=== PATIENT | male | born 1960 | race African-American/Black ===

== ENCOUNTER 2020-09-08 08:24 | Outpatient (CLI) | payer BC, SELFPAY | END 2020-09-08 08:25 | disposition home or self-care (01) | LOC: ANHAUDASC 08:25 | PROVIDERS: PCP Family Medicine; Visit Provider Otolaryngology | DX: H93.13 Tinnitus, bilateral (principal); H90.3 Sensorineural hearing loss, bilateral | CPT/HCPCS: 92557; 92567 ==

== ENCOUNTER 2020-09-21 11:03 | Outpatient (CLI) | payer BC, SELFPAY ==
--- NOTE | ~2020-09-21 | MR_ITS ---
EXAMINATION: MR IAC wo con DATE: 09/21/2020 12:13 INDICATION: Unspecified sensorineural hearing loss. Right-sided tinnitus. TECHNIQUE: Magnetic resonance imaging (MRI) of the brain, brainstem, and internal auditory canals was performed without intravenous contrast. Sequences included sagittal and axial T1-weighted FSE, axial diffusion-weighted FS EPI, axial T2*-weighted GRE, axial T2-weighted FLAIR Propeller, axial T2-weigh ashley Propeller, small [id number] coronal FIESTA, small ohusu-au-nswf coronal T1-weighted FSE, and s mall [id number]-[id number] axial T1-weighted SPGR. Apparent diffusion coefficient (ADC) maps were created. COMPARISON: None. FINDINGS: There are scattered areas of nonspecific increased T2-weighted signal intensity in the cere bral white matter, which is within normal limits for the patient's age. There is no intracranial hemo rrhage, acute infarction, or abnormal intracranial mass lesion. The ventricles are normal in size. Th e internal auditory canals and inner and middle ears are normal. The mastoid air cells are normal. Th ere is mild mucosal thickening in the paranasal sinuses. The orbits are normal. IMPRESSION: 1. Normal aging brain. Reviewed, dictated and finalized at location A. [employer] IMPRESSION: 1. Normal aging brain.
== END 2020-09-21 11:04 | disposition home or self-care (01) ==
PROVIDERS: PCP Family Medicine; Visit Provider Otolaryngology
DX: H90.5 Unspecified sensorineural hearing loss (principal)
CPT/HCPCS: 70551

== ENCOUNTER 2020-10-04 01:33 | Outpatient (CLI) | payer BC, SELFPAY ==
[2020-10-04 18:52] LABS: SARS-CoV-2 RNA PCR Negative
== END 2020-10-04 01:34 | disposition home or self-care (01) ==
LOC: ANHCOVIDDT 01:33
PROVIDERS: PCP Family Medicine; Visit Provider Internal Medicine Gastroenterology
DX: Z01.818 Encounter for other preprocedural examination (principal); Z20.828 Contact with and (suspected) exposure to other viral communicable diseases
CPT/HCPCS: 87635; C9803; U0003

== ENCOUNTER 2020-10-07 00:19 | Day surgery (SDC) | payer BC, SELFPAY ==
[2020-09-29 14:31] VITALS: BMI 48.4
--- NOTE | 2020-10-06 12:55 | WPDANESEPPF ---
Anes - Initial Pre Proc Eval Procedure: Operation Date: 10/07/20 14:00 Proposed Procedures p Screening Colonoscopy - Robi Bernal MD Date/Time: 10/06/20 12:55 Surgeon: Robi Bernal MD Pre Op Diagnosis: Neoplasm Screening Patient Data Age: 59 Gender: M Height: 1.68 m Weight: 136 kg Allergies Allergy/AdvReac Type Severity Reaction Status Date / Time Penicillins Allergy Unknown ITCHING Verified 10/07/20 12:43 RASH HANDS AND FEET Home Medications Medication Instructions Recorded Confirmed Type sildenafil 100 mg tablet 100 mg PO DAILY PRN #10 tablet 11/24/19 09/29/20 Rx albuterol sulfate 90 mcg/actuation 1 inhalation INHALATION Q4-6H PRN 06/10/20 09/29/20 Rx breath activated powder inhaler #1 each labetalol 200 mg tablet 400 mg PO BID tablet 08/18/20 09/29/20 History amlodipine 10 mg tablet 10 mg PO DAILY #90 tablet 09/13/20 09/29/20 Rx fluticasone furoate 200 1 inh INHALATION DAILY #28 ea 09/24/20 09/29/20 Rx mcg-vilanterol 25 mcg/dose inhalation powder ipratropium 0.5 mg-albuterol 3 mg See Rx Instructions .ROUTE 09/24/20 09/29/20 Rx (2.5 mg base)/3 mL nebulization .COMPLEX #180 ml soln hydrocodone 5 mg-acetaminophen 325 1 tablet PO Q12H PRN #60 tablet 09/28/20 09/29/20 Rx mg tablet amlodipine [Norvasc] 10 mg PO DAILY 09/29/20 09/29/20 History atorvastatin [Lipitor] 80 mg PO DAILY 09/29/20 09/29/20 History atorvastatin 80 mg tablet See Rx Instructions .ROUTE 10/04/20 10/07/20 Rx .COMPLEX #90 tablet Patient hx anesthesia problems: none Family hx anesthesia problems: none PMFSH Past Medical History Medical History (Updated 10/06/20 @ 12:57 by Sergio Casper MD) Asthma Chronic low back pain CKD (chronic kidney disease) stage 5, GFR less than 15 ml/min Dyslipidemia Elevated lipids Erectile dysfunction Gout History of colon polyps Hypertension 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: finished Isoniazid 300 mg daily for 9 months Morbid obesity with BMI of 45.0-49.9, adult Osteoarthritis Reactive airway disease Surgical History Surgical History Arteriovenous fistula for hemodialysis in place, primary 07/18 Family History Family History Father Diabetes mellitus Mother Coronary artery disease Mother Family history of coronary artery disease, Onset Age: 60 Father Family history of type 2 diabetes mellitus Social History Social History Smoking status: Former smoker Tobacco type: cigarettes Second hand tobacco smoke exposure: No Smoking end date: 05/02/11 Alcohol intake: former Substance use: never Substance use type: does not use Living arrangements: with family Gender identity (if verbalized by the patient): Male Sexual Orientation (if Verbalized by the Patient): Straight or Heterosexual Spiritual care concerns: No Agree to blood products: Yes Anes - Eval Final PreProcedure Day of Procedure 10/06/20 12:55 Patient weight: morbidly obese Heart: regular rate and rhythm Lungs: clear to auscultation and normal air movement Airway: Mallampati scale class II Neurological: alert and oriented Last oral intake: >/= 8 hours ASA classification: IV Emergent: no Anesthetic plan: proceed Anesthesia type and monitoring: general GIVS Informed Consent: The patient's anesthetic plan and its attendant risks and benefits were discussed with the patient/family/POA. Questions were solicited and answers provided to the satisfaction of the patient/family/POA.
[2020-10-07 12:45] VITALS: BP 170/99; PULSE 68; RESP 18; TEMP 36.4; O2SAT 100
[2020-10-07] MEDS: LACTATED RINGERS 1,000 ML 150 ML IV CONT (12:54)
--- NOTE | 2020-10-07 13:22 | PM.HPGS ---
History of Present Illness History of Present Illness Consent: Risks, benefits, and alternatives have been discussed and questions answered. Patient agrees to proceed with procedure. Chief complaint: Neoplasm Screening Narrative: Moises Red Jr. is a 59 year old male here for screening colonoscopy, last one 10 years ago. Review of Systems Constitutional: Constitutional: Denies headache(s) and Denies weakness Eyes: Eyes: Denies blurry vision ENT: Reports Normal hearing present, Denies headache(s) and Denies neck pain Cardiovascular: Cardiovascular: Denies chest pain and Denies dyspnea Respiratory: Respiratory: Denies dyspnea Gastrointestinal: Gastrointestinal: Reports no additional gastrointestinal complaints Genitourinary: Genitourinary: Denies dysuria Musculoskeletal: Musculoskeletal: Denies neck pain Integumentary/Breasts: Skin/Breast: Denies dry skin Neurologic: Reports Normal hearing present, Denies headache(s) and Denies weakness Psychiatric: Psychiatric: Denies anxiety Endocrine: Endocrine: Denies change in body appearance Hematologic/Lymphatic: Hematologic/Lymphatic: Denies easy bleeding Allergic/Immunologic: Allergic/Immunologic: Denies urticaria PMFSH Past Medical History Medical History (Updated 10/07/20 @ 13:22 by Robi Bernal MD) Asthma Chronic low back pain CKD (chronic kidney disease) stage 5, GFR less than 15 ml/min Colon cancer screening Dyslipidemia Elevated lipids Erectile dysfunction Gout History of colon polyps Hypertension 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: finished Isoniazid 300 mg daily for 9 months Morbid obesity with BMI of 45.0-49.9, adult Osteoarthritis Reactive airway disease Surgical History Surgical History Arteriovenous fistula for hemodialysis in place, primary 07/18 Family History Family History Father Diabetes mellitus Mother Coronary artery disease Mother Family history of coronary artery disease, Onset Age: 60 Father Family history of type 2 diabetes mellitus Social History Social History Smoking status: Former smoker Tobacco type: cigarettes Second hand tobacco smoke exposure: No Smoking end date: 05/02/11 Alcohol intake: former Substance use: never Substance use type: does not use Living arrangements: with family Gender identity (if verbalized by the patient): Male Sexual Orientation (if Verbalized by the Patient): Straight or Heterosexual Spiritual care concerns: No Agree to blood products: Yes Meds Home Medications and Allergies Home Medications Medication Instructions Recorded Confirmed Type sildenafil 100 mg tablet 100 mg PO DAILY PRN #10 tablet 11/24/19 09/29/20 Rx albuterol sulfate 90 mcg/actuation 1 inhalation INHALATION Q4-6H PRN 06/10/20 09/29/20 Rx breath activated powder inhaler #1 each labetalol 200 mg tablet 400 mg PO BID tablet 08/18/20 09/29/20 History amlodipine 10 mg tablet 10 mg PO DAILY #90 tablet 09/13/20 09/29/20 Rx fluticasone furoate 200 1 inh INHALATION DAILY #28 ea 09/24/20 09/29/20 Rx mcg-vilanterol 25 mcg/dose inhalation powder ipratropium 0.5 mg-albuterol 3 mg See Rx Instructions .ROUTE 09/24/20 09/29/20 Rx (2.5 mg base)/3 mL nebulization .COMPLEX #180 ml soln hydrocodone 5 mg-acetaminophen 325 1 tablet PO Q12H PRN #60 tablet 09/28/20 09/29/20 Rx mg tablet amlodipine [Norvasc] 10 mg PO DAILY 09/29/20 09/29/20 History atorvastatin [Lipitor] 80 mg PO DAILY 09/29/20 09/29/20 History atorvastatin 80 mg tablet See Rx Instructions .ROUTE 10/04/20 10/07/20 Rx .COMPLEX #90 tablet Allergies Allergy/AdvReac Type Severity Reaction Status Date / Time Penicillins Allergy Unknown ITCHING Verified 10/07/20 12:43 RASH HANDS AND FEET Vital Signs Vital S
[2020-10-07 13:37] VITALS: BP 121/78; PULSE 71; RESP 22; O2SAT 95
[2020-10-07 13:47] VITALS: BP 136/83; PULSE 65; RESP 20; O2SAT 94
[2020-10-07 13:57] VITALS: BP 145/94; PULSE 62; RESP 18; O2SAT 97
== END 2020-10-07 14:24 | disposition home or self-care (01) ==
PROVIDERS: PCP Family Medicine; Visit Provider Internal Medicine Gastroenterology
PROC: 0DJD8ZZ Inspection of Lower Intestinal Tract, Via Natural or Artificial Opening Endoscopic (ICD-10-PCS; CPT 45378; principal; 2020-10-07 14:00)
DX: Z12.11 Encounter for screening for malignant neoplasm of colon (principal); K57.30 Diverticulosis of large intestine without perforation or abscess without bleeding; I12.0 Hypertensive chronic kidney disease with stage 5 chronic kidney disease or end stage renal disease; N18.5 Chronic kidney disease, stage 5; J45.909 Unspecified asthma, uncomplicated; E78.5 Hyperlipidemia, unspecified; M10.9 Gout, unspecified; N52.9 Male erectile dysfunction, unspecified; Z86.15 Personal history of latent tuberculosis infection; E66.01 Morbid (severe) obesity due to excess calories; Z68.42 Body mass index [BMI] 45.0-49.9, adult; Z87.891 Personal history of nicotine dependence
CPT/HCPCS: 45378; J2704; J7120

== ENCOUNTER 2021-08-01 10:17 | Outpatient (CLI) | payer BC, SELFPAY ==
--- NOTE | ~2021-08-01 | XR_ITS ---
XR chest 2V DATE: 08/01/2021 10:47 INDICATION: PPD positive. No chest complaints. TECHNIQUE: PA and lateral views COMPARISON: 10/17/2019 portable upright AP chest FINDINGS: Normal heart size. No hilar or mediastinal enlargement. No pulmonary infiltrate or consolid ation, pleural effusion or pulmonary vascular congestion or pneumothorax is detected. Mild scoliosis and degenerative spurring of the thoracic spine. IMPRESSION: No active cardiopulmonary disease Reviewed, dictated and finalized at location A.
== END 2021-08-01 10:18 | disposition home or self-care (01) ==
PROVIDERS: PCP Family Medicine; Visit Provider Internal Medicine Nephrology
DX: R76.11 Nonspecific reaction to tuberculin skin test without active tuberculosis (principal)
CPT/HCPCS: 71046

== ENCOUNTER 2021-08-20 14:50 | Emergency (ER) | payer BC, SELFPAY ==
--- NOTE | ~2021-08-20 | XR_ITS ---
XR ankle RT min 3V DATE: 08/20/2021 16:06 INDICATION: Lateral pain and swelling for a day TECHNIQUE: 4 views COMPARISON: None FINDINGS: Mild plantar calcaneal enthesopathy. There is mild lateral soft tissue swelling. No fracture or dislocation of the ankle or disruption of the ankle mortise is detected. IMPRESSION: Mild lateral soft tissue swelling Mild plantar calcaneal enthesopathy Reviewed, dictated and finalized at location A.
[2021-08-20 14:52] VITALS: BP 151/97; PULSE 90; RESP 18; TEMP 36.1; O2SAT 100
--- NOTE | 2021-08-20 15:23 | ED.GENADULT ---
HPI - General Adult General Chief complaint: Unspecified <Yajaira James PA-C - Last Filed: 08/20/21 16:44> Stated complaint: right foot gout <Yajaira James PA-C - Last Filed: 08/20/21 16:44> Time Seen by Provider: 08/20/21 15:22 <Yajaira James PA-C - Last Filed: 08/20/21 16:44> Source: patient <SABRINA Molina Last Filed: 08/20/21 16:44> Mode of arrival: ambulatory <Yajaira James PA-C - Last Filed: 08/20/21 16:44> Limitations: no limitations <Yajaira James PA-C - Last Filed: 08/20/21 16:44> History of Present Illness HPI narrative: 60-year-old male with is here for right ankle pain that he states is a gout flareup. He last had a flareup 10 years ago he has been treated in the past with colchicine. He feels that this flareup was exacerbated by the eating of shellfish. Denies any injury to the ankle remote or recent. No fever <Yajaira James PA-C - Last Filed: 08/20/21 16:44> Onset (ago): hour(s) <Yajaira James PA-C - Last Filed: 08/20/21 16:44> Severity: moderate <Yajaira James PA-C - Last Filed: 08/20/21 16:44> Pain Consistency: constant <Yajaira James PA-C - Last Filed: 08/20/21 16:44> Exacerbating factors: movement <SABRINA Molina Last Filed: 08/20/21 16:44> Associated symptoms: denies other symptoms <SABRINA Molina Last Filed: 08/20/21 16:44> Related Data Home medications: Home Medications Medication Instructions Recorded Confirmed ascorbate calcium-bioflavonoid 1 tablet PO DAILY tablet 02/10/21 08/18/21 1,000 mg-200 mg tablet cholecalciferol (vitamin D3) 25 25 mcg PO DAILY 02/10/21 08/18/21 mcg (1,000 unit) capsule atorvastatin 80 mg tablet 80 mg PO QHS tablet 08/18/21 08/18/21 sodium bicarbonate 650 mg tablet 1,300 mg PO TID tablet 08/18/21 08/18/21 <Yajaira James PA-C - Last Filed: 08/20/21 16:44> Allergies/adverse reactions: Allergies Allergy/AdvReac Type Severity Reaction Status Date / Time Penicillins Allergy Unknown ITCHING Verified 08/18/21 09:06 RASH HANDS AND FEET <Yajaira James PA-C - Last Filed: 08/20/21 16:44> Review of Systems Review of Systems: All systems reviewed & are unremarkable except as noted in HPI and below <Yajaira James PA-C - Last Filed: 08/20/21 16:44> [facility] Past Medical History Medical History: Medical History Asthma Chronic low back pain Dyslipidemia Elevated lipids Erectile dysfunction ESRD on hemodialysis Gout History of colon polyps Hypertension 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: finished Isoniazid 300 mg daily for 9 months Left shoulder pain Morbid obesity with BMI of 45.0-49.9, adult Osteoarthritis Reactive airway disease Vitamin D deficiency <Yajaira James PA-C - Last Filed: 08/20/21 16:44> Surgical History Surgical History: Surgical History Arteriovenous fistula for hemodialysis in place, primary 07/18 <Yajaira James PA-C - Last Filed: 08/20/21 16:44> Family History Family History: Family History Father Diabetes mellitus Mother Coronary artery disease Mother Family history of coronary artery disease, Onset Age: 60 Father Family history of type 2 diabetes mellitus <Yajaira James PA-C - Last Filed: 08/20/21 16:44> Social History Social History: Social History Smoking status: Former smoker Tobacco type: cigarettes Second hand tobacco smoke exposure: No Smoking end date: 05/02/11 Alcohol intake: former Substance use: never Substance use type: does not use Gender identity (if verbalized by the patient): Male Sexual Orientation (if Verbalized by the Patient): Straight or Heterosexual Spiritual c
[2021-08-20 15:37] LABS: Alanine Aminotransferase 19 U/L (4-50); Albumin Level 5.2 g/dL (3.5-5.1); Alkaline Phosphatase 161 U/L (38-126); Anion Gap 16 mmol/L (8-16); Aspartate Amino Transferase 27 U/L (17-59); Bilirubin,Total 1.7 mg/dL (0.2-1.3); Blood Urea Nitrogen 32 mg/dL (9-20); Calcium 10.2 mg/dL (8.4-10.2); Carbon Dioxide 29 mmol/L (22-30); Chloride 95 mmol/L (98-107); Estimated CRCL calculation 15 ml/min; Estimated Glomerular Filt Rate 11; Glucose 99 mg/dL (65-110); Sodium 140 mmol/L (137-145); Uric Acid 3.3 mg/dL (3.5-8.5)
[2021-08-20] MEDS: COLCHICINE 0.6 MG TABLET 1.2 MG PO (15:48)
[2021-08-20] MEDS: methylPREDNISolone SOD SUCC 125 MG VIAL IM (17:00)
== END 2021-08-20 17:02 | disposition home or self-care (01) ==
PROVIDERS: Emergency Medicine; Emergency Provider General Practice; PCP Family Medicine
DX: M1A.0710 Idiopathic chronic gout, right ankle and foot, without tophus (tophi) (principal); M19.071 Primary osteoarthritis, right ankle and foot; J45.909 Unspecified asthma, uncomplicated; E78.5 Hyperlipidemia, unspecified; I12.0 Hypertensive chronic kidney disease with stage 5 chronic kidney disease or end stage renal disease; N18.6 End stage renal disease; Z86.010 Personal history of colon polyps; E66.01 Morbid (severe) obesity due to excess calories; Z68.41 Body mass index [BMI] 40.0-44.9, adult; E55.9 Vitamin D deficiency, unspecified; Z87.891 Personal history of nicotine dependence; Z99.2 Dependence on renal dialysis
CPT/HCPCS: 36415; 73610; 80053; 84550; 96372; 99283; A9270; J2930

== ENCOUNTER 2021-11-02 13:31 | Emergency (ER) | payer BC, MEDICARE, SELFPAY ==
--- NOTE | 2021-11-02 13:38 | ED.URI ---
HPI - URI/Sore Throat General Chief Complaint: Upper Respiratory Infection Stated Complaint: Flu sx Time Seen by Provider: 11/02/21 13:52 Source: patient and RN notes reviewed Mode of arrival: ambulatory Limitations: no limitations History of Present Illness HPI Narrative: 61-year-old male with history of asthma, diabetes, dialysis presents with concern for cough, shortness of breath, runny nose, stuffy nose. Reports his child tested positive for Covid. Reports he had a virtual visit with his doctor yesterday and got a steroid pack which she started taking this morning. Reports has been using nebulizer at home every 4-6 hours. He denies fever, body aches. MD elicited complaint: cough and sore throat Related Data Home Medications Medication Instructions Recorded Confirmed ascorbate calcium-bioflavonoid 1 tablet PO DAILY tablet 02/10/21 09/21/21 1,000 mg-200 mg tablet cholecalciferol (vitamin D3) 25 25 mcg PO DAILY 02/10/21 09/21/21 mcg (1,000 unit) capsule atorvastatin 80 mg tablet 80 mg PO QHS tablet 08/18/21 09/21/21 sodium bicarbonate 650 mg tablet 1,300 mg PO TID tablet 08/18/21 09/21/21 Allergies Allergy/AdvReac Type Severity Reaction Status Date / Time Penicillins Allergy Unknown ITCHING Verified 11/01/21 15:35 RASH HANDS AND FEET Review of Systems Review of Systems: CONSTITUTIONAL: Denies malaise, chills, sweats, or fever. EYES: Denies visual changes, redness, or discharge. ENT: Denies rhinorrhea, congestion, sinus pain, otalgia and sore throat. CARDIOVASCULAR: Denies chest pain, palpitations, or edema. RESPIRATORY: Reports cough, dyspnea. GASTROINTESTINAL: Denies abdominal pain, nausea, vomiting, diarrhea SKIN: Denies rash or itching. MUSCULOSKELETAL: Denies myalgia. NEUROLOGIC: Denies headache. All systems reviewed & are unremarkable except as noted in HPI and below PMFSH Past Medical History Medical History Asthma Chronic low back pain Dyslipidemia Elevated lipids Erectile dysfunction ESRD on hemodialysis Gout History of colon polyps Hypertension 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: finished Isoniazid 300 mg daily for 9 months Left shoulder pain Morbid obesity with BMI of 45.0-49.9, adult Osteoarthritis Reactive airway disease Vitamin D deficiency Surgical History Surgical History Arteriovenous fistula for hemodialysis in place, primary 07/18 Family History Family History Father Diabetes mellitus Mother Coronary artery disease Mother Family history of coronary artery disease, Onset Age: 60 Father Family history of type 2 diabetes mellitus Social History Social History Smoking status: Former smoker Tobacco type: cigarettes Second hand tobacco smoke exposure: No Smoking end date: 05/02/11 Alcohol intake: former Substance use: never Substance use type: does not use Gender identity (if verbalized by the patient): Male Sexual Orientation (if Verbalized by the Patient): Straight or Heterosexual Spiritual care concerns: No Agree to blood products: Yes Comments At time of signature, agree with nursing past medical, surgical, social and family history. There is no relevant family history pertinent to the presenting complaint Exam Narrative: GENERAL: Well-appearing, well-nourished, and in no acute distress. HEAD: Normocephalic EYES: PERRLA, conjunctivae clear ENT: Nares clear. Mucous membranes moist. TM pearly patrick with dull light reflex bilaterally; no tragal tenderness. Oropharynx not erythematous without lesions. Tonsils not enlarged and without exudate, no drooling, no hoarseness, no trismus, uvula midline. NECK: Supple. No lymphadenopathy CHEST: Inspiratory and expiratory wheeze throughout, rhonchi, breath
[2021-11-02 13:40] VITALS: BP 149/90; PULSE 73; RESP 16; TEMP 36.2; O2SAT 100
== END 2021-11-02 14:22 | disposition home or self-care (01) ==
PROVIDERS: Emergency Provider Nurse Practitioner; PCP Family Medicine
DX: J06.9 Acute upper respiratory infection, unspecified (principal); J45.909 Unspecified asthma, uncomplicated; Z20.822 Contact with and (suspected) exposure to COVID-19; Z87.891 Personal history of nicotine dependence; E78.5 Hyperlipidemia, unspecified; M10.9 Gout, unspecified; I12.0 Hypertensive chronic kidney disease with stage 5 chronic kidney disease or end stage renal disease; E11.22 Type 2 diabetes mellitus with diabetic chronic kidney disease; N18.6 End stage renal disease; Z99.2 Dependence on renal dialysis; E55.9 Vitamin D deficiency, unspecified
CPT/HCPCS: 87426; 99213; C9803; G0463

== ENCOUNTER → 2021-11-05 02:10 | Outpatient (CLI) | payer BC, MEDICARE, SELFPAY ==
[2021-11-06 16:23] LABS: SARS-CoV-2 RNA PCR Negative
== END ==
PROVIDERS: PCP Family Medicine; Visit Provider Family Medicine
DX: J06.9 Acute upper respiratory infection, unspecified (principal); Z20.822 Contact with and (suspected) exposure to COVID-19
CPT/HCPCS: C9803; U0003; U0005

== ENCOUNTER 2023-02-28 10:59 | Outpatient (CLI) | payer BC, MEDICARE, SELFPAY ==
[2023-03-04 22:16] LABS: PSA, Free 1.42 ng/mL; PSA, Total 6.4 ng/mL (<=4.0); Percent Free Prostate Spec Ag 22 % (>25)
== END 2023-02-28 11:00 | disposition home or self-care (01) ==
LOC: ANHGOSHLAB 10:59
PROVIDERS: PCP Family Medicine; Visit Provider Family Medicine
DX: R97.20 Elevated prostate specific antigen [PSA] (principal)
CPT/HCPCS: 36415; 84153; 84154

== ENCOUNTER 2023-03-27 14:27 | Outpatient (CLI) | payer BC, MEDICARE, SELFPAY ==
--- NOTE | 2023-03-28 08:38 | WPDPFTINT ---
PFT Procedure Performed PFT Procedure Performed Spirometry with Pre/Post Bronchodilator Plethysmography (Lung Vol) Diffusing Cap (DLCO) Flow Vol Loop PFT Interpretation Lung volumes were measured with the body plethysmography method. The elevated RV and FRC are indicative of air trapping. Spirometry showed diminished expiratory flow rates and a diminished FEV1 to FVC ratio of 56%, consistent with obstructive airway disease. Following administration of a bronchodilator there was significant increase in the expiratory flow rates. Lung diffusion capacity is within the normal range at 82% predicted. The flow volume loop is consistent with obstructive airway disease. Impression: Moderately severe obstructive airway disease with evidence of air trapping and significant response to bronchodilators on this testing. Lung diffusion capacity within the normal range.
== END 2023-03-27 14:28 | disposition home or self-care (01) ==
LOC: ANHLAB 14:28
PROVIDERS: PCP Family Medicine; Visit Provider Family Medicine
DX: J45.909 Unspecified asthma, uncomplicated (principal); R94.2 Abnormal results of pulmonary function studies
CPT/HCPCS: 94060; 94726; 94729

== ENCOUNTER 2023-07-27 12:19 | Outpatient (CLI) | payer MEDICARE, SELFPAY ==
--- NOTE | ~2023-07-27 | XR_ITS ---
EXAMINATION: XR chest 2V 07/27/2023 12:38 INDICATION: Positive PPD test PROCEDURE: 2 view chest COMPARISON: 06/26/2006 FINDINGS: The lungs are clear. The cardiomediastinal silhouette is within normal limits. There are no pleural effusions. There is no pneumothorax suspected. IMPRESSION: 1: NO ACUTE CARDIOPULMONARY DISEASE. Reviewed, dictated and finalized at location B.
== END 2023-07-27 12:20 | disposition home or self-care (01) ==
PROVIDERS: PCP Family Medicine; Visit Provider Internal Medicine Nephrology
DX: R76.11 Nonspecific reaction to tuberculin skin test without active tuberculosis (principal)
CPT/HCPCS: 71046

== ENCOUNTER 2023-08-27 12:27 | Outpatient (CLI) | payer MEDICARE, SELFPAY ==
[2023-08-27 20:51] LABS: Prostate Specific Antigen 6.5 ng/mL (< OR = 4.0)
== END 2023-08-27 12:28 | disposition home or self-care (01) ==
LOC: ANHGOSHLAB 12:29
PROVIDERS: PCP Family Medicine; Visit Provider Radiology Radiation Oncology
DX: C61 Malignant neoplasm of prostate (principal)
CPT/HCPCS: 36415; 84153

== ENCOUNTER 2023-09-12 10:20 | Outpatient (CLI) | payer MEDICARE, SELFPAY ==
[2023-09-12 19:07] LABS: Basophils Percent Auto 0.7 % (0.2-1.2); Eosinophils Absolute Auto 0.1 K/mm3 (0-0.3); Eosinophils Percent Auto 4.1 % (0-4.4); Hematocrit 34.1 % (42.0-52.0); Hemoglobin 10.9 g/dL (14.0-18.0); Lymphocytes Absolute Auto 0.98 K/mm3 (0.9-3.2); Lymphocytes Percent Auto 33.8 % (18.3-44.2); Mean Corpuscular Hemoglobin 31.5 pg (26-34); Mean Corpuscular Volume 98.6 fl (80-100); Mean Platelet Volume 12.3 fl (7.4-10.4); Monocytes Absolute Auto 0.5 K/mm3 (0.1-0.6); Monocytes Percent Auto 15.5 % (2.6-8.5); Neutrophils Absolute Auto 1.3 K/mm3 (1.3-6.7); Neutrophils Percent Auto 45.9 % (45.5-73.1); Platelet Count Result 115 k/mm3 (150-375); Red Blood Count 3.46 M/mm3 (4.6-6.20); Red Cell Distribution Width 14.9 % (11.5-14.5); White Blood Count 2.9 K/mm3 (4.5-10.0)
[2023-09-12 19:56] LABS: Vitamin D 25 Hydroxy 60.4 ng/mL
[2023-09-12 20:20] LABS: Alanine Aminotransferase 88 U/L (6-50); Albumin Level 4.6 g/dL (3.5-5.1); Alkaline Phosphatase 72 U/L (38-126); Anion Gap 10 mmol/L (8-16); Aspartate Amino Transferase 104 U/L (17-59); Bilirubin,Total 1.8 mg/dL (0.2-1.3); Blood Urea Nitrogen 21 mg/dL (9-20); Calcium 10.3 mg/dL (8.4-10.2); Carbon Dioxide 34 mmol/L (22-30); Chloride 93 mmol/L (98-107); Cholesterol 149 mg/dL (0-200); Estimated Glomerular Filt Rate 10; Glucose 102 mg/dL (65-110); HDL Direct 106 mg/dL; Potassium 3.6 mmol/L (3.4-5.0); Sodium 137 mmol/L (137-145); Triglycerides 57 mg/dL (<150); Uric Acid 4.3 mg/dL (3.5-8.5)
[2023-09-12 20:39] LABS: LDL Cholesterol Direct 39 mg/dL
== END 2023-09-12 10:21 | disposition home or self-care (01) ==
LOC: ANHGOSHLAB 10:21
PROVIDERS: PCP Family Medicine; Visit Provider Family Medicine
DX: I10 Essential (primary) hypertension (principal); E53.8 Deficiency of other specified B group vitamins; E78.5 Hyperlipidemia, unspecified; E55.9 Vitamin D deficiency, unspecified; M10.00 Idiopathic gout, unspecified site
CPT/HCPCS: 36415; 80053; 80061; 82306; 82607; 84443; 84550; 85025

== ENCOUNTER 2023-10-25 12:31 | Outpatient (CLI) | payer MEDICARE, SELFPAY ==
--- NOTE | ~2023-10-25 | MR_ITS ---
EXAMINATION: MR pelvis wo/w con INDICATION: Malignant neoplasm of the prostate TECHNIQUE: 3D Axial T2 Cube, Axial 2D FIESTA, Coronal SSFSE ARC, Axial and Coronal 2D FIESTA FatSat, Axial T2 FS, Axial SSFSE BH ARC, Axial 3D DualEcho BH, Axial SSFSE-IR Solitario, Axial DWI b=600, pre and d ynamic postcontrast Axial LAVA ARC, WATER:POST Cor LAVA-FLEX COMPARISON: None available CONTRAST: Multihance, 20 cc FINDINGS: There is heterogeneous T2 signal intensity in the central zone of the prostate. Areas of in creased T1 signal intensity in the peripheral zone of the prostate could reflect biopsy change. There appears to be an intact fat plane between the prostate or rectum. No pathologically enlarged pelvic lymph nodes are identified. There are bilateral inguinal hernias containing fat, right greater than l eft. The visualized osseous structures are unremarkable. IMPRESSION: 1. No evidence of metastatic disease. Reviewed, dictated and finalized at location B. [facility] SORTER
== END 2023-10-25 12:32 | disposition home or self-care (01) ==
PROVIDERS: PCP Family Medicine; Visit Provider Radiology Radiation Oncology
DX: C61 Malignant neoplasm of prostate (principal)
CPT/HCPCS: 72197; A9577

== ENCOUNTER 2024-06-04 16:23 | Emergency (ER) | payer MEDICARE, SELFPAY ==
[2024-06-04 16:52] VITALS: BP 118/95; PULSE 77; RESP 16; TEMP 36.1; O2SAT 100
--- NOTE | 2024-06-04 17:09 | ED.ABDPAIN ---
HPI - Abdominal Pain General Chief Complaint: Abdominal Pain Stated Complaint: Right Side Pain Time Seen by Provider: 06/04/24 17:10 Source: patient, RN notes reviewed and old records reviewed Mode of arrival: ambulatory Limitations: no limitations History of Present Illness HPI narrative: patient presents with complaints of sudden-onset right-sided upper abdominal pain. Pain began suddenly this morning at about 10:00 a.m.. He reports that he is constipated. No bowel movement today. Decreased appetite. He denies any fever, chills, sweats. Denies nausea or vomiting. Sunday, , Sunday dialysis. Last dialyzed yesterday. Denies any shortness of breath. Related Data Home Medications Medication Instructions Recorded Confirmed ascorbate calcium-bioflavonoid 1 tablet PO DAILY 02/10/21 06/04/24 1,000 mg-200 mg tablet (Yadira-C with Bioflavonoids) sodium bicarbonate 650 mg tablet 1,300 mg PO TID 08/18/21 06/04/24 colchicine 0.6 mg tablet 0.6 mg PO DAILY PRN Pain 08/23/22 06/04/24 loratadine 10 mg tablet (Claritin) 10 mg PO DAILY PRN ALLERGIES 08/23/22 06/04/24 multivitamin 1 tablet PO DAILY 08/23/22 06/04/24 Allergies Allergy/AdvReac Type Severity Reaction Status Date / Time Penicillins Allergy Unknown ITCHING Verified 06/04/24 17:13 RASH HANDS AND FEET Review of Systems Review of Systems: All systems reviewed & are unremarkable except as noted in HPI and below Constitutional: Constitutional: Reports no additional constitutional complaints ENT: Reports system reviewed and no additional complaints, except as documented Cardiovascular: Cardiovascular: Reports no additional cardiovascular complaints Respiratory: Respiratory: Reports no additional respiratory complaints Gastrointestinal: Gastrointestinal: Reports as per HPI and Reports no additional gastrointestinal complaints [facility] Past Medical History Medical History Chronic low back pain COPD with asthma Dyslipidemia Elevated lipids Environmental allergies Erectile dysfunction ESRD on hemodialysis Gout History of colon polyps Hypertension 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: finished Isoniazid 300 mg daily for 9 months Left shoulder pain Morbid obesity with BMI of 45.0-49.9, adult Osteoarthritis Prostate cancer (~2022) Vitamin D deficiency Surgical History Surgical History Arteriovenous fistula for hemodialysis in place, primary (~06/2020) 07/18 H/O rotator cuff surgery (~10/2021) left S/P cubital tunnel release (~03/2021) left Family History Family History Father Diabetes mellitus Mother Coronary artery disease Mother Family history of coronary artery disease, Onset Age: 60 Father Family history of type 2 diabetes mellitus Social History Social History Smoking status: Former smoker (< 20 pack years) Tobacco type: cigarettes Second hand tobacco smoke exposure: No Smoking end date: 10/29/99 Alcohol intake: former Substance use: never Substance use type: does not use Living arrangements: with family Occupation/Education: retired Gender identity (if verbalized by the patient): Male Sexual Orientation (if Verbalized by the Patient): Straight or Heterosexual Spiritual care concerns: No Agree to blood products: Yes Exam Const: General: cooperative, no acute distress, alert, awake and uncomfortable Orientation/consciousness: oriented to person, oriented to place and oriented to time HENMT: Head: normal to inspection Resp: Effort & Inspection: normal respiratory effort and able to speak in complete sentences Auscultation: clear to auscultation bilaterally, no crackles, no rales, no rhonchi, no wheezes and diminished lung sounds diffuse Cardio: Pal[place]
== END 2024-06-04 17:21 | disposition short-term general hospital (02) ==
PROVIDERS: Emergency Provider Nurse Practitioner Family; PCP Family Medicine
DX: R10.11 Right upper quadrant pain (principal); Z87.891 Personal history of nicotine dependence; J44.9 Chronic obstructive pulmonary disease, unspecified; E78.5 Hyperlipidemia, unspecified; M10.9 Gout, unspecified; I12.0 Hypertensive chronic kidney disease with stage 5 chronic kidney disease or end stage renal disease; N18.6 End stage renal disease; Z99.2 Dependence on renal dialysis; E66.01 Morbid (severe) obesity due to excess calories; Z68.41 Body mass index [BMI] 40.0-44.9, adult; M19.90 Unspecified osteoarthritis, unspecified site; Z85.46 Personal history of malignant neoplasm of prostate
CPT/HCPCS: 99212; G0463

== ENCOUNTER 2024-06-04 17:38 | Emergency (ER) | payer MEDICARE, SELFPAY ==
[2024-06-04] VITALS (8 sets, daily range): BP systolic 104–142; BP diastolic 72–91; PULSE 73–81; RESP 14–21; TEMP 36.6; O2SAT 98–100
--- NOTE | ~2024-06-04 | CT_ITS ---
CT abdomen pelvis wo con Ordering provider: Yenny Medina PA-C History: 63 years Male with . RLQ and RUQ abd pain . Comparison: None. Technique: CT abdomen and pelvis without IV and without oral contrast. Automated exposure control and iterative reconstruction technique were emp loyed. The dose-length product was 1465.88 mGy-cm. Findings: VISUALIZED LOWER CHEST: Granuloma in the right lower lobe. UPPER ABDOMINAL ORGANS: Liver: Normal. Gallbladder: Normal. Spleen: Normal. Stomach/duodenum: Normal. Pancreas: Normal. Adrenals: Normal. Kidneys: Atrophic both kidneys with the right measuring 6 cm. Left measures 6.3 cm. No hydronephrotic changes. 2 small cysts are seen in the right kidney PELVIC ORGANS: The bladder shows slightly thickened wall with underfilling. Evaluation for cystitis a dvised. Enlarged prostate with brachytherapy changes. BOWEL AND MESENTERY: Colon: Mild thickening of the wall of the cecum and ascending colon is noted with surrounding fat str anding suggestive of colitis. Diverticulitis cannot be excluded.. . Possibility of colo-colic Intuss usception in the area cannot be excluded. Further evaluation advised. Normal appendix. Small Bowel: Normal. No obstruction. Peritoneum/mesentery: No free air or free fluid. No mesenteric lymphadenopathy. RETROPERITONEUM: Mild atheromatous disease of the abdominal aorta. No retroperitoneal lymphadenopat hy. MUSCULOSKELETAL: Superficial soft tissues: Bilateral fat containing inguinal hernias. Otherwise, The superficial soft tissues are normal. Bones: Age appropriate degenerative changes of the spine. IMPRESSION: 1. Bilateral atrophic kidneys. 2. Slight thickening of the wall of the cecum with surrounding fat stranding which may indicate coli tis versus diverticulitis. Possibility of intussusception the area cannot be excluded. Further evalua tion advised. 3. Thickened wall of the urinary bladder with enlarged prostate. Reviewed, dictated and finalized at location A. IMPRESSION: 1. Bilateral atrophic kidneys. 2. Slight thickening of the wall of the cecum with surrounding fat stranding w hich may indicate colitis versus diverticulitis. Possibility of intussusception the area cannot be excluded. Further evaluation advised. 3. Thickened wall of the urinary bladder with enlarged prostate.
--- NOTE | 2024-06-04 18:38 | ED.ABDPAIN ---
HPI - Abdominal Pain General Chief Complaint: Abdominal Pain Stated Complaint: abdominal pain Time Seen by Provider: 06/04/24 18:26 History of Present Illness HPI narrative: 63-year-old male with history of hypertension, COPD, away, ESRD on hemodialysis with a Sunday, Sunday schedule presents to the emergency department for right-sided abdominal pain that started around 10:00 a.m. this morning. Patient states his pain seem to be worse when he ate breakfast and lunch. States he had 2 small snickers and a payday for breakfast with toast, sausage and cheese. States he then had catfish for lunch. Each time he waited eats his pain became worse. He denies prior abdominal surgeries, N/V/ D, chest pain or shortness of breath, fever. Last bowel movement was 2 days ago normal. Denies obstipation. States he does still make urine. Denies dysuria or hematuria. States he has not missed any dialysis appointments. His buffing line set up worker is Dr. Villarreal. Related Data Home Medications Medication Instructions Recorded Confirmed ascorbate calcium-bioflavonoid 1 tablet PO DAILY 02/10/21 06/04/24 1,000 mg-200 mg tablet (Yadira-C with Bioflavonoids) sodium bicarbonate 650 mg tablet 1,300 mg PO TID 08/18/21 06/04/24 colchicine 0.6 mg tablet 0.6 mg PO DAILY PRN Pain 08/23/22 06/04/24 loratadine 10 mg tablet (Claritin) 10 mg PO DAILY PRN ALLERGIES 08/23/22 06/04/24 multivitamin 1 tablet PO DAILY 08/23/22 06/04/24 Allergies Allergy/AdvReac Type Severity Reaction Status Date / Time Penicillins Allergy Unknown ITCHING Verified 06/04/24 17:38 RASH HANDS AND FEET Review of Systems Review of Systems: All systems reviewed & are unremarkable except as noted in HPI and below PMFSH Past Medical History Medical History Chronic low back pain COPD with asthma Dyslipidemia Elevated lipids Environmental allergies Erectile dysfunction ESRD on hemodialysis Gout History of colon polyps Hypertension 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: finished Isoniazid 300 mg daily for 9 months Left shoulder pain Morbid obesity with BMI of 45.0-49.9, adult Osteoarthritis Prostate cancer (~2022) Vitamin D deficiency Surgical History Surgical History Arteriovenous fistula for hemodialysis in place, primary (~06/2020) 07/18 H/O rotator cuff surgery (~10/2021) left S/P cubital tunnel release (~03/2021) left Family History Family History Father Diabetes mellitus Mother Coronary artery disease Mother Family history of coronary artery disease, Onset Age: 60 Father Family history of type 2 diabetes mellitus Social History Social History Smoking status: Former smoker (< 20 pack years) Tobacco type: cigarettes Second hand tobacco smoke exposure: No Smoking end date: 10/29/99 Alcohol intake: former Substance use: never Substance use type: does not use Living arrangements: with family Occupation/Education: retired Gender identity (if verbalized by the patient): Male Sexual Orientation (if Verbalized by the Patient): Straight or Heterosexual Spiritual care concerns: No Agree to blood products: Yes Exam Narrative: GENERAL: Well-appearing, well-nourished, and in no acute distress. HEAD: Normocephalic, atraumatic. EYES: PERRLA and EOMI. ENT: Nares clear, no rhinorrhea or epistaxis. Mucous membranes moist. NECK: Supple. CHEST: Clear to auscultation. No respiratory distress. HEART: Regular rate and rhythm. No murmur heard. Normal peripheral pulses. ABDOMEN: quiet bowel sounds. Tenderness in the right upper quadrant and right lower quadrant with guarding. No rebound or rigidity. No CVA tenderness EXTREMITIES: Normal range of motion. No edema. SKIN: Warm, dry,
[2024-06-04 19:25] LABS: Basophils Percent Auto 0.4 % (0.2-1.2); Eosinophils Absolute Auto 0.1 K/mm3 (0-0.3); Eosinophils Percent Auto 1.3 % (0-4.4); Hematocrit 33.9 % (42.0-52.0); Hemoglobin 10.8 g/dL (14.0-18.0); Immature Granulocyte Absolute 0.02 K/mm3 (0.00-0.031); Immature Granulocyte Percent A 0.4 % (0-0.5); Immature Platelet Fraction Pct 8.6 % (0.9-11.2); Lymphocytes Absolute Auto 0.73 K/mm3 (0.9-3.2); Mean Corpuscular HGB Conc 31.9 g/dl (32-36); Mean Corpuscular Hemoglobin 32.2 pg (26-34); Mean Corpuscular Volume 101.2 fl (80-100); Mean Platelet Volume 11.7 fl (7.4-10.4); Monocytes Absolute Auto 0.7 K/mm3 (0.1-0.6); Monocytes Percent Auto 13.2 % (2.6-8.5); Neutrophils Absolute Auto 3.7 K/mm3 (1.3-6.7); Neutrophils Percent Auto 70.7 % (45.5-73.1); Platelet Count Result 114 k/mm3 (150-375); Red Blood Count 3.35 M/mm3 (4.6-6.20); Red Cell Distribution Width 13.6 % (11.5-14.5); White Blood Count 5.2 K/mm3 (4.5-10.0)
[2024-06-04 19:27] LABS: Phosphorus 3.3 mg/dL (2.5-4.5)
[2024-06-04 19:28] LABS: Alanine Aminotransferase 17 U/L (6-50); Albumin Level 4.4 g/dL (3.5-5.1); Alkaline Phosphatase 126 U/L (38-126); Anion Gap 12 mmol/L (4-12); Aspartate Amino Transferase 25 U/L (17-59); Bilirubin,Total 1.4 mg/dL (0.2-1.3); Blood Urea Nitrogen 40 mg/dL (9-20); Calcium 10.2 mg/dL (8.4-10.2); Carbon Dioxide 30 mmol/L (22-30); Chloride 96 mmol/L (98-107); Estimated CRCL calculation 9 ml/min; Estimated Glomerular Filt Rate 7; Glucose 107 mg/dL (65-110); Lipase 91 U/L (23-300); Potassium 4.1 mmol/L (3.4-5.0); Sodium 138 mmol/L (137-145)
[2024-06-04] MEDS: MORPHINE SULFATE (*CRX) 4 MG/ML INJ IV PUSH (19:38)
[2024-06-04 20:55] LABS: Add Urine Microscopic? YES; Appearance Urine Clear (Clear); Bacteria Urine None Seen /hpf; Bilirubin Urine Negative (Negative); Blood Urine Negative (Negative); Color Urine Yellow (Yellow); Glucose Urine UA Negative (Negative); Ketones Urine Negative (Negative); Leukocyte Esterase Ur Negative LEU/UL (Negative); Nitrate Urine Negative (Negative); Non Pathogenic Casts 0-2; Protein Urine 2+ mg/dL (Negative); RBC Urine 0-2 /hpf (0-2); Specific Grav Ur 1.012 (1.001-1.035); Squamous Epithelial Cell Urine None Seen /hpf (Few); Urobilinogen Urine 0.2 mg/dL (<2.0); WBC Urine 0-5 /hpf (0-3); pH Urine >=9.0 (5.0-9.0)
[2024-06-04] MEDS: metroNIDAZOLE 500 MG TABLET PO (21:44)
[2024-06-04] MEDS: CIPROFLOXACIN 500 MG TAB PO (21:44)
== END 2024-06-04 22:21 | disposition home or self-care (01) ==
PROVIDERS: Emergency Provider Physician Assistant; PCP Family Medicine
DX: K52.9 Noninfective gastroenteritis and colitis, unspecified (principal); I12.0 Hypertensive chronic kidney disease with stage 5 chronic kidney disease or end stage renal disease; N18.6 End stage renal disease; Z99.2 Dependence on renal dialysis; J44.9 Chronic obstructive pulmonary disease, unspecified; E78.5 Hyperlipidemia, unspecified; E55.9 Vitamin D deficiency, unspecified; E66.01 Morbid (severe) obesity due to excess calories; Z68.41 Body mass index [BMI] 40.0-44.9, adult; M10.9 Gout, unspecified; M19.90 Unspecified osteoarthritis, unspecified site; Z85.46 Personal history of malignant neoplasm of prostate; Z86.010 Personal history of colon polyps; Z79.899 Other long term (current) drug therapy; N40.0 Benign prostatic hyperplasia without lower urinary tract symptoms; R93.41 Abnormal radiologic findings on diagnostic imaging of renal pelvis, ureter, or bladder
CPT/HCPCS: 36415; 74176; 80053; 81001; 83690; 83735; 84100; 85025; 85055; 96374; 99284; A9270; J2270

== ENCOUNTER 2024-11-05 08:21 | Outpatient (NON) | payer MEDICARE, SELFPAY ==
[2024-11-05 12:48] LABS: Add Urine Microscopic? YES; Appearance Urine Clear (Clear); Bacteria Urine None Seen /hpf; Bilirubin Urine Negative (Negative); Blood Urine Negative (Negative); Color Urine Yellow (Yellow); Glucose Urine UA Negative (Negative); Ketones Urine Negative (Negative); Leukocyte Esterase Ur Negative LEU/UL (Negative); Nitrate Urine Negative (Negative); Non Pathogenic Casts 0-2; Protein Urine 2+ mg/dL (Negative); RBC Urine 0-2 /hpf (0-2); Squamous Epithelial Cell Urine None Seen /hpf (Few); Urobilinogen Urine 0.2 mg/dL (<2.0); WBC Urine 0-5 /hpf (0-3); pH Urine 8.5 (5.0-9.0)
== END 2024-11-05 08:22 | disposition home or self-care (01) ==
PROVIDERS: PCP Family Medicine; Visit Provider Family Medicine
DX: N39.0 Urinary tract infection, site not specified (principal)
CPT/HCPCS: 81001

== ENCOUNTER 2024-12-24 09:55 | Outpatient (CLI) | payer MEDICARE, SELFPAY ==
--- NOTE | ~2024-12-24 | XR_ITS ---
CHEST RADIOGRAPH, PA AND LATERAL CLINICAL HISTORY: R76.11 - Nonspecific reaction to tuberculin skin test wit... . COMPARISON: 07/27/2023 TECHNIQUE: PA and lateral views of the chest. FINDINGS The cardiomediastinal silhouette is unremarkable. The lungs are clear. Visualized osseous structures and soft tissues are unremarkable. IMPRESSION: No focal infiltrate or effusion. Specifically, no findings to suggest acute or latent tuberculosis, as detailed above. Reviewed, dictated and finalized at location A. DIRECTOR
--- OUTSIDE RECORDS SUMMARY | 2024-12-24 11:09 | XMS_ITS | Referral Summary ---
Author Organization [facility] [employer] Address [address] [place] [address] Care Team Providers Care Motor And Controls Tester Name Role Phone Ren Flower MD Primary Care Provider Source Comments [facility] [employer],non-owned Affiliates and Associated Physician Practices is amultiple site organization consisting of ambulatory clinics and hospital sitesin [place], [place] and [place]. This disclosure is being madepursuant to the Care Everywhere program and may not contain all information available regarding this patient. Last updated 18.[facility] [employer] Allergies Active Allergy Reactions Criticality Noted Date Comments Penicillins Rash Medium 04/01/2020 Medications * Be aware that medications may not be up to date on this document. Alwaysverify current medications with the patient. Medication Sig Dispensed Refills Start Date End Date Status atorvastatin (LIPITOR) 80 MG tablet Take 80 mg by mouth at bedtime Active amLODIPine (NORVASC) 5 MG tablet Take 1 (one) tablet by mouth once daily Active HYDROcodone-Acetami nophen (NORCO PO) Take by mouth as needed Active PROAIR RESPICLICK 108 (90 Base) MCG/ACT INHALE 2 PUFFS BY MOUTH EVERY 4 6 HOURS NEEDED FOR SHORTNESS OF BREATH 06/11/2020 Active labetalol (NORMODYNE; TRANDATE) 200 MG tablet 07/12/2020 Active psyllium (METAMUCIL) 58.6 % powder Take 1 packet by mouth 3 times daily as needed for Constipation Active Bioflavonoid Products (SHELBY-C) 500-550 MG TABS Take 1,000 mg by mouth Active Active Problems Problem Noted Date Diagnosed Date Chronic kidney disease, stage 4 (severe) 017 Essential (primary) hypertension 07/30/2017 Gout 07/30/2017 Hyperlipidemia 07/30/2017 Social History Tobacco Use Types Packs/Day Years Used Date Smoking Tobacco: Former Cigarettes Smokeless Tobacco: Never Alcohol Use Standard Drinks/Week Comments Not Currently 0 (1 standard drink = 0.6 oz pur e alcohol) Sex and Gender Information Value Date Recorded Sex Assigned at Not on file Gender Identity Not on file Sexual Orientation Not on file Last Filed Vital Signs Vital Sign Reading Time Taken Comments Blood Pressure 185/109 04/11/2023 12:29 PM CDT Pulse 68 04/11/2023 12:29 PM CDT Temperature 36.2 C (97.1 F) 08/24/2020 1:18 PM CDT Respiratory Rate 11 04/11/2023 12:29 PM CDT Oxygen Saturation 99% 04/11/2023 12:29 PM CDT Inhaled Oxygen Concentration - - Weight 140.6 kg (310 lb) 08/24/2020 1:18 PM CDT Height 167.6 cm (5' 6 ) 08/24/2020 1:18 PM CDT Body Mass Index 50.04 08/24/2020 1:18 PM CDT Functional Status Functional Status Response Date of Assess ment Is person deaf or have serious hearing difficult y? No 07/16/2020 Is person blind or have serious difficulty seein g? No 07/16/2020 Does person have serious dif ficulty walking/climbing stairs? No 07/16/2020 Does person have difficulty dressing/bathing? No 07/16/2020 Does person have difficulty doing errands alone? No 07/16/2020 Cognitive Status Response Date of Assessm ent Does person have difficulty concentrating/remembering/making decisions? No 07/16/2020 Plan of Treatment Not on file Procedures Procedure Name Priority Date/Time Associated Diagnosis Comments COMPREHENSIVE METABOLIC PANEL Routine 07/13/2020 12:30 PM CDT Chronic kidney disease, stage 4 (severe) (HCC) from Last 3 Months or Most Recently Relevant to Health Maintenance Results * (ABNORMAL) COMPREHENSIVE METABOLIC PANEL (07/13/2020 12:30 PM CDT) BUN 65(H) 7 - 26 mg/dL 07/13/2020 1:29 PM CDT [facility] Creatinine 6.9(H) 0.6 - 1.2 mg/dL 07/13/2020 1:29 PM [facility] Sodium 144 136 - 145 mmol/L 07/13/2020 1:29 PM [facility] Potassium 4.7(H) 3.5 - 4.5 mmol/L 07/13/2020 1:29 PM [facility] Chloride 112(H) 98 - 107 mmol/L 07/13/2020 1:29 PM [facility] CO2 24 22 - 29 mmol/L 07/13/2020 1:29 PM [facility] Glucose 96 70 - 115 mg/dL 07/13/2020 1:29 PM [facility] Calcium 9.3 8.4 - 10.2 mg/dL 07/13/2020 1:29 PM [facility] Protein Total 7.2 6.0 - 8.3 g/dL 07/13/2020 1:29 PM [facility] Albumin 3.8 3.4 - 5.0 g/dL 07/13/2020 1:29 PM [facility] Bilirubin Total 1.1 0.2 - 1.2 mg/dL 07/13/2020 1:29 PM [facility] Alkaline Phosphatase 125 40 - 150 Units/L 07/13/2020 1:29 PM [facility] ALT 9 0 - 55 Units/L 07/13/2020 1:29 PM [facility] AST 12 5 - 34 Units/L 07/13/2020 1:29 PM [facility] Anion Gap 13 8 - 18 07/13/2020 1:29 PM [facility] BUN/Creatinine Ratio 9 7 - 23 07/13/2020 1:29 PM [facility] Osmolality Calculated 317(H) 270 - 300 mOsm/kg 07/13/2020 1:29 PM [facility] Albumin/Globulin Ratio 1.1 1.1 - 2.3 07/13/2020 1:29 PM [facility] eGFR 10(L) >60 mL/min/1.7 3 m2 07/13/2020 1:29 PM [facility] Blood BLOOD SPECIMEN / Unknown Lab Venipuncture / Unknown 07/13/2020 12:30 PM CDT 07/13/2020 1:01 PM CDT Ronnie Noriega MD LAB - CHEMISTRY OR DERABLES [facility] [address] [place] [address], [facility] [phone] from Last 3 Months or Most Recently Relevant to Health Maintenance Care Teams Motor And Controls Tester Relationship Specialty Start Date End Date Ren Flower MD [address] [place] [address] PCP - General 01/30/20
--- OUTSIDE RECORDS SUMMARY | 2024-12-24 11:09 | XMS_ITS | Clinical Summary ---
Author Organization [facility] Address [address] [place] [address] Care Team Providers Care Svp Business Development Name Role Phone Ren Flower MD Primary Care Provider Source Comments [facility],non-owned Affiliates and Associated Physician Practices is amultiple site organization consisting of ambulatory clinics and hospital sitesin [place], [place], [place] and [place]. This disclosure is being madepursuant to the Care Everywhere program and may not contain all information available regarding this patient. Last updated 18.[facility] Allergies Active Allergy Reactions Criticality Noted Date [...] Mass Index 50.04 08/24/2020 1:18 PM CDT Plan of Treatment Health Maintenance Due Date Last Done Comments COLOGUARD (AGES 45-75) - COL ON CA SCREENING 1960 COLON MONITORING 1960 COLONOSCOPY - COLON CA SCREENING 1960 CT COLONOGRAPHY - COLON CA SCREENING 1960 Colorectal Cancer Screening 1960 FIT - COLON CA SCREENING 1960 FLEX SIG - COLON CA SCREENING 1960 HIV SCREENING 1975 HEPATITIS C SCREENING 10/16/1978 DTAP/TDAP/TD VACCINES (1 - Tdap) 1979 PNEUMOCOCCAL VACCINE 50+ (1 of 1 - PCV) 2010 ZOSTER VACCINE (1 of 2) 2010 Respiratory Syncytial Virus (RSV) Vaccine Pt: or over 60 yrs (1 - Risk 60-74 years 1-dose series) 2020 SCREENING FOR DIABETES 07/13/2023 07/13/2020 COVID-19 VACCINE (2 - 2023-2 5 season) 2024 01/14/2021 INFLUENZA VACCINE (#1) 2024 0, 10/07/2019, 09/27/2017 DEPRESSION SCREENING 10/29/2024 HEPATITIS B VACCINE Aged Out No longe r eligible based on patient's age to complete this topic HIB VACCINE Aged Out No longer eligi ble based on patient's age to complete this topic HPV VACCINE Aged Out No longer eligi ble based on patient's age to complete this topic MENINGOCOCCAL (Group B) VACCINE Aged Out No longer eligible b ased on patient's age to complete this topic MENINGOCOCCAL VACCINE Aged Out No belkis isidro eligible based on patient's age to complete this topic PNEUMOCOCCAL VACCINE Aged Out No long er eligible based on patient's age to complete this topic Procedures Procedure Name Priority Date/Time Associated Diagnosis Comments COMPREHENSIVE METABOLIC PANEL Routine 07/13/2020 12:30 PM CDT Chronic kidney disease, stage 4 (severe) (HCC) from Last 3 Months or Most Recently Relevant to Health Maintenance Results * (ABNORMAL) COMPREHENSIVE METABOLIC PANEL (07/13/2020 12:30 PM CDT) BUN 65(H) 7 - 26 mg/dL 07/13/2020 1:29 PM [facility] Creatinine 6.9(H) 0.6 - 1.2 mg/dL 07/13/2020 1:29 PM [facility] Sodium 144 136 - 145 mmol/L 07/13/2020 1:29 PM [facility] Potassium 4.7(H) 3.5 - 4.5 mmol/L 07/13/2020 1:29 PM [facility] Chloride 112(H) 98 - 107 mmol/L 07/13/2020 1:29 PM [facility] CO2 24 22 - 29 mmol/L 07/13/2020 1:29 PM [facility] Glucose 96 70 - 115 mg/dL 07/13/2020 1:29 PM [facility] Calcium 9.3 8.4 - 10.2 mg/dL 07/13/2020 1:29 PM [facility] Protein Total 7.2 6.0 - 8.3 g/dL 07/13/2020 1:29 PM [facility] Albumin 3.8 3.4 - 5.0 g/dL 07/13/2020 1:29 PM [facility] Bilirubin Total 1.1 0.2 - 1.2 mg/dL 07/13/2020 1:29 PM [facility] Alkaline Phosphatase 125 40 - 150 Units/L 07/13/2020 1:29 PM [facility] ALT 9 0 - 55 Units/L 07/13/2020 1:29 PM [facility] AST 12 5 - 34 Units/L 07/13/2020 1:29 PM [facility] Anion Gap 13 8 - 18 07/13/2020 1:29 PM [facility] BUN/Creatinine Ratio 9 7 - 23 07/13/2020 1:29 PM [facility] Osmolality Calculated 317(H) 270 - 300 mOsm/kg 07/13/2020 1:29 PM [facility] Albumin/Globulin Ratio 1.1 1.1 - 2.3 07/13/2020 1:29 PM [facility] eGFR 10(L) >60 mL/min/1.7 3 m2 07/13/2020 1:29 PM [facility] Blood BLOOD SPECIMEN / Unknown Lab Venipuncture / Unknown 07/13/2020 12:30 PM CDT 07/13/2020 1:01 PM T Ronnie Noriega MD LAB - CHEMISTRY OR DERABLES [facility] [address] [place] [address], [facility] [phone] from Last 3 Months or Most Recently Relevant to Health Maintenance Care Teams Svp Business Development Relationship Specialty Start Date End Date Ren Flower MD [address] [place] [address] PCP - General 01/30/20
--- OUTSIDE RECORDS SUMMARY | 2024-12-24 11:10 | XMS_ITS | Clinical Summary ---
Author Organization [facility] Address [address], [address] [address] Phone Care Team Providers Care Python Programmer Name Role Phone Didier Altamirano MD Primary Care Provider [phone] Allergies No known active allergies Medications polyethylene glycol (MIRALAX) Powder Use entire 255g bottle with 64oz of clear liquid as directed for colonoscopy prep. 255 g 0 6 Active Family History Medical History Relation Name Comments Heart Disease Father Heart Disease Mother Relation Name Status Comments Father Mother Social History Tobacco Use Types Packs/Day Years Used Date Smoking Tobacco: Former Alcohol Use Standard Drinks/Week Comments No 0 (1 standard drink = 0.6 oz pur e alcohol) Sex and Gender Information Value Date Recorded Sex Assigned at Not on file Legal Sex Male 10:02 AM METAL SANDER Gender Identity Not on file Sexual Orientation Not on file Last Filed Vital Signs Vital Sign Reading Time Taken Comments Blood Pressure - - Pulse - - Temperature - - Respiratory Rate - - Oxygen Saturation - - Inhaled Oxygen Concentration - - Weight 136.1 kg (300 lb) 12/27/2016 3:00 PM METAL SANDER Height 167.6 cm (5' 6 ) 12/27/2016 3:00 PM MET[employer] S[employer]ER Body Mass Index 48.42 12/27/2016 3:00 PM METAL SANDER Plan of Treatment Health Maintenance Due Date Last Done Comments Hepatitis C Virus (HCV) Screening 1960 TdaP Immunization 1960 Colonoscopy 2005 Colorectal Cancer Screening 2005 Cologuard 2010 Immunochemical Fecal Occult Blood 2010 Pneumococcal Immunization (5 0+ years) (1 of 1 - PCV) 2010 Zoster Immunization (1 of 2) 2010 PSA Discussion 2015 Influenza Immunization (#1) 2024 SARS-COV-2 Immunization (2023-25 season) 2024 Respiratory Syncytial Virus (RSV) Immunization (Adult) (1 - 1-dose 75+ series) 2035 Hepatitis B Immunization Aged Out No longer eligible based on patient's age to complete this topic Meningococcal Immunization (ACWY) Aged Out No longer eligible based on patient's age to complete this topic Pneumococcal Immunization Combined Aged Out No longer eligible based on patient's age to complete this topic Rotavirus Immunization Aged Out No lo nger eligible based on patient's age to complete this topic Insurance [facility] Care Teams Python Programmer Relationship Specialty Start Date End Date Didier Altamirano MD [address] [place] [address] PCP - General Family Medicine 09/06/16
--- OUTSIDE RECORDS SUMMARY | 2024-12-24 11:10 | XMS_ITS | Patient Health Summary ---
Author Organization [facility] Mixpo Address [address] [place] [address] Care Team Providers Care Drapery And Upholstery Estimator Name Role Phone Ren Flower MD Primary Care Provider Note from [facility],non-owned Affiliates and Associated Physician Practices is amultiple site organization consisting of ambulatory clinics and hospital sitesin [place], [place], [place] and [place]. This disclosure is being madepursuant to the Care Everywhere program and may not contain all information available regarding this patient. Last updated 18.[facility] Allergies * Penicillins(Rash) -Medium Criticality Medications * Be aware that medications may not be up to date on this document. Alwaysverify current medications with the patient. * atorvastatin (LIPITOR) 80 MG tablet Take 80 mg by mouth at bedtime * amLODIPine (NORVASC) 5 MG tablet Take 1 (one) tablet by mouth once daily * HYDROcodone-Acetaminophen (NORCO PO) Take by mouth as needed * PROAIR RESPICLICK 108 (90 Base) MCG/ACT(Started 06/11/2020) INHALE 2 PUFFS BY MOUTH EVERY 4 6 HOURS NEEDED FOR SHORTNESS OF BREATH * labetalol (NORMODYNE; TRANDATE) 200 MG tablet(Started 07/12/2020) * psyllium (METAMUCIL) 58.6 % powder Take 1 packet by mouth 3 times daily as needed for Constipation * Bioflavonoid Products (SHELBY-C) 500-550 MG TABS Take 1,000 mg by mouth Active Problems Problem Noted Date Diagnosed Date [...] Mass Index 50.04 08/24/2020 1:18 PM CDT Procedures * IR ANGIO AV SHUNT IMAGING(Performed 04/11/2023) Performed for End stage renal disease (HCC), Encounter for extracorporeal dialysis (HCC) * IR ANGIO AV SHUNT IMAGING(Performed 08/08/2021) Performed for End stage renal disease (HCC) * CARDIAC EKG ORDER(Performed 07/19/2020) * CREATION ARTERIOVENOUS (AV) FISTULA WITH/WITHOUT GRAFT(Performed 07/16/2020) Performed for Chronic kidney disease, stage 4 (severe) (HCC) * LARYNGEAL MASK AIRWAY(Performed 07/16/2020) * POTASSIUM WHOLE BLD(Performed 07/16/2020) Performed for Pre-op evaluation * SARS-COV-2 (COVID-19) IN HOUSE(Performed 07/13/2020) Performed for Chronic kidney disease, stage 4 (severe) (HCC) * PTT [facility](Performed 07/13/2020) Performed for Chronic kidney disease, stage 4 (severe) (HCC) * PT-INR [facility](Performed 07/13/2020) Performed for Chronic kidney disease, stage 4 (severe) (HCC) * CBC W AUTO DIFFERENTIAL(Performed 07/13/2020) Performed for Chronic kidney disease, stage 4 (severe) (HCC) * COMPREHENSIVE METABOLIC PANEL(Performed 07/13/2020) Performed for Chronic kidney disease, stage 4 (severe) ([facility]) * EKG 12-LEAD(Performed 07/13/2020) Performed for Pre-op evaluation * VAS BILAT MAPPING FOR HEMODIALYSIS(Performed 04/20/2020) Performed for Chronic kidney disease, stage 4 (severe) ([facility]) Results * IR ANGIO AV SHUNT IMAGING (04/11/2023 12:37 PM CDT) Only the most recent of2 resultswithin the time period is included. Anatomical Region Laterality Modality Lower Extremity, Upper Extremity, Chest X-Ray Angiography Narrative 04/11/2023 4:31 PM CDT Vito Chopra MD 04/11/2023 4:45 PM Moises Red [id number] Interventional Nephrology Procedure Date: 04/11/2023 Attending Surgeon and performing the procedure: Vito Chopra MD Medical indication for the procedure: 62 year old linda with ESRD dialyzing through a right upper arm AV Fistula. Referred for angiographic evaluation due to high venous pressures and prolonged bleeding. EXAM: There were no vitals taken for this visit. General appearance: alert, cooperative, no distress Heart: Regular rate, normal S1 and S2, without murmurs Lungs: breath sounds normal and symmetric; no wheezes Extremities: no cyanosis or edema. Increased pulsation on exam along the right upper arm AV fistula. Indications for the procedure: 1. Malfunctioning Right upper arm AV Fistula due to high venous pressures. 2. ESRD On Dialysis Procedures Performed: 1. ANGIOGRAPHIC PROCEDURES: ANGIOGRAM OF DIALYSIS CIRCUIT WITH PASTRY WRAPPER OF PERIPHERY; 25010 2. SEDATION CODES: SEDATION - MODERATE INITIAL; 68919 Findings: 1. There is a 75 % stenosis of the right upper arm Cephalic vein at the level of the mid upper arm. The cephalic vein arch is patent and without stenosis. The right Axillary vein, subclavian vein, Right Brachio Cephalic vein and the Superior Vena cava are patent without stenosis. There is Brisk flow through large collateral veins that drain into the axillary vein bypassing the stenosis. 2. There was full elastic recoil of the right upper arm cephalic vein with > 50 % residual stenosis of the right upper arm cephalic vein with persistent brisk flow throug large collateral veins - Indications of medical necessity for the introduction of an intravascular stent first vessel. 3. There was no residual stenosis along the right upper arm cephalic vein following the deployment of a 10 mm by 40 mm straight configuration Covera stent graft. Description of the procedure: After informed consent was obtained Moises Red was taken to the angiography suite and placed on the fluoroscopy table in the supine position. Prior to beginning the procedure, universal protocol was performed to confirm the patient's identity and the planned procedure. Maximum sterile barriers including cap, mask, hand hygiene, sterile gloves, sterile gown, large sterile drape, sterile gel, sterile ultrasound probe cover, and 2% chlorhexidine for cutaneous antisepsis were used. The Right Brachial artery to cephalic vein AV Fistula was accessed with a micropuncture needle (part of the micro puncture set) in the direction of the outflow. A microfilament wire was advanced through the needle and a 5 F dilator was advanced over the wire and placed by modified Seldinger technique. The inner dilator and microfilament wire were removed. The angiogram performed showed: 1. There is a 75 % stenosis of the right upper arm Cephalic vein at the level of the mid upper arm. The cephalic vein arch is patent and without stenosis. The right Axillary vein, subclavian vein, Right Brachio Cephalic vein and the Superior Vena cava are patent without stenosis. There is Brisk flow through large collateral veins that drain into the axillary vein bypassing the stenosis. A 8 F vascular sheath was exchanged over a 0.035 hydrophilic guide wire for The 5 F dilator. A 10 mm x 40 mm Hatfield balloon was advanced over the wire to the right upper arm cephalic vein stenosis and inflated to 14 atms. The balloon was deflated and removed leaving the wire across the lesion. A post procedure angiogram showed: 2. There was full elastic recoil of the right upper arm cephalic vein with > 50 % residual stenosis of the right upper arm cephalic vein with persistent brisk flow throug large collateral veins - Indications of medical necessity for the introduction of an intravascular stent first vessel. A 10 mm X 40 mm straight configuration Covera Stent graft was advanced over the wire to the right mid upper arm cephalic vein and deployed under fluoroscopic guidance. A 10 mm X 40 mm dorado balloon was advanced and inflated to nominal pressure across the stent graft. A [id number] suture was inserted using 2-0 prolene to achieve hemostasis at the access site. Moderate sedation was ordered by wy and administer intravenously and monitored by the procedure nurse as an independent observer who was present throughout the procedure. The following parameters were monitored: Oxygen saturation, heart rate, blood pressure, End Tidal CO2, and response to care. Intra-service sedation start time was 12:18 pm and end time was 12:28 pm. Total physician intra service sedation time was 10 minutes. The patient tolerated the procedure well with Versed and Fentanyl for moderate conscious sedation and 1 % Lidocaine for local anesthesia.. IV Versed: 1 mg Versed wasted: 1 mg IV Fentanyl: 75 mcg Fentanyl wasted: 25 mcg IV Contrast: 25 ml of Isovue 300. Fluoroscopy time: 1.59 min. Absorbed patient dose: 14.027 mGy. COMPLICATIONS: None. IMPRESSION: Successful Angiogram, PASTRY WRAPPER, and stent graft deployment of the right Brachial artery to cephalic vein AV Fistula. No residual stenosis observed. RECOMMENDATIONS: 1. May access fistula for dialysis. 2. Remove suture next dialysis. 3. Follow up as needed. Vito Chopra MD 04/11/2023 4:31 PM [facility] VAC [phone] Agustin Villarreal MD [facility] Agustin Villarreal MD IR ORDERABLES * CARDIAC EKG ORDER (07/19/2020 3:40 PM CDT) Narrative 07/19/2020 3:40 PM CDT Ordered by an unspecified provider. Scanned Document CARDIAC SERVICES ORD ERABLES * LARYNGEAL MASK AIRWAY (07/16/2020 8:17 AM CDT) Narrative Tristan Steiner DO - 07/16/2020 8:17 AM CDT Tristan Steiner DO 07/16/2020 8:18 AM LMA Placement Procedure/LDA Note: Patient Location: OR. LMA Insertion Date/Time: 07/16/2020 8:05 AM Procedure: LMA. Pretreatment: 100% O2 Induction: inhalation Patient position: sniffing and supine. Mask Ventilation: easy Type: LMA Size: 5 Number of Attempts: 1. Placement verified by: CO2 monitor Dentition unchanged? Yes Procedure Start Time: 07/16/2020 8:05 AM. Staff Section Anesthesia Provider: Tristan Steiner DO, Performed the procedure Raf Ruelas MD GENERAL ANESTHESIA O RDERABLES * POTASSIUM WHOLE BLD (07/16/2020 7:11 AM CDT) Pathologist [facility] Potassium Whole Blood 4.7 3.5 - 5.5 mmol/L 07/16/2020 7:20 AM CDT [facility] Blood WHOLE BLOOD SPECIMEN / Unknown Venipuncture / Unknown 07/16/2020 7:11 AM CDT 07/16/2020 7:17 AM CDT Skyler Osman TRACK PATROL-REMELT FURNACE EXPEDITER LAB - WOOD FLOORING SPECIALIST RY ORDERABLES Performing Organization Address [facility] Co de Phone Number [address] [address], [facility] [phone] * SARS-COV-2 (COVID-19) PRE-SURGICAL/PROCEDURE (07/13/2020 1:17 PM CDT) Pathologist [facility] COVID-19 PCR Not detected Not detected, Invalid 07/14/2020 6:24 AM CDT [facility] Microbiology SPECIMEN FROM NASOPHARYNGEAL STRUCTURE / Unknown Collection / Unknown 07/13/2020 1:17 PM CDT 07/13/2020 1:17 PM CDT Narrative [facility] - 07/14/2020 6:24 AM CDT This Real Time RT-PCR assay was developed and its performance characteristics determined by [facility]. This test has been authorized by the Food and Drug administration (FDA)under an Emergency Use Authorization (EUA). This test has been validated in accordance with the FDA's guidance document Policy for Diagnostic Testing in Laboratories Certified to perform High Complexity Testing under CLIA prior to Emergency Use Authorization for Coronavirus Disease-2019 during the Public Health Emergency issued on December 27, 2019. FDA independent review of this validation is pending. This test is only authorized for the duration of time the declaration that circumstances exist justifying the authorization of emergency use of in vitro diagnostic tests for detection of SARS-CoV-2 virus and/or diagnosis of COVID-19 infection under section 564(b)(1) of the Act, 21 U.S.C 360bbb-3 (b)(1), unless the authorization is terminated or revoked sooner. Ronnie Noriega MD LAB - MICROBIOLOGY ORDERABLES Performing Organization Address City/[facility]/ZIP Co de Phone Number [facility] [address] [place] [address], [facility] [phone] * PTT [facility] (07/13/2020 12:30 PM CDT) APTT 32.7 23.0 - 38.4 Seconds 07/13/2020 1:13 PM CDT [facility] Comment:Suggested therapeuti c range for full dose I.V. unfractionated heparin therapy for venous thromboembolism is 71 to 109 seconds. Blood BLOOD SPECIMEN / Unknown Lab Venipuncture / Unknown 07/13/2020 12:30 PM CDT 07/13/2020 1:04 PM CDT Ronnie Noriega MD LAB - COAGULATION ORDERABLES Performing Organization Address [facility] Co de Phone Number [facility] [address] [place] [address], [place] [phone] * PT-INR [facility] (07/13/2020 12:30 PM CDT) PT 14.3 12.1 - 14.8 Seconds 07/13/2020 1:11 PM CDT [facility] INR 1.1 See Comment 07/13/2020 1:11 PM CDT [facility] Comment:The suggested therap eutic range for standard coumadin (warfarin) therapy is an INR of 2.0-3.0. For high-risk patients (Mechanical Mitral Valve Prosthesis, etc.), the suggested prophylactic therapeutic range is an INR of 2.5-3.5. Blood BLOOD SPECIMEN / Unknown Lab Venipuncture / Unknown 07/13/2020 12:30 PM CDT 07/13/2020 1:04 PM CDT Ronnie Noriega MD LAB - COAGULATION ORDERABLES [facility] [address] [place] [address], [facility] [phone] * (ABNORMAL) CBC WITH DIFFERENTIAL (07/13/2020 12:30 PM CDT) WBC 4.0 3.5 - 10.5 10 3/uL 07/13/2020 1:10 PM [facility] RBC 3.34(L) 4.30 - 5.70 10 6/uL 07/13/2020 1:10 PM [facility] Hemoglobin 9.6(L) 13.5 - 17.5 g/dL 07/13/2020 1:10 PM [facility] Hematocrit 31.8(L) 39.0 - 50.0 % 07/13/2020 1:10 PM [facility] MCV 95.2 81.0 - 97.0 fL 07/13/2020 1:10 PM [facility] MCH 28.7 28.0 - 34.0 pg 07/13/2020 1:10 PM [facility] MCHC 30.2(L) 32.0 - 36.0 g/dL 07/13/2020 1:10 PM [facility] Platelet Count 120(L) 150 - 400 10 3/uL 07/13/2020 1:10 PM [facility] RDW-SD 48.1 36.0 - 50.0 fL 07/13/2020 1:10 PM [facility] RDW-CV 13.7 11.2 - 14.8 % 07/13/2020 1:10 PM [facility] MPV 13.4(H) 9.3 - 12.8 fL 07/13/2020 1:10 PM [facility] nRBC Absolute 0.00 0 10 3/uL 07/13/2020 1:10 PM [facility] nRBC Auto 0.0 0 /100 WBC 07/13/2020 1:10 PM [facility] Neutrophils % 59.8 35.0 - 70.0 % 07/13/2020 1:10 PM CDT [facility] Lymphocytes % 24.6 19.7 - 55.1 % 07/13/2020 1:10 PM [facility] Monocytes % 10.9 3.0 - 15.0 % 07/13/2020 1:10 PM [facility] Eosinophils % 3.7 0.0 - 6.0 % 07/13/2020 1:10 PM [facility] Basophil % 0.5 0.0 - 1.5 % 07/13/2020 1:10 PM [facility] Neutrophils Absolute 2.4 1.6 - 7.0 10 3/uL 07/13/2020 1:10 PM [facility] Lymphocyte Absolute 1.0 0.8 - 2.9 10 3/uL 07/13/2020 1:10 PM [facility] Monocytes Absolute 0.44 0.14 - 0.66 10 3/uL 07/13/2020 1:10 PM [facility] Eosinophils Absolute 0.15 0.00 - 0.45 10 3/uL 07/13/2020 1:10 PM [facility] Basophils Absolute 0.02 0.00 - 0.06 10 3/uL 07/13/2020 1:10 PM [facility] Immature Granulocytes % 0.5 0.0 - 1.0 % 07/13/2020 1:10 PM [facility] Blood BLOOD SPECIMEN / Unknown Lab Venipuncture / Unknown 07/13/2020 12:30 PM CDT 07/13/2020 1:08 PM CDT Ronnie Noriega MD LAB - HEMATOLOGY O RDERABLES [facility] [address] [place] [address], [facility] [phone] * (ABNORMAL) COMPREHENSIVE METABOLIC PANEL (07/13/2020 12:30 PM CDT) BUN 65(H) 7 - 26 mg/dL 07/13/2020 1:29 PM T [facility] Creatinine 6.9(H) 0.6 - 1.2 mg/dL 07/13/2020 1:29 PM [facility] Sodium 144 136 - 145 mmol/L 07/13/2020 1:29 PM [facility] Potassium 4.7(H) 3.5 - 4.5 mmol/L 07/13/2020 1:29 PM [facility] Chloride 112(H) 98 - 107 mmol/L 07/13/2020 1:29 PM [facility] CO2 24 22 - 29 mmol/L 07/13/2020 1:29 PM [facility] Glucose 96 70 - 115 mg/dL 07/13/2020 1:29 PM [facility] Calcium 9.3 8.4 - 10.2 mg/dL 07/13/2020 1:29 PM [facility] Protein Total 7.2 6.0 - 8.3 g/dL 07/13/2020 1:29 PM [facility] Albumin 3.8 3.4 - 5.0 g/dL 07/13/2020 1:29 PM [facility] Bilirubin Total 1.1 0.2 - 1.2 mg/dL 07/13/2020 1:29 PM [facility] Alkaline Phosphatase 125 40 - 150 Units/L 07/13/2020 1:29 PM [facility] ALT 9 0 - 55 Units/L 07/13/2020 1:29 PM [facility] AST 12 5 - 34 Units/L 07/13/2020 1:29 PM [facility] Anion Gap 13 8 - 18 07/13/2020 1:29 PM [facility] BUN/Creatinine Ratio 9 7 - 23 07/13/2020 1:29 PM [facility] Osmolality Calculated 317(H) 270 - 300 mOsm/kg 07/13/2020 1:29 PM [facility] Albumin/Globulin Ratio 1.1 1.1 - 2.3 07/13/2020 1:29 PM [facility] eGFR 10(L) >60 mL/min/1.7 3 m2 07/13/2020 1:29 PM [facility] Blood BLOOD SPECIMEN / Unknown Lab Venipuncture / Unknown 07/13/2020 12:30 PM T 07/13/2020 1:01 PM CDT Ronnie Noriega MD LAB - CHEMISTRY OR DERABLES [facility] [address] [id number], [facility] [phone] * EKG 12-LEAD (07/13/2020 11:47 AM CDT) Ventricular Rate 57 BPM [facility] MUSE Atrial Rate 57 BPM [facility] MUSE P-R Interval 136 ms H MUSE QRS Duration ms 84 ms [facility] MUSE Q-T Interval ms 394 ms [facility] MUSE QTC Calculation (Bezet) 383 ms [facility] MUSE Calculated P Kouts 58 degrees [facility] MUSE Calculated R Kouts 23 degrees [facility] M[facility] Calculated T Kouts 81 degrees [facility] MUSE Interpretation EKG SINUS BRADYCARDIA NONSPECIFIC T WAVE ABNORMALITY ABNORMAL ECG NO PREVIOUS ECGS AVAILABLE Confirmed by fellow Marcos Nieves ([id number]) on 07/22/2020 8:42:49 AM Confirmed by Newton Allen ([id number]) on 08/03/2020 7:43:33 PM [facility] MUSE 07/13/2020 11:4 7 AM CDT 08/03/2020 7:43 PM CDT Skyler Jeronimoadolfo RUBYN-REMELT FURNACE EXPEDITER ECG ORDERABLE S Performing Organization Address [facility] Co de Phone Number [facility] * VAS BILAT MAPPING FOR HEMODIALYSIS (04/20/2020 2:32 PM CDT) Anatomical Region Laterality Modality Lower Extremity, Upper Extremity Intravascular Ultrasound 04/20/2020 1:54 PM CDT Narrative Procedure Note Kirit Lamb MD - 04/21/2020 Ronnie Noriega MD VASCULAR LAB ORDER [facility] Care Teams Drapery And Upholstery Estimator Relationship Specialty Start Date End Date Ren Flower MD [address] [place] [address] PCP - General 01/30/20
--- OUTSIDE RECORDS SUMMARY | 2024-12-24 11:11 | XMS_ITS ---
Author Organization [facility] Sol[facility]warz ([facility]) Address [address] [place] [id number] Care Team Providers Care Negative Retoucher Name Role Phone Unavailable Unavailable Unavailable Allergies, Adverse Reactions, Alerts Allergy Name Allergy Type Status Severity Reaction(s) Onset Date Inactive Date Treating Clinician Comments Penicillins Allergy Active Moderate Allergy 2020-10 0 05:00: 00 Medications Ordered Medication Name Filled Medication Name Start Date Stop Date Current Medication? Ordering Clinician Indication Dosage Frequency Signature (SIG) Comments Components calcitriol 12-22 19:36: 48 Yes [id number] Number of Repeats Allowed: Frequency: Three times a week Mircera 11-14 15:44: 09 Yes [id number] Number of Repeats Allowed: Frequency: CADY dosing, every four weeks Mircera 2023-10 06:00: 00 Yes [id number] Number of Repeats Allowed: Frequency: CADY dosing, every four weeks calcitriol 2023-10 06:00: 00 Yes [id number] Number of Repeats Allowed: Frequency: Three times a week Venofer 2023-10 13:50: 50 Yes [id number] Number of Repeats Allowed: Frequency: One time a weekDosesO rdered: Maintenanc e Dose 50 Milligram Route: Intravenou s amLODIPine Besylate 02-14 17:15: 47 Yes Number of Repeats Allowed: Frequency: One time a day Sodium Bicarbonate 02-14 17:15: 18 Yes Number of Repeats Allowed: Frequency: Four times a day Sildenafil Citrate 02-14 17:14: 33 Yes Number of Repeats Allowed: Frequency: As needed Multivitami n 2023-0 4-19 17:13: 33 Yes Number of Repeats Allowed: Frequency: One time a day Labetalol HCl 02-14 17:13: 02 Yes Number of Repeats Allowed: Frequency: Two times a day HYDROcodone -Acetaminop hen 02-14 17:12: 30 Yes Number of Repeats Allowed: Frequency: As needed Atorvastati n Calcium 02-14 17:11: 40 Yes Number of Repeats Allowed: Frequency: One time a day Ascorbic Acid 02-14 17:11: 13 Yes Number of Repeats Allowed: Frequency: One time a day Antacid Extra Strength 01-29 05:00: 00 Yes [id number] Number of Repeats Allowed: Frequency: Every 4 hours as needed acetaminoph en 01-29 05:00: 00 Yes [id number] Number of Repeats Allowed: Frequency: Every 4 hours as needed ondansetron hydrochlori de 01-29 05:00: 00 Yes [id number] Number of Repeats Allowed: Frequency: Every 4 hours as needed Normal Saline Solution 0.9% NaCl 01-29 05:00: 00 Yes [id number] Number of Repeats Allowed: Frequency: As needed clonidine 01-29 05:00: 00 Yes [id number] Number of Repeats Allowed: Frequency: Every 4 hours as needed Oxygen 01-29 05:00: 00 Yes [id number] Number of Repeats Allowed: Frequency: As needed diphenhydra mine hydrochlori de 01-29 05:00: 00 Yes [id number] Number of Repeats Allowed: Frequency: Every 30 minutes as needed heparin sodium, porcine 01-24 17:47: 44 Yes [id number] Number of Repeats Allowed: Frequency: Every Dialysis TreatmentD osesOrdere d: Hourly Dose 500 Units/Hr 1:1000 Units/mLRo [place]: Intravenou s heparin sodium, porcine 01-24 17:47: 44 Yes [id number] Number of Repeats Allowed: Frequency: Every Dialysis TreatmentD osesOrdere d: Loading Dose 1000 Units 1:1000 Units/mLRo [place]: Intravenou s Problems This patient has no known problems. Procedures Procedure Date / Time Performed Performing Clinician Beatriz terrazas Details AV Fistula 2021-08-04 05:00:00 Access Site Upper Arm (Right) Access Use Start Date 2021-08-04 05:00:0 0 DIALYSIS TREATMENT INFORMATION Conventional Hemodialysis Date Type Treatment Start Date Treatment End Date Pre-Treatment Vitals Post-Treatment Vitals Weight Gain BFR DFR Actual UF Dialysis Access Febru jane 2024 In-Ce nter Hemod ialys is Treat ment 2024-12-23 T12:10:18. 000Z 2024-12-23 T15:39:53. 000Z BP Sitting (Pre-Dialysis) 156/91 mmHg BP Sitting (Post-D ialysis ) 129/ 83 mmHg Sitting Heart Rate Pre-Dialysis 84 BPM Sitting H eart Rate Post-Dialysis 74 BPM Temperature Pre-Dialysis 98.2 degF Temperature Post -Dialysis 97.8 degF December 20, 2024 In-Center Hemodialysis Treatment [id number]:08:52.000Z 2027-89-87S82:34:42.000Z BP Sitting (Pre-Dialysis) 162/91 mmHg BP Sitting (Post-Dialysis) 130/74 mmHg Concurrent Access: falseAV Fistula Upper Arm (Right) Arterial Sitting Heart Rate Pre-Dialysis 77 BPM Sitting H eart Rate Post-Dialysis 79 BPM Temperature Pre-Dialysis 98.1 degF Temperature Post -Dialysis 97.4 degF December 18, 2024 In-Center Hemodialysis Treatment 6515-03-32W88:07:50.000Z 0288-41-17Q51:30:45.000Z BP Sitting (Pre-Dialysis) 139/78 mmHg BP Sitting (Post-Dialysis) 125/72 mmHg Concurrent Access: falseAV Fistula Upper Arm (Right) Arterial BP Standing (Pre-Dialysis) 161/86 mmHg Sitti ng Heart Rate Post-Dialysis 70 BPM Sitting Heart Rate Pre-Dialysis 79 BPM Temperatu re Post-Dialysis 97.8 degF Standing Heart Rate Pre-Dialysis 81 BPM Temperature Pre-Dialysis 97.8 degF December 16, 2024 In-Center Hemodialysis Treatment 1341-22-36P28:24:38.000Z 4825-27-79B49:49:13.000Z BP Sitting (Pre-Dialysis) 142/93 mmHg BP Sitting (Post-Dialysis) 133/76 mmHg Concurrent Access: falseAV Fistula Upper Arm (Right) Arterial Sitting Heart Rate Pre-Dialysis 71 BPM BP Standing (Post-Dialysis) 125/68 mmHg Temperature Pre-Dialysis 97.3 degF Sitting Heart Ra te Post-Dialysis 69 BPM Standing Heart Rate Post-Mouna lysis 78 BPM Temperature Post-Dialysis 97 .2 degF December 13, 2024 In-Center Hemodialysis Treatment 6678-82-47N50:24:07.000Z 5071-81-81Z14:49:32.000Z BP Sitting (Pre-Dialysis) 132/75 mmHg BP Sitting (Post-Dialysis) 103/58 mmHg Concurrent Access: falseAV Fistula Upper Arm (Right) Arterial BP Standing (Pre-Dialysis) 131/77 mmHg Sitti ng Heart Rate Post-Dialysis 68 BPM Sitting Heart Rate Pre-Dialysis 69 BPM Temperatu re Post-Dialysis 97.2 degF Standing Heart Rate Pre-Dialysis 70 BPM Temperature Pre-Dialysis 97.2 degF December 11, 2024 In-Center Hemodialysis Treatment 6646-11-95H98:21:00.000Z 6267-76-39D87:52:24.000Z BP Sitting (Pre-Dialysis) 142/86 mmHg BP Sitting (Post-Dialysis) 134/72 mmHg Concurrent Access: falseAV Fistula Upper Arm (Right) Arterial BP Standing (Pre-Dialysis) 142/83 mmHg BP Standing (P ost-Dialysis) 117/67 mmHg Sitting Heart Rate Pre-Dialysis 86 BPM Sitting Heart Rate Post-Dialysis 72 BPM Standing Heart Rate Pre-Dialysis 89 BPM Standing Heart Rate Post-Dialysis 84 BPM Temperature Pre-Dialysis 97.8 degF Temperature Post -Dialysis 98 degF December 09, 2024 In-Center Hemodialysis Treatment 0699-31-19O34:35:07.000Z 5658-18-25Z24:07:12.000Z BP Sitting (Pre-Dialysis) 128/73 mmHg BP Sitting (Post-Dialysis) 115/70 mmHg Concurrent Access: falseAV Fistula Upper Arm (Right) Arterial BP Standing (Pre-Dialysis) 148/85 mmHg Sitti ng Heart Rate Post-Dialysis 64 BPM Sitting Heart Rate Pre-Dialysis 66 BPM Temperatu re Post-Dialysis 97.3 degF Standing Heart Rate Pre-Dialysis 63 BPM Temperature Pre-Dialysis 97.8 degF December 06, 2024 In-Center Hemodialysis Treatment 7337-33-19N45:31:56.000Z 5105-23-35E85:02:21.000Z BP Sitting (Pre-Dialysis) 137/82 mmHg BP Sitting (Post-Dialysis) 121/75 mmHg Concurrent Access: falseAV Fistula Upper Arm (Right) Arterial BP Standing (Pre-Dialysis) 129/78 mmHg Sitti ng Heart Rate Post-Dialysis 79 BPM Sitting Heart Rate Pre-Dialysis 75 BPM Temperatu re Post-Dialysis 97.9 degF Standing Heart Rate Pre-Dialysis 82 BPM Temperature Pre-Dialysis 97.7 degF December 04, 2024 In-Center Hemodialysis Treatment 1582-36-03C95:20:00.000Z 3748-60-51E62:51:24.000Z BP Sitting (Pre-Dialysis) 153/89 mmHg BP Sitting (Post-Dialysis) 117/69 mmHg Concurrent Access: falseAV Fistula Upper Arm (Right) Arterial BP Standing (Pre-Dialysis) 149/86 mmHg Sitti ng Heart Rate Post-Dialysis 68 BPM Sitting Heart Rate Pre-Dialysis 85 BPM Temperatu re Post-Dialysis 97.8 degF Standing Heart Rate Pre-Dialysis 86 BPM Temperature Pre-Dialysis 97.8 degF December 02, 2024 In-Center Hemodialysis Treatment 2687-60-61Z23:17:42.000Z 0221-29-06G80:48:07.000Z BP Sitting (Pre-Dialysis) 151/86 mmHg BP Sitting (Post-Dialysis) 142/81 mmHg Concurrent Access: falseAV Fistula Upper Arm (Right) Arterial BP Standing (Pre-Dialysis) 147/83 mmHg Sitti ng Heart Rate Post-Dialysis 75 BPM Sitting Heart Rate Pre-Dialysis 77 BPM Temperatu re Post-Dialysis 97.4 degF Standing Heart Rate Pre-Dialysis 84 BPM Temperature Pre-Dialysis 97.8 degF November 29, 2024 In-Center Hemodialysis Treatment 6115-20-37J96:25:07.000Z 0862-98-16X54:53:02.000Z BP Sitting (Pre-Dialysis) 123/58 mmHg BP Sitting (Post-Dialysis) 117/75 mmHg Concurrent Access: falseAV Fistula Upper Arm (Right) Arterial Sitting Heart Rate Pre-Dialysis 70 BPM Sitting H eart Rate Post-Dialysis 65 BPM Temperature Pre-Dialysis 98.1 degF Temperature Post -Dialysis 97.8 degF November 27, 2024 In-Center Hemodialysis Treatment 7469-90-60S03:20:00.000Z 7855-34-14S03:49:33.000Z BP Sitting (Pre-Dialysis) 130/89 mmHg BP Sitting (Post-Dialysis) 122/80 mmHg Concurrent Access: falseAV Fistula Upper Arm (Right) Arterial BP Standing (Pre-Dialysis) 153/85 mmHg Sitti ng Heart Rate Post-Dialysis 66 BPM Sitting Heart Rate Pre-Dialysis 68 BPM Temperatu re Post-Dialysis 97.7 degF Standing Heart Rate Pre-Dialysis 68 BPM Temperature Pre-Dialysis 97.8 degF November 25, 2024 In-Center Hemodialysis Treatment 1520-45-72I97:19:00.000Z 3989-31-00S31:43:48.000Z BP Sitting (Pre-Dialysis) 149/85 mmHg BP Sitting (Post-Dialysis) 128/71 mmHg Concurrent Access: falseAV Fistula Upper Arm (Right) Arterial BP Standing (Pre-Dialysis) 138/75 mmHg Sitti ng Heart Rate Post-Dialysis 81 BPM Sitting Heart Rate Pre-Dialysis 84 BPM Temperatu re Post-Dialysis 97.5 degF Standing Heart Rate Pre-Dialysis 92 BPM Temperature Pre-Dialysis 98.1 degF November 22, 2024 In-Center Hemodialysis Treatment 9990-16-07O06:13:03.000Z 5408-23-41U27:43:28.000Z BP Sitting (Pre-Dialysis) 140/83 mmHg BP Sitting (Post-Dialysis) 116/71 mmHg Concurrent Access: falseAV Fistula Upper Arm (Right) Arterial BP Standing (Pre-Dialysis) 137/83 mmHg Sitti ng Heart Rate Post-Dialysis 77 BPM Sitting Heart Rate Pre-Dialysis 70 BPM Temperatu re Post-Dialysis 97.9 degF Standing Heart Rate Pre-Dialysis 75 BPM Temperature Pre-Dialysis 97.3 degF November 20, 2024 In-Center Hemodialysis Treatment 9777-15-44D36:28:21.000Z 1959-84-86C71:03:21.000Z BP Sitting (Pre-Dialysis) 138/62 mmHg BP Sitting (Post-Dialysis) 141/82 mmHg Concurrent Access: falseAV Fistula Upper Arm (Right) Arterial BP Standing (Pre-Dialysis) 116/74 mmHg BP Standing (P ost-Dialysis) 134/70 mmHg Sitting Heart Rate Pre-Dialysis 78 BPM Sitting Heart Rate Post-Dialysis 73 BPM Standing Heart Rate Pre-Dialysis 79 BPM Standing Heart Rate Post-Dialysis 82 BPM Temperature Pre-Dialysis 97.7 degF Temperature Post -Dialysis 97.8 degF November 18, 2024 In-Center Hemodialysis Treatment 7567-95-61Y52:17:00.000Z 8641-95-64Q15:51:58.000Z BP Sitting (Pre-Dialysis) 120/62 mmHg BP Sitting (Post-Dialysis) 107/68 mmHg Concurrent Access: falseAV Fistula Upper Arm (Right) Arterial BP Standing (Pre-Dialysis) 130/72 mmHg BP Standing (P ost-Dialysis) 117/76 mmHg Sitting Heart Rate Pre-Dialysis 78 BPM Sitting Heart Rate Post-Dialysis 67 BPM Standing Heart Rate Pre-Dialysis 79 BPM Standing Heart Rate Post-Dialysis 81 BPM Temperature Pre-Dialysis 97.8 degF Temperature Post -Dialysis 97.6 degF November 15, 2024 In-Center Hemodialysis Treatment 9140-46-75H90:10:09.000Z 5126-88-21N27:44:19.000Z BP Sitting (Pre-Dialysis) 137/77 mmHg BP Sitting (Post-Dialysis) 144/88 mmHg Concurrent Access: falseAV Fistula Upper Arm (Right) Arterial BP Standing (Pre-Dialysis) 150/87 mmHg Sitti ng Heart Rate Post-Dialysis 71 BPM Sitting Heart Rate Pre-Dialysis 78 BPM Temperatu re Post-Dialysis 97.2 degF Standing Heart Rate Pre-Dialysis 79 BPM Temperature Pre-Dialysis 97.2 degF November 13, 2024 In-Center Hemodialysis Treatment 0471-24-53P99:11:37.000Z 5463-85-23O68:41:37.000Z BP Sitting (Pre-Dialysis) 140/88 mmHg BP Sitting (Post-Dialysis) 170/81 mmHg Concurrent Access: falseAV Fistula Upper Arm (Right) Arterial BP Standing (Pre-Dialysis) 149/83 mmHg Sitti ng Heart Rate Post-Dialysis 94 BPM Sitting Heart Rate Pre-Dialysis 77 BPM Temperatu re Post-Dialysis 97.8 degF Standing Heart Rate Pre-Dialysis 78 BPM Temperature Pre-Dialysis 97.5 degF November 11, 2024 In-Center Hemodialysis Treatment 4216-98-57F24:21:59.000Z 5255-71-11O72:53:14.000Z BP Sitting (Pre-Dialysis) 154/97 mmHg BP Sitting (Post-Dialysis) 143/80 mmHg Concurrent Access: falseAV Fistula Upper Arm (Right) Arterial Sitting Heart Rate Pre-Dialysis 79 BPM BP Standing (Post-Dialysis) 136/82 mmHg Temperature Pre-Dialysis 97.2 degF Sitting Heart Ra te Post-Dialysis 90 BPM Standing Heart Rate Post-Mouna lysis 104 BPM Temperature Post-Dialysis 97 .8 degF November 08, 2024 In-Center Hemodialysis Treatment 5724-96-21F25:16:28.000Z 5658-15-89X36:42:43.000Z BP Sitting (Pre-Dialysis) 137/79 mmHg BP Sitting (Post-Dialysis) 133/81 mmHg Concurrent Access: falseAV Fistula Upper Arm (Right) Arterial BP Standing (Pre-Dialysis) 144/96 mmHg Sitti ng Heart Rate Post-Dialysis 76 BPM Sitting Heart Rate Pre-Dialysis 88 BPM Temperatu re Post-Dialysis 97.5 degF Standing Heart Rate Pre-Dialysis 90 BPM Temperature Pre-Dialysis 97.8 degF November 06, 2024 In-Center Hemodialysis Treatment 7958-96-70O11:24:47.000Z 3315-95-25V16:53:32.000Z BP Sitting (Pre-Dialysis) 134/78 mmHg BP Sitting (Post-Dialysis) 133/79 mmHg Concurrent Access: falseAV Fistula Upper Arm (Right) Arterial BP Standing (Pre-Dialysis) 106/64 mmHg Sitti ng Heart Rate Post-Dialysis 79 BPM Sitting Heart Rate Pre-Dialysis 75 BPM Temperatu re Post-Dialysis 98.1 degF Standing Heart Rate Pre-Dialysis 84 BPM Temperature Pre-Dialysis 97 degF November 04, 2024 In-Center Hemodialysis Treatment 6741-23-43O00:15:44.000Z 6901-26-52R11:44:29.000Z BP Sitting (Pre-Dialysis) 158/97 mmHg BP Sitting (Post-Dialysis) 123/86 mmHg Concurrent Access: falseAV Fistula Upper Arm (Right) Arterial Sitting Heart Rate Pre-Dialysis 83 BPM BP Standing (Post-Dialysis) 134/88 mmHg Temperature Pre-Dialysis 98.1 degF Sitting Heart Ra te Post-Dialysis 81 BPM Standing Heart Rate Post-Mouna lysis 101 BPM Temperature Post-Dialysis 97 .9 degF November 01, 2024 In-Center Hemodialysis Treatment 4543-34-14G77:15:03.000Z 6345-54-66W56:22:33.000Z BP Sitting (Pre-Dialysis) 134/72 mmHg BP Sitting (Post-Dialysis) 135/80 mmHg Concurrent Access: falseAV Fistula Upper Arm (Right) Arterial Sitting Heart Rate Pre-Dialysis 72 BPM BP Standing (Post-Dialysis) 121/71 mmHg Temperature Pre-Dialysis 97.6 degF Sitting Heart Ra te Post-Dialysis 69 BPM Standing Heart Rate Post-Mouna lysis 83 BPM Temperature Post-Dialysis 98 .1 degF October 30, 2024 In-Center Hemodialysis Treatment [id number]:15:49.000Z 3511-76-68X23:38:19.000Z BP Sitting (Pre-Dialysis) 150/98 mmHg BP Sitting (Post-Dialysis) 115/76 mmHg Concurrent Access: falseAV Fistula Upper Arm (Right) Arterial Sitting Heart Rate Pre-Dialysis 83 BPM BP Standing (Post-Dialysis) 109/74 mmHg Temperature Pre-Dialysis 97.2 degF Sitting Heart Ra te Post-Dialysis 92 BPM Standing Heart Rate Post-Mouna lysis 100 BPM Temperature Post-Dialysis 97 .8 degF October 28, 2024 In-Center Hemodialysis Treatment 3197-00-02R83:15:36.000Z 6335-44-66K55:44:46.000Z BP Sitting (Pre-Dialysis) 150/92 mmHg BP Sitting (Post-Dialysis) 132/76 mmHg Concurrent Access: falseAV Fistula Upper Arm (Right) Arterial Sitting Heart Rate Pre-Dialysis 73 BPM Sitting H eart Rate Post-Dialysis 78 BPM Temperature Pre-Dialysis 98.1 degF Temperature Post -Dialysis 97.3 degF October 25, 2024 In-Center Hemodialysis Treatment 1666-82-02C33:02:53.000Z 1324-54-10W84:28:43.000Z BP Sitting (Pre-Dialysis) 138/73 mmHg BP Sitting (Post-Dialysis) 124/65 mmHg Concurrent Access: falseAV Fistula Upper Arm (Right) Arterial BP Standing (Pre-Dialysis) 141/70 mmHg Sitti ng Heart Rate Post-Dialysis 77 BPM Sitting Heart Rate Pre-Dialysis 76 BPM Temperatu re Post-Dialysis 98.2 degF Standing Heart Rate Pre-Dialysis 70 BPM Temperature Pre-Dialysis 97.2 degF October 23, 2024 In-Center Hemodialysis Treatment 8273-28-57F23:14:24.000Z 7876-68-59C35:44:24.000Z BP Sitting (Pre-Dialysis) 136/79 mmHg BP Sitting (Post-Dialysis) 112/60 mmHg Concurrent Access: falseAV Fistula Upper Arm (Right) Arterial BP Standing (Pre-Dialysis) 148/85 mmHg Sitti ng Heart Rate Post-Dialysis 82 BPM Sitting Heart Rate Pre-Dialysis 100 BPM Temperatu re Post-Dialysis 97.2 degF Standing Heart Rate Pre-Dialysis 77 BPM Temperature Pre-Dialysis 97.3 degF October 21, 2024 In-Center Hemodialysis Treatment 2001-38-03W42:16:29.000Z 5728-82-19H80:45:14.000Z BP Sitting (Pre-Dialysis) 147/80 mmHg BP Sitting (Post-Dialysis) 121/74 mmHg Concurrent Access: falseAV Fistula Upper Arm (Right) Arterial BP Standing (Pre-Dialysis) 146/87 mmHg Sitti ng Heart Rate Post-Dialysis 88 BPM Sitting Heart Rate Pre-Dialysis 77 BPM Temperatu re Post-Dialysis 97.2 degF Standing Heart Rate Pre-Dialysis 87 BPM Temperature Pre-Dialysis 98.1 degF October 18, 2024 In-Center Hemodialysis Treatment 0385-05-94V12:15:01.000Z 8145-42-76Y93:44:36.000Z BP Sitting (Pre-Dialysis) 139/87 mmHg BP Sitting (Post-Dialysis) 115/74 mmHg Concurrent Access: falseAV Fistula Upper Arm (Right) Arterial BP Standing (Pre-Dialysis) 144/94 mmHg Sitting Heart Rate Post-Dialysis 80 BPM Sitting Heart Rate Pre-Dialysis 73 BPM Temperatu re Post-Dialysis 98 degF Standing Heart Rate Pre-Dialysis 76 BPM Temperature Pre-Dialysis 98.4 degF October 16, 2024 In-Center Hemodialysis Treatment 2391-51-02D21:18:21.000Z 7136-96-43R28:44:11.000Z BP Sitting (Pre-Dialysis) 130/78 mmHg BP Sitting (Post-Dialysis) 114/63 mmHg Concurrent Access: falseAV Fistula Upper Arm (Right) Arterial Sitting Heart Rate Pre-Dialysis 78 BPM Sitting H eart Rate Post-Dialysis 80 BPM Temperature Pre-Dialysis 98.2 degF Temperature Post -Dialysis 98.2 degF October 14, 2024 In-Center Hemodialysis Treatment [id number]:10:36.000Z 6349-80-70E60:37:41.000Z BP Sitting (Pre-Dialysis) 125/65 mmHg BP Sitting (Post-Dialysis) 120/74 mmHg Concurrent Access: falseAV Fistula Upper Arm (Right) Arterial BP Standing (Pre-Dialysis) 127/82 mmHg Sitti ng Heart Rate Post-Dialysis 81 BPM Sitting Heart Rate Pre-Dialysis 75 BPM Temperatu re Post-Dialysis 98.2 degF Standing Heart Rate Pre-Dialysis 78 BPM Temperature Pre-Dialysis 98.2 degF October 11, 2024 In-Center Hemodialysis Treatment 8439-20-31C15:15:23.000Z 8767-89-04E38:42:28.000Z BP Sitting (Pre-Dialysis) 152/87 mmHg BP Sitting (Post-Dialysis) 140/75 mmHg Concurrent Access: falseAV Fistula Upper Arm (Right) Arterial Sitting Heart Rate Pre-Dialysis 78 BPM Sitting H eart Rate Post-Dialysis 67 BPM Temperature Pre-Dialysis 97.7 degF Temperature Post -Dialysis 97.6 degF October 09, 2024 In-Center Hemodialysis Treatment 1077-02-24N44:21:58.000Z 1186-28-82K97:50:43.000Z BP Sitting (Pre-Dialysis) 143/80 mmHg BP Sitting (Post-Dialysis) 116/64 mmHg Concurrent Access: falseAV Fistula Upper Arm (Right) Arterial Sitting Heart Rate Pre-Dialysis 76 BPM BP Standing (Post-Dialysis) 120/73 mmHg Temperature Pre-Dialysis 97.5 degF Sitting Heart Ra te Post-Dialysis 72 BPM Standing Heart Rate Post-Mouna lysis 84 BPM Temperature Post-Dialysis 97 .8 degF October 07, 2024 In-Center Hemodialysis Treatment 4887-72-79T46:12:18.000Z 7611-54-94Z47:39:23.000Z BP Sitting (Pre-Dialysis) 160/91 mmHg BP Sitting (Post-Dialysis) 129/79 mmHg Concurrent Access: falseAV Fistula Upper Arm (Right) Arterial Sitting Heart Rate Pre-Dialysis 71 BPM BP Standing (Post-Dialysis) 108/74 mmHg Temperature Pre-Dialysis 97.2 degF Sitting Heart Ra te Post-Dialysis 72 BPM Standing Heart Rate Post-Mouna lysis 84 BPM Temperature Post-Dialysis 97 .4 degF October 04, 2024 In-Center Hemodialysis Treatment 7712-89-11V97:13:17.000Z 0252-14-67V48:38:42.000Z BP Sitting (Pre-Dialysis) 147/85 mmHg BP Sitting (Post-Dialysis) 144/74 mmHg Concurrent Access: falseAV Fistula Upper Arm (Right) Arterial Sitting Heart Rate Pre-Dialysis 93 BPM Sitting H eart Rate Post-Dialysis 83 BPM Temperature Pre-Dialysis 98.1 degF Temperature Post -Dialysis 98.1 degF October 02, 2024 In-Center Hemodialysis Treatment 2267-39-28D28:18:07.000Z 5602-93-44X90:45:37.000Z BP Sitting (Pre-Dialysis) 146/98 mmHg BP Sitting (Post-Dialysis) 108/64 mmHg Concurrent Access: falseAV Fistula Upper Arm (Right) Arterial Sitting Heart Rate Pre-Dialysis 73 BPM Sitting H eart Rate Post-Dialysis 79 BPM Temperature Pre-Dialysis 97.8 degF Temperature Post -Dialysis 97.9 degF September 30, 2024 In-Center Hemodialysis Treatment 6017-97-33R42:24:09.000Z 4133-38-23A48:54:59.000Z BP Sitting (Pre-Dialysis) 136/69 mmHg BP Sitting (Post-Dialysis) 127/81 mmHg Concurrent Access: falseAV Fistula Upper Arm (Right) Arterial BP Standing (Pre-Dialysis) 141/67 mmHg Sitti ng Heart Rate Post-Dialysis 67 BPM Sitting Heart Rate Pre-Dialysis 90 BPM Temperatu re Post-Dialysis 98.2 degF Standing Heart Rate Pre-Dialysis 92 BPM Temperature Pre-Dialysis 97.2 degF September 27, 2024 In-Center Hemodialysis Treatment 0669-52-11U27:15:40.000Z 1223-54-72D36:45:15.000Z BP Sitting (Pre-Dialysis) 157/99 mmHg BP Sitting (Post-Dialysis) 130/83 mmHg Concurrent Access: falseAV Fistula Upper Arm (Right) Arterial Sitting Heart Rate Pre-Dialysis 92 BPM Sitting H eart Rate Post-Dialysis 87 BPM Temperature Pre-Dialysis 97.9 degF Temperature Post -Dialysis 97.7 degF September 25, 2024 In-Center Hemodialysis Treatment 6484-84-14C83:01:46.000Z 0833-32-21L20:56:21.000Z BP Sitting (Pre-Dialysis) 162/97 mmHg BP Sitting (Post-Dialysis) 126/75 mmHg Concurrent Access: falseAV Fistula Upper Arm (Right) Arterial Sitting Heart Rate Pre-Dialysis 94 BPM Sitting H eart Rate Post-Dialysis 87 BPM Temperature Pre-Dialysis 98.1 degF Temperature Post -Dialysis 97.6 degF September 23, 2024 In-Center Hemodialysis Treatment 5521-42-67R83:40:42.000Z 9838-77-44K73:10:17.000Z BP Sitting (Pre-Dialysis) 120/78 mmHg BP Sitting (Post-Dialysis) 104/66 mmHg Concurrent Access: falseAV Fistula Upper Arm (Right) Arterial BP Standing (Pre-Dialysis) 131/67 mmHg BP Standing (P ost-Dialysis) 132/65 mmHg Sitting Heart Rate Pre-Dialysis 73 BPM Sitting Heart Rate Post-Dialysis 78 BPM Standing Heart Rate Pre-Dialysis 75 BPM Standing Heart Rate Post-Dialysis 88 BPM Temperature Pre-Dialysis 97.8 degF Temperature Post -Dialysis 97.6 degF September 20, 2024 In-Center Hemodialysis Treatment 6232-78-30C49:18:33.000Z 6308-87-10O89:49:23.000Z BP Sitting (Pre-Dialysis) 140/83 mmHg BP Sitting (Post-Dialysis) 133/70 mmHg Concurrent Access: falseAV Fistula Upper Arm (Right) Arterial Sitting Heart Rate Pre-Dialysis 75 BPM Sitting H eart Rate Post-Dialysis 69 BPM Temperature Pre-Dialysis 97.7 degF Temperature Post -Dialysis 98.1 degF September 18, 2024 In-Center Hemodialysis Treatment 0935-03-92D62:13:58.000Z 8642-66-67J57:44:48.000Z BP Sitting (Pre-Dialysis) 139/86 mmHg BP Sitting (Post-Dialysis) 117/78 mmHg Concurrent Access: falseAV Fistula Upper Arm (Right) Arterial Sitting Heart Rate Pre-Dialysis 79 BPM BP Standing (Post-Dialysis) 126/73 mmHg Temperature Pre-Dialysis 97.6 degF Sitting Heart Ra te Post-Dialysis 70 BPM Standing Heart Rate Post-Mouna lysis 86 BPM Temperature Post-Dialysis 97 .6 degF September 16, 2024 In-Center Hemodialysis Treatment 4669-41-93P99:23:55.000Z 8704-74-70H07:50:10.000Z BP Sitting (Pre-Dialysis) 142/90 mmHg BP Sitting (Post-Dialysis) 120/80 mmHg Concurrent Access: falseAV Fistula Upper Arm (Right) Arterial BP Standing (Pre-Dialysis) 148/97 mmHg Sitti ng Heart Rate Post-Dialysis 71 BPM Sitting Heart Rate Pre-Dialysis 72 BPM Temperatu re Post-Dialysis 98.2 degF Standing Heart Rate Pre-Dialysis 76 BPM Temperature Pre-Dialysis 97.2 degF September 13, 2024 In-Center Hemodialysis Treatment 7956-25-69Y56:09:56.000Z 4341-63-54L65:39:31.000Z BP Sitting (Pre-Dialysis) 134/85 mmHg BP Sitting (Post-Dialysis) 129/75 mmHg Concurrent Access: falseAV Fistula Upper Arm (Right) Arterial BP Standing (Pre-Dialysis) 131/81 mmHg Sitti ng Heart Rate Post-Dialysis 69 BPM Sitting Heart Rate Pre-Dialysis 70 BPM Temperatu re Post-Dialysis 98.2 degF Standing Heart Rate Pre-Dialysis 78 BPM Temperature Pre-Dialysis 98.2 degF September 11, 2024 In-Center Hemodialysis Treatment 3279-74-59B33:19:03.000Z 9282-02-79W98:47:23.000Z BP Sitting (Pre-Dialysis) 145/87 mmHg BP Sitting (Post-Dialysis) 123/63 mmHg Concurrent Access: falseAV Fistula Upper Arm (Right) Arterial BP Standing (Pre-Dialysis) 141/81 mmHg Sitti ng Heart Rate Post-Dialysis 70 BPM Sitting Heart Rate Pre-Dialysis 89 BPM Temperatu re Post-Dialysis 98.2 degF Standing Heart Rate Pre-Dialysis 86 BPM Temperature Pre-Dialysis 98.2 degF September 09, 2024 In-Center Hemodialysis Treatment [id number]:18:50.000Z [id number]:48:50.000Z BP Sitting (Pre-Dialysis) 123/83 mmHg BP Sitting (Post-Dialysis) 121/69 mmHg Concurrent Access: falseAV Fistula Upper Arm (Right) Arterial Sitting Heart Rate Pre-Dialysis 78 BPM Sitting H eart Rate Post-Dialysis 72 BPM Temperature Pre-Dialysis 97.6 degF Temperature Post -Dialysis 97.6 degF September 06, 2024 In-Center Hemodialysis Treatment 2036-19-21W57:16:52.000Z [id number]:43:57.000Z BP Sitting (Pre-Dialysis) 148/80 mmHg BP Sitting (Post-Dialysis) 112/76 mmHg Concurrent Access: falseAV Fistula Upper Arm (Right) Arterial Sitting Heart Rate Pre-Dialysis 71 BPM Sitting H eart Rate Post-Dialysis 77 BPM Temperature Pre-Dialysis 97.5 degF Temperature Post -Dialysis 97 degF September 04, 2024 In-Center Hemodialysis Treatment [id number]:13:16.000Z 9626-65-04Q34:42:26.000Z BP Sitting (Pre-Dialysis) 154/89 mmHg BP Sitting (Post-Dialysis) 149/80 mmHg Concurrent Access: falseAV Fistula Upper Arm (Right) Arterial BP Standing (Pre-Dialysis) 147/88 mmHg Sitti ng Heart Rate Post-Dialysis 80 BPM Sitting Heart Rate Pre-Dialysis 84 BPM Temperatu re Post-Dialysis 97.2 degF Standing Heart Rate Pre-Dialysis 87 BPM Temperature Pre-Dialysis 97.9 degF September 02, 2024 In-Center Hemodialysis Treatment [id number]:56:37.000Z 2631-15-73Y49:19:32.000Z BP Sitting (Pre-Dialysis) 130/85 mmHg BP Sitting (Post-Dialysis) 147/89 mmHg Concurrent Access: falseAV Fistula Upper Arm (Right) Arterial Sitting Heart Rate Pre-Dialysis 72 BPM Sitting H eart Rate Post-Dialysis 75 BPM Temperature Pre-Dialysis 97.2 degF Temperature Post -Dialysis 98.2 degF August 30, 2024 In-Center Hemodialysis Treatment 6589-83-52T10:15:48.000Z 8775-88-71V43:46:13.000Z BP Sitting (Pre-Dialysis) 146/90 mmHg BP Sitting (Post-Dialysis) 142/81 mmHg Concurrent Access: falseAV Fistula Upper Arm (Right) Arterial Sitting Heart Rate Pre-Dialysis 90 BPM BP Standing (Post-Dialysis) 154/90 mmHg Temperature Pre-Dialysis 98.2 degF Sitting Heart Ra te Post-Dialysis 74 BPM Standing Heart Rate Post-Mouna lysis 85 BPM Temperature Post-Dialysis 98 degF August 28, 2024 In-Center Hemodialysis Treatment [id number]:04:00.000Z 5727-02-61E72:38:10.000Z BP Sitting (Pre-Dialysis) 135/82 mmHg BP Sitting (Post-Dialysis) 126/80 mmHg Concurrent Access: falseAV Fistula Upper Arm (Right) Arterial BP Standing (Pre-Dialysis) 134/90 mmHg BP Standing (P ost-Dialysis) 132/84 mmHg Sitting Heart Rate Pre-Dialysis 79 BPM Sitting Heart Rate Post-Dialysis 78 BPM Standing Heart Rate Pre-Dialysis 85 BPM Standing Heart Rate Post-Dialysis 85 BPM Temperature Pre-Dialysis 97.8 degF Temperature Post -Dialysis 98.1 degF August 26, 2024 In-Center Hemodialysis Treatment [id number]:34:55.000Z 5440-51-37J51:03:15.000Z BP Sitting (Pre-Dialysis) 153/96 mmHg BP Sitting (Post-Dialysis) 135/81 mmHg Concurrent Access: falseAV Fistula Upper Arm (Right) Arterial BP Standing (Pre-Dialysis) 174/101 mmHg BP Standing (P ost-Dialysis) 168/86 mmHg Sitting Heart Rate Pre-Dialysis 67 BPM Sitting Heart Rate Post-Dialysis 77 BPM Standing Heart Rate Pre-Dialysis 69 BPM Standing Heart Rate Post-Dialysis 80 BPM Temperature Pre-Dialysis 97.9 degF Temperature Post -Dialysis 97.9 degF August 23, 2024 In-Center Hemodialysis Treatment 3599-12-31A52:14:21.000Z 0669-45-99X36:40:36.000Z BP Sitting (Pre-Dialysis) 145/93 mmHg BP Sitting (Post-Dialysis) 120/65 mmHg Concurrent Access: falseAV Fistula Upper Arm (Right) Arterial Sitting Heart Rate Pre-Dialysis 76 BPM BP Standing (Post-Dialysis) 124/76 mmHg Temperature Pre-Dialysis 98.1 degF Sitting Heart Ra te Post-Dialysis 73 BPM Standing Heart Rate Post-Mouna lysis 89 BPM Temperature Post-Dialysis 97 .8 degF August 21, 2024 In-Center Hemodialysis Treatment 5030-45-95C98:42:00.000Z 9575-22-06M49:19:07.000Z BP Sitting (Pre-Dialysis) 139/78 mmHg BP Sitting (Post-Dialysis) 134/83 mmHg Concurrent Access: falseAV Fistula Upper Arm (Right) Arterial BP Standing (Pre-Dialysis) 129/79 mmHg Sitting Heart Rate Post-Dialysis 81 BPM Sitting Heart Rate Pre-Dialysis 74 BPM Standing Heart Rate Pre-Dialysis 73 BPM Temperature Pre-Dialysis 98.1 degF August 19, 2024 In-Center Hemodialysis Treatment 5245-20-17A82:20:28.000Z 1459-44-30U47:02:58.000Z BP Sitting (Pre-Dialysis) 146/82 mmHg BP Sitting (Post-Dialysis) 144/86 mmHg Concurrent Access: falseAV Fistula Upper Arm (Right) Arterial BP Standing (Pre-Dialysis) 154/80 mmHg Sitti ng Heart Rate Post-Dialysis 74 BPM Sitting Heart Rate Pre-Dialysis 80 BPM Temperatu re Post-Dialysis 97.8 degF Standing Heart Rate Pre-Dialysis 86 BPM Temperature Pre-Dialysis 98.2 degF August 16, 2024 In-Center Hemodialysis Treatment [id number]:12:51.000Z 7407-22-49J30:03:41.000Z BP Sitting (Pre-Dialysis) 160/93 mmHg BP Sitting (Post-Dialysis) 125/74 mmHg Concurrent Access: falseAV Fistula Upper Arm (Right) Arterial Sitting Heart Rate Pre-Dialysis 82 BPM BP Standing (Post-Dialysis) 128/73 mmHg Temperature Pre-Dialysis 97.9 degF Sitting Heart Ra te Post-Dialysis 84 BPM Standing Heart Rate Post-Mouna lysis 92 BPM Temperature Post-Dialysis 97 .8 degF August 14, 2024 In-Center Hemodialysis Treatment 3701-49-33M50:39:41.000Z 2947-57-80Q71:22:11.000Z BP Sitting (Pre-Dialysis) 147/88 mmHg BP Sitting (Post-Dialysis) 130/75 mmHg Concurrent Access: falseAV Fistula Upper Arm (Right) Arterial Sitting Heart Rate Pre-Dialysis 75 BPM BP Standing (Post-Dialysis) 119/70 mmHg Temperature Pre-Dialysis 98.1 degF Sitting Heart Ra te Post-Dialysis 78 BPM Standing Heart Rate Post-Mouna lysis 97 BPM Temperature Post-Dialysis 97 .5 degF August 12, 2024 In-Center Hemodialysis Treatment [id number]:04:04.000Z 8923-37-03J73:33:14.000Z BP Sitting (Pre-Dialysis) 176/85 mmHg BP Sitting (Post-Dialysis) 151/78 mmHg Concurrent Access: falseAV Fistula Upper Arm (Right) Arterial BP Standing (Pre-Dialysis) 171/97 mmHg Sitti ng Heart Rate Post-Dialysis 75 BPM Sitting Heart Rate Pre-Dialysis 97 BPM Temperatu re Post-Dialysis 97.8 degF Standing Heart Rate Pre-Dialysis 93 BPM Temperature Pre-Dialysis 98.2 degF August 09, 2024 In-Center Hemodialysis Treatment 0418-71-57J14:19:00.000Z 6241-27-75Z45:09:05.000Z BP Sitting (Pre-Dialysis) 134/74 mmHg BP Sitting (Post-Dialysis) 109/66 mmHg Concurrent Access: falseAV Fistula Upper Arm (Right) Arterial BP Standing (Pre-Dialysis) 136/76 mmHg BP Standing (P ost-Dialysis) 122/69 mmHg Sitting Heart Rate Pre-Dialysis 77 BPM Sitting Heart Rate Post-Dialysis 81 BPM Standing Heart Rate Pre-Dialysis 82 BPM Standing Heart Rate Post-Dialysis 89 BPM Temperature Pre-Dialysis 97.8 degF Temperature Post -Dialysis 97.8 degF August 07, 2024 In-Center Hemodialysis Treatment [id number]:18:07.000Z 3794-91-00Z72:05:12.000Z BP Sitting (Pre-Dialysis) 141/74 mmHg BP Sitting (Post-Dialysis) 120/71 mmHg Concurrent Access: falseAV Fistula Upper Arm (Right) Arterial BP Standing (Pre-Dialysis) 140/80 mmHg Sitti ng Heart Rate Post-Dialysis 73 BPM Sitting Heart Rate Pre-Dialysis 76 BPM Temperatu re Post-Dialysis 97.2 degF Standing Heart Rate Pre-Dialysis 77 BPM Temperature Pre-Dialysis 97.2 degF August 05, 2024 In-Center Hemodialysis Treatment 0432-28-19X41:07:33.000Z 7279-37-74L49:50:53.000Z BP Sitting (Pre-Dialysis) 144/94 mmHg BP Sitting (Post-Dialysis) 145/81 mmHg Concurrent Access: falseAV Fistula Upper Arm (Right) Arterial BP Standing (Pre-Dialysis) 163/96 mmHg Sitti ng Heart Rate Post-Dialysis 76 BPM Sitting Heart Rate Pre-Dialysis 74 BPM Temperatu re Post-Dialysis 98.2 degF Standing Heart Rate Pre-Dialysis 75 BPM Temperature Pre-Dialysis 97.7 degF August 02, 2024 In-Center Hemodialysis Treatment [id number]:29:20.000Z 8721-96-37N62:12:15.000Z BP Sitting (Pre-Dialysis) 127/75 mmHg BP Sitting (Post-Dialysis) 123/98 mmHg Concurrent Access: falseAV Fistula Upper Arm (Right) Arterial BP Standing (Pre-Dialysis) 131/77 mmHg BP Standing (P ost-Dialysis) 126/95 mmHg Sitting Heart Rate Pre-Dialysis 69 BPM Sitting Heart Rate Post-Dialysis 70 BPM Standing Heart Rate Pre-Dialysis 70 BPM Standing Heart Rate Post-Dialysis 70 BPM Temperature Pre-Dialysis 97.2 degF Temperature Post -Dialysis 97.2 degF July 31, 2024 In-Center Hemodialysis Treatment [id number]:25:02.000Z 8797-08-05F31:06:42.000Z BP Sitting (Pre-Dialysis) 148/93 mmHg BP Sitting (Post-Dialysis) 122/69 mmHg Concurrent Access: falseAV Fistula Upper Arm (Right) Arterial BP Standing (Pre-Dialysis) 152/90 mmHg Sitti ng Heart Rate Post-Dialysis 74 BPM Sitting Heart Rate Pre-Dialysis 68 BPM Temperatu re Post-Dialysis 98.2 degF Standing Heart Rate Pre-Dialysis 66 BPM Temperature Pre-Dialysis 97.2 degF July 29, 2024 In-Center Hemodialysis Treatment 3475-64-15W09:37:53.000Z 6100-83-77M51:29:08.000Z BP Sitting (Pre-Dialysis) 158/90 mmHg BP Sitting (Post-Dialysis) 148/90 mmHg Concurrent Access: falseAV Fistula Upper Arm (Right) Arterial BP Standing (Pre-Dialysis) 152/92 mmHg BP Standing (P ost-Dialysis) 148/83 mmHg Sitting Heart Rate Pre-Dialysis 77 BPM Sitting Heart Rate Post-Dialysis 75 BPM Standing Heart Rate Pre-Dialysis 77 BPM Standing Heart Rate Post-Dialysis 96 BPM Temperature Pre-Dialysis 97.7 degF Temperature Post -Dialysis 97.4 degF July 26, 2024 In-Center Hemodialysis Treatment [id number]:15:54.000Z 7994-88-36Y97:01:44.000Z BP Sitting (Pre-Dialysis) 133/82 mmHg BP Sitting (Post-Dialysis) 117/66 mmHg Concurrent Access: falseAV Fistula Upper Arm (Right) Arterial BP Standing (Pre-Dialysis) 124/92 mmHg Sitti ng Heart Rate Post-Dialysis 65 BPM Sitting Heart Rate Pre-Dialysis 80 BPM Temperatu re Post-Dialysis 97.4 degF Standing Heart Rate Pre-Dialysis 85 BPM Temperature Pre-Dialysis 97.2 degF July 24, 2024 In-Center Hemodialysis Treatment [id number]:43:25.000Z [id number]:34:15.000Z BP Sitting (Pre-Dialysis) 125/60 mmHg BP Sitting (Post-Dialysis) 116/66 mmHg Concurrent Access: falseAV Fistula Upper Arm (Right) Arterial Sitting Heart Rate Pre-Dialysis 80 BPM Sitting H eart Rate Post-Dialysis 63 BPM Temperature Pre-Dialysis 97.9 degF Temperature Post -Dialysis 97.6 degF July 22, 2024 In-Center Hemodialysis Treatment 2271-47-92C18:26:10.000Z 0819-26-72U08:12:00.000Z BP Sitting (Pre-Dialysis) 123/69 mmHg BP Sitting (Post-Dialysis) 119/67 mmHg Concurrent Access: falseAV Fistula Upper Arm (Right) Arterial BP Standing (Pre-Dialysis) 122/64 mmHg BP Standing (P ost-Dialysis) 116/76 mmHg Sitting Heart Rate Pre-Dialysis 69 BPM Sitting Heart Rate Post-Dialysis 66 BPM Standing Heart Rate Pre-Dialysis 68 BPM Standing Heart Rate Post-Dialysis 10 BPM Temperature Pre-Dialysis 98.2 degF Temperature Post -Dialysis 98.3 degF July 19, 2024 In-Center Hemodialysis Treatment 7634-03-93Y09:16:07.000Z 8321-05-99C83:59:27.000Z BP Sitting (Pre-Dialysis) 120/72 mmHg BP Sitting (Post-Dialysis) 140/69 mmHg Concurrent Access: falseAV Fistula Upper Arm (Right) Arterial Sitting Heart Rate Pre-Dialysis 75 BPM Sitting H eart Rate Post-Dialysis 69 BPM Temperature Pre-Dialysis 98.2 degF Temperature Post -Dialysis 98.2 degF July 15, 2024 In-Center Hemodialysis Treatment 9788-95-95W98:24:06.000Z 1136-50-11C10:06:11.000Z BP Sitting (Pre-Dialysis) 155/79 mmHg BP Sitting (Post-Dialysis) 131/66 mmHg Concurrent Access: falseAV Fistula Upper Arm (Right) Arterial BP Standing (Pre-Dialysis) 145/80 mmHg Sitti ng Heart Rate Post-Dialysis 68 BPM Sitting Heart Rate Pre-Dialysis 72 BPM Temperatu re Post-Dialysis 97.6 degF Standing Heart Rate Pre-Dialysis 73 BPM Temperature Pre-Dialysis 97.2 degF July 12, 2024 In-Center Hemodialysis Treatment 6214-64-90Y74:15:00.000Z 3525-95-47N23:59:51.000Z BP Sitting (Pre-Dialysis) 123/65 mmHg BP Sitting (Post-Dialysis) 142/85 mmHg Concurrent Access: falseAV Fistula Upper Arm (Right) Arterial Sitting Heart Rate Pre-Dialysis 71 BPM Sitting H eart Rate Post-Dialysis 82 BPM Temperature Pre-Dialysis 97.7 degF Temperature Post -Dialysis 97.6 degF July 10, 2024 In-Center Hemodialysis Treatment 1947-08-46H36:30:19.000Z 4495-50-52E99:17:24.000Z BP Sitting (Pre-Dialysis) 125/69 mmHg BP Sitting (Post-Dialysis) 132/82 mmHg Concurrent Access: falseAV Fistula Upper Arm (Right) Arterial Sitting Heart Rate Pre-Dialysis 64 BPM BP Standing (Post-Dialysis) 111/82 mmHg Temperature Pre-Dialysis 97.5 degF Sitting Heart Ra te Post-Dialysis 66 BPM Standing Heart Rate Post-Mouna lysis 82 BPM Temperature Post-Dialysis 98 .6 degF July 08, 2024 In-Center Hemodialysis Treatment 4033-54-24Q90:31:13.000Z 9981-65-55A54:12:03.000Z BP Sitting (Pre-Dialysis) 131/65 mmHg BP Sitting (Post-Dialysis) 116/71 mmHg Concurrent Access: falseAV Fistula Upper Arm (Right) Arterial BP Standing (Pre-Dialysis) 139/89 mmHg BP Standing (P ost-Dialysis) 103/63 mmHg Sitting Heart Rate Pre-Dialysis 59 BPM Sitting Heart Rate Post-Dialysis 79 BPM Standing Heart Rate Pre-Dialysis 60 BPM Standing Heart Rate Post-Dialysis 87 BPM Temperature Pre-Dialysis 97.2 degF Temperature Post -Dialysis 98.2 degF July 05, 2024 In-Center Hemodialysis Treatment 9520-99-04V98:27:20.000Z 3862-88-76R22:50:40.000Z BP Sitting (Pre-Dialysis) 127/56 mmHg BP Sitting (Post-Dialysis) 122/75 mmHg Concurrent Access: falseAV Fistula Upper Arm (Right) Arterial BP Standing (Pre-Dialysis) 125/55 mmHg BP Standing (P ost-Dialysis) 126/70 mmHg Sitting Heart Rate Pre-Dialysis 70 BPM Sitting Heart Rate Post-Dialysis 70 BPM Standing Heart Rate Pre-Dialysis 72 BPM Standing Heart Rate Post-Dialysis 79 BPM Temperature Pre-Dialysis 97.2 degF Temperature Post -Dialysis 98.2 degF July 03, 2024 In-Center Hemodialysis Treatment 6562-28-20G65:18:43.000Z 7930-39-78Q70:48:18.000Z BP Sitting (Pre-Dialysis) 142/79 mmHg BP Sitting (Post-Dialysis) 135/82 mmHg Concurrent Access: falseAV Fistula Upper Arm (Right) Arterial BP Standing (Pre-Dialysis) 136/77 mmHg Sitti ng Heart Rate Post-Dialysis 67 BPM Sitting Heart Rate Pre-Dialysis 78 BPM Temperatu re Post-Dialysis 98.2 degF Standing Heart Rate Pre-Dialysis 78 BPM Temperature Pre-Dialysis 98.2 degF July 01, 2024 In-Center Hemodialysis Treatment 4206-45-42T31:16:49.000Z 1687-17-44A32:57:14.000Z BP Sitting (Pre-Dialysis) 139/77 mmHg BP Sitting (Post-Dialysis) 140/71 mmHg Concurrent Access: falseAV Fistula Upper Arm (Right) Arterial BP Standing (Pre-Dialysis) 137/85 mmHg Sitti ng Heart Rate Post-Dialysis 72 BPM Sitting Heart Rate Pre-Dialysis 69 BPM Temperatu re Post-Dialysis 97.8 degF Standing Heart Rate Pre-Dialysis 74 BPM Temperature Pre-Dialysis 97.9 degF June 28, 2024 In-Center Hemodialysis Treatment 4874-88-44S47:28:00.000Z 8912-79-66J76:57:30.000Z BP Sitting (Pre-Dialysis) 131/83 mmHg BP Sitting (Post-Dialysis) 111/71 mmHg Concurrent Access: falseAV Fistula Upper Arm (Right) Arterial Sitting Heart Rate Pre-Dialysis 79 BPM BP Standing (Post-Dialysis) 111/63 mmHg Temperature Pre-Dialysis 98.1 degF Sitting Heart Ra te Post-Dialysis 78 BPM Standing Heart Rate Post-Mouna lysis 92 BPM Temperature Post-Dialysis 97 .6 degF June 26, 2024 In-Center Hemodialysis Treatment 6412-47-53K57:14:00.000Z 6591-46-93S72:00:01.000Z BP Sitting (Pre-Dialysis) 134/80 mmHg BP Sitting (Post-Dialysis) 118/72 mmHg Concurrent Access: falseAV Fistula Upper Arm (Right) Arterial BP Standing (Pre-Dialysis) 135/80 mmHg BP Standing (P ost-Dialysis) 126/74 mmHg Sitting Heart Rate Pre-Dialysis 72 BPM Sitting Heart Rate Post-Dialysis 73 BPM Standing Heart Rate Pre-Dialysis 75 BPM Standing Heart Rate Post-Dialysis 83 BPM Temperature Pre-Dialysis 97.7 degF Temperature Post -Dialysis 97.4 degF June 24, 2024 In-Center Hemodialysis Treatment [id number]:14:08.000Z 4036-68-72O54:54:01.000Z BP Sitting (Pre-Dialysis) 137/75 mmHg BP Sitting (Post-Dialysis) 148/78 mmHg Concurrent Access: falseAV Fistula Upper Arm (Right) Arterial BP Standing (Pre-Dialysis) 140/76 mmHg Sitti ng Heart Rate Post-Dialysis 78 BPM Sitting Heart Rate Pre-Dialysis 80 BPM Temperatu re Post-Dialysis 98.2 degF Standing Heart Rate Pre-Dialysis 79 BPM Temperature Pre-Dialysis 97.2 degF June 21, 2024 In-Center Hemodialysis Treatment 4081-07-41H68:20:29.000Z 5676-29-82T94:04:39.000Z BP Sitting (Pre-Dialysis) 138/80 mmHg BP Sitting (Post-Dialysis) 152/89 mmHg Concurrent Access: falseAV Fistula Upper Arm (Right) Arterial BP Standing (Pre-Dialysis) 142/82 mmHg BP Standing (P ost-Dialysis) 146/83 mmHg Sitting Heart Rate Pre-Dialysis 80 BPM Sitting Heart Rate Post-Dialysis 76 BPM Standing Heart Rate Pre-Dialysis 80 BPM Standing Heart Rate Post-Dialysis 81 BPM Temperature Pre-Dialysis 97.2 degF Temperature Post -Dialysis 98.2 degF June 19, 2024 In-Center Hemodialysis Treatment 6627-36-81B66:28:45.000Z 8485-30-60D19:10:50.000Z BP Sitting (Pre-Dialysis) 142/78 mmHg BP Sitting (Post-Dialysis) 102/65 mmHg Concurrent Access: falseAV Fistula Upper Arm (Right) Arterial BP Standing (Pre-Dialysis) 134/86 mmHg BP Standing (P ost-Dialysis) 114/71 mmHg Sitting Heart Rate Pre-Dialysis 74 BPM Sitting Heart Rate Post-Dialysis 77 BPM Standing Heart Rate Pre-Dialysis 75 BPM Standing Heart Rate Post-Dialysis 88 BPM Temperature Pre-Dialysis 98.1 degF Temperature Post -Dialysis 98.1 degF June 17, 2024 In-Center Hemodialysis Treatment 0112-04-53P03:42:11.000Z 6313-49-39Z60:24:41.000Z BP Sitting (Pre-Dialysis) 121/81 mmHg BP Sitting (Post-Dialysis) 146/82 mmHg Concurrent Access: falseAV Fistula Upper Arm (Right) Arterial BP Standing (Pre-Dialysis) 137/78 mmHg BP Standing (P ost-Dialysis) 120/64 mmHg Sitting Heart Rate Pre-Dialysis 66 BPM Sitting Heart Rate Post-Dialysis 69 BPM Standing Heart Rate Pre-Dialysis 86 BPM Standing Heart Rate Post-Dialysis 83 BPM Temperature Pre-Dialysis 97.9 degF Temperature Post -Dialysis 97.4 degF June 14, 2024 In-Center Hemodialysis Treatment [id number]:19:20.000Z 0943-16-84R15:59:20.000Z BP Sitting (Pre-Dialysis) 121/69 mmHg BP Sitting (Post-Dialysis) 115/69 mmHg Concurrent Access: falseAV Fistula Upper Arm (Right) Arterial BP Standing (Pre-Dialysis) 117/64 mmHg Sitti ng Heart Rate Post-Dialysis 71 BPM Sitting Heart Rate Pre-Dialysis 70 BPM Temperatu re Post-Dialysis 97.2 degF Standing Heart Rate Pre-Dialysis 70 BPM Temperature Pre-Dialysis 98.2 degF June 12, 2024 In-Center Hemodialysis Treatment 8245-84-70J49:43:00.000Z 5432-45-62P40:31:52.000Z BP Sitting (Pre-Dialysis) 136/84 mmHg BP Sitting (Post-Dialysis) 145/92 mmHg Concurrent Access: falseAV Fistula Upper Arm (Right) Arterial Sitting Heart Rate Pre-Dialysis 68 BPM BP Standing (Post-Dialysis) 143/80 mmHg Temperature Pre-Dialysis 97.6 degF Sitting Heart Ra te Post-Dialysis 71 BPM Standing Heart Rate Post-Mouna lysis 88 BPM Temperature Post-Dialysis 98 .4 degF June 10, 2024 In-Center Hemodialysis Treatment 0298-48-67W56:28:31.000Z 5041-33-01P68:09:46.000Z BP Sitting (Pre-Dialysis) 132/75 mmHg BP Sitting (Post-Dialysis) 125/74 mmHg Concurrent Access: falseAV Fistula Upper Arm (Right) Arterial BP Standing (Pre-Dialysis) 132/62 mmHg Sitti ng Heart Rate Post-Dialysis 76 BPM Sitting Heart Rate Pre-Dialysis 66 BPM Temperatu re Post-Dialysis 98.2 degF Standing Heart Rate Pre-Dialysis 67 BPM Temperature Pre-Dialysis 97.2 degF June 07, 2024 In-Center Hemodialysis Treatment [id number]:17:00.000Z 1272-57-58L07:05:36.000Z BP Sitting (Pre-Dialysis) 150/89 mmHg BP Sitting (Post-Dialysis) 127/83 mmHg Concurrent Access: falseAV Fistula Upper Arm (Right) Arterial BP Standing (Pre-Dialysis) 146/94 mmHg Sitti ng Heart Rate Post-Dialysis 82 BPM Sitting Heart Rate Pre-Dialysis 74 BPM Temperatu re Post-Dialysis 97.5 degF Standing Heart Rate Pre-Dialysis 79 BPM Temperature Pre-Dialysis 97.8 degF June 05, 2024 In-Center Hemodialysis Treatment 7566-04-37F52:23:12.000Z 0315-36-03N67:53:12.000Z BP Sitting (Pre-Dialysis) 122/61 mmHg BP Sitting (Post-Dialysis) 113/70 mmHg Concurrent Access: falseAV Fistula Upper Arm (Right) Arterial BP Standing (Pre-Dialysis) 121/63 mmHg Sitti ng Heart Rate Post-Dialysis 80 BPM Sitting Heart Rate Pre-Dialysis 80 BPM Temperatu re Post-Dialysis 98.2 degF Standing Heart Rate Pre-Dialysis 75 BPM Temperature Pre-Dialysis 98.2 degF June 03, 2024 In-Center Hemodialysis Treatment 7599-76-06E60:21:49.000Z 2281-30-18D69:08:04.000Z BP Sitting (Pre-Dialysis) 117/60 mmHg BP Sitting (Post-Dialysis) 115/75 mmHg Concurrent Access: falseAV Fistula Upper Arm (Right) Arterial BP Standing (Pre-Dialysis) 108/65 mmHg Sitti ng Heart Rate Post-Dialysis 72 BPM Sitting Heart Rate Pre-Dialysis 65 BPM Temperatu re Post-Dialysis 97.2 degF Standing Heart Rate Pre-Dialysis 68 BPM Temperature Pre-Dialysis 97.2 degF May 31, 2024 In-Center Hemodialysis Treatment 7533-88-40N66:12:00.000Z 2823-64-62D41:00:30.000Z BP Sitting (Pre-Dialysis) 148/81 mmHg BP Sitting (Post-Dialysis) 144/91 mmHg Concurrent Access: falseAV Fistula Upper Arm (Right) Arterial BP Standing (Pre-Dialysis) 152/80 mmHg Sitti ng Heart Rate Post-Dialysis 77 BPM Sitting Heart Rate Pre-Dialysis 78 BPM Temperatu re Post-Dialysis 97.7 degF Standing Heart Rate Pre-Dialysis 81 BPM Temperature Pre-Dialysis 98.5 degF May 29, 2024 In-Center Hemodialysis Treatment 6934-61-16E22:15:00.000Z 8792-48-30O40:03:49.000Z BP Sitting (Pre-Dialysis) 149/83 mmHg BP Sitting (Post-Dialysis) 143/87 mmHg Concurrent Access: falseAV Fistula Upper Arm (Right) Arterial BP Standing (Pre-Dialysis) 143/80 mmHg Sitti ng Heart Rate Post-Dialysis 75 BPM Sitting Heart Rate Pre-Dialysis 73 BPM Temperatu re Post-Dialysis 97.8 degF Standing Heart Rate Pre-Dialysis 74 BPM Temperature Pre-Dialysis 97.8 degF May 27, 2024 In-Center Hemodialysis Treatment 4880-98-80Y24:32:00.000Z 5714-36-18J95:19:12.000Z BP Sitting (Pre-Dialysis) 138/73 mmHg BP Sitting (Post-Dialysis) 135/83 mmHg Concurrent Access: falseAV Fistula Upper Arm (Right) Arterial Sitting Heart Rate Pre-Dialysis 86 BPM Sitting H eart Rate Post-Dialysis 80 BPM Temperature Pre-Dialysis 97.5 degF Temperature Post -Dialysis 97.2 degF May 24, 2024 In-Center Hemodialysis Treatment 4799-99-26Q44:23:44.000Z 1845-79-47G00:03:44.000Z BP Sitting (Pre-Dialysis) 140/80 mmHg BP Sitting (Post-Dialysis) 137/78 mmHg Concurrent Access: falseAV Fistula Upper Arm (Right) Arterial BP Standing (Pre-Dialysis) 147/85 mmHg Sitti ng Heart Rate Post-Dialysis 70 BPM Sitting Heart Rate Pre-Dialysis 71 BPM Temperatu re Post-Dialysis 97.2 degF Standing Heart Rate Pre-Dialysis 70 BPM Temperature Pre-Dialysis 97.2 degF May 22, 2024 In-Center Hemodialysis Treatment [id number]:17:21.000Z 7840-76-31Z85:01:31.000Z BP Sitting (Pre-Dialysis) 143/81 mmHg BP Sitting (Post-Dialysis) 150/87 mmHg Concurrent Access: falseAV Fistula Upper Arm (Right) Arterial BP Standing (Pre-Dialysis) 132/88 mmHg Sitti ng Heart Rate Post-Dialysis 73 BPM Sitting Heart Rate Pre-Dialysis 76 BPM Temperatu re Post-Dialysis 97.8 degF Standing Heart Rate Pre-Dialysis 79 BPM Temperature Pre-Dialysis 97.8 degF May 20, 2024 In-Center Hemodialysis Treatment 4795-72-72W36:46:00.000Z 1894-04-74A96:31:00.000Z BP Sitting (Pre-Dialysis) 125/73 mmHg BP Sitting (Post-Dialysis) 130/84 mmHg Concurrent Access: falseAV Fistula Upper Arm (Right) Arterial BP Standing (Pre-Dialysis) 126/73 mmHg Sitti ng Heart Rate Post-Dialysis 76 BPM Sitting Heart Rate Pre-Dialysis 71 BPM Temperatu re Post-Dialysis 97.2 degF Standing Heart Rate Pre-Dialysis 73 BPM Temperature Pre-Dialysis 97.6 degF May 17, 2024 In-Center Hemodialysis Treatment 7236-87-89S79:16:18.000Z 9176-60-96B47:02:08.000Z BP Sitting (Pre-Dialysis) 137/78 mmHg BP Sitting (Post-Dialysis) 119/75 mmHg Concurrent Access: falseAV Fistula Upper Arm (Right) Arterial BP Standing (Pre-Dialysis) 123/70 mmHg Sitti ng Heart Rate Post-Dialysis 75 BPM Sitting Heart Rate Pre-Dialysis 90 BPM Temperatu re Post-Dialysis 98.2 degF Standing Heart Rate Pre-Dialysis 92 BPM Temperature Pre-Dialysis 98.2 degF May 15, 2024 In-Center Hemodialysis Treatment [id number]:35:50.000Z 0822-20-16G82:05:50.000Z BP Sitting (Pre-Dialysis) 135/76 mmHg BP Sitting (Post-Dialysis) 121/88 mmHg Concurrent Access: falseAV Fistula Upper Arm (Right) Arterial BP Standing (Pre-Dialysis) 126/70 mmHg BP Standing (P ost[facility]Dialysis) 125/80 mmHg Sitting Heart Rate Pre-Dialysis 77 BPM Sitting Heart Rate Post-Dialysis 76 BPM Standing Heart Rate Pre-Dialysis 70 BPM Standing Heart Rate Post-Dialysis 86 BPM Temperature Pre-Dialysis 98.5 degF Temperature Post -Dialysis 98.2 degF May 13, 2024 In-Center Hemodialysis Treatment [id number]:33:48.000Z 6990-09-15H44:16:33.000Z BP Sitting (Pre-Dialysis) 139/83 mmHg BP Sitting (Post-Dialysis) 133/78 mmHg Concurrent Access: falseAV Fistula Upper Arm (Right) Arterial BP Standing (Pre-Dialysis) 150/85 mmHg Sitti ng Heart Rate Post-Dialysis 77 BPM Sitting Heart Rate Pre-Dialysis 90 BPM Temperatu re Post-Dialysis 97.5 degF Standing Heart Rate Pre-Dialysis 94 BPM Temperature Pre-Dialysis 98 degF May 10, 2024 In-Center Hemodialysis Treatment 1946-02-57R11:34:00.000Z [id number]:19:31.000Z BP Sitting (Pre-Dialysis) 146/84 mmHg BP Sitting (Post-Dialysis) 127/73 mmHg Concurrent Access: falseAV Fistula Upper Arm (Right) Arterial BP Standing (Pre-Dialysis) 142/86 mmHg Sitti ng Heart Rate Post-Dialysis 74 BPM Sitting Heart Rate Pre-Dialysis 86 BPM Temperatu re Post-Dialysis 98.6 degF Standing Heart Rate Pre-Dialysis 88 BPM Temperature Pre-Dialysis 97.9 degF May 08, 2024 In-Center Hemodialysis Treatment [id number]:16:05.000Z 5873-06-54A80:57:20.000Z BP Sitting (Pre-Dialysis) 169/70 mmHg BP Sitting (Post-Dialysis) 119/65 mmHg Concurrent Access: falseAV Fistula Upper Arm (Right) Arterial BP Standing (Pre-Dialysis) 151/79 mmHg Sitti ng Heart Rate Post-Dialysis 78 BPM Sitting Heart Rate Pre-Dialysis 79 BPM Temperatu re Post-Dialysis 98.2 degF Standing Heart Rate Pre-Dialysis 82 BPM Temperature Pre-Dialysis 98.2 degF May 06, 2024 In-Center Hemodialysis Treatment [id number]:30:12.000Z 1085-14-43D73:12:17.000Z BP Sitting (Pre-Dialysis) 126/76 mmHg BP Sitting (Post-Dialysis) 112/72 mmHg Concurrent Access: falseAV Fistula Upper Arm (Right) Arterial BP Standing (Pre-Dialysis) 133/80 mmHg BP Standing (P ost-Dialysis) 123/70 mmHg Sitting Heart Rate Pre-Dialysis 79 BPM Sitting Heart Rate Post-Dialysis 70 BPM Standing Heart Rate Pre-Dialysis 80 BPM Standing Heart Rate Post-Dialysis 69 BPM Temperature Pre-Dialysis 98.2 degF Temperature Post -Dialysis 97.2 degF May 03, 2024 In-Center Hemodialysis Treatment [id number]:34:47.000Z 1736-23-98A71:00:12.000Z BP Sitting (Pre-Dialysis) 131/85 mmHg BP Sitting (Post-Dialysis) 116/52 mmHg Concurrent Access: falseAV Fistula Upper Arm (Right) Arterial BP Standing (Pre-Dialysis) 129/86 mmHg Sitti ng Heart Rate Post-Dialysis 73 BPM Sitting Heart Rate Pre-Dialysis 77 BPM Temperatu re Post-Dialysis 98.2 degF Standing Heart Rate Pre-Dialysis 77 BPM Temperature Pre-Dialysis 97 degF May 01, 2024 In-Center Hemodialysis Treatment [id number]:27:00.000Z [id number]:16:46.000Z BP Sitting (Pre-Dialysis) 161/91 mmHg BP Sitting (Post-Dialysis) 149/81 mmHg Concurrent Access: falseAV Fistula Upper Arm (Right) Arterial BP Standing (Pre-Dialysis) 164/94 mmHg Sitti ng Heart Rate Post-Dialysis 84 BPM Sitting Heart Rate Pre-Dialysis 83 BPM Temperatu re Post-Dialysis 97.4 degF Standing Heart Rate Pre-Dialysis 84 BPM Temperature Pre-Dialysis 97.6 degF April 29, 2024 In-Center Hemodialysis Treatment [id number]:31:50.000Z 8796-54-55P93:18:05.000Z BP Sitting (Pre-Dialysis) 155/89 mmHg BP Sitting (Post-Dialysis) 109/61 mmHg Concurrent Access: falseAV Fistula Upper Arm (Right) Arterial Sitting Heart Rate Pre-Dialysis 83 BPM BP Standing (Post-Dialysis) 108/55 mmHg Temperature Pre-Dialysis 98.2 degF Sitting Heart Ra te Post-Dialysis 83 BPM Standing Heart Rate Post-Mouna lysis 93 BPM Temperature Post-Dialysis 97 .8 degF April 26, 2024 In-Center Hemodialysis Treatment [id number]:18:31.000Z 0924-03-57Y59:59:46.000Z BP Sitting (Pre-Dialysis) 132/70 mmHg BP Sitting (Post-Dialysis) 122/72 mmHg Concurrent Access: falseAV Fistula Upper Arm (Right) Arterial BP Standing (Pre-Dialysis) 124/76 mmHg BP Standing (P ost-Dialysis) 123/70 mmHg Sitting Heart Rate Pre-Dialysis 98 BPM Sitting Heart Rate Post-Dialysis 83 BPM Standing Heart Rate Pre-Dialysis 90 BPM Standing Heart Rate Post-Dialysis 82 BPM Temperature Pre-Dialysis 98.2 degF Temperature Post -Dialysis 97.6 degF April 24, 2024 In-Center Hemodialysis Treatment 3417-85-09I36:29:04.000Z 1790-82-70E40:10:49.000Z BP Sitting (Pre-Dialysis) 148/96 mmHg BP Sitting (Post-Dialysis) 142/89 mmHg Concurrent Access: falseAV Fistula Upper Arm (Right) Arterial BP Standing (Pre-Dialysis) 145/85 mmHg Sitti ng Heart Rate Post-Dialysis 83 BPM Sitting Heart Rate Pre-Dialysis 91 BPM Temperatu re Post-Dialysis 98.2 degF Standing Heart Rate Pre-Dialysis 91 BPM Temperature Pre-Dialysis 98.1 degF April 22, 2024 In-Center Hemodialysis Treatment [id number]:20:57.000Z 4883-83-01C14:01:22.000Z BP Sitting (Pre-Dialysis) 160/85 mmHg BP Sitting (Post-Dialysis) 150/82 mmHg Concurrent Access: falseAV Fistula Upper Arm (Right) Arterial BP Standing (Pre-Dialysis) 151/89 mmHg Sitti ng Heart Rate Post-Dialysis 75 BPM Sitting Heart Rate Pre-Dialysis 82 BPM Temperatu re Post-Dialysis 97.2 degF Standing Heart Rate Pre-Dialysis 84 BPM Temperature Pre-Dialysis 97.2 degF April 19, 2024 In-Center Hemodialysis Treatment [id number]:40:56.000Z 5737-33-95E30:10:56.000Z BP Sitting (Pre-Dialysis) 131/71 mmHg BP Sitting (Post-Dialysis) 111/69 mmHg Concurrent Access: falseAV Fistula Upper Arm (Right) Arterial BP Standing (Pre-Dialysis) 126/73 mmHg Sitti ng Heart Rate Post-Dialysis 58 BPM Sitting Heart Rate Pre-Dialysis 76 BPM Temperatu re Post-Dialysis 98.6 degF Standing Heart Rate Pre-Dialysis 76 BPM Temperature Pre-Dialysis 97.9 degF April 17, 2024 In-Center Hemodialysis Treatment 5310-11-80W97:41:00.000Z 6607-73-84O54:28:50.000Z BP Sitting (Pre-Dialysis) 136/77 mmHg BP Sitting (Post-Dialysis) 141/82 mmHg Concurrent Access: falseAV Fistula Upper Arm (Right) Arterial BP Standing (Pre-Dialysis) 138/82 mmHg Sitti ng Heart Rate Post-Dialysis 68 BPM Sitting Heart Rate Pre-Dialysis 73 BPM Temperatu re Post-Dialysis 97.5 degF Standing Heart Rate Pre-Dialysis 75 BPM Temperature Pre-Dialysis 97.6 degF April 15, 2024 In-Center Hemodialysis Treatment [id number]:20:00.000Z 6083-82-41T63:11:45.000Z BP Sitting (Pre-Dialysis) 134/80 mmHg BP Sitting (Post-Dialysis) 126/79 mmHg Concurrent Access: falseAV Fistula Upper Arm (Right) Arterial BP Standing (Pre-Dialysis) 144/82 mmHg BP Standing (P ost-Dialysis) 131/75 mmHg Sitting Heart Rate Pre-Dialysis 79 BPM Sitting Heart Rate Post-Dialysis 87 BPM Standing Heart Rate Pre-Dialysis 70 BPM Standing Heart Rate Post-Dialysis 80 BPM Temperature Pre-Dialysis 97.2 degF Temperature Post -Dialysis 98.2 degF April 11, 2024 In-Center Hemodialysis Treatment [id number]:15:03.000Z 7318-13-41Q89:00:28.000Z BP Sitting (Pre-Dialysis) 190/94 mmHg BP Sitting (Post-Dialysis) 110/69 mmHg Concurrent Access: falseAV Fistula Upper Arm (Right) Arterial BP Standing (Pre-Dialysis) 155/95 mmHg Sitti ng Heart Rate Post-Dialysis 78 BPM Sitting Heart Rate Pre-Dialysis 84 BPM Temperatu re Post-Dialysis 98.2 degF Standing Heart Rate Pre-Dialysis 84 BPM Temperature Pre-Dialysis 97.2 degF April 10, 2024 In-Center Hemodialysis Treatment [id number]:35:33.000Z 9946-83-99C64:16:23.000Z BP Sitting (Pre-Dialysis) 131/70 mmHg BP Sitting (Post-Dialysis) 111/70 mmHg Concurrent Access: falseAV Fistula Upper Arm (Right) Arterial BP Standing (Pre-Dialysis) 124/78 mmHg Sitti ng Heart Rate Post-Dialysis 78 BPM Sitting Heart Rate Pre-Dialysis 80 BPM Temperatu re Post-Dialysis 98.2 degF Standing Heart Rate Pre-Dialysis 87 BPM Temperature Pre-Dialysis 98.2 degF April 08, 2024 In-Center Hemodialysis Treatment [id number]:07:00.000Z 1430-45-09M82:56:00.000Z BP Sitting (Pre-Dialysis) 130/82 mmHg BP Sitting (Post-Dialysis) 127/82 mmHg Concurrent Access: falseAV Fistula Upper Arm (Right) Arterial BP Standing (Pre-Dialysis) 150/77 mmHg BP Standing (P ost-Dialysis) 128/86 mmHg Sitting Heart Rate Pre-Dialysis 74 BPM Sitting Heart Rate Post-Dialysis 72 BPM Standing Heart Rate Pre-Dialysis 69 BPM Standing Heart Rate Post-Dialysis 83 BPM Temperature Pre-Dialysis 97.8 degF Temperature Post -Dialysis 97.4 degF April 05, 2024 In-Center Hemodialysis Treatment [id number]:28:58.000Z 8229-31-96K04:11:03.000Z BP Sitting (Pre-Dialysis) 144/81 mmHg BP Sitting (Post-Dialysis) 147/86 mmHg Concurrent Access: falseAV Fistula Upper Arm (Right) Arterial Sitting Heart Rate Pre-Dialysis 76 BPM Sitting H eart Rate Post-Dialysis 76 BPM Temperature Pre-Dialysis 98.7 degF Temperature Post -Dialysis 98.3 degF April 03, 2024 In-Center Hemodialysis Treatment 7565-26-09Z00:38:00.000Z 9236-48-42Q01:22:05.000Z BP Sitting (Pre-Dialysis) 134/75 mmHg BP Sitting (Post-Dialysis) 126/71 mmHg Concurrent Access: falseAV Fistula Upper Arm (Right) Arterial BP Standing (Pre-Dialysis) 133/79 mmHg Sitti ng Heart Rate Post-Dialysis 77 BPM Sitting Heart Rate Pre-Dialysis 78 BPM Temperatu re Post-Dialysis 98.1 degF Standing Heart Rate Pre-Dialysis 77 BPM Temperature Pre-Dialysis 97.7 degF April 01, 2024 In-Center Hemodialysis Treatment [id number]:18:02.000Z 4982-60-13Q94:04:31.000Z BP Sitting (Pre-Dialysis) 148/82 mmHg BP Sitting (Post-Dialysis) 115/77 mmHg Concurrent Access: falseAV Fistula Upper Arm (Right) Arterial Sitting Heart Rate Pre-Dialysis 75 BPM Sitting H eart Rate Post-Dialysis 76 BPM Temperature Pre-Dialysis 97.5 degF Temperature Post -Dialysis 97.2 degF March 29, 2024 In-Center Hemodialysis Treatment 2121-01-43N49:29:29.000Z 4035-30-44U69:09:04.000Z BP Sitting (Pre-Dialysis) 132/70 mmHg BP Sitting (Post-Dialysis) 132/78 mmHg Concurrent Access: falseAV Fistula Upper Arm (Right) Arterial BP Standing (Pre-Dialysis) 129/74 mmHg Sitti ng Heart Rate Post-Dialysis 79 BPM Sitting Heart Rate Pre-Dialysis 78 BPM Temperatu re Post-Dialysis 98.2 degF Standing Heart Rate Pre-Dialysis 71 BPM Temperature Pre-Dialysis 98.2 degF March 27, 2024 In-Center Hemodialysis Treatment 9975-16-03A73:22:00.000Z 9630-19-62W76:10:32.000Z BP Sitting (Pre-Dialysis) 135/79 mmHg BP Sitting (Post-Dialysis) 142/87 mmHg Concurrent Access: falseAV Fistula Upper Arm (Right) Arterial BP Standing (Pre-Dialysis) 127/89 mmHg Sitti ng Heart Rate Post-Dialysis 83 BPM Sitting Heart Rate Pre-Dialysis 83 BPM Temperatu re Post-Dialysis 98.2 degF Standing Heart Rate Pre-Dialysis 73 BPM Temperature Pre-Dialysis 97.8 degF March 25, 2024 In-Center Hemodialysis Treatment [id number]:22:50.000Z 9257-21-09C22:09:30.000Z BP Sitting (Pre-Dialysis) 141/96 mmHg BP Sitting (Post-Dialysis) 127/75 mmHg Concurrent Access: falseAV Fistula Upper Arm (Right) Arterial BP Standing (Pre-Dialysis) 146/96 mmHg Sitti ng Heart Rate Post-Dialysis 73 BPM Sitting Heart Rate Pre-Dialysis 74 BPM Temperatu re Post-Dialysis 97.6 degF Standing Heart Rate Pre-Dialysis 76 BPM Temperature Pre-Dialysis 97.2 degF March 22, 2024 In-Center Hemodialysis Treatment [id number]:07:41.000Z 0748-44-61R85:16:26.000Z BP Sitting (Pre-Dialysis) 145/85 mmHg BP Sitting (Post-Dialysis) 147/84 mmHg Concurrent Access: falseAV Fistula Upper Arm (Right) Arterial BP Standing (Pre-Dialysis) 140/80 mmHg BP Standing (P ost-Dialysis) 134/81 mmHg Sitting Heart Rate Pre-Dialysis 86 BPM Sitting Heart Rate Post-Dialysis 79 BPM Standing Heart Rate Pre-Dialysis 80 BPM Standing Heart Rate Post-Dialysis 90 BPM Temperature Pre-Dialysis 97.2 degF Temperature Post -Dialysis 97.2 degF March 20, 2024 In-Center Hemodialysis Treatment [id number]:46:00.000Z 4668-35-58Z82:33:55.000Z BP Sitting (Pre-Dialysis) 136/73 mmHg BP Sitting (Post-Dialysis) 135/74 mmHg Concurrent Access: falseAV Fistula Upper Arm (Right) Arterial BP Standing (Pre-Dialysis) 138/76 mmHg BP Standing (P ost-Dialysis) 140/62 mmHg Sitting Heart Rate Pre-Dialysis 77 BPM Sitting Heart Rate Post-Dialysis 82 BPM Standing Heart Rate Pre-Dialysis 81 BPM Standing Heart Rate Post-Dialysis 86 BPM Temperature Pre-Dialysis 97.2 degF Temperature Post -Dialysis 97.7 degF March 18, 2024 In-Center Hemodialysis Treatment [id number]:14:04.000Z 9803-88-01I93:58:14.000Z BP Sitting (Pre-Dialysis) 143/81 mmHg BP Sitting (Post-Dialysis) 147/87 mmHg Concurrent Access: falseAV Fistula Upper Arm (Right) Arterial BP Standing (Pre-Dialysis) 152/70 mmHg Sitti ng Heart Rate Post-Dialysis 87 BPM Sitting Heart Rate Pre-Dialysis 82 BPM Temperatu re Post-Dialysis 98.2 degF Standing Heart Rate Pre-Dialysis 80 BPM Temperature Pre-Dialysis 98.2 degF March 15, 2024 In-Center Hemodialysis Treatment [id number]:53:00.000Z 0140-08-89H72:26:09.000Z BP Sitting (Pre-Dialysis) 146/94 mmHg BP Sitting (Post-Dialysis) 167/99 mmHg Concurrent Access: falseAV Fistula Upper Arm (Right) Arterial BP Standing (Pre-Dialysis) 149/95 mmHg BP Standing (P ost-Dialysis) 127/98 mmHg Sitting Heart Rate Pre-Dialysis 80 BPM Sitting Heart Rate Post-Dialysis 84 BPM Standing Heart Rate Pre-Dialysis 84 BPM Standing Heart Rate Post-Dialysis 106 BPM Temperature Pre-Dialysis 97.8 degF Temperature Post -Dialysis 97.8 degF March 13, 2024 In-Center Hemodialysis Treatment [id number]:29:32.000Z 4480-29-57O18:12:52.000Z BP Sitting (Pre-Dialysis) 130/69 mmHg BP Sitting (Post-Dialysis) 129/73 mmHg Concurrent Access: falseAV Fistula Upper Arm (Right) Arterial BP Standing (Pre-Dialysis) 129/68 mmHg BP Standing (P ost-Dialysis) 131/70 mmHg Sitting Heart Rate Pre-Dialysis 70 BPM Sitting Heart Rate Post-Dialysis 82 BPM Standing Heart Rate Pre-Dialysis 79 BPM Standing Heart Rate Post-Dialysis 82 BPM Temperature Pre-Dialysis 98.5 degF Temperature Post -Dialysis 98.2 degF March 11, 2024 In-Center Hemodialysis Treatment 4899-79-51K01:23:00.000Z 5269-33-43S35:09:35.000Z BP Sitting (Pre-Dialysis) 137/78 mmHg BP Sitting (Post-Dialysis) 134/80 mmHg Concurrent Access: falseAV Fistula Upper Arm (Right) Arterial BP Standing (Pre-Dialysis) 159/70 mmHg Sitti ng Heart Rate Post-Dialysis 73 BPM Sitting Heart Rate Pre-Dialysis 85 BPM Temperatu re Post-Dialysis 97.2 degF Standing Heart Rate Pre-Dialysis 80 BPM Temperature Pre-Dialysis 98.2 degF March 08, 2024 In-Center Hemodialysis Treatment 4949-26-20J70:22:00.000Z 7337-13-35N15:05:24.000Z BP Sitting (Pre-Dialysis) 118/54 mmHg BP Sitting (Post-Dialysis) 158/85 mmHg Concurrent Access: falseAV Fistula Upper Arm (Right) Arterial BP Standing (Pre-Dialysis) 125/69 mmHg BP Standing (P ost-Dialysis) 141/69 mmHg Sitting Heart Rate Pre-Dialysis 79 BPM Sitting Heart Rate Post-Dialysis 83 BPM Standing Heart Rate Pre-Dialysis 70 BPM Standing Heart Rate Post-Dialysis 87 BPM Temperature Pre-Dialysis 98.2 degF Temperature Post -Dialysis 98.2 degF March 06, 2024 In-Center Hemodialysis Treatment [id number]:27:30.000Z 5651-22-98W63:57:55.000Z BP Sitting (Pre-Dialysis) 104/74 mmHg BP Sitting (Post-Dialysis) 142/86 mmHg Concurrent Access: falseAV Fistula Upper Arm (Right) Arterial BP Standing (Pre-Dialysis) 110/72 mmHg BP Standing (P ost-Dialysis) 114/67 mmHg Sitting Heart Rate Pre-Dialysis 79 BPM Sitting Heart Rate Post-Dialysis 72 BPM Standing Heart Rate Pre-Dialysis 80 BPM Standing Heart Rate Post-Dialysis 85 BPM Temperature Pre-Dialysis 97.2 degF Temperature Post -Dialysis 98.2 degF March 04, 2024 In-Center Hemodialysis Treatment [id number]:02:00.000Z 2119-71-87N01:52:02.000Z BP Sitting (Pre-Dialysis) 152/82 mmHg BP Sitting (Post-Dialysis) 142/86 mmHg Concurrent Access: falseAV Fistula Upper Arm (Right) Arterial BP Standing (Pre-Dialysis) 144/84 mmHg BP Standing (P ost-Dialysis) 139/70 mmHg Sitting Heart Rate Pre-Dialysis 82 BPM Sitting Heart Rate Post-Dialysis 75 BPM Standing Heart Rate Pre-Dialysis 84 BPM Standing Heart Rate Post-Dialysis 88 BPM Temperature Pre-Dialysis 97.8 degF Temperature Post -Dialysis 97.4 degF March 01, 2024 In-Center Hemodialysis Treatment [id number]:23:59.000Z 6269-81-15D65:11:54.000Z BP Sitting (Pre-Dialysis) 135/90 mmHg BP Sitting (Post-Dialysis) 119/75 mmHg Concurrent Access: falseAV Fistula Upper Arm (Right) Arterial BP Standing (Pre-Dialysis) 146/89 mmHg BP Standing (P ost-Dialysis) 121/74 mmHg Sitting Heart Rate Pre-Dialysis 68 BPM Sitting Heart Rate Post-Dialysis 87 BPM Standing Heart Rate Pre-Dialysis 69 BPM Standing Heart Rate Post-Dialysis 93 BPM Temperature Pre-Dialysis 97.2 degF Temperature Post -Dialysis 97.2 degF February 28, 2024 In-Center Hemodialysis Treatment [id number]:43:42.000Z 3591-55-66K02:29:32.000Z BP Sitting (Pre-Dialysis) 155/94 mmHg BP Sitting (Post-Dialysis) 154/88 mmHg Concurrent Access: falseAV Fistula Upper Arm (Right) Arterial BP Standing (Pre-Dialysis) 155/92 mmHg Sitti ng Heart Rate Post-Dialysis 72 BPM Sitting Heart Rate Pre-Dialysis 68 BPM Temperatu re Post-Dialysis 97.6 degF Standing Heart Rate Pre-Dialysis 68 BPM Temperature Pre-Dialysis 97.9 degF February 26, 2024 In-Center Hemodialysis Treatment [id number]:51:00.000Z 6367-95-69Q05:37:07.000Z BP Sitting (Pre-Dialysis) 134/80 mmHg BP Sitting (Post-Dialysis) 145/78 mmHg Concurrent Access: falseAV Fistula Upper Arm (Right) Arterial BP Standing (Pre-Dialysis) 144/86 mmHg BP Standing (P ost-Dialysis) 144/78 mmHg Sitting Heart Rate Pre-Dialysis 80 BPM Sitting Heart Rate Post-Dialysis 82 BPM Standing Heart Rate Pre-Dialysis 80 BPM Standing Heart Rate Post-Dialysis 78 BPM Temperature Pre-Dialysis 97.4 degF Temperature Post -Dialysis 97.8 degF February 23, 2024 In-Center Hemodialysis Treatment [id number]:21:42.000Z [id number]:58:47.000Z BP Sitting (Pre-Dialysis) 127/77 mmHg BP Sitting (Post-Dialysis) 148/87 mmHg Concurrent Access: falseAV Fistula Upper Arm (Right) Arterial BP Standing (Pre-Dialysis) 131/70 mmHg Sitti ng Heart Rate Post-Dialysis 67 BPM Sitting Heart Rate Pre-Dialysis 74 BPM Temperatu re Post-Dialysis 98.2 degF Standing Heart Rate Pre-Dialysis 74 BPM Temperature Pre-Dialysis 98.2 degF February 21, 2024 In-Center Hemodialysis Treatment 7067-78-40C91:28:47.000Z 3485-30-22Z90:58:47.000Z BP Sitting (Pre-Dialysis) 127/94 mmHg BP Sitting (Post-Dialysis) 111/66 mmHg Concurrent Access: falseAV Fistula Upper Arm (Right) Arterial BP Standing (Pre-Dialysis) 141/83 mmHg BP Standing (P ost-Dialysis) 104/65 mmHg Sitting Heart Rate Pre-Dialysis 82 BPM Sitting Heart Rate Post-Dialysis 73 BPM Standing Heart Rate Pre-Dialysis 83 BPM Standing Heart Rate Post-Dialysis 72 BPM Temperature Pre-Dialysis 97.7 degF Temperature Post -Dialysis 97.2 degF February 19, 2024 In-Center Hemodialysis Treatment [id number]:52:02.000Z [id number]:36:37.000Z BP Sitting (Pre-Dialysis) 145/77 mmHg BP Sitting (Post-Dialysis) 129/84 mmHg Concurrent Access: falseAV Fistula Upper Arm (Right) Arterial Sitting Heart Rate Pre-Dialysis 67 BPM BP Standing (Post-Dialysis) 127/79 mmHg Temperature Pre-Dialysis 97.4 degF Sitting Heart Ra te Post-Dialysis 73 BPM Standing Heart Rate Post-Mouna lysis 83 BPM Temperature Post-Dialysis 97 .2 degF February 16, 2024 In-Center Hemodialysis Treatment 9232-00-90H72:36:00.000Z 3540-99-11T16:27:25.000Z BP Sitting (Pre-Dialysis) 131/81 mmHg BP Sitting (Post-Dialysis) 140/81 mmHg Concurrent Access: falseAV Fistula Upper Arm (Right) Arterial BP Standing (Pre-Dialysis) 138/80 mmHg BP Standing (P ost-Dialysis) 127/81 mmHg Sitting Heart Rate Pre-Dialysis 75 BPM Sitting Heart Rate Post-Dialysis 74 BPM Standing Heart Rate Pre-Dialysis 77 BPM Standing Heart Rate Post-Dialysis 86 BPM Temperature Pre-Dialysis 97.9 degF Temperature Post -Dialysis 97.9 degF February 14, 2024 In-Center Hemodialysis Treatment [id number]:15:07.000Z 8360-67-58H01:55:32.000Z BP Sitting (Pre-Dialysis) 156/87 mmHg BP Sitting (Post-Dialysis) 136/70 mmHg Concurrent Access: falseAV Fistula Upper Arm (Right) Arterial BP Standing (Pre-Dialysis) 144/83 mmHg Sitti ng Heart Rate Post-Dialysis 70 BPM Sitting Heart Rate Pre-Dialysis 84 BPM Temperatu re Post-Dialysis 98.2 degF Standing Heart Rate Pre-Dialysis 94 BPM Temperature Pre-Dialysis 97.2 degF February 12, 2024 In-Center Hemodialysis Treatment 2821-64-25T74:42:00.000Z 9807-53-96U39:29:09.000Z BP Sitting (Pre-Dialysis) 134/79 mmHg BP Sitting (Post-Dialysis) 126/76 mmHg Concurrent Access: falseAV Fistula Upper Arm (Right) Arterial BP Standing (Pre-Dialysis) 139/78 mmHg Sitti ng Heart Rate Post-Dialysis 77 BPM Sitting Heart Rate Pre-Dialysis 73 BPM Temperatu re Post-Dialysis 97.5 degF Standing Heart Rate Pre-Dialysis 72 BPM Temperature Pre-Dialysis 97.8 degF February 09, 2024 In-Center Hemodialysis Treatment 8582-55-15F24:27:00.000Z 7551-44-74S07:16:32.000Z BP Sitting (Pre-Dialysis) 135/83 mmHg BP Sitting (Post-Dialysis) 134/73 mmHg Concurrent Access: falseAV Fistula Upper Arm (Right) Arterial BP Standing (Pre-Dialysis) 133/90 mmHg BP Standing (P ost-Dialysis) 111/84 mmHg Sitting Heart Rate Pre-Dialysis 78 BPM Sitting Heart Rate Post-Dialysis 73 BPM Standing Heart Rate Pre-Dialysis 80 BPM Standing Heart Rate Post-Dialysis 87 BPM Temperature Pre-Dialysis 97.7 degF Temperature Post -Dialysis 97.6 degF February 07, 2024 In-Center Hemodialysis Treatment 6978-43-72R70:28:00.000Z 2761-67-57K56:17:56.000Z BP Sitting (Pre-Dialysis) 160/94 mmHg BP Sitting (Post-Dialysis) 139/86 mmHg Concurrent Access: falseAV Fistula Upper Arm (Right) Arterial BP Standing (Pre-Dialysis) 154/101 mmHg Sitti ng Heart Rate Post-Dialysis 76 BPM Sitting Heart Rate Pre-Dialysis 73 BPM Temperatu re Post-Dialysis 97.4 degF Standing Heart Rate Pre-Dialysis 75 BPM Temperature Pre-Dialysis 97.9 degF February 05, 2024 In-Center Hemodialysis Treatment [id number]:38:48.000Z 4346-19-47X48:22:33.000Z BP Sitting (Pre-Dialysis) 120/80 mmHg BP Sitting (Post-Dialysis) 123/87 mmHg Concurrent Access: falseAV Fistula Upper Arm (Right) Arterial BP Standing (Pre-Dialysis) 131/80 mmHg Sitti ng Heart Rate Post-Dialysis 87 BPM Sitting Heart Rate Pre-Dialysis 69 BPM Temperatu re Post-Dialysis 97.4 degF Standing Heart Rate Pre-Dialysis 69 BPM Temperature Pre-Dialysis 98.2 degF February 02, 2024 In-Center Hemodialysis Treatment 2676-12-83V06:20:47.000Z 1643-10-65W61:49:32.000Z BP Sitting (Pre-Dialysis) 140/96 mmHg BP Sitting (Post-Dialysis) 129/83 mmHg Concurrent Access: falseAV Fistula Upper Arm (Right) Arterial BP Standing (Pre-Dialysis) 129/70 mmHg Sitti ng Heart Rate Post-Dialysis 87 BPM Sitting Heart Rate Pre-Dialysis 97 BPM Temperatu re Post-Dialysis 98.2 degF Standing Heart Rate Pre-Dialysis 112 BPM Temperature Pre-Dialysis 98.2 degF January 31, 2024 In-Center Hemodialysis Treatment [id number]:34:29.000Z 0503-48-64P91:19:54.000Z BP Sitting (Pre-Dialysis) 156/103 mmHg BP Sitting (Post-Dialysis) 143/86 mmHg Concurrent Access: falseAV Fistula Upper Arm (Right) Arterial BP Standing (Pre-Dialysis) 163/102 mmHg BP Standing (P ost-Dialysis) 162/79 mmHg Sitting Heart Rate Pre-Dialysis 75 BPM Sitting Heart Rate Post-Dialysis 87 BPM Standing Heart Rate Pre-Dialysis 77 BPM Standing Heart Rate Post-Dialysis 94 BPM Temperature Pre-Dialysis 97 degF Temperature Post -Dialysis 97.2 degF January 29, 2024 In-Center Hemodialysis Treatment [id number]:31:45.000Z [id number]:13:50.000Z BP Sitting (Pre-Dialysis) 147/82 mmHg BP Sitting (Post-Dialysis) 135/82 mmHg Concurrent Access: falseAV Fistula Upper Arm (Right) Arterial BP Standing (Pre-Dialysis) 142/81 mmHg BP Standing (P ost-Dialysis) 132/82 mmHg Sitting Heart Rate Pre-Dialysis 73 BPM Sitting Heart Rate Post-Dialysis 74 BPM Standing Heart Rate Pre-Dialysis 76 BPM Standing Heart Rate Post-Dialysis 89 BPM Temperature Pre-Dialysis 97.2 degF Temperature Post -Dialysis 97.2 degF January 26, 2024 In-Center Hemodialysis Treatment [id number]:10:44.000Z 6666-04-19N31:55:44.000Z BP Sitting (Pre-Dialysis) 115/76 mmHg BP Sitting (Post-Dialysis) 126/69 mmHg Concurrent Access: falseAV Fistula Upper Arm (Right) Arterial BP Standing (Pre-Dialysis) 116/74 mmHg Sitti ng Heart Rate Post-Dialysis 76 BPM Sitting Heart Rate Pre-Dialysis 78 BPM Temperatu re Post-Dialysis 97.6 degF Standing Heart Rate Pre-Dialysis 90 BPM Temperature Pre-Dialysis 97.9 degF January 24, 2024 In-Center Hemodialysis Treatment [id number]:45:00.000Z [id number]:30:53.000Z BP Sitting (Pre-Dialysis) 144/96 mmHg BP Sitting (Post-Dialysis) 136/69 mmHg Concurrent Access: falseAV Fistula Upper Arm (Right) Arterial BP Standing (Pre-Dialysis) 109/92 mmHg BP Standing (P ost-Dialysis) 121/77 mmHg Sitting Heart Rate Pre-Dialysis 80 BPM Sitting Heart Rate Post-Dialysis 83 BPM Standing Heart Rate Pre-Dialysis 87 BPM Standing Heart Rate Post-Dialysis 83 BPM Temperature Pre-Dialysis 98.4 degF Temperature Post -Dialysis 97.8 degF January 22, 2024 In-Center Hemodialysis Treatment [id number]:38:09.000Z [id number]:18:34.000Z BP Sitting (Pre-Dialysis) 154/89 mmHg BP Sitting (Post-Dialysis) 138/83 mmHg Concurrent Access: falseAV Fistula Upper Arm (Right) Arterial Sitting Heart Rate Pre-Dialysis 81 BPM Sitting H eart Rate Post-Dialysis 74 BPM Temperature Pre-Dialysis 98.2 degF Temperature Post -Dialysis 97.2 degF January 19, 2024 In-Center Hemodialysis Treatment [id number]:55:21.000Z [id number]:34:56.000Z BP Sitting (Pre-Dialysis) 151/86 mmHg BP Sitting (Post-Dialysis) 158/75 mmHg Concurrent Access: falseAV Fistula Upper Arm (Right) Arterial BP Standing (Pre-Dialysis) 149/85 mmHg Sitti ng Heart Rate Post-Dialysis 78 BPM Sitting Heart Rate Pre-Dialysis 82 BPM Temperatu re Post-Dialysis 97.7 degF Standing Heart Rate Pre-Dialysis 85 BPM Temperature Pre-Dialysis 97.2 degF January 17, 2024 In-Center Hemodialysis Treatment [id number]:40:39.000Z [id number]:27:19.000Z BP Sitting (Pre-Dialysis) 135/79 mmHg BP Sitting (Post-Dialysis) 125/76 mmHg Concurrent Access: falseAV Fistula Upper Arm (Right) Arterial BP Standing (Pre-Dialysis) 119/74 mmHg BP Standing (P ost-Dialysis) 128/69 mmHg Sitting Heart Rate Pre-Dialysis 78 BPM Sitting Heart Rate Post-Dialysis 73 BPM Standing Heart Rate Pre-Dialysis 87 BPM Standing Heart Rate Post-Dialysis 85 BPM Temperature Pre-Dialysis 97.6 degF Temperature Post -Dialysis 97.2 degF January 15, 2024 In-Center Hemodialysis Treatment [id number]:48:00.000Z 9107-94-92W62:28:34.000Z BP Sitting (Pre-Dialysis) 135/89 mmHg BP Sitting (Post-Dialysis) 134/82 mmHg Concurrent Access: falseAV Fistula Upper Arm (Right) Arterial BP Standing (Pre-Dialysis) 152/94 mmHg Sitti ng Heart Rate Post-Dialysis 71 BPM Sitting Heart Rate Pre-Dialysis 69 BPM Temperatu re Post-Dialysis 98.2 degF Standing Heart Rate Pre-Dialysis 69 BPM Temperature Pre-Dialysis 98.2 degF January 12, 2024 In-Center Hemodialysis Treatment 7835-12-00V60:07:00.000Z 2406-66-22U96:03:19.000Z BP Sitting (Pre-Dialysis) 149/88 mmHg BP Sitting (Post-Dialysis) 146/86 mmHg Concurrent Access: falseAV Fistula Upper Arm (Right) Arterial BP Standing (Pre-Dialysis) 162/85 mmHg Sitti ng Heart Rate Post-Dialysis 77 BPM Sitting Heart Rate Pre-Dialysis 78 BPM Temperatu re Post-Dialysis 97.5 degF Standing Heart Rate Pre-Dialysis 79 BPM Temperature Pre-Dialysis 98.1 degF January 10, 2024 In-Center Hemodialysis Treatment [id number]:48:03.000Z 9889-45-00B40:30:00.000Z BP Sitting (Pre-Dialysis) 135/85 mmHg BP Sitting (Post-Dialysis) 137/81 mmHg Concurrent Access: falseAV Fistula Upper Arm (Right) Arterial BP Standing (Pre-Dialysis) 127/84 mmHg BP Standing (P ost-Dialysis) 123/80 mmHg Sitting Heart Rate Pre-Dialysis 85 BPM Sitting Heart Rate Post-Dialysis 78 BPM Standing Heart Rate Pre-Dialysis 85 BPM Standing Heart Rate Post-Dialysis 75 BPM Temperature Pre-Dialysis 97.2 degF Temperature Post -Dialysis 97.2 degF January 08, 2024 In-Center Hemodialysis Treatment [id number]:36:29.000Z [id number]:25:14.000Z BP Sitting (Pre-Dialysis) 135/70 mmHg BP Sitting (Post-Dialysis) 118/71 mmHg Concurrent Access: falseAV Fistula Upper Arm (Right) Arterial BP Standing (Pre-Dialysis) 137/79 mmHg Sitti ng Heart Rate Post-Dialysis 71 BPM Sitting Heart Rate Pre-Dialysis 70 BPM Temperatu re Post-Dialysis 97.7 degF Standing Heart Rate Pre-Dialysis 74 BPM Temperature Pre-Dialysis 98.2 degF January 05, 2024 In-Center Hemodialysis Treatment [id number]:32:35.000Z 5616-65-38U69:17:10.000Z BP Sitting (Pre-Dialysis) 125/89 mmHg BP Sitting (Post-Dialysis) 122/78 mmHg Concurrent Access: falseAV Fistula Upper Arm (Right) Arterial BP Standing (Pre-Dialysis) 130/86 mmHg BP Standing (P ost-Dialysis) 115/73 mmHg Sitting Heart Rate Pre-Dialysis 70 BPM Sitting Heart Rate Post-Dialysis 97 BPM Standing Heart Rate Pre-Dialysis 76 BPM Standing Heart Rate Post-Dialysis 90 BPM Temperature Pre-Dialysis 98.2 degF Temperature Post -Dialysis 98.2 degF January 03, 2024 In-Center Hemodialysis Treatment [id number]:33:04.000Z [id number]:20:01.000Z BP Sitting (Pre-Dialysis) 127/82 mmHg BP Sitting (Post-Dialysis) 128/81 mmHg Concurrent Access: falseAV Fistula Upper Arm (Right) Arterial BP Standing (Pre-Dialysis) 122/72 mmHg BP Standing (P ost-Dialysis) 112/68 mmHg Sitting Heart Rate Pre-Dialysis 80 BPM Sitting Heart Rate Post-Dialysis 73 BPM Standing Heart Rate Pre-Dialysis 81 BPM Standing Heart Rate Post-Dialysis 85 BPM Temperature Pre-Dialysis 97.7 degF Temperature Post -Dialysis 97.2 degF January 01, 2024 In-Center Hemodialysis Treatment [id number]:47:00.000Z 9600-40-27Z58:38:57.000Z BP Sitting (Pre-Dialysis) 144/84 mmHg BP Sitting (Post-Dialysis) 149/82 mmHg Concurrent Access: falseAV Fistula Upper Arm (Right) Arterial BP Standing (Pre-Dialysis) 142/89 mmHg BP Standing (P ost-Dialysis) 124/83 mmHg Sitting Heart Rate Pre-Dialysis 75 BPM Sitting Heart Rate Post-Dialysis 69 BPM Standing Heart Rate Pre-Dialysis 77 BPM Standing Heart Rate Post-Dialysis 91 BPM Temperature Pre-Dialysis 97.8 degF Temperature Post -Dialysis 97.8 degF December 29, 2023 In-Center Hemodialysis Treatment [id number]:18:06.000Z [id number]:03:31.000Z BP Sitting (Pre-Dialysis) 140/81 mmHg BP Sitting (Post-Dialysis) 151/89 mmHg Concurrent Access: falseAV Fistula Upper Arm (Right) Arterial BP Standing (Pre-Dialysis) 120/73 mmHg Sitti ng Heart Rate Post-Dialysis 76 BPM Sitting Heart Rate Pre-Dialysis 78 BPM Temperatu re Post-Dialysis 98.2 degF Standing Heart Rate Pre-Dialysis 89 BPM Temperature Pre-Dialysis 98.2 degF December 27, 2023 In-Center Hemodialysis Treatment 5640-33-36V01:30:23.000Z [id number]:17:03.000Z BP Sitting (Pre-Dialysis) 141/85 mmHg BP Sitting (Post-Dialysis) 141/70 mmHg Concurrent Access: falseAV Fistula Upper Arm (Right) Arterial BP Standing (Pre-Dialysis) 127/82 mmHg Sitti ng Heart Rate Post-Dialysis 78 BPM Sitting Heart Rate Pre-Dialysis 68 BPM Temperatu re Post-Dialysis 98.2 degF Standing Heart Rate Pre-Dialysis 68 BPM Temperature Pre-Dialysis 97.5 degF December 25, 2023 In-Center Hemodialysis Treatment 5102-70-99W61:35:00.000Z 3046-14-93M08:24:32.000Z BP Sitting (Pre-Dialysis) 148/88 mmHg BP Sitting (Post-Dialysis) 136/72 mmHg Concurrent Access: falseAV Fistula Upper Arm (Right) Arterial BP Standing (Pre-Dialysis) 122/75 mmHg Sitting Heart Rate Post-Dialysis 77 BPM Sitting Heart Rate Pre-Dialysis 75 BPM Standing Heart Rate Pre-Dialysis 82 BPM Temperature Pre-Dialysis 97.7 degF December 22, 2023 In-Center Hemodialysis Treatment 1288-54-64Z26:02:00.000Z 1545-28-74I76:51:46.000Z BP Sitting (Pre-Dialysis) 153/81 mmHg BP Sitting (Post-Dialysis) 149/78 mmHg Concurrent Access: falseAV Fistula Upper Arm (Right) Arterial BP Standing (Pre-Dialysis) 108/58 mmHg Sitti ng Heart Rate Post-Dialysis 76 BPM Sitting Heart Rate Pre-Dialysis 76 BPM Temperatu re Post-Dialysis 98.2 degF Standing Heart Rate Pre-Dialysis 84 BPM Temperature Pre-Dialysis 97.5 degF December 20, 2023 In-Center Hemodialysis Treatment 1717-58-14L42:34:07.000Z 1239-00-30J87:19:32.000Z BP Sitting (Pre-Dialysis) 143/80 mmHg BP Sitting (Post-Dialysis) 136/71 mmHg Concurrent Access: falseAV Fistula Upper Arm (Right) Arterial BP Standing (Pre-Dialysis) 159/87 mmHg BP Standing (P ost-Dialysis) 150/86 mmHg Sitting Heart Rate Pre-Dialysis 74 BPM Sitting Heart Rate Post-Dialysis 78 BPM Standing Heart Rate Pre-Dialysis 74 BPM Standing Heart Rate Post-Dialysis 90 BPM Temperature Pre-Dialysis 98.2 degF Temperature Post -Dialysis 97.4 degF December 18, 2023 In-Center Hemodialysis Treatment 8650-66-70H26:15:01.000Z 4843-08-07S85:01:16.000Z BP Sitting (Pre-Dialysis) 129/72 mmHg BP Sitting (Post-Dialysis) 130/73 mmHg Concurrent Access: falseAV Fistula Upper Arm (Right) Arterial Sitting Heart Rate Pre-Dialysis 81 BPM Sitting H eart Rate Post-Dialysis 78 BPM Temperature Pre-Dialysis 97.2 degF Temperature Post -Dialysis 97.2 degF December 15, 2023 In-Center Hemodialysis Treatment 1361-63-03K72:48:49.000Z 3583-20-02I68:30:54.000Z BP Sitting (Pre-Dialysis) 142/85 mmHg BP Sitting (Post-Dialysis) 147/90 mmHg Concurrent Access: falseAV Fistula Upper Arm (Right) Arterial BP Standing (Pre-Dialysis) 133/84 mmHg BP Standing (P ost-Dialysis) 135/89 mmHg Sitting Heart Rate Pre-Dialysis 72 BPM Sitting Heart Rate Post-Dialysis 100 BPM Standing Heart Rate Pre-Dialysis 74 BPM Standing Heart Rate Post-Dialysis 99 BPM Temperature Pre-Dialysis 97.2 degF Temperature Post -Dialysis 97.2 degF December 13, 2023 In-Center Hemodialysis Treatment 0810-19-47Y92:36:00.000Z 1127-75-26L54:37:29.000Z BP Sitting (Pre-Dialysis) 146/82 mmHg BP Sitting (Post-Dialysis) 109/61 mmHg Concurrent Access: falseAV Fistula Upper Arm (Right) Arterial BP Standing (Pre-Dialysis) 122/76 mmHg BP Standing (P ost-Dialysis) 118/83 mmHg Sitting Heart Rate Pre-Dialysis 71 BPM Sitting Heart Rate Post-Dialysis 73 BPM Standing Heart Rate Pre-Dialysis 81 BPM Standing Heart Rate Post-Dialysis 89 BPM Temperature Pre-Dialysis 97.3 degF Temperature Post -Dialysis 98.6 degF December 11, 2023 In-Center Hemodialysis Treatment 7267-30-18T72:34:00.000Z 3084-13-40M83:23:30.000Z BP Sitting (Pre-Dialysis) 144/87 mmHg BP Sitting (Post-Dialysis) 147/92 mmHg Concurrent Access: falseAV Fistula Upper Arm (Right) Arterial BP Standing (Pre-Dialysis) 146/83 mmHg Sitti ng Heart Rate Post-Dialysis 68 BPM Sitting Heart Rate Pre-Dialysis 73 BPM Temperatu re Post-Dialysis 97.6 degF Standing Heart Rate Pre-Dialysis 79 BPM Temperature Pre-Dialysis 97.5 degF December 08, 2023 In-Center Hemodialysis Treatment 3051-04-01J07:24:41.000Z [id number]:11:21.000Z BP Sitting (Pre-Dialysis) 150/82 mmHg BP Sitting (Post-Dialysis) 145/83 mmHg Concurrent Access: falseAV Fistula Upper Arm (Right) Arterial BP Standing (Pre-Dialysis) 133/73 mmHg BP Standing (P ost-Dialysis) 126/75 mmHg Sitting Heart Rate Pre-Dialysis 74 BPM Sitting Heart Rate Post-Dialysis 75 BPM Standing Heart Rate Pre-Dialysis 85 BPM Standing Heart Rate Post-Dialysis 86 BPM Temperature Pre-Dialysis 98.1 degF Temperature Post -Dialysis 98.1 degF December 06, 2023 In-Center Hemodialysis Treatment [id number]:37:00.000Z 5317-69-53K41:24:03.000Z BP Sitting (Pre-Dialysis) 144/93 mmHg BP Sitting (Post-Dialysis) 168/85 mmHg Concurrent Access: falseAV Fistula Upper Arm (Right) Arterial BP Standing (Pre-Dialysis) 115/87 mmHg BP Standing (P ost-Dialysis) 148/89 mmHg Sitting Heart Rate Pre-Dialysis 78 BPM Sitting Heart Rate Post-Dialysis 79 BPM Standing Heart Rate Pre-Dialysis 87 BPM Standing Heart Rate Post-Dialysis 93 BPM Temperature Pre-Dialysis 97.8 degF Temperature Post -Dialysis 97.5 degF December 04, 2023 In-Center Hemodialysis Treatment 3112-06-49K86:37:26.000Z 6858-18-22G71:23:41.000Z BP Sitting (Pre-Dialysis) 137/81 mmHg BP Sitting (Post-Dialysis) 126/80 mmHg Concurrent Access: falseAV Fistula Upper Arm (Right) Arterial BP Standing (Pre-Dialysis) 128/83 mmHg BP Standing (P ost-Dialysis) 118/80 mmHg Sitting Heart Rate Pre-Dialysis 93 BPM Sitting Heart Rate Post-Dialysis 92 BPM Standing Heart Rate Pre-Dialysis 95 BPM Standing Heart Rate Post-Dialysis 90 BPM Temperature Pre-Dialysis 97.2 degF Temperature Post -Dialysis 97.2 degF December 01, 2023 In-Center Hemodialysis Treatment 4795E61:39:00.000Z 9908-37-66X96:28:38.000Z BP Sitting (Pre-Dialysis) 142/89 mmHg BP Sitting (Post-Dialysis) 165/101 mmHg Concurrent Access: falseAV Fistula Upper Arm (Right) Arterial BP Standing (Pre-Dialysis) 153/91 mmHg BP Standing (P ost-Dialysis) 138/63 mmHg Sitting Heart Rate Pre-Dialysis 76 BPM Sitting Heart Rate Post-Dialysis 81 BPM Standing Heart Rate Pre-Dialysis 73 BPM Standing Heart Rate Post-Dialysis 62 BPM Temperature Pre-Dialysis 97.7 degF Temperature Post -Dialysis 97.7 degF November 29, 2023 In-Center Hemodialysis Treatment 9554-06-22F83:37:08.000Z 0950-54-88A65:22:33.000Z BP Sitting (Pre-Dialysis) 140/77 mmHg BP Sitting (Post-Dialysis) 161/93 mmHg Concurrent Access: falseAV Fistula Upper Arm (Right) Arterial BP Standing (Pre-Dialysis) 145/95 mmHg Sitti ng Heart Rate Post-Dialysis 73 BPM Sitting Heart Rate Pre-Dialysis 65 BPM Temperatu re Post-Dialysis 97.2 degF Standing Heart Rate Pre-Dialysis 67 BPM Temperature Pre-Dialysis 97.7 degF November 27, 2023 In-Center Hemodialysis Treatment 9728-90-03H93:32:48.000Z 6450-54-60M60:16:33.000Z BP Sitting (Pre-Dialysis) 141/95 mmHg BP Sitting (Post-Dialysis) 136/90 mmHg Concurrent Access: falseAV Fistula Upper Arm (Right) Arterial Sitting Heart Rate Pre-Dialysis 74 BPM Sitting H eart Rate Post-Dialysis 77 BPM Temperature Pre-Dialysis 98.2 degF Temperature Post -Dialysis 97.7 degF November 24, 2023 In-Center Hemodialysis Treatment 4774-88-61T07:17:00.000Z 0600-72-14N53:37:04.000Z BP Sitting (Pre-Dialysis) 131/67 mmHg BP Sitting (Post-Dialysis) 152/86 mmHg Concurrent Access: falseAV Fistula Upper Arm (Right) Arterial BP Standing (Pre-Dialysis) 146/90 mmHg Sitti ng Heart Rate Post-Dialysis 79 BPM Sitting Heart Rate Pre-Dialysis 73 BPM Temperatu re Post-Dialysis 97.5 degF Standing Heart Rate Pre-Dialysis 73 BPM Temperature Pre-Dialysis 97.9 degF November 22, 2023 In-Center Hemodialysis Treatment 2116-77-30R08:32:00.000Z 7314-73-73H90:16:09.000Z BP Sitting (Pre-Dialysis) 133/80 mmHg BP Sitting (Post-Dialysis) 142/89 mmHg Concurrent Access: falseAV Fistula Upper Arm (Right) Arterial BP Standing (Pre-Dialysis) 121/75 mmHg BP Standing (P ost-Dialysis) 137/83 mmHg Sitting Heart Rate Pre-Dialysis 69 BPM Sitting Heart Rate Post-Dialysis 77 BPM Standing Heart Rate Pre-Dialysis 79 BPM Standing Heart Rate Post-Dialysis 87 BPM Temperature Pre-Dialysis 97.6 degF Temperature Post -Dialysis 97.7 degF November 20, 2023 In-Center Hemodialysis Treatment 1599-89-14C37:30:47.000Z 2158-60-08E51:13:42.000Z BP Sitting (Pre-Dialysis) 145/85 mmHg BP Sitting (Post-Dialysis) 146/72 mmHg Concurrent Access: falseAV Fistula Upper Arm (Right) Arterial BP Standing (Pre-Dialysis) 148/87 mmHg Sitti ng Heart Rate Post-Dialysis 77 BPM Sitting Heart Rate Pre-Dialysis 75 BPM Temperatu re Post-Dialysis 98.2 degF Standing Heart Rate Pre-Dialysis 76 BPM Temperature Pre-Dialysis 97.2 degF November 17, 2023 In-Center Hemodialysis Treatment 9722-76-95T52:11:29.000Z 4708-29-80E12:47:44.000Z BP Sitting (Pre-Dialysis) 138/95 mmHg BP Sitting (Post-Dialysis) 142/82 mmHg Concurrent Access: falseAV Fistula Upper Arm (Right) Arterial BP Standing (Pre-Dialysis) 147/92 mmHg Sitti ng Heart Rate Post-Dialysis 80 BPM Sitting Heart Rate Pre-Dialysis 80 BPM Temperatu re Post-Dialysis 97.2 degF Standing Heart Rate Pre-Dialysis 79 BPM Temperature Pre-Dialysis 97.4 degF November 15, 2023 In-Center Hemodialysis Treatment 7635-24-86I98:17:00.000Z 6333-43-86O70:04:00.000Z BP Sitting (Pre-Dialysis) 144/100 mmHg BP Sitting (Post-Dialysis) 146/83 mmHg Concurrent Access: falseAV Fistula Upper Arm (Right) Arterial BP Standing (Pre-Dialysis) 130/90 mmHg BP Standing (P ost-Dialysis) 156/62 mmHg Sitting Heart Rate Pre-Dialysis 83 BPM Sitting Heart Rate Post-Dialysis 80 BPM Standing Heart Rate Pre-Dialysis 95 BPM Standing Heart Rate Post-Dialysis 94 BPM Temperature Pre-Dialysis 97.7 degF Temperature Post -Dialysis 97.7 degF November 13, 2023 In-Center Hemodialysis Treatment 2301-91-54I06:29:22.000Z 8982-36-37X44:13:32.000Z BP Sitting (Pre-Dialysis) 158/89 mmHg BP Sitting (Post-Dialysis) 148/83 mmHg Concurrent Access: falseAV Fistula Upper Arm (Right) Arterial BP Standing (Pre-Dialysis) 140/88 mmHg Sitti ng Heart Rate Post-Dialysis 77 BPM Sitting Heart Rate Pre-Dialysis 70 BPM Temperatu re Post-Dialysis 98.7 degF Standing Heart Rate Pre-Dialysis 73 BPM Temperature Pre-Dialysis 98.2 degF November 10, 2023 In-Center Hemodialysis Treatment 8063-83-26Y05:31:00.000Z 6236-48-00A42:37:11.000Z BP Sitting (Pre-Dialysis) 145/91 mmHg BP Sitting (Post-Dialysis) 141/76 mmHg Concurrent Access: falseAV Fistula Upper Arm (Right) Arterial BP Standing (Pre-Dialysis) 136/91 mmHg BP Standing (P ost-Dialysis) 136/61 mmHg Sitting Heart Rate Pre-Dialysis 75 BPM Sitting Heart Rate Post-Dialysis 75 BPM Standing Heart Rate Pre-Dialysis 75 BPM Standing Heart Rate Post-Dialysis 81 BPM Temperature Pre-Dialysis 97.6 degF Temperature Post -Dialysis 98.3 degF November 08, 2023 In-Center Hemodialysis Treatment 5545-71-65B30:39:48.000Z 8369-18-77H43:09:23.000Z BP Sitting (Pre-Dialysis) 152/89 mmHg BP Sitting (Post-Dialysis) 142/90 mmHg Concurrent Access: falseAV Fistula Upper Arm (Right) Arterial BP Standing (Pre-Dialysis) 151/84 mmHg BP Standing (P ost-Dialysis) 147/84 mmHg Sitting Heart Rate Pre-Dialysis 72 BPM Sitting Heart Rate Post-Dialysis 71 BPM Standing Heart Rate Pre-Dialysis 51 BPM Standing Heart Rate Post-Dialysis 77 BPM Temperature Pre-Dialysis 97.7 degF Temperature Post -Dialysis 97.5 degF November 06, 2023 In-Center Hemodialysis Treatment 7321-95-77H73:36:57.000Z 3437-20-65I33:38:58.000Z BP Sitting (Pre-Dialysis) 138/88 mmHg BP Sitting (Post-Dialysis) 155/97 mmHg Concurrent Access: falseAV Fistula Upper Arm (Right) Arterial BP Standing (Pre-Dialysis) 155/93 mmHg Sitti ng Heart Rate Post-Dialysis 66 BPM Sitting Heart Rate Pre-Dialysis 70 BPM Temperatu re Post-Dialysis 97.7 degF Standing Heart Rate Pre-Dialysis 66 BPM Temperature Pre-Dialysis 97.2 degF November 03, 2023 In-Center Hemodialysis Treatment 2016-36-06C30:18:35.000Z 6652-53-41D67:18:35.000Z BP Sitting (Pre-Dialysis) 145/76 mmHg BP Sitting (Post-Dialysis) 131/68 mmHg Concurrent Access: falseAV Fistula Upper Arm (Right) Arterial BP Standing (Pre-Dialysis) 128/69 mmHg Sitti ng Heart Rate Post-Dialysis 69 BPM Sitting Heart Rate Pre-Dialysis 69 BPM Temperatu re Post-Dialysis 97.6 degF Standing Heart Rate Pre-Dialysis 77 BPM Temperature Pre-Dialysis 98.1 degF November 01, 2023 In-Center Hemodialysis Treatment 6284-45-53H54:26:10.000Z 8430-75-68K82:22:25.000Z BP Sitting (Pre-Dialysis) 145/90 mmHg BP Sitting (Post-Dialysis) 163/83 mmHg Concurrent Access: falseAV Fistula Upper Arm (Right) Arterial BP Standing (Pre-Dialysis) 155/79 mmHg Sitti ng Heart Rate Post-Dialysis 87 BPM Sitting Heart Rate Pre-Dialysis 65 BPM Temperatu re Post-Dialysis 98.2 degF Standing Heart Rate Pre-Dialysis 66 BPM Temperature Pre-Dialysis 97.2 degF October 30, 2023 In-Center Hemodialysis Treatment 7698-12-23E19:23:00.000Z 3049-14-68I91:26:14.000Z BP Sitting (Pre-Dialysis) 164/95 mmHg BP Sitting (Post-Dialysis) 188/104 mmHg Concurrent Access: falseAV Fistula Upper Arm (Right) Arterial BP Standing (Pre-Dialysis) 171/94 mmHg Sitti ng Heart Rate Post-Dialysis 73 BPM Sitting Heart Rate Pre-Dialysis 75 BPM Temperatu re Post-Dialysis 97.3 degF Standing Heart Rate Pre-Dialysis 89 BPM Temperature Pre-Dialysis 97.3 degF October 26, 2023 In-Center Hemodialysis Treatment [id number]:55:45.000Z 5067-83-69F27:43:40.000Z BP Sitting (Pre-Dialysis) 129/80 mmHg BP Sitting (Post-Dialysis) 153/63 mmHg Concurrent Access: falseAV Fistula Upper Arm (Right) Arterial BP Standing (Pre-Dialysis) 153/84 mmHg BP Standing (P ost-Dialysis) 149/84 mmHg Sitting Heart Rate Pre-Dialysis 82 BPM Sitting Heart Rate Post-Dialysis 79 BPM Standing Heart Rate Pre-Dialysis 90 BPM Standing Heart Rate Post-Dialysis 93 BPM Temperature Pre-Dialysis 97.2 degF Temperature Post -Dialysis 97.6 degF October 25, 2023 In-Center Hemodialysis Treatment 7115-45-78Y79:40:00.000Z 5660-17-17J17:43:13.000Z BP Sitting (Pre-Dialysis) 144/78 mmHg BP Sitting (Post-Dialysis) 155/87 mmHg Concurrent Access: falseAV Fistula Upper Arm (Right) Arterial BP Standing (Pre-Dialysis) 140/77 mmHg BP Standing (P ost-Dialysis) 141/84 mmHg Sitting Heart Rate Pre-Dialysis 87 BPM Sitting Heart Rate Post-Dialysis 77 BPM Standing Heart Rate Pre-Dialysis 87 BPM Standing Heart Rate Post-Dialysis 83 BPM Temperature Pre-Dialysis 97.3 degF Temperature Post -Dialysis 97.7 degF October 23, 2023 In-Center Hemodialysis Treatment [id number]:33:06.000Z 0670-04-21S30:33:56.000Z BP Sitting (Pre-Dialysis) 118/70 mmHg BP Sitting (Post-Dialysis) 149/89 mmHg Concurrent Access: falseAV Fistula Upper Arm (Right) Arterial BP Standing (Pre-Dialysis) 120/72 mmHg BP Standing (P ost-Dialysis) 156/86 mmHg Sitting Heart Rate Pre-Dialysis 59 BPM Sitting Heart Rate Post-Dialysis 70 BPM Standing Heart Rate Pre-Dialysis 60 BPM Standing Heart Rate Post-Dialysis 69 BPM Temperature Pre-Dialysis 97.2 degF Temperature Post -Dialysis 97.7 degF 2023 In-Center Hemodialysis Treatment 0719-74-09T54:30:45.000Z 8030-14-71H52:34:55.000Z BP Sitting (Pre-Dialysis) 147/70 mmHg BP Sitting (Post-Dialysis) 140/82 mmHg Concurrent Access: falseAV Fistula Upper Arm (Right) Arterial BP Standing (Pre-Dialysis) 150/72 mmHg BP Standing (P ost-Dialysis) 134/77 mmHg Sitting Heart Rate Pre-Dialysis 82 BPM Sitting Heart Rate Post-Dialysis 70 BPM Standing Heart Rate Pre-Dialysis 83 BPM Standing Heart Rate Post-Dialysis 82 BPM Temperature Pre-Dialysis 97.2 degF Temperature Post -Dialysis 97.7 degF October 18, 2023 In-Center Hemodialysis Treatment 1601-41-44D23:24:00.000Z 1630-17-74F94:29:51.000Z BP Sitting (Pre-Dialysis) 148/89 mmHg BP Sitting (Post-Dialysis) 157/79 mmHg Concurrent Access: falseAV Fistula Upper Arm (Right) Arterial BP Standing (Pre-Dialysis) 138/91 mmHg Sitti ng Heart Rate Post-Dialysis 78 BPM Sitting Heart Rate Pre-Dialysis 77 BPM Temperatu re Post-Dialysis 98.2 degF Standing Heart Rate Pre-Dialysis 83 BPM Temperature Pre-Dialysis 97.7 degF October 16, 2023 In-Center Hemodialysis Treatment [id number]:41:59.000Z 5801-98-18W15:34:04.000Z BP Sitting (Pre-Dialysis) 187/98 mmHg BP Sitting (Post-Dialysis) 178/97 mmHg Concurrent Access: falseAV Fistula Upper Arm (Right) Arterial BP Standing (Pre-Dialysis) 191/97 mmHg BP Standing (P ost-Dialysis) 198/104 mmHg Sitting Heart Rate Pre-Dialysis 60 BPM Sitting Heart Rate Post-Dialysis 66 BPM Standing Heart Rate Pre-Dialysis 63 BPM Standing Heart Rate Post-Dialysis 73 BPM Temperature Pre-Dialysis 98.2 degF Temperature Post -Dialysis 97.6 degF October 13, 2023 In-Center Hemodialysis Treatment 7033-37-30T96:12:00.000Z 6772-74-03S15:09:25.000Z BP Sitting (Pre-Dialysis) 130/82 mmHg BP Sitting (Post-Dialysis) 162/86 mmHg Concurrent Access: falseAV Fistula Upper Arm (Right) Arterial BP Standing (Pre-Dialysis) 134/82 mmHg BP Standing (P ost-Dialysis) 134/79 mmHg Sitting Heart Rate Pre-Dialysis 78 BPM Sitting Heart Rate Post-Dialysis 72 BPM Standing Heart Rate Pre-Dialysis 81 BPM Standing Heart Rate Post-Dialysis 81 BPM Temperature Pre-Dialysis 97.9 degF Temperature Post -Dialysis 97.9 degF October 11, 2023 In-Center Hemodialysis Treatment [id number]:44:23.000Z 7517-35-92V17:43:08.000Z BP Sitting (Pre-Dialysis) 132/81 mmHg BP Sitting (Post-Dialysis) 151/82 mmHg Concurrent Access: falseAV Fistula Upper Arm (Right) Arterial BP Standing (Pre-Dialysis) 131/74 mmHg BP Standing (P ost-Dialysis) 139/75 mmHg Sitting Heart Rate Pre-Dialysis 73 BPM Sitting Heart Rate Post-Dialysis 70 BPM Standing Heart Rate Pre-Dialysis 78 BPM Standing Heart Rate Post-Dialysis 81 BPM Temperature Pre-Dialysis 97.7 degF Temperature Post -Dialysis 99.1 degF October 09, 2023 In-Center Hemodialysis Treatment [id number]:35:51.000Z 4922-40-71B79:36:16.000Z BP Sitting (Pre-Dialysis) 135/81 mmHg BP Sitting (Post-Dialysis) 124/70 mmHg Concurrent Access: falseAV Fistula Upper Arm (Right) Arterial BP Standing (Pre-Dialysis) 142/79 mmHg Sitting Heart Rate Post-Dialysis 78 BPM Sitting Heart Rate Pre-Dialysis 76 BPM Standing Heart Rate Pre-Dialysis 77 BPM Temperature Pre-Dialysis 98 degF October 06, 2023 In-Center Hemodialysis Treatment 8562-71-02O35:00:00.000Z 1370-66-70M44:34:32.000Z BP Sitting (Pre-Dialysis) 154/87 mmHg BP Sitting (Post-Dialysis) 144/82 mmHg Concurrent Access: falseAV Fistula Upper Arm (Right) Arterial BP Standing (Pre-Dialysis) 134/88 mmHg BP Standing (P ost-Dialysis) 153/73 mmHg Sitting Heart Rate Pre-Dialysis 79 BPM Sitting Heart Rate Post-Dialysis 73 BPM Standing Heart Rate Pre-Dialysis 89 BPM Standing Heart Rate Post-Dialysis 84 BPM Temperature Pre-Dialysis 97.5 degF Temperature Post -Dialysis 97.2 degF October 04, 2023 In-Center Hemodialysis Treatment 2887-40-84U06:44:50.000Z 0293-70-50J70:41:55.000Z BP Sitting (Pre-Dialysis) 115/60 mmHg BP Sitting (Post-Dialysis) 127/75 mmHg Concurrent Access: falseAV Fistula Upper Arm (Right) Arterial BP Standing (Pre-Dialysis) 116/61 mmHg BP Standing (P ost-Dialysis) 124/77 mmHg Sitting Heart Rate Pre-Dialysis 82 BPM Sitting Heart Rate Post-Dialysis 72 BPM Standing Heart Rate Pre-Dialysis 85 BPM Standing Heart Rate Post-Dialysis 81 BPM Temperature Pre-Dialysis 97.2 degF Temperature Post -Dialysis 97.3 degF October 02, 2023 In-Center Hemodialysis Treatment [id number]:25:10.000Z 8194-15-03S41:26:00.000Z BP Sitting (Pre-Dialysis) 131/71 mmHg BP Sitting (Post-Dialysis) 148/82 mmHg Concurrent Access: falseAV Fistula Upper Arm (Right) Arterial BP Standing (Pre-Dialysis) 124/103 mmHg BP Standing (P ost-Dialysis) 153/80 mmHg Sitting Heart Rate Pre-Dialysis 63 BPM Sitting Heart Rate Post-Dialysis 69 BPM Standing Heart Rate Pre-Dialysis 76 BPM Standing Heart Rate Post-Dialysis 79 BPM Temperature Pre-Dialysis 97.5 degF Temperature Post -Dialysis 97.8 degF September 29, 2023 In-Center Hemodialysis Treatment [id number]:16:25.000Z 8938-13-34Q71:19:45.000Z BP Sitting (Pre-Dialysis) 129/78 mmHg BP Sitting (Post-Dialysis) 131/69 mmHg Concurrent Access: falseAV Fistula Upper Arm (Right) Arterial BP Standing (Pre-Dialysis) 150/75 mmHg Sitti ng Heart Rate Post-Dialysis 71 BPM Sitting Heart Rate Pre-Dialysis 75 BPM Temperatu re Post-Dialysis 98.2 degF Standing Heart Rate Pre-Dialysis 69 BPM Temperature Pre-Dialysis 97.3 degF September 27, 2023 In-Center Hemodialysis Treatment [id number]:28:19.000Z 0917-63-31J41:29:09.000Z BP Sitting (Pre-Dialysis) 143/82 mmHg BP Sitting (Post-Dialysis) 165/91 mmHg Concurrent Access: falseAV Fistula Upper Arm (Right) Arterial BP Standing (Pre-Dialysis) 137/80 mmHg BP Standing (P ost-Dialysis) 128/70 mmHg Sitting Heart Rate Pre-Dialysis 75 BPM Sitting Heart Rate Post-Dialysis 69 BPM Standing Heart Rate Pre-Dialysis 72 BPM Standing Heart Rate Post-Dialysis 77 BPM Temperature Pre-Dialysis 97.2 degF Temperature Post -Dialysis 97.2 degF September 25, 2023 In-Center Hemodialysis Treatment [id number]:37:00.000Z 6919-22-90U70:43:40.000Z BP Sitting (Pre-Dialysis) 126/69 mmHg BP Sitting (Post-Dialysis) 134/78 mmHg Concurrent Access: falseAV Fistula Upper Arm (Right) Arterial BP Standing (Pre-Dialysis) 130/60 mmHg Sitti ng Heart Rate Post-Dialysis 66 BPM Sitting Heart Rate Pre-Dialysis 60 BPM Temperatu re Post-Dialysis 97.6 degF Standing Heart Rate Pre-Dialysis 62 BPM Temperature Pre-Dialysis 98.2 degF September 22, 2023 In-Center Hemodialysis Treatment 4562-04-61V50:26:12.000Z 2776-06-57A68:26:12.000Z BP Sitting (Pre-Dialysis) 114/65 mmHg BP Sitting (Post-Dialysis) 123/76 mmHg Concurrent Access: falseAV Fistula Upper Arm (Right) Arterial BP Standing (Pre-Dialysis) 109/51 mmHg BP Standing (P ost-Dialysis) 122/74 mmHg Sitting Heart Rate Pre-Dialysis 66 BPM Sitting Heart Rate Post-Dialysis 71 BPM Standing Heart Rate Pre-Dialysis 69 BPM Standing Heart Rate Post-Dialysis 81 BPM Temperature Pre-Dialysis 97.2 degF Temperature Post -Dialysis 97.6 degF September 19, 2023 In-Center Hemodialysis Treatment 1337-20-48A58:46:09.000Z 8999-10-89J62:15:19.000Z BP Sitting (Pre-Dialysis) 153/84 mmHg BP Sitting (Post-Dialysis) 154/83 mmHg Concurrent Access: falseAV Fistula Upper Arm (Right) Arterial BP Standing (Pre-Dialysis) 154/83 mmHg Sitti ng Heart Rate Post-Dialysis 76 BPM Sitting Heart Rate Pre-Dialysis 73 BPM Temperatu re Post-Dialysis 97.4 degF Standing Heart Rate Pre-Dialysis 71 BPM Temperature Pre-Dialysis 97.7 degF September 17, 2023 In-Center Hemodialysis Treatment 0129-06-07A13:58:00.000Z 9904-38-82Z45:58:31.000Z BP Sitting (Pre-Dialysis) 150/89 mmHg BP Sitting (Post-Dialysis) 144/82 mmHg Concurrent Access: falseAV Fistula Upper Arm (Right) Arterial BP Standing (Pre-Dialysis) 156/86 mmHg BP Standing (P ost-Dialysis) 137/84 mmHg Sitting Heart Rate Pre-Dialysis 77 BPM Sitting Heart Rate Post-Dialysis 70 BPM Standing Heart Rate Pre-Dialysis 78 BPM Standing Heart Rate Post-Dialysis 69 BPM Temperature Pre-Dialysis 97.7 degF Temperature Post -Dialysis 97.2 degF September 15, 2023 In-Center Hemodialysis Treatment [id number]:28:13.000Z 3332-58-11Z89:25:43.000Z BP Sitting (Pre-Dialysis) 156/95 mmHg BP Sitting (Post-Dialysis) 147/94 mmHg Concurrent Access: falseAV Fistula Upper Arm (Right) Arterial BP Standing (Pre-Dialysis) 153/89 mmHg BP Standing (P ost-Dialysis) 134/59 mmHg Sitting Heart Rate Pre-Dialysis 87 BPM Sitting Heart Rate Post-Dialysis 83 BPM Standing Heart Rate Pre-Dialysis 77 BPM Standing Heart Rate Post-Dialysis 92 BPM Temperature Pre-Dialysis 98.2 degF Temperature Post -Dialysis 97.2 degF September 13, 2023 In-Center Hemodialysis Treatment 7670-76-90C05:42:06.000Z [id number]:35:01.000Z BP Sitting (Pre-Dialysis) 135/81 mmHg BP Sitting (Post-Dialysis) 145/82 mmHg Concurrent Access: falseAV Fistula Upper Arm (Right) Arterial BP Standing (Pre-Dialysis) 120/73 mmHg BP Standing (P ost-Dialysis) 140/84 mmHg Sitting Heart Rate Pre-Dialysis 69 BPM Sitting Heart Rate Post-Dialysis 71 BPM Standing Heart Rate Pre-Dialysis 80 BPM Standing Heart Rate Post-Dialysis 78 BPM Temperature Pre-Dialysis 97.2 degF Temperature Post -Dialysis 97.2 degF September 11, 2023 In-Center Hemodialysis Treatment [id number]:45:27.000Z 8966-17-09B55:50:52.000Z BP Sitting (Pre-Dialysis) 144/91 mmHg BP Sitting (Post-Dialysis) 149/82 mmHg Concurrent Access: falseAV Fistula Upper Arm (Right) Arterial BP Standing (Pre-Dialysis) 142/82 mmHg Sitti ng Heart Rate Post-Dialysis 69 BPM Sitting Heart Rate Pre-Dialysis 66 BPM Temperatu re Post-Dialysis 97.6 degF Standing Heart Rate Pre-Dialysis 73 BPM Temperature Pre-Dialysis 97.3 degF September 08, 2023 In-Center Hemodialysis Treatment 3346-39-13T40:53:00.000Z 7015-17-18W16:46:24.000Z BP Sitting (Pre-Dialysis) 127/77 mmHg BP Sitting (Post-Dialysis) 130/72 mmHg Concurrent Access: falseAV Fistula Upper Arm (Right) Arterial BP Standing (Pre-Dialysis) 133/78 mmHg BP Standing (P ost-Dialysis) 136/81 mmHg Sitting Heart Rate Pre-Dialysis 68 BPM Sitting Heart Rate Post-Dialysis 71 BPM Standing Heart Rate Pre-Dialysis 72 BPM Standing Heart Rate Post-Dialysis 84 BPM Temperature Pre-Dialysis 97.7 degF Temperature Post -Dialysis 97.9 degF September 06, 2023 In-Center Hemodialysis Treatment 0498-01-88D60:35:39.000Z 3420-80-76V10:35:39.000Z BP Sitting (Pre-Dialysis) 134/73 mmHg BP Sitting (Post-Dialysis) 146/84 mmHg Concurrent Access: falseAV Fistula Upper Arm (Right) Arterial BP Standing (Pre-Dialysis) 135/69 mmHg Sitti ng Heart Rate Post-Dialysis 75 BPM Sitting Heart Rate Pre-Dialysis 61 BPM Temperatu re Post-Dialysis 98.1 degF Standing Heart Rate Pre-Dialysis 68 BPM Temperature Pre-Dialysis 97.2 degF September 04, 2023 In-Center Hemodialysis Treatment 0016-67-36C80:38:00.000Z 0532-98-41X05:40:16.000Z BP Sitting (Pre-Dialysis) 132/78 mmHg BP Sitting (Post-Dialysis) 142/70 mmHg Concurrent Access: falseAV Fistula Upper Arm (Right) Arterial BP Standing (Pre-Dialysis) 124/56 mmHg Sitti ng Heart Rate Post-Dialysis 75 BPM Sitting Heart Rate Pre-Dialysis 74 BPM Temperatu re Post-Dialysis 97.6 degF Standing Heart Rate Pre-Dialysis 70 BPM Temperature Pre-Dialysis 97.6 degF September 01, 2023 In-Center Hemodialysis Treatment 6293-07-40I70:25:00.000Z 4371-66-28F23:32:08.000Z BP Sitting (Pre-Dialysis) 116/60 mmHg BP Sitting (Post-Dialysis) 126/75 mmHg Concurrent Access: falseAV Fistula Upper Arm (Right) Arterial BP Standing (Pre-Dialysis) 97/60 mmHg BP Standing (P ost-Dialysis) 125/68 mmHg Sitting Heart Rate Pre-Dialysis 73 BPM Sitting Heart Rate Post-Dialysis 72 BPM Standing Heart Rate Pre-Dialysis 78 BPM Standing Heart Rate Post-Dialysis 81 BPM Temperature Pre-Dialysis 98.1 degF Temperature Post -Dialysis 97.6 degF August 30, 2023 In-Center Hemodialysis Treatment 8589-91-27X44:10:00.000Z 1378-58-13H34:10:24.000Z BP Sitting (Pre-Dialysis) 110/67 mmHg BP Sitting (Post-Dialysis) 126/54 mmHg Concurrent Access: falseAV Fistula Upper Arm (Right) Arterial BP Standing (Pre-Dialysis) 122/65 mmHg Sitti ng Heart Rate Post-Dialysis 65 BPM Sitting Heart Rate Pre-Dialysis 65 BPM Temperatu re Post-Dialysis 97.7 degF Standing Heart Rate Pre-Dialysis 62 BPM Temperature Pre-Dialysis 97.2 degF August 28, 2023 In-Center Hemodialysis Treatment 0820-17-15Y79:38:14.000Z 6517-11-00V23:42:24.000Z BP Sitting (Pre-Dialysis) 129/70 mmHg BP Sitting (Post-Dialysis) 143/79 mmHg Concurrent Access: falseAV Fistula Upper Arm (Right) Arterial BP Standing (Pre-Dialysis) 131/74 mmHg BP Standing (P ost-Dialysis) 144/84 mmHg Sitting Heart Rate Pre-Dialysis 69 BPM Sitting Heart Rate Post-Dialysis 69 BPM Standing Heart Rate Pre-Dialysis 68 BPM Standing Heart Rate Post-Dialysis 77 BPM Temperature Pre-Dialysis 97.4 degF August 25, 2023 In-Center Hemodialysis Treatment 2949-84-83C99:33:00.000Z 6761-02-59B77:39:36.000Z BP Sitting (Pre-Dialysis) 138/75 mmHg BP Sitting (Post-Dialysis) 144/95 mmHg Concurrent Access: falseAV Fistula Upper Arm (Right) Arterial BP Standing (Pre-Dialysis) 114/75 mmHg BP Standing (P ost-Dialysis) 156/102 mmHg Sitting Heart Rate Pre-Dialysis 77 BPM Sitting Heart Rate Post-Dialysis 71 BPM Standing Heart Rate Pre-Dialysis 77 BPM Standing Heart Rate Post-Dialysis 72 BPM Temperature Pre-Dialysis 97.6 degF August 23, 2023 In-Center Hemodialysis Treatment [id number]:38:33.000Z 8020-61-33I18:45:13.000Z BP Sitting (Pre-Dialysis) 104/67 mmHg BP Sitting (Post-Dialysis) 115/63 mmHg Concurrent Access: falseAV Fistula Upper Arm (Right) Arterial BP Standing (Pre-Dialysis) 109/54 mmHg Sitti ng Heart Rate Post-Dialysis 70 BPM Sitting Heart Rate Pre-Dialysis 79 BPM Temperatu re Post-Dialysis 97.2 degF Standing Heart Rate Pre-Dialysis 75 BPM Temperature Pre-Dialysis 97.6 degF August 21, 2023 In-Center Hemodialysis Treatment 9350-39-68G36:31:16.000Z 3697-51-69N08:48:46.000Z BP Sitting (Pre-Dialysis) 131/68 mmHg BP Sitting (Post-Dialysis) 154/89 mmHg Concurrent Access: falseAV Fistula Upper Arm (Right) Arterial BP Standing (Pre-Dialysis) 128/69 mmHg BP Standing (P ost-Dialysis) 139/79 mmHg Sitting Heart Rate Pre-Dialysis 70 BPM Sitting Heart Rate Post-Dialysis 75 BPM Standing Heart Rate Pre-Dialysis 70 BPM Standing Heart Rate Post-Dialysis 70 BPM Temperature Pre-Dialysis 97.2 degF Temperature Post -Dialysis 97.2 degF August 18, 2023 In-Center Hemodialysis Treatment 1995-06-14H88:35:48.000Z 0345-63-02C25:35:48.000Z BP Sitting (Pre-Dialysis) 173/99 mmHg BP Sitting (Post-Dialysis) 162/78 mmHg Concurrent Access: falseAV Fistula Upper Arm (Right) Arterial BP Standing (Pre-Dialysis) 159/83 mmHg Sitti ng Heart Rate Post-Dialysis 85 BPM Sitting Heart Rate Pre-Dialysis 82 BPM Temperatu re Post-Dialysis 97.2 degF Standing Heart Rate Pre-Dialysis 80 BPM Temperature Pre-Dialysis 97.2 degF August 16, 2023 In-Center Hemodialysis Treatment 6521-92-23F54:33:00.000Z 7818-26-29R69:35:06.000Z BP Sitting (Pre-Dialysis) 145/82 mmHg BP Sitting (Post-Dialysis) 138/85 mmHg Concurrent Access: falseAV Fistula Upper Arm (Right) Arterial BP Standing (Pre-Dialysis) 146/82 mmHg BP Standing (P ost-Dialysis) 159/86 mmHg Sitting Heart Rate Pre-Dialysis 70 BPM Sitting Heart Rate Post-Dialysis 90 BPM Standing Heart Rate Pre-Dialysis 70 BPM Standing Heart Rate Post-Dialysis 94 BPM Temperature Pre-Dialysis 97.6 degF Temperature Post -Dialysis 97.2 degF August 14, 2023 In-Center Hemodialysis Treatment 4721-54-25O75:32:00.000Z 3139-74-99X78:38:34.000Z BP Sitting (Pre-Dialysis) 134/81 mmHg BP Sitting (Post-Dialysis) 145/80 mmHg Concurrent Access: falseAV Fistula Upper Arm (Right) Arterial BP Standing (Pre-Dialysis) 139/78 mmHg Sitti ng Heart Rate Post-Dialysis 69 BPM Sitting Heart Rate Pre-Dialysis 63 BPM Temperatu re Post-Dialysis 98.2 degF Standing Heart Rate Pre-Dialysis 64 BPM Temperature Pre-Dialysis 97.5 degF August 11, 2023 In-Center Hemodialysis Treatment 1576-71-74R17:44:00.000Z 5153-01-52W78:52:27.000Z BP Sitting (Pre-Dialysis) 124/73 mmHg BP Sitting (Post-Dialysis) 116/77 mmHg Concurrent Access: falseAV Fistula Upper Arm (Right) Arterial BP Standing (Pre-Dialysis) 112/69 mmHg BP Standing (P ost-Dialysis) 129/85 mmHg Sitting Heart Rate Pre-Dialysis 66 BPM Sitting Heart Rate Post-Dialysis 84 BPM Standing Heart Rate Pre-Dialysis 62 BPM Standing Heart Rate Post-Dialysis 85 BPM Temperature Pre-Dialysis 97.1 degF Temperature Post -Dialysis 97.6 degF August 09, 2023 In-Center Hemodialysis Treatment 0534-11-58O61:26:06.000Z 2669-02-99X00:22:21.000Z BP Sitting (Pre-Dialysis) 137/75 mmHg BP Sitting (Post-Dialysis) 147/80 mmHg Concurrent Access: falseAV Fistula Upper Arm (Right) Arterial BP Standing (Pre-Dialysis) 134/71 mmHg Sitti ng Heart Rate Post-Dialysis 69 BPM Sitting Heart Rate Pre-Dialysis 70 BPM Temperatu re Post-Dialysis 98.2 degF Standing Heart Rate Pre-Dialysis 76 BPM Temperature Pre-Dialysis 97.2 degF August 07, 2023 In-Center Hemodialysis Treatment 2762-04-35Z98:16:00.000Z 1274-14-62E24:47:36.000Z BP Sitting (Pre-Dialysis) 135/85 mmHg BP Sitting (Post-Dialysis) 150/87 mmHg Concurrent Access: falseAV Fistula Upper Arm (Right) Arterial BP Standing (Pre-Dialysis) 137/83 mmHg Sitti ng Heart Rate Post-Dialysis 69 BPM Sitting Heart Rate Pre-Dialysis 68 BPM Temperatu re Post-Dialysis 97.4 degF Standing Heart Rate Pre-Dialysis 69 BPM Temperature Pre-Dialysis 97.9 degF August 04, 2023 In-Center Hemodialysis Treatment 9307-46-52U36:31:22.000Z 6199-42-66S55:31:47.000Z BP Sitting (Pre-Dialysis) 126/70 mmHg BP Sitting (Post-Dialysis) 135/70 mmHg Concurrent Access: falseAV Fistula Upper Arm (Right) Arterial BP Standing (Pre-Dialysis) 144/76 mmHg BP Standing (P ost-Dialysis) 128/70 mmHg Sitting Heart Rate Pre-Dialysis 70 BPM Sitting Heart Rate Post-Dialysis 69 BPM Standing Heart Rate Pre-Dialysis 71 BPM Standing Heart Rate Post-Dialysis 69 BPM Temperature Pre-Dialysis 97.2 degF Temperature Post -Dialysis 97.2 degF August 02, 2023 In-Center Hemodialysis Treatment 4933-11-85B87:46:47.000Z 1166-92-68Z95:50:07.000Z BP Sitting (Pre-Dialysis) 152/89 mmHg BP Sitting (Post-Dialysis) 134/71 mmHg Concurrent Access: falseAV Fistula Upper Arm (Right) Arterial BP Standing (Pre-Dialysis) 138/86 mmHg BP Standing (P ost-Dialysis) 158/84 mmHg Sitting Heart Rate Pre-Dialysis 62 BPM Sitting Heart Rate Post-Dialysis 67 BPM Standing Heart Rate Pre-Dialysis 66 BPM Standing Heart Rate Post-Dialysis 50 BPM Temperature Pre-Dialysis 97.5 degF Temperature Post -Dialysis 97.6 degF July 31, 2023 In-Center Hemodialysis Treatment 1438-15-28G89:32:09.000Z 5084-70-65V12:33:24.000Z BP Sitting (Pre-Dialysis) 178/108 mmHg BP Sitting (Post-Dialysis) 180/82 mmHg Concurrent Access: falseAV Fistula Upper Arm (Right) Arterial BP Standing (Pre-Dialysis) 185/99 mmHg Sitti ng Heart Rate Post-Dialysis 81 BPM Sitting Heart Rate Pre-Dialysis 72 BPM Temperatu re Post-Dialysis 97.2 degF Standing Heart Rate Pre-Dialysis 80 BPM Temperature Pre-Dialysis 97.7 degF July 28, 2023 In-Center Hemodialysis Treatment 8330-01-60M68:39:00.000Z 9245-37-33H26:42:00.000Z BP Sitting (Pre-Dialysis) 168/90 mmHg BP Sitting (Post-Dialysis) 183/99 mmHg Concurrent Access: falseAV Fistula Upper Arm (Right) Arterial BP Standing (Pre-Dialysis) 169/89 mmHg BP Standing (P ost-Dialysis) 199/103 mmHg Sitting Heart Rate Pre-Dialysis 65 BPM Sitting Heart Rate Post-Dialysis 76 BPM Standing Heart Rate Pre-Dialysis 78 BPM Standing Heart Rate Post-Dialysis 89 BPM Temperature Pre-Dialysis 97.9 degF Temperature Post -Dialysis 98 degF July 26, 2023 In-Center Hemodialysis Treatment 3040-26-50X48:19:27.000Z 1644-77-59D73:51:07.000Z BP Sitting (Pre-Dialysis) 121/75 mmHg BP Sitting (Post-Dialysis) 138/84 mmHg Concurrent Access: falseAV Fistula Upper Arm (Right) Arterial BP Standing (Pre-Dialysis) 125/65 mmHg BP Standing (P ost-Dialysis) 129/80 mmHg Sitting Heart Rate Pre-Dialysis 70 BPM Sitting Heart Rate Post-Dialysis 76 BPM Standing Heart Rate Pre-Dialysis 71 BPM Standing Heart Rate Post-Dialysis 70 BPM Temperature Pre-Dialysis 98.2 degF Temperature Post -Dialysis 98.2 degF July 24, 2023 In-Center Hemodialysis Treatment 3013-16-35M30:26:53.000Z 1773-73-94M37:28:08.000Z BP Sitting (Pre-Dialysis) 130/78 mmHg BP Sitting (Post-Dialysis) 177/99 mmHg Concurrent Access: falseAV Fistula Upper Arm (Right) Arterial BP Standing (Pre-Dialysis) 143/79 mmHg BP Standing (P ost-Dialysis) 160/104 mmHg Sitting Heart Rate Pre-Dialysis 69 BPM Sitting Heart Rate Post-Dialysis 70 BPM Standing Heart Rate Pre-Dialysis 69 BPM Standing Heart Rate Post-Dialysis 80 BPM Temperature Pre-Dialysis 98.2 degF Temperature Post -Dialysis 98 degF July 21, 2023 In-Center Hemodialysis Treatment 4138-13-97K78:26:05.000Z 7432-16-85F78:26:05.000Z BP Sitting (Pre-Dialysis) 141/80 mmHg BP Sitting (Post-Dialysis) 147/80 mmHg Concurrent Access: falseAV Fistula Upper Arm (Right) Arterial BP Standing (Pre-Dialysis) 126/81 mmHg Sitti ng Heart Rate Post-Dialysis 70 BPM Sitting Heart Rate Pre-Dialysis 69 BPM Temperatu re Post-Dialysis 98.2 degF Standing Heart Rate Pre-Dialysis 71 BPM Temperature Pre-Dialysis 97.5 degF July 19, 2023 In-Center Hemodialysis Treatment 6848-80-63U27:33:00.000Z 4226-56-26K97:40:57.000Z BP Sitting (Pre-Dialysis) 165/89 mmHg BP Sitting (Post-Dialysis) 176/100 mmHg Concurrent Access: falseAV Fistula Upper Arm (Right) Arterial BP Standing (Pre-Dialysis) 156/88 mmHg BP Standing (P ost-Dialysis) 149/90 mmHg Sitting Heart Rate Pre-Dialysis 76 BPM Sitting Heart Rate Post-Dialysis 76 BPM Standing Heart Rate Pre-Dialysis 82 BPM Standing Heart Rate Post-Dialysis 87 BPM Temperature Pre-Dialysis 97.6 degF Temperature Post -Dialysis 97.6 degF July 17, 2023 In-Center Hemodialysis Treatment 8776-00-17M44:26:44.000Z 1492-84-91N84:31:44.000Z BP Sitting (Pre-Dialysis) 139/90 mmHg BP Sitting (Post-Dialysis) 159/83 mmHg Concurrent Access: falseAV Fistula Upper Arm (Right) Arterial BP Standing (Pre-Dialysis) 142/89 mmHg Sitti ng Heart Rate Post-Dialysis 79 BPM Sitting Heart Rate Pre-Dialysis 80 BPM Temperatu re Post-Dialysis 97.7 degF Standing Heart Rate Pre-Dialysis 79 BPM Temperature Pre-Dialysis 97.2 degF July 14, 2023 In-Center Hemodialysis Treatment 9960-59-85Q27:25:00.000Z 9974-72-12A30:29:17.000Z BP Sitting (Pre-Dialysis) 149/81 mmHg BP Sitting (Post-Dialysis) 148/83 mmHg Concurrent Access: falseAV Fistula Upper Arm (Right) Arterial BP Standing (Pre-Dialysis) 132/80 mmHg BP Standing (P ost-Dialysis) 144/79 mmHg Sitting Heart Rate Pre-Dialysis 68 BPM Sitting Heart Rate Post-Dialysis 73 BPM Standing Heart Rate Pre-Dialysis 69 BPM Standing Heart Rate Post-Dialysis 81 BPM Temperature Pre-Dialysis 97.6 degF Temperature Post -Dialysis 97.7 degF July 12, 2023 In-Center Hemodialysis Treatment 7374-14-83Y90:32:00.000Z 2087-34-19C47:32:33.000Z BP Sitting (Pre-Dialysis) 136/80 mmHg BP Sitting (Post-Dialysis) 175/88 mmHg Concurrent Access: falseAV Fistula Upper Arm (Right) Arterial BP Standing (Pre-Dialysis) 138/82 mmHg BP Standing (P ost-Dialysis) 142/84 mmHg Sitting Heart Rate Pre-Dialysis 67 BPM Sitting Heart Rate Post-Dialysis 66 BPM Standing Heart Rate Pre-Dialysis 71 BPM Standing Heart Rate Post-Dialysis 75 BPM Temperature Pre-Dialysis 97.9 degF Temperature Post -Dialysis 98.1 degF July 10, 2023 In-Center Hemodialysis Treatment 5383-12-18G85:34:15.000Z 0508-89-15L66:31:45.000Z BP Sitting (Pre-Dialysis) 136/74 mmHg BP Sitting (Post-Dialysis) 126/77 mmHg Concurrent Access: falseAV Fistula Upper Arm (Right) Arterial BP Standing (Pre-Dialysis) 130/70 mmHg Sitti ng Heart Rate Post-Dialysis 69 BPM Sitting Heart Rate Pre-Dialysis 66 BPM Temperatu re Post-Dialysis 97.4 degF Standing Heart Rate Pre-Dialysis 66 BPM Temperature Pre-Dialysis 98.2 degF July 07, 2023 In-Center Hemodialysis Treatment 1607-54-94D57:36:28.000Z 6062-28-41R13:37:43.000Z BP Sitting (Pre-Dialysis) 108/74 mmHg BP Sitting (Post-Dialysis) 136/81 mmHg Concurrent Access: falseAV Fistula Upper Arm (Right) Arterial BP Standing (Pre-Dialysis) 118/67 mmHg Sitti ng Heart Rate Post-Dialysis 68 BPM Sitting Heart Rate Pre-Dialysis 67 BPM Temperatu re Post-Dialysis 97.2 degF Standing Heart Rate Pre-Dialysis 67 BPM Temperature Pre-Dialysis 97.2 degF July 05, 2023 In-Center Hemodialysis Treatment 0482-30-97V02:32:53.000Z 9498-06-85E51:30:23.000Z BP Sitting (Pre-Dialysis) 170/87 mmHg BP Sitting (Post-Dialysis) 159/87 mmHg Concurrent Access: falseAV Fistula Upper Arm (Right) Arterial BP Standing (Pre-Dialysis) 177/95 mmHg BP Standing (P ost-Dialysis) 140/83 mmHg Sitting Heart Rate Pre-Dialysis 86 BPM Sitting Heart Rate Post-Dialysis 85 BPM Standing Heart Rate Pre-Dialysis 84 BPM Standing Heart Rate Post-Dialysis 87 BPM Temperature Pre-Dialysis 97.2 degF Temperature Post -Dialysis 97.2 degF July 03, 2023 In-Center Hemodialysis Treatment 1720-13-41C52:38:50.000Z 5816-63-91R29:39:31.000Z BP Sitting (Pre-Dialysis) 144/83 mmHg BP Sitting (Post-Dialysis) 141/80 mmHg Concurrent Access: falseAV Fistula Upper Arm (Right) Arterial BP Standing (Pre-Dialysis) 150/60 mmHg BP Standing (P ost-Dialysis) 143/83 mmHg Sitting Heart Rate Pre-Dialysis 77 BPM Sitting Heart Rate Post-Dialysis 85 BPM Standing Heart Rate Pre-Dialysis 89 BPM Standing Heart Rate Post-Dialysis 88 BPM Temperature Pre-Dialysis 97.2 degF Temperature Post -Dialysis 97.6 degF June 30, 2023 In-Center Hemodialysis Treatment 5295-52-29Y62:34:00.000Z 3877-60-86I77:37:27.000Z BP Sitting (Pre-Dialysis) 156/86 mmHg BP Sitting (Post-Dialysis) 182/89 mmHg Concurrent Access: falseAV Fistula Upper Arm (Right) Arterial BP Standing (Pre-Dialysis) 164/85 mmHg BP Standing (P ost-Dialysis) 164/89 mmHg Sitting Heart Rate Pre-Dialysis 68 BPM Sitting Heart Rate Post-Dialysis 73 BPM Standing Heart Rate Pre-Dialysis 74 BPM Standing Heart Rate Post-Dialysis 89 BPM Temperature Pre-Dialysis 97.7 degF Temperature Post -Dialysis 97.6 degF June 28, 2023 In-Center Hemodialysis Treatment 9349-56-86T87:23:51.000Z 6695-71-37S84:23:51.000Z BP Sitting (Pre-Dialysis) 150/90 mmHg BP Sitting (Post-Dialysis) 173/89 mmHg Concurrent Access: falseAV Fistula Upper Arm (Right) Arterial BP Standing (Pre-Dialysis) 159/89 mmHg Sitti ng Heart Rate Post-Dialysis 74 BPM Sitting Heart Rate Pre-Dialysis 69 BPM Temperatu re Post-Dialysis 97.6 degF Standing Heart Rate Pre-Dialysis 68 BPM Temperature Pre-Dialysis 97.2 degF June 26, 2023 In-Center Hemodialysis Treatment 6441-50-92O97:39:00.000Z 0193-74-49L87:40:05.000Z BP Sitting (Pre-Dialysis) 128/80 mmHg BP Sitting (Post-Dialysis) 148/88 mmHg Concurrent Access: falseAV Fistula Upper Arm (Right) Arterial BP Standing (Pre-Dialysis) 134/87 mmHg Sitti ng Heart Rate Post-Dialysis 69 BPM Sitting Heart Rate Pre-Dialysis 70 BPM Temperatu re Post-Dialysis 98.2 degF Standing Heart Rate Pre-Dialysis 72 BPM Temperature Pre-Dialysis 97.2 degF June 23, 2023 In-Center Hemodialysis Treatment 2128-86-76B61:20:38.000Z 3303-05-79Y33:20:38.000Z BP Sitting (Pre-Dialysis) 149/80 mmHg BP Sitting (Post-Dialysis) 174/85 mmHg Concurrent Access: falseAV Fistula Upper Arm (Right) Arterial BP Standing (Pre-Dialysis) 140/79 mmHg BP Standing (P ost-Dialysis) 174/87 mmHg Sitting Heart Rate Pre-Dialysis 71 BPM Sitting Heart Rate Post-Dialysis 80 BPM Standing Heart Rate Pre-Dialysis 78 BPM Standing Heart Rate Post-Dialysis 83 BPM Temperature Pre-Dialysis 97.2 degF Temperature Post -Dialysis 97.2 degF June 21, 2023 In-Center Hemodialysis Treatment 5060-43-39W08:38:00.000Z 3435-05-02H75:37:52.000Z BP Sitting (Pre-Dialysis) 175/90 mmHg BP Sitting (Post-Dialysis) 173/106 mmHg Concurrent Access: falseAV Fistula Upper Arm (Right) Arterial BP Standing (Pre-Dialysis) 170/93 mmHg BP Standing (P ost-Dialysis) 171/66 mmHg Sitting Heart Rate Pre-Dialysis 67 BPM Sitting Heart Rate Post-Dialysis 76 BPM Standing Heart Rate Pre-Dialysis 69 BPM Standing Heart Rate Post-Dialysis 87 BPM Temperature Pre-Dialysis 97.6 degF Temperature Post -Dialysis 97.6 degF June 19, 2023 In-Center Hemodialysis Treatment 3230-58-09U31:36:00.000Z 3562-15-54X57:36:18.000Z BP Sitting (Pre-Dialysis) 173/99 mmHg BP Sitting (Post-Dialysis) 178/100 mmHg Concurrent Access: falseAV Fistula Upper Arm (Right) Arterial BP Standing (Pre-Dialysis) 166/84 mmHg BP Standing (P ost-Dialysis) 189/126 mmHg Sitting Heart Rate Pre-Dialysis 65 BPM Sitting Heart Rate Post-Dialysis 72 BPM Standing Heart Rate Pre-Dialysis 70 BPM Standing Heart Rate Post-Dialysis 98 BPM Temperature Pre-Dialysis 97.8 degF Temperature Post -Dialysis 97.6 degF June 16, 2023 In-Center Hemodialysis Treatment [id number]:30:00.000Z [id number]:35:04.000Z BP Sitting (Pre-Dialysis) 127/74 mmHg BP Sitting (Post-Dialysis) 139/86 mmHg Concurrent Access: falseAV Fistula Upper Arm (Right) Arterial BP Standing (Pre-Dialysis) 134/78 mmHg Sitti ng Heart Rate Post-Dialysis 72 BPM Sitting Heart Rate Pre-Dialysis 67 BPM Temperatu re Post-Dialysis 97.6 degF Standing Heart Rate Pre-Dialysis 69 BPM Temperature Pre-Dialysis 97.7 degF June 14, 2023 In-Center Hemodialysis Treatment [id number]:21:15.000Z [id number]:23:45.000Z BP Sitting (Pre-Dialysis) 143/79 mmHg BP Sitting (Post-Dialysis) 163/93 mmHg Concurrent Access: falseAV Fistula Upper Arm (Right) Arterial BP Standing (Pre-Dialysis) 146/81 mmHg BP Standing (P ost-Dialysis) 157/80 mmHg Sitting Heart Rate Pre-Dialysis 72 BPM Sitting Heart Rate Post-Dialysis 85 BPM Standing Heart Rate Pre-Dialysis 70 BPM Standing Heart Rate Post-Dialysis 86 BPM Temperature Pre-Dialysis 97.2 degF Temperature Post -Dialysis 97.2 degF June 12, 2023 In-Center Hemodialysis Treatment [id number]:27:02.000Z [id number]:28:00.000Z BP Sitting (Pre-Dialysis) 139/80 mmHg BP Sitting (Post-Dialysis) 168/93 mmHg Concurrent Access: falseAV Fistula Upper Arm (Right) Arterial BP Standing (Pre-Dialysis) 146/82 mmHg BP Standing (P ost-Dialysis) 157/81 mmHg Sitting Heart Rate Pre-Dialysis 69 BPM Sitting Heart Rate Post-Dialysis 75 BPM Standing Heart Rate Pre-Dialysis 70 BPM Standing Heart Rate Post-Dialysis 82 BPM Temperature Pre-Dialysis 97.2 degF Temperature Post -Dialysis 97.6 degF June 09, 2023 In-Center Hemodialysis Treatment [id number]:11:00.000Z [id number]:09:29.000Z BP Sitting (Pre-Dialysis) 163/92 mmHg BP Sitting (Post-Dialysis) 165/98 mmHg Concurrent Access: falseAV Fistula Upper Arm (Right) Arterial BP Standing (Pre-Dialysis) 159/84 mmHg BP Standing (P ost-Dialysis) 161/90 mmHg Sitting Heart Rate Pre-Dialysis 73 BPM Sitting Heart Rate Post-Dialysis 77 BPM Standing Heart Rate Pre-Dialysis 77 BPM Standing Heart Rate Post-Dialysis 86 BPM Temperature Pre-Dialysis 97.6 degF Temperature Post -Dialysis 97.6 degF June 07, 2023 In-Center Hemodialysis Treatment 2500-56-00Z21:21:00.000Z 2068-21-90P79:19:45.000Z BP Sitting (Pre-Dialysis) 144/86 mmHg BP Sitting (Post-Dialysis) 168/102 mmHg Concurrent Access: falseAV Fistula Upper Arm (Right) Arterial BP Standing (Pre-Dialysis) 140/72 mmHg BP Standing (P ost-Dialysis) 146/94 mmHg Sitting Heart Rate Pre-Dialysis 67 BPM Sitting Heart Rate Post-Dialysis 71 BPM Standing Heart Rate Pre-Dialysis 75 BPM Standing Heart Rate Post-Dialysis 79 BPM Temperature Pre-Dialysis 97.6 degF Temperature Post -Dialysis 97.6 degF June 05, 2023 In-Center Hemodialysis Treatment [id number]:20:19.000Z 1167-52-09T49:20:44.000Z BP Sitting (Pre-Dialysis) 139/70 mmHg BP Sitting (Post-Dialysis) 155/80 mmHg Concurrent Access: falseAV Fistula Upper Arm (Right) Arterial BP Standing (Pre-Dialysis) 140/78 mmHg BP Standing (P ost-Dialysis) 139/94 mmHg Sitting Heart Rate Pre-Dialysis 69 BPM Sitting Heart Rate Post-Dialysis 72 BPM Standing Heart Rate Pre-Dialysis 66 BPM Standing Heart Rate Post-Dialysis 81 BPM Temperature Pre-Dialysis 97.2 degF Temperature Post -Dialysis 97.6 degF June 02, 2023 In-Center Hemodialysis Treatment [id number]:41:00.000Z [id number]:46:09.000Z BP Sitting (Pre-Dialysis) 141/70 mmHg BP Sitting (Post-Dialysis) 133/71 mmHg Concurrent Access: falseAV Fistula Upper Arm (Right) Arterial BP Standing (Pre-Dialysis) 102/50 mmHg BP Standing (P ost-Dialysis) 130/66 mmHg Sitting Heart Rate Pre-Dialysis 67 BPM Sitting Heart Rate Post-Dialysis 67 BPM Standing Heart Rate Pre-Dialysis 64 BPM Standing Heart Rate Post-Dialysis 73 BPM Temperature Pre-Dialysis 97.5 degF Temperature Post -Dialysis 97.9 degF May 31, 2023 In-Center Hemodialysis Treatment [id number]:40:00.000Z [id number]:41:19.000Z BP Sitting (Pre-Dialysis) 153/85 mmHg BP Sitting (Post-Dialysis) 161/91 mmHg Concurrent Access: falseAV Fistula Upper Arm (Right) Arterial Sitting Heart Rate Pre-Dialysis 78 BPM Sitting H eart Rate Post-Dialysis 75 BPM Temperature Pre-Dialysis 97.7 degF Temperature Post -Dialysis 97.4 degF May 29, 2023 In-Center Hemodialysis Treatment [id number]:02:00.000Z 2772-31-98E49:48:00.000Z BP Sitting (Pre-Dialysis) 158/89 mmHg BP Sitting (Post-Dialysis) 156/90 mmHg Concurrent Access: falseAV Fistula Upper Arm (Right) Arterial BP Standing (Pre-Dialysis) 144/94 mmHg BP Standing (P ost-Dialysis) 134/67 mmHg Sitting Heart Rate Pre-Dialysis 78 BPM Sitting Heart Rate Post-Dialysis 72 BPM Standing Heart Rate Pre-Dialysis 82 BPM Standing Heart Rate Post-Dialysis 83 BPM Temperature Pre-Dialysis 97.6 degF Temperature Post -Dialysis 97.6 degF May 26, 2023 In-Center Hemodialysis Treatment [id number]:26:00.000Z 2615-46-44A98:22:18.000Z BP Sitting (Pre-Dialysis) 148/93 mmHg BP Sitting (Post-Dialysis) 93/69 mmHg Concurrent Access: falseAV Fistula Upper Arm (Right) Arterial BP Standing (Pre-Dialysis) 158/106 mmHg BP Standing (P ost-Dialysis) 155/107 mmHg Sitting Heart Rate Pre-Dialysis 72 BPM Sitting Heart Rate Post-Dialysis 81 BPM Standing Heart Rate Pre-Dialysis 71 BPM Standing Heart Rate Post-Dialysis 83 BPM Temperature Pre-Dialysis 97.6 degF Temperature Post -Dialysis 97.6 degF May 24, 2023 In-Center Hemodialysis Treatment [id number]:39:18.000Z 7465-16-92K55:38:18.000Z BP Sitting (Pre-Dialysis) 150/83 mmHg BP Sitting (Post-Dialysis) 130/80 mmHg Concurrent Access: falseAV Fistula Upper Arm (Right) Arterial BP Standing (Pre-Dialysis) 140/92 mmHg BP Standing (P ost-Dialysis) 124/79 mmHg Sitting Heart Rate Pre-Dialysis 66 BPM Sitting Heart Rate Post-Dialysis 71 BPM Standing Heart Rate Pre-Dialysis 67 BPM Standing Heart Rate Post-Dialysis 80 BPM Temperature Pre-Dialysis 97.2 degF Temperature Post -Dialysis 97.3 degF May 22, 2023 In-Center Hemodialysis Treatment [id number]:40:12.000Z 9964-54-32U00:41:13.000Z BP Sitting (Pre-Dialysis) 138/85 mmHg BP Sitting (Post-Dialysis) 143/88 mmHg Concurrent Access: falseAV Fistula Upper Arm (Right) Arterial BP Standing (Pre-Dialysis) 134/88 mmHg BP Standing (P ost-Dialysis) 123/98 mmHg Sitting Heart Rate Pre-Dialysis 72 BPM Sitting Heart Rate Post-Dialysis 73 BPM Standing Heart Rate Pre-Dialysis 74 BPM Standing Heart Rate Post-Dialysis 85 BPM Temperature Pre-Dialysis 97.2 degF Temperature Post -Dialysis 97.7 degF May 19, 2023 In-Center Hemodialysis Treatment [id number]:03:00.000Z 1407-77-70B32:45:07.000Z BP Sitting (Pre-Dialysis) 152/85 mmHg BP Sitting (Post-Dialysis) 158/80 mmHg Concurrent Access: falseAV Fistula Upper Arm (Right) Arterial BP Standing (Pre-Dialysis) 142/88 mmHg BP Standing (P ost-Dialysis) 120/95 mmHg Sitting Heart Rate Pre-Dialysis 62 BPM Sitting Heart Rate Post-Dialysis 81 BPM Standing Heart Rate Pre-Dialysis 69 BPM Standing Heart Rate Post-Dialysis 88 BPM Temperature Pre-Dialysis 97.6 degF Temperature Post -Dialysis 97.6 degF May 17, 2023 In-Center Hemodialysis Treatment [id number]:36:07.000Z [id number]:40:07.000Z BP Sitting (Pre-Dialysis) 142/73 mmHg BP Sitting (Post-Dialysis) 140/80 mmHg Concurrent Access: falseAV Fistula Upper Arm (Right) Arterial BP Standing (Pre-Dialysis) 135/90 mmHg BP Standing (P ost-Dialysis) 129/72 mmHg Sitting Heart Rate Pre-Dialysis 69 BPM Sitting Heart Rate Post-Dialysis 69 BPM Standing Heart Rate Pre-Dialysis 71 BPM Standing Heart Rate Post-Dialysis 78 BPM Temperature Pre-Dialysis 97.9 degF Temperature Post -Dialysis 97.2 degF May 15, 2023 In-Center Hemodialysis Treatment [id number]:21:07.000Z 3909-78-28L53:18:07.000Z BP Sitting (Pre-Dialysis) 119/65 mmHg BP Sitting (Post-Dialysis) 133/80 mmHg Concurrent Access: falseAV Fistula Upper Arm (Right) Arterial BP Standing (Pre-Dialysis) 120/69 mmHg BP Standing (P ost-Dialysis) 125/87 mmHg Sitting Heart Rate Pre-Dialysis 61 BPM Sitting Heart Rate Post-Dialysis 66 BPM Standing Heart Rate Pre-Dialysis 60 BPM Standing Heart Rate Post-Dialysis 78 BPM Temperature Pre-Dialysis 97.2 degF Temperature Post -Dialysis 97.4 degF May 12, 2023 In-Center Hemodialysis Treatment [id number]:39:06.000Z 9757-96-57I80:40:06.000Z BP Sitting (Pre-Dialysis) 145/95 mmHg BP Sitting (Post-Dialysis) 125/80 mmHg Concurrent Access: falseAV Fistula Upper Arm (Right) Arterial BP Standing (Pre-Dialysis) 149/96 mmHg Sitti ng Heart Rate Post-Dialysis 71 BPM Sitting Heart Rate Pre-Dialysis 80 BPM Temperatu re Post-Dialysis 97.5 degF Standing Heart Rate Pre-Dialysis 74 BPM Temperature Pre-Dialysis 97 degF May 09, 2023 In-Center Hemodialysis Treatment 6447-05-11N64:34:00.000Z 2219-52-23J74:45:06.000Z BP Sitting (Pre-Dialysis) 144/96 mmHg BP Sitting (Post-Dialysis) 156/82 mmHg Concurrent Access: falseAV Fistula Upper Arm (Right) Arterial BP Standing (Pre-Dialysis) 144/95 mmHg BP Standing (P ost-Dialysis) 145/92 mmHg Sitting Heart Rate Pre-Dialysis 75 BPM Sitting Heart Rate Post-Dialysis 70 BPM Standing Heart Rate Pre-Dialysis 75 BPM Standing Heart Rate Post-Dialysis 81 BPM Temperature Pre-Dialysis 97.4 degF Temperature Post -Dialysis 97.2 degF May 08, 2023 In-Center Hemodialysis Treatment [id number]:54:00.000Z 4264-08-40E66:45:06.000Z BP Sitting (Pre-Dialysis) 163/92 mmHg BP Sitting (Post-Dialysis) 156/80 mmHg Concurrent Access: falseAV Fistula Upper Arm (Right) Arterial BP Standing (Pre-Dialysis) 159/92 mmHg BP Standing (P ost-Dialysis) 156/93 mmHg Sitting Heart Rate Pre-Dialysis 68 BPM Sitting Heart Rate Post-Dialysis 70 BPM Standing Heart Rate Pre-Dialysis 71 BPM Standing Heart Rate Post-Dialysis 81 BPM Temperature Pre-Dialysis 97.9 degF Temperature Post -Dialysis 97.9 degF May 05, 2023 In-Center Hemodialysis Treatment [id number]:25:00.000Z 4052-81-41W60:33:35.000Z BP Sitting (Pre-Dialysis) 149/87 mmHg BP Sitting (Post-Dialysis) 155/87 mmHg Concurrent Access: falseAV Fistula Upper Arm (Right) Arterial BP Standing (Pre-Dialysis) 148/86 mmHg BP Standing (P ost-Dialysis) 157/93 mmHg Sitting Heart Rate Pre-Dialysis 73 BPM Sitting Heart Rate Post-Dialysis 74 BPM Standing Heart Rate Pre-Dialysis 70 BPM Standing Heart Rate Post-Dialysis 81 BPM Temperature Pre-Dialysis 97.6 degF Temperature Post -Dialysis 97.4 degF May 03, 2023 In-Center Hemodialysis Treatment [id number]:52:00.000Z 4691-72-13V02:57:34.000Z BP Sitting (Pre-Dialysis) 186/102 mmHg BP Sitting (Post-Dialysis) 190/98 mmHg Concurrent Access: falseAV Fistula Upper Arm (Right) Arterial BP Standing (Pre-Dialysis) 172/92 mmHg BP Standing (P ost-Dialysis) 174/102 mmHg Sitting Heart Rate Pre-Dialysis 70 BPM Sitting Heart Rate Post-Dialysis 75 BPM Standing Heart Rate Pre-Dialysis 68 BPM Standing Heart Rate Post-Dialysis 79 BPM Temperature Pre-Dialysis 97.4 degF Temperature Post -Dialysis 97.4 degF May 01, 2023 In-Center Hemodialysis Treatment [id number]:32:00.000Z 4413-72-71B86:15:35.000Z BP Sitting (Pre-Dialysis) 170/69 mmHg BP Sitting (Post-Dialysis) 168/97 mmHg Concurrent Access: falseAV Fistula Upper Arm (Right) Arterial BP Standing (Pre-Dialysis) 161/87 mmHg Sitti ng Heart Rate Post-Dialysis 70 BPM Sitting Heart Rate Pre-Dialysis 98 BPM Temperatu re Post-Dialysis 97.2 degF Standing Heart Rate Pre-Dialysis 75 BPM Temperature Pre-Dialysis 97.2 degF April 28, 2023 In-Center Hemodialysis Treatment [id number]:12:00.000Z 2406-63-50C46:12:11.000Z BP Sitting (Pre-Dialysis) 153/11 mmHg BP Sitting (Post-Dialysis) 167/98 mmHg Concurrent Access: falseAV Fistula Upper Arm (Right) Arterial BP Standing (Pre-Dialysis) 146/133 mmHg Sitti ng Heart Rate Post-Dialysis 72 BPM Sitting Heart Rate Pre-Dialysis 70 BPM Temperatu re Post-Dialysis 98 degF Standing Heart Rate Pre-Dialysis 61 BPM Temperature Pre-Dialysis 97.2 degF April 26, 2023 In-Center Hemodialysis Treatment [id number]:33:11.000Z 5607-82-25Z16:30:11.000Z BP Sitting (Pre-Dialysis) 151/81 mmHg BP Sitting (Post-Dialysis) 130/73 mmHg Concurrent Access: falseAV Fistula Upper Arm (Right) Arterial BP Standing (Pre-Dialysis) 147/87 mmHg BP Standing (P ost-Dialysis) 100/63 mmHg Sitting Heart Rate Pre-Dialysis 79 BPM Sitting Heart Rate Post-Dialysis 84 BPM Standing Heart Rate Pre-Dialysis 87 BPM Standing Heart Rate Post-Dialysis 80 BPM Temperature Pre-Dialysis 97.2 degF Temperature Post -Dialysis 98.2 degF April 24, 2023 In-Center Hemodialysis Treatment [id number]:50:00.000Z [id number]:51:58.000Z BP Sitting (Pre-Dialysis) 125/81 mmHg BP Sitting (Post-Dialysis) 136/91 mmHg Concurrent Access: falseAV Fistula Upper Arm (Right) Arterial BP Standing (Pre-Dialysis) 124/96 mmHg BP Standing (P ost-Dialysis) 163/87 mmHg Sitting Heart Rate Pre-Dialysis 74 BPM Sitting Heart Rate Post-Dialysis 73 BPM Standing Heart Rate Pre-Dialysis 79 BPM Standing Heart Rate Post-Dialysis 80 BPM Temperature Pre-Dialysis 97.9 degF Temperature Post -Dialysis 98 degF April 21, 2023 In-Center Hemodialysis Treatment [id number]:40:00.000Z 4924-70-76E62:44:22.000Z BP Sitting (Pre-Dialysis) 125/73 mmHg BP Sitting (Post-Dialysis) 116/74 mmHg Concurrent Access: falseAV Fistula Upper Arm (Right) Arterial BP Standing (Pre-Dialysis) 132/82 mmHg BP Standing (P ost-Dialysis) 116/77 mmHg Sitting Heart Rate Pre-Dialysis 72 BPM Sitting Heart Rate Post-Dialysis 72 BPM Standing Heart Rate Pre-Dialysis 74 BPM Standing Heart Rate Post-Dialysis 81 BPM Temperature Pre-Dialysis 97.7 degF Temperature Post -Dialysis 97.8 degF April 19, 2023 In-Center Hemodialysis Treatment 7915-01-08B77:47:22.000Z [id number]:49:22.000Z BP Sitting (Pre-Dialysis) 144/67 mmHg BP Sitting (Post-Dialysis) 161/98 mmHg Concurrent Access: falseAV Fistula Upper Arm (Right) Arterial BP Standing (Pre-Dialysis) 152/103 mmHg Sitti ng Heart Rate Post-Dialysis 67 BPM Sitting Heart Rate Pre-Dialysis 89 BPM Temperatu re Post-Dialysis 97.2 degF Standing Heart Rate Pre-Dialysis 74 BPM Temperature Pre-Dialysis 97.9 degF April 17, 2023 In-Center Hemodialysis Treatment 0572-08-14L03:42:00.000Z 3196-42-90I22:40:22.000Z BP Sitting (Pre-Dialysis) 165/100 mmHg BP Sitting (Post-Dialysis) 131/107 mmHg Concurrent Access: falseAV Fistula Upper Arm (Right) Arterial BP Standing (Pre-Dialysis) 160/101 mmHg BP Standing (P ost-Dialysis) 162/108 mmHg Sitting Heart Rate Pre-Dialysis 75 BPM Sitting Heart Rate Post-Dialysis 84 BPM Standing Heart Rate Pre-Dialysis 79 BPM Standing Heart Rate Post-Dialysis 84 BPM Temperature Pre-Dialysis 97.9 degF Temperature Post -Dialysis 98.2 degF April 14, 2023 In-Center Hemodialysis Treatment [id number]:49:00.000Z 1650-70-39T94:49:20.000Z BP Sitting (Pre-Dialysis) 156/99 mmHg BP Sitting (Post-Dialysis) 157/101 mmHg Concurrent Access: falseAV Fistula Upper Arm (Right) Arterial BP Standing (Pre-Dialysis) 157/101 mmHg BP Standing (P ost-Dialysis) 140/94 mmHg Sitting Heart Rate Pre-Dialysis 78 BPM Sitting Heart Rate Post-Dialysis 85 BPM Standing Heart Rate Pre-Dialysis 85 BPM Standing Heart Rate Post-Dialysis 92 BPM Temperature Pre-Dialysis 97.9 degF Temperature Post -Dialysis 98.2 degF April 12, 2023 In-Center Hemodialysis Treatment [id number]:37:00.000Z 6362-09-67C70:34:20.000Z BP Sitting (Pre-Dialysis) 121/84 mmHg BP Sitting (Post-Dialysis) 133/85 mmHg Concurrent Access: falseAV Fistula Upper Arm (Right) Arterial BP Standing (Pre-Dialysis) 149/87 mmHg BP Standing (P ost-Dialysis) 149/87 mmHg Sitting Heart Rate Pre-Dialysis 79 BPM Sitting Heart Rate Post-Dialysis 71 BPM Standing Heart Rate Pre-Dialysis 76 BPM Standing Heart Rate Post-Dialysis 85 BPM Temperature Pre-Dialysis 97.9 degF Temperature Post -Dialysis 97.9 degF April 10, 2023 In-Center Hemodialysis Treatment 0518-58-22I44:27:00.000Z 5172-57-59L17:33:20.000Z BP Sitting (Pre-Dialysis) 133/86 mmHg BP Sitting (Post-Dialysis) 135/85 mmHg Concurrent Access: falseAV Fistula Upper Arm (Right) Arterial BP Standing (Pre-Dialysis) 143/93 mmHg BP Standing (P ost-Dialysis) 125/89 mmHg Sitting Heart Rate Pre-Dialysis 75 BPM Sitting Heart Rate Post-Dialysis 64 BPM Standing Heart Rate Pre-Dialysis 81 BPM Standing Heart Rate Post-Dialysis 69 BPM Temperature Pre-Dialysis 97.7 degF Temperature Post -Dialysis 97.7 degF April 07, 2023 In-Center Hemodialysis Treatment [id number]:35:22.000Z [id number]:33:22.000Z BP Sitting (Pre-Dialysis) 131/89 mmHg BP Sitting (Post-Dialysis) 142/91 mmHg Concurrent Access: falseAV Fistula Upper Arm (Right) Arterial BP Standing (Pre-Dialysis) 152/103 mmHg BP Standing (P ost-Dialysis) 170/98 mmHg Sitting Heart Rate Pre-Dialysis 83 BPM Sitting Heart Rate Post-Dialysis 87 BPM Standing Heart Rate Pre-Dialysis 86 BPM Standing Heart Rate Post-Dialysis 87 BPM Temperature Pre-Dialysis 97.7 degF Temperature Post -Dialysis 97.2 degF April 05, 2023 In-Center Hemodialysis Treatment [id number]:49:22.000Z 7793-28-21I74:50:22.000Z BP Sitting (Pre-Dialysis) 174/120 mmHg BP Sitting (Post-Dialysis) 150/101 mmHg Concurrent Access: falseAV Fistula Upper Arm (Right) Arterial BP Standing (Pre-Dialysis) 193/121 mmHg BP Standing (P ost-Dialysis) 159/103 mmHg Sitting Heart Rate Pre-Dialysis 72 BPM Sitting Heart Rate Post-Dialysis 72 BPM Standing Heart Rate Pre-Dialysis 72 BPM Standing Heart Rate Post-Dialysis 76 BPM Temperature Pre-Dialysis 97.7 degF Temperature Post -Dialysis 97.5 degF April 03, 2023 In-Center Hemodialysis Treatment [id number]:38:22.000Z 9950-74-30Z65:44:22.000Z BP Sitting (Pre-Dialysis) 158/90 mmHg BP Sitting (Post-Dialysis) 142/93 mmHg Concurrent Access: falseAV Fistula Upper Arm (Right) Arterial BP Standing (Pre-Dialysis) 148/97 mmHg BP Standing (P ost-Dialysis) 161/105 mmHg Sitting Heart Rate Pre-Dialysis 68 BPM Sitting Heart Rate Post-Dialysis 76 BPM Standing Heart Rate Pre-Dialysis 77 BPM Standing Heart Rate Post-Dialysis 92 BPM Temperature Pre-Dialysis 97.2 degF Temperature Post -Dialysis 98 degF March 31, 2023 In-Center Hemodialysis Treatment [id number]:40:00.000Z 5382-01-85J08:43:43.000Z BP Sitting (Pre-Dialysis) 142/97 mmHg BP Sitting (Post-Dialysis) 145/85 mmHg Concurrent Access: falseAV Fistula Upper Arm (Right) Arterial BP Standing (Pre-Dialysis) 127/88 mmHg BP Standing (P ost-Dialysis) 147/82 mmHg Sitting Heart Rate Pre-Dialysis 77 BPM Sitting Heart Rate Post-Dialysis 86 BPM Standing Heart Rate Pre-Dialysis 74 BPM Standing Heart Rate Post-Dialysis 82 BPM Temperature Pre-Dialysis 97.9 degF Temperature Post -Dialysis 97.2 degF March 29, 2023 In-Center Hemodialysis Treatment [id number]:23:00.000Z [id number]:31:43.000Z BP Sitting (Pre-Dialysis) 114/78 mmHg BP Sitting (Post-Dialysis) 121/70 mmHg Concurrent Access: falseAV Fistula Upper Arm (Right) Arterial BP Standing (Pre-Dialysis) 109/69 mmHg BP Standing (P ost-Dialysis) 109/64 mmHg Sitting Heart Rate Pre-Dialysis 70 BPM Sitting Heart Rate Post-Dialysis 68 BPM Standing Heart Rate Pre-Dialysis 77 BPM Standing Heart Rate Post-Dialysis 78 BPM Temperature Pre-Dialysis 98 degF Temperature Post -Dialysis 98.1 degF March 27, 2023 In-Center Hemodialysis Treatment 6024-25-06L78:42:00.000Z 0583-28-86Q06:43:43.000Z BP Sitting (Pre-Dialysis) 155/96 mmHg BP Sitting (Post-Dialysis) 150/87 mmHg Concurrent Access: falseAV Fistula Upper Arm (Right) Arterial BP Standing (Pre-Dialysis) 135/80 mmHg BP Standing (P ost-Dialysis) 131/80 mmHg Sitting Heart Rate Pre-Dialysis 72 BPM Sitting Heart Rate Post-Dialysis 76 BPM Standing Heart Rate Pre-Dialysis 74 BPM Standing Heart Rate Post-Dialysis 87 BPM Temperature Pre-Dialysis 97.3 degF Temperature Post -Dialysis 97.9 degF March 24, 2023 In-Center Hemodialysis Treatment 8439-67-40S61:01:24.000Z 1934-46-51P22:02:24.000Z BP Sitting (Pre-Dialysis) 163/107 mmHg BP Sitting (Post-Dialysis) 138/93 mmHg Concurrent Access: falseAV Fistula Upper Arm (Right) Arterial Sitting Heart Rate Pre-Dialysis 73 BPM BP Standing (Post-Dialysis) 152/85 mmHg Temperature Pre-Dialysis 97.7 degF Sitting Heart Ra te Post-Dialysis 83 BPM Standing Heart Rate Post-Mouna lysis 79 BPM Temperature Post-Dialysis 97 .7 degF March 22, 2023 In-Center Hemodialysis Treatment [id number]:50:00.000Z 0158-31-53U40:59:20.000Z BP Sitting (Pre-Dialysis) 150/78 mmHg BP Sitting (Post-Dialysis) 143/89 mmHg Concurrent Access: falseAV Fistula Upper Arm (Right) Arterial BP Standing (Pre-Dialysis) 144/80 mmHg BP Standing (P ost-Dialysis) 150/93 mmHg Sitting Heart Rate Pre-Dialysis 75 BPM Sitting Heart Rate Post-Dialysis 78 BPM Standing Heart Rate Pre-Dialysis 78 BPM Standing Heart Rate Post-Dialysis 86 BPM Temperature Pre-Dialysis 98.1 degF Temperature Post -Dialysis 97.5 degF March 20, 2023 In-Center Hemodialysis Treatment 0339-73-12F58:48:00.000Z 5410-39-05V97:50:16.000Z BP Sitting (Pre-Dialysis) 167/96 mmHg BP Sitting (Post-Dialysis) 178/99 mmHg Concurrent Access: falseAV Fistula Upper Arm (Right) Arterial BP Standing (Pre-Dialysis) 154/92 mmHg BP Standing (P ost-Dialysis) 152/95 mmHg Sitting Heart Rate Pre-Dialysis 67 BPM Sitting Heart Rate Post-Dialysis 70 BPM Standing Heart Rate Pre-Dialysis 73 BPM Standing Heart Rate Post-Dialysis 81 BPM Temperature Pre-Dialysis 97.6 degF Temperature Post -Dialysis 97.6 degF March 16, 2023 In-Center Hemodialysis Treatment [id number]:52:00.000Z [id number]:32:02.000Z BP Sitting (Pre-Dialysis) 131/80 mmHg BP Sitting (Post-Dialysis) 143/102 mmHg Concurrent Access: falseAV Fistula Upper Arm (Right) Arterial BP Standing (Pre-Dialysis) 139/97 mmHg BP Standing (P ost-Dialysis) 150/100 mmHg Sitting Heart Rate Pre-Dialysis 78 BPM Sitting Heart Rate Post-Dialysis 73 BPM Standing Heart Rate Pre-Dialysis 86 BPM Standing Heart Rate Post-Dialysis 84 BPM Temperature Pre-Dialysis 97.9 degF Temperature Post -Dialysis 97.5 degF March 15, 2023 In-Center Hemodialysis Treatment 9831-00-44P50:35:00.000Z 1987-00-97Y60:40:16.000Z BP Sitting (Pre-Dialysis) 134/66 mmHg BP Sitting (Post-Dialysis) 148/88 mmHg Concurrent Access: falseAV Fistula Upper Arm (Right) Arterial BP Standing (Pre-Dialysis) 138/82 mmHg Sitti ng Heart Rate Post-Dialysis 77 BPM Sitting Heart Rate Pre-Dialysis 75 BPM Temperatu re Post-Dialysis 98.2 degF Standing Heart Rate Pre-Dialysis 79 BPM Temperature Pre-Dialysis 97.5 degF March 13, 2023 In-Center Hemodialysis Treatment 7030-07-42Q79:39:00.000Z 0579-94-97C91:48:16.000Z BP Sitting (Pre-Dialysis) 143/89 mmHg BP Sitting (Post-Dialysis) 165/73 mmHg Concurrent Access: falseAV Fistula Upper Arm (Right) Arterial BP Standing (Pre-Dialysis) 154/91 mmHg BP Standing (P ost-Dialysis) 163/87 mmHg Sitting Heart Rate Pre-Dialysis 70 BPM Sitting Heart Rate Post-Dialysis 80 BPM Standing Heart Rate Pre-Dialysis 74 BPM Standing Heart Rate Post-Dialysis 85 BPM Temperature Pre-Dialysis 97.7 degF Temperature Post -Dialysis 97.7 degF March 10, 2023 In-Center Hemodialysis Treatment 2046-68-35G29:18:00.000Z 2615-39-13U02:10:25.000Z BP Sitting (Pre-Dialysis) 163/111 mmHg BP Sitting (Post-Dialysis) 141/90 mmHg Concurrent Access: falseAV Fistula Upper Arm (Right) Arterial BP Standing (Pre-Dialysis) 170/104 mmHg BP Standing (P ost-Dialysis) 122/76 mmHg Sitting Heart Rate Pre-Dialysis 69 BPM Sitting Heart Rate Post-Dialysis 74 BPM Standing Heart Rate Pre-Dialysis 66 BPM Standing Heart Rate Post-Dialysis 85 BPM Temperature Pre-Dialysis 97.6 degF Temperature Post -Dialysis 97.6 degF March 08, 2023 In-Center Hemodialysis Treatment [id number]:41:00.000Z 0898-94-24Z81:35:00.000Z BP Sitting (Pre-Dialysis) 155/98 mmHg BP Sitting (Post-Dialysis) 145/69 mmHg Concurrent Access: falseAV Fistula Upper Arm (Right) Arterial BP Standing (Pre-Dialysis) 155/98 mmHg Sitti ng Heart Rate Post-Dialysis 87 BPM Sitting Heart Rate Pre-Dialysis 67 BPM Temperatu re Post-Dialysis 97.2 degF Standing Heart Rate Pre-Dialysis 67 BPM Temperature Pre-Dialysis 98 degF March 06, 2023 In-Center Hemodialysis Treatment 9026-27-05V28:09:16.000Z 0842-12-23S21:01:16.000Z BP Sitting (Pre-Dialysis) 149/80 mmHg BP Sitting (Post-Dialysis) 149/99 mmHg Concurrent Access: falseAV Fistula Upper Arm (Right) Arterial BP Standing (Pre-Dialysis) 163/94 mmHg BP Standing (P ost-Dialysis) 155/95 mmHg Sitting Heart Rate Pre-Dialysis 69 BPM Sitting Heart Rate Post-Dialysis 71 BPM Standing Heart Rate Pre-Dialysis 70 BPM Standing Heart Rate Post-Dialysis 86 BPM Temperature Pre-Dialysis 97.5 degF Temperature Post -Dialysis 97.5 degF March 03, 2023 In-Center Hemodialysis Treatment [id number]:46:06.000Z 9264-70-07H73:47:06.000Z BP Sitting (Pre-Dialysis) 159/104 mmHg BP Sitting (Post-Dialysis) 163/102 mmHg Concurrent Access: falseAV Fistula Upper Arm (Right) Arterial BP Standing (Pre-Dialysis) 168/104 mmHg BP Standing (P ost-Dialysis) 149/101 mmHg Sitting Heart Rate Pre-Dialysis 67 BPM Sitting Heart Rate Post-Dialysis 67 BPM Standing Heart Rate Pre-Dialysis 69 BPM Standing Heart Rate Post-Dialysis 84 BPM Temperature Pre-Dialysis 97.7 degF Temperature Post -Dialysis 97.8 degF March 01, 2023 In-Center Hemodialysis Treatment 1701-26-52J80:45:00.000Z [id number]:45:06.000Z BP Sitting (Pre-Dialysis) 158/92 mmHg BP Sitting (Post-Dialysis) 161/70 mmHg Concurrent Access: falseAV Fistula Upper Arm (Right) Arterial BP Standing (Pre-Dialysis) 157/89 mmHg BP Standing (P ost-Dialysis) 147/87 mmHg Sitting Heart Rate Pre-Dialysis 74 BPM Sitting Heart Rate Post-Dialysis 74 BPM Standing Heart Rate Pre-Dialysis 73 BPM Standing Heart Rate Post-Dialysis 83 BPM Temperature Pre-Dialysis 97.6 degF Temperature Post -Dialysis 97.6 degF February 27, 2023 In-Center Hemodialysis Treatment [id number]:27:00.000Z 2741-37-02S50:01:06.000Z BP Sitting (Pre-Dialysis) 140/82 mmHg BP Sitting (Post-Dialysis) 189/88 mmHg Concurrent Access: falseAV Fistula Upper Arm (Right) Arterial BP Standing (Pre-Dialysis) 128/80 mmHg BP Standing (P ost-Dialysis) 158/88 mmHg Sitting Heart Rate Pre-Dialysis 82 BPM Sitting Heart Rate Post-Dialysis 82 BPM Standing Heart Rate Pre-Dialysis 79 BPM Standing Heart Rate Post-Dialysis 82 BPM Temperature Pre-Dialysis 97.6 degF Temperature Post -Dialysis 97.8 degF February 24, 2023 In-Center Hemodialysis Treatment [id number]:57:26.000Z [id number]:59:26.000Z BP Sitting (Pre-Dialysis) 159/83 mmHg BP Sitting (Post-Dialysis) 147/95 mmHg Concurrent Access: falseAV Fistula Upper Arm (Right) Arterial Sitting Heart Rate Pre-Dialysis 69 BPM BP Standing (Post-Dialysis) 148/93 mmHg Temperature Pre-Dialysis 97.7 degF Sitting Heart Ra te Post-Dialysis 75 BPM Standing Heart Rate Post-Mouna lysis 88 BPM February 22, 2023 In-Center Hemodialysis Treatment [id number]:40:26.000Z 6840-91-64H30:40:26.000Z BP Sitting (Pre-Dialysis) 169/69 mmHg BP Sitting (Post-Dialysis) 147/93 mmHg Concurrent Access: falseAV Fistula Upper Arm (Right) Arterial Sitting Heart Rate Pre-Dialysis 69 BPM BP Standing (Post-Dialysis) 158/100 mmHg Standing Heart Rate Pre-Dialysis 70 BPM Sitting Heart Rate Post-Dialysis 70 BPM Temperature Pre-Dialysis 97.2 degF Standin g Heart Rate Post-Dialysis 78 BPM Temperature Post-Dialysis 97 .2 degF February 20, 2023 In-Center Hemodialysis Treatment [id number]:05:00.000Z 5948-69-81B75:52:27.000Z BP Sitting (Pre-Dialysis) 143/92 mmHg BP Sitting (Post-Dialysis) 141/89 mmHg Concurrent Access: falseAV Fistula Upper Arm (Right) Arterial BP Standing (Pre-Dialysis) 150/93 mmHg BP Standing (P ost-Dialysis) 156/85 mmHg Sitting Heart Rate Pre-Dialysis 70 BPM Sitting Heart Rate Post-Dialysis 77 BPM Standing Heart Rate Pre-Dialysis 68 BPM Standing Heart Rate Post-Dialysis 92 BPM Temperature Pre-Dialysis 97.7 degF Temperature Post -Dialysis 97.3 degF February 17, 2023 In-Center Hemodialysis Treatment [id number]:57:00.000Z 3721-29-51G40:04:20.000Z BP Sitting (Pre-Dialysis) 140/94 mmHg BP Sitting (Post-Dialysis) 167/103 mmHg Concurrent Access: falseAV Fistula Upper Arm (Right) Arterial BP Standing (Pre-Dialysis) 148/92 mmHg BP Standing (P ost-Dialysis) 150/98 mmHg Sitting Heart Rate Pre-Dialysis 64 BPM Sitting Heart Rate Post-Dialysis 70 BPM Standing Heart Rate Pre-Dialysis 66 BPM Standing Heart Rate Post-Dialysis 80 BPM Temperature Pre-Dialysis 97.7 degF Temperature Post -Dialysis 97.5 degF February 15, 2023 In-Center Hemodialysis Treatment 1978-19-49V10:44:41.000Z [id number]:44:42.000Z BP Sitting (Pre-Dialysis) 155/96 mmHg BP Sitting (Post-Dialysis) 136/78 mmHg Concurrent Access: falseAV Fistula Upper Arm (Right) Arterial BP Standing (Pre-Dialysis) 187/96 mmHg BP Standing (P ost-Dialysis) 136/75 mmHg Sitting Heart Rate Pre-Dialysis 79 BPM Sitting Heart Rate Post-Dialysis 97 BPM Standing Heart Rate Pre-Dialysis 75 BPM Standing Heart Rate Post-Dialysis 82 BPM Temperature Pre-Dialysis 98 degF Temperature Post -Dialysis 97.2 degF February 13, 2023 In-Center Hemodialysis Treatment 3564-07-32Q65:43:00.000Z 7703-29-05Q33:44:20.000Z BP Sitting (Pre-Dialysis) 157/94 mmHg BP Sitting (Post-Dialysis) 151/82 mmHg Concurrent Access: falseAV Fistula Upper Arm (Right) Arterial BP Standing (Pre-Dialysis) 159/94 mmHg BP Standing (P ost-Dialysis) 148/94 mmHg Sitting Heart Rate Pre-Dialysis 85 BPM Sitting Heart Rate Post-Dialysis 80 BPM Standing Heart Rate Pre-Dialysis 85 BPM Standing Heart Rate Post-Dialysis 90 BPM Temperature Pre-Dialysis 97.7 degF Temperature Post -Dialysis 97.7 degF February 10, 2023 In-Center Hemodialysis Treatment [id number]:47:00.000Z [id number]:43:26.000Z BP Sitting (Pre-Dialysis) 160/88 mmHg BP Sitting (Post-Dialysis) 152/75 mmHg Concurrent Access: falseAV Fistula Upper Arm (Right) Arterial BP Standing (Pre-Dialysis) 165/92 mmHg BP Standing (P ost-Dialysis) 143/86 mmHg Sitting Heart Rate Pre-Dialysis 80 BPM Sitting Heart Rate Post-Dialysis 90 BPM Standing Heart Rate Pre-Dialysis 82 BPM Standing Heart Rate Post-Dialysis 86 BPM Temperature Pre-Dialysis 97.2 degF Temperature Post -Dialysis 98.6 degF February 08, 2023 In-Center Hemodialysis Treatment [id number]:38:26.000Z 8560-32-30F52:40:26.000Z BP Sitting (Pre-Dialysis) 161/98 mmHg BP Sitting (Post-Dialysis) 159/73 mmHg Concurrent Access: falseAV Fistula Upper Arm (Right) Arterial BP Standing (Pre-Dialysis) 165/95 mmHg BP Standing (P ost-Dialysis) 144/84 mmHg Sitting Heart Rate Pre-Dialysis 82 BPM Sitting Heart Rate Post-Dialysis 89 BPM Standing Heart Rate Pre-Dialysis 80 BPM Standing Heart Rate Post-Dialysis 94 BPM Temperature Pre-Dialysis 97.2 degF Temperature Post -Dialysis 97.2 degF February 06, 2023 In-Center Hemodialysis Treatment [id number]:49:00.000Z 3837-07-65Q47:54:26.000Z BP Sitting (Pre-Dialysis) 151/96 mmHg BP Sitting (Post-Dialysis) 161/95 mmHg Concurrent Access: falseAV Fistula Upper Arm (Right) Arterial BP Standing (Pre-Dialysis) 159/97 mmHg Sitti ng Heart Rate Post-Dialysis 75 BPM Sitting Heart Rate Pre-Dialysis 70 BPM Temperatu re Post-Dialysis 97.5 degF Standing Heart Rate Pre-Dialysis 74 BPM Temperature Pre-Dialysis 97.7 degF February 03, 2023 In-Center Hemodialysis Treatment [id number]:41:00.000Z 5405-24-28H87:46:20.000Z BP Sitting (Pre-Dialysis) 149/79 mmHg BP Sitting (Post-Dialysis) 145/85 mmHg Concurrent Access: falseAV Fistula Upper Arm (Right) Arterial BP Standing (Pre-Dialysis) 143/86 mmHg BP Standing (P ost-Dialysis) 137/89 mmHg Sitting Heart Rate Pre-Dialysis 68 BPM Sitting Heart Rate Post-Dialysis 74 BPM Standing Heart Rate Pre-Dialysis 73 BPM Standing Heart Rate Post-Dialysis 88 BPM Temperature Pre-Dialysis 97.2 degF Temperature Post -Dialysis 97.2 degF February 01, 2023 In-Center Hemodialysis Treatment [id number]:45:00.000Z 3431-01-39H74:43:21.000Z BP Sitting (Pre-Dialysis) 137/82 mmHg BP Sitting (Post-Dialysis) 153/92 mmHg Concurrent Access: falseAV Fistula Upper Arm (Right) Arterial BP Standing (Pre-Dialysis) 133/81 mmHg BP Standing (P ost-Dialysis) 142/83 mmHg Sitting Heart Rate Pre-Dialysis 75 BPM Sitting Heart Rate Post-Dialysis 73 BPM Standing Heart Rate Pre-Dialysis 77 BPM Standing Heart Rate Post-Dialysis 83 BPM Temperature Pre-Dialysis 97.9 degF Temperature Post -Dialysis 98.2 degF January 30, 2023 In-Center Hemodialysis Treatment 2411-07-64J02:53:37.000Z 2467-26-87I77:56:37.000Z BP Sitting (Pre-Dialysis) 143/78 mmHg BP Sitting (Post-Dialysis) 150/78 mmHg Concurrent Access: falseAV Fistula Upper Arm (Right) Arterial BP Standing (Pre-Dialysis) 127/80 mmHg BP Standing (P ost-Dialysis) 132/73 mmHg Sitting Heart Rate Pre-Dialysis 72 BPM Sitting Heart Rate Post-Dialysis 75 BPM Standing Heart Rate Pre-Dialysis 76 BPM Standing Heart Rate Post-Dialysis 86 BPM Temperature Pre-Dialysis 97.8 degF Temperature Post -Dialysis 98 degF January 27, 2023 In-Center Hemodialysis Treatment [id number]:16:00.000Z 4369-83-70K55:21:43.000Z BP Sitting (Pre-Dialysis) 163/99 mmHg BP Sitting (Post-Dialysis) 156/101 mmHg Concurrent Access: falseAV Fistula Upper Arm (Right) Arterial BP Standing (Pre-Dialysis) 146/104 mmHg BP Standing (P ost-Dialysis) 157/99 mmHg Sitting Heart Rate Pre-Dialysis 77 BPM Sitting Heart Rate Post-Dialysis 75 BPM Standing Heart Rate Pre-Dialysis 85 BPM Standing Heart Rate Post-Dialysis 84 BPM Temperature Pre-Dialysis 97.5 degF Temperature Post -Dialysis 98.1 degF January 25, 2023 In-Center Hemodialysis Treatment [id number]:15:00.000Z 6746-68-70R08:19:59.000Z BP Sitting (Pre-Dialysis) 164/97 mmHg BP Sitting (Post-Dialysis) 178/93 mmHg Concurrent Access: falseAV Fistula Upper Arm (Right) Arterial BP Standing (Pre-Dialysis) 153/128 mmHg BP Standing (P ost-Dialysis) 150/95 mmHg Sitting Heart Rate Pre-Dialysis 76 BPM Sitting Heart Rate Post-Dialysis 78 BPM Standing Heart Rate Pre-Dialysis 80 BPM Standing Heart Rate Post-Dialysis 98 BPM Temperature Pre-Dialysis 97.6 degF Temperature Post -Dialysis 97.4 degF January 23, 2023 In-Center Hemodialysis Treatment 0780-63-25B66:19:00.000Z 2014-70-44F10:26:12.000Z BP Sitting (Pre-Dialysis) 172/97 mmHg BP Sitting (Post-Dialysis) 180/94 mmHg Concurrent Access: falseAV Fistula Upper Arm (Right) Arterial BP Standing (Pre-Dialysis) 149/89 mmHg BP Standing (P ost-Dialysis) 146/89 mmHg Sitting Heart Rate Pre-Dialysis 79 BPM Sitting Heart Rate Post-Dialysis 65 BPM Standing Heart Rate Pre-Dialysis 85 BPM Standing Heart Rate Post-Dialysis 86 BPM Temperature Pre-Dialysis 97.3 degF Temperature Post -Dialysis 97.7 degF January 20, 2023 In-Center Hemodialysis Treatment [id number]:25:00.000Z 8305-82-36B76:23:03.000Z BP Sitting (Pre-Dialysis) 176/99 mmHg BP Sitting (Post-Dialysis) 179/93 mmHg Concurrent Access: falseAV Fistula Upper Arm (Right) Arterial BP Standing (Pre-Dialysis) 166/104 mmHg BP Standing (P ost-Dialysis) 178/88 mmHg Sitting Heart Rate Pre-Dialysis 87 BPM Sitting Heart Rate Post-Dialysis 68 BPM Standing Heart Rate Pre-Dialysis 87 BPM Standing Heart Rate Post-Dialysis 69 BPM Temperature Pre-Dialysis 97.2 degF January 18, 2023 In-Center Hemodialysis Treatment [id number]:21:00.000Z 6487-52-48L46:27:32.000Z BP Sitting (Pre-Dialysis) 160/94 mmHg BP Sitting (Post-Dialysis) 159/98 mmHg Concurrent Access: falseAV Fistula Upper Arm (Right) Arterial BP Standing (Pre-Dialysis) 163/89 mmHg BP Standing (P ost-Dialysis) 159/98 mmHg Sitting Heart Rate Pre-Dialysis 73 BPM Sitting Heart Rate Post-Dialysis 87 BPM Standing Heart Rate Pre-Dialysis 71 BPM Standing Heart Rate Post-Dialysis 87 BPM Temperature Pre-Dialysis 97.2 degF Temperature Post -Dialysis 98.2 degF January 16, 2023 In-Center Hemodialysis Treatment 9723-12-76G95:20:00.000Z 1052-02-95X43:24:48.000Z BP Sitting (Pre-Dialysis) 148/88 mmHg BP Sitting (Post-Dialysis) 174/94 mmHg Concurrent Access: falseAV Fistula Upper Arm (Right) Arterial BP Standing (Pre-Dialysis) 143/85 mmHg BP Standing (P ost-Dialysis) 155/87 mmHg Sitting Heart Rate Pre-Dialysis 71 BPM Sitting Heart Rate Post-Dialysis 71 BPM Standing Heart Rate Pre-Dialysis 72 BPM Standing Heart Rate Post-Dialysis 77 BPM Temperature Pre-Dialysis 97.2 degF Temperature Post -Dialysis 97.9 degF January 13, 2023 In-Center Hemodialysis Treatment [id number]:18:00.000Z 4759-73-43N22:22:00.000Z BP Sitting (Pre-Dialysis) 150/86 mmHg BP Sitting (Post-Dialysis) 150/90 mmHg Concurrent Access: falseAV Fistula Upper Arm (Right) Arterial BP Standing (Pre-Dialysis) 149/82 mmHg BP Standing (P ost-Dialysis) 164/100 mmHg Sitting Heart Rate Pre-Dialysis 72 BPM Sitting Heart Rate Post-Dialysis 72 BPM Standing Heart Rate Pre-Dialysis 72 BPM Standing Heart Rate Post-Dialysis 78 BPM Temperature Pre-Dialysis 97.5 degF Temperature Post -Dialysis 97.3 degF January 11, 2023 In-Center Hemodialysis Treatment 3730-35-34B11:15:00.000Z 3445-18-21Q06:17:00.000Z BP Sitting (Pre-Dialysis) 195/116 mmHg BP Sitting (Post-Dialysis) 141/91 mmHg Concurrent Access: falseAV Fistula Upper Arm (Right) Arterial BP Standing (Pre-Dialysis) 163/111 mmHg BP Standing (P ost-Dialysis) 147/76 mmHg Sitting Heart Rate Pre-Dialysis 75 BPM Sitting Heart Rate Post-Dialysis 71 BPM Standing Heart Rate Pre-Dialysis 82 BPM Standing Heart Rate Post-Dialysis 87 BPM Temperature Pre-Dialysis 97.2 degF Temperature Post -Dialysis 98 degF January 09, 2023 In-Center Hemodialysis Treatment [id number]:30:00.000Z 7542-92-49W22:27:16.000Z BP Sitting (Pre-Dialysis) 153/89 mmHg BP Sitting (Post-Dialysis) 148/89 mmHg Concurrent Access: falseAV Fistula Upper Arm (Right) Arterial BP Standing (Pre-Dialysis) 163/100 mmHg Sitti ng Heart Rate Post-Dialysis 66 BPM Sitting Heart Rate Pre-Dialysis 89 BPM Temperatu re Post-Dialysis 97.2 degF Standing Heart Rate Pre-Dialysis 75 BPM Temperature Pre-Dialysis 97.2 degF January 06, 2023 In-Center Hemodialysis Treatment [id number]:07:00.000Z 6139-70-15T54:31:01.000Z BP Sitting (Pre-Dialysis) 151/92 mmHg BP Sitting (Post-Dialysis) 145/79 mmHg Concurrent Access: falseAV Fistula Upper Arm (Right) Arterial BP Standing (Pre-Dialysis) 150/88 mmHg BP Standing (P ost-Dialysis) 129/87 mmHg Sitting Heart Rate Pre-Dialysis 74 BPM Sitting Heart Rate Post-Dialysis 70 BPM Standing Heart Rate Pre-Dialysis 77 BPM Standing Heart Rate Post-Dialysis 81 BPM Temperature Pre-Dialysis 97.5 degF Temperature Post -Dialysis 97.4 degF January 04, 2023 In-Center Hemodialysis Treatment [id number]:27:00.000Z 9217-79-55I74:34:11.000Z BP Sitting (Pre-Dialysis) 153/83 mmHg BP Sitting (Post-Dialysis) 171/101 mmHg Concurrent Access: falseAV Fistula Upper Arm (Right) Arterial BP Standing (Pre-Dialysis) 164/89 mmHg BP Standing (P ost-Dialysis) 186/109 mmHg Sitting Heart Rate Pre-Dialysis 80 BPM Sitting Heart Rate Post-Dialysis 76 BPM Standing Heart Rate Pre-Dialysis 81 BPM Standing Heart Rate Post-Dialysis 85 BPM Temperature Pre-Dialysis 97.2 degF Temperature Post -Dialysis 97.2 degF January 02, 2023 In-Center Hemodialysis Treatment 4820-91-30F31:32:22.000Z 3817-36-67K23:30:17.000Z BP Sitting (Pre-Dialysis) 155/91 mmHg BP Sitting (Post-Dialysis) 130/82 mmHg Concurrent Access: falseAV Fistula Upper Arm (Right) Arterial BP Standing (Pre-Dialysis) 158/91 mmHg BP Standing (P ost-Dialysis) 150/100 mmHg Sitting Heart Rate Pre-Dialysis 82 BPM Sitting Heart Rate Post-Dialysis 82 BPM Standing Heart Rate Pre-Dialysis 84 BPM Standing Heart Rate Post-Dialysis 83 BPM Temperature Pre-Dialysis 97.2 degF Temperature Post -Dialysis 97.3 degF December 30, 2022 In-Center Hemodialysis Treatment [id number]:28:00.000Z 1815-37-78C74:34:12.000Z BP Sitting (Pre-Dialysis) 160/99 mmHg BP Sitting (Post-Dialysis) 149/96 mmHg Concurrent Access: falseAV Fistula Upper Arm (Right) Arterial BP Standing (Pre-Dialysis) 151/88 mmHg BP Standing (P ost-Dialysis) 140/89 mmHg Sitting Heart Rate Pre-Dialysis 65 BPM Sitting Heart Rate Post-Dialysis 70 BPM Standing Heart Rate Pre-Dialysis 82 BPM Standing Heart Rate Post-Dialysis 83 BPM Temperature Pre-Dialysis 97 degF Temperature Post -Dialysis 97.2 degF December 28, 2022 In-Center Hemodialysis Treatment 7584-14-49F63:29:00.000Z 4586-48-00P68:33:02.000Z BP Sitting (Pre-Dialysis) 147/88 mmHg BP Sitting (Post-Dialysis) 136/80 mmHg Concurrent Access: falseAV Fistula Upper Arm (Right) Arterial BP Standing (Pre-Dialysis) 153/90 mmHg BP Standing (P ost-Dialysis) 156/78 mmHg Sitting Heart Rate Pre-Dialysis 70 BPM Sitting Heart Rate Post-Dialysis 66 BPM Standing Heart Rate Pre-Dialysis 72 BPM Standing Heart Rate Post-Dialysis 74 BPM Temperature Pre-Dialysis 97.7 degF Temperature Post -Dialysis 98 degF December 26, 2022 In-Center Hemodialysis Treatment [id number]:27:00.000Z 8076-86-02C75:30:11.000Z BP Sitting (Pre-Dialysis) 171/94 mmHg BP Sitting (Post-Dialysis) 164/59 mmHg Concurrent Access: falseAV Fistula Upper Arm (Right) Arterial BP Standing (Pre-Dialysis) 170/101 mmHg BP Standing (P ost-Dialysis) 184/80 mmHg Sitting Heart Rate Pre-Dialysis 72 BPM Sitting Heart Rate Post-Dialysis 65 BPM Standing Heart Rate Pre-Dialysis 77 BPM Standing Heart Rate Post-Dialysis 63 BPM Temperature Pre-Dialysis 97.4 degF Temperature Post -Dialysis 97.4 degF December 23, 2022 In-Center Hemodialysis Treatment 6640-91-65W16:24:00.000Z 9074-64-79L36:23:43.000Z BP Sitting (Pre-Dialysis) 167/93 mmHg BP Sitting (Post-Dialysis) 169/69 mmHg Concurrent Access: falseAV Fistula Upper Arm (Right) Arterial BP Standing (Pre-Dialysis) 158/92 mmHg BP Standing (P ost-Dialysis) 143/91 mmHg Sitting Heart Rate Pre-Dialysis 78 BPM Sitting Heart Rate Post-Dialysis 87 BPM Standing Heart Rate Pre-Dialysis 87 BPM Standing Heart Rate Post-Dialysis 85 BPM Temperature Pre-Dialysis 98 degF Temperature Post -Dialysis 98 degF December 21, 2022 In-Center Hemodialysis Treatment [id number]:24:19.000Z 0111-00-44S32:30:00.000Z BP Sitting (Pre-Dialysis) 155/95 mmHg BP Sitting (Post-Dialysis) 170/98 mmHg Concurrent Access: falseAV Fistula Upper Arm (Right) Arterial BP Standing (Pre-Dialysis) 154/97 mmHg BP Standing (P ost-Dialysis) 160/77 mmHg Sitting Heart Rate Pre-Dialysis 82 BPM Sitting Heart Rate Post-Dialysis 75 BPM Standing Heart Rate Pre-Dialysis 80 BPM Standing Heart Rate Post-Dialysis 82 BPM Temperature Pre-Dialysis 97.2 degF Temperature Post -Dialysis 97.2 degF December 19, 2022 In-Center Hemodialysis Treatment [id number]:31:00.000Z 9943-91-11C29:36:01.000Z BP Sitting (Pre-Dialysis) 177/100 mmHg BP Sitting (Post-Dialysis) 153/83 mmHg Concurrent Access: falseAV Fistula Upper Arm (Right) Arterial BP Standing (Pre-Dialysis) 165/113 mmHg Sitti ng Heart Rate Post-Dialysis 76 BPM Sitting Heart Rate Pre-Dialysis 71 BPM Temperatu re Post-Dialysis 97.6 degF Standing Heart Rate Pre-Dialysis 82 BPM Temperature Pre-Dialysis 97.6 degF December 16, 2022 In-Center Hemodialysis Treatment 3029-12-01W37:16:00.000Z 7230-37-20P56:22:01.000Z BP Sitting (Pre-Dialysis) 157/68 mmHg BP Sitting (Post-Dialysis) 148/90 mmHg Concurrent Access: falseAV Fistula Upper Arm (Right) Arterial BP Standing (Pre-Dialysis) 154/90 mmHg BP Standing (P ost-Dialysis) 147/82 mmHg Sitting Heart Rate Pre-Dialysis 79 BPM Sitting Heart Rate Post-Dialysis 87 BPM Standing Heart Rate Pre-Dialysis 81 BPM Standing Heart Rate Post-Dialysis 82 BPM Temperature Pre-Dialysis 97.7 degF Temperature Post -Dialysis 97.2 degF December 14, 2022 In-Center Hemodialysis Treatment [id number]:25:00.000Z 9157-14-91V78:33:14.000Z BP Sitting (Pre-Dialysis) 167/89 mmHg BP Sitting (Post-Dialysis) 167/97 mmHg Concurrent Access: falseAV Fistula Upper Arm (Right) Arterial BP Standing (Pre-Dialysis) 158/92 mmHg Sitti ng Heart Rate Post-Dialysis 70 BPM Sitting Heart Rate Pre-Dialysis 77 BPM Temperatu re Post-Dialysis 97.2 degF Standing Heart Rate Pre-Dialysis 81 BPM Temperature Pre-Dialysis 97.5 degF December 12, 2022 In-Center Hemodialysis Treatment [id number]:37:00.000Z 9641-85-35H36:43:38.000Z BP Sitting (Pre-Dialysis) 151/94 mmHg BP Sitting (Post-Dialysis) 159/80 mmHg Concurrent Access: falseAV Fistula Upper Arm (Right) Arterial BP Standing (Pre-Dialysis) 158/105 mmHg BP Standing (P ost-Dialysis) 161/97 mmHg Sitting Heart Rate Pre-Dialysis 65 BPM Sitting Heart Rate Post-Dialysis 80 BPM Standing Heart Rate Pre-Dialysis 69 BPM Standing Heart Rate Post-Dialysis 83 BPM Temperature Pre-Dialysis 97.2 degF December 09, 2022 In-Center Hemodialysis Treatment 0744-22-08L56:27:18.000Z [id number]:31:28.000Z BP Sitting (Pre-Dialysis) 164/87 mmHg BP Sitting (Post-Dialysis) 153/93 mmHg Concurrent Access: falseAV Fistula Upper Arm (Right) Arterial BP Standing (Pre-Dialysis) 152/94 mmHg Sitti ng Heart Rate Post-Dialysis 80 BPM Sitting Heart Rate Pre-Dialysis 87 BPM Temperatu re Post-Dialysis 97.2 degF Standing Heart Rate Pre-Dialysis 87 BPM Temperature Pre-Dialysis 97.2 degF December 07, 2022 In-Center Hemodialysis Treatment [id number]:27:00.000Z 2552-09-16H04:30:24.000Z BP Sitting (Pre-Dialysis) 150/76 mmHg BP Sitting (Post-Dialysis) 138/94 mmHg Concurrent Access: falseAV Fistula Upper Arm (Right) Arterial BP Standing (Pre-Dialysis) 149/88 mmHg BP Standing (P ost-Dialysis) 149/82 mmHg Sitting Heart Rate Pre-Dialysis 80 BPM Sitting Heart Rate Post-Dialysis 80 BPM Standing Heart Rate Pre-Dialysis 86 BPM Standing Heart Rate Post-Dialysis 86 BPM Temperature Pre-Dialysis 97 degF Temperature Post -Dialysis 97.5 degF December 05, 2022 In-Center Hemodialysis Treatment [id number]:30:00.000Z 9443-28-02F10:39:10.000Z BP Sitting (Pre-Dialysis) 173/102 mmHg BP Sitting (Post-Dialysis) 154/97 mmHg Concurrent Access: falseAV Fistula Upper Arm (Right) Arterial BP Standing (Pre-Dialysis) 174/90 mmHg BP Standing (P ost-Dialysis) 159/78 mmHg Sitting Heart Rate Pre-Dialysis 77 BPM Sitting Heart Rate Post-Dialysis 87 BPM Standing Heart Rate Pre-Dialysis 83 BPM Standing Heart Rate Post-Dialysis 87 BPM Temperature Pre-Dialysis 97.5 degF Temperature Post -Dialysis 98 degF December 02, 2022 In-Center Hemodialysis Treatment 4822-58-28U27:30:00.000Z 2862-70-96Q02:46:19.000Z BP Sitting (Pre-Dialysis) 153/95 mmHg BP Sitting (Post-Dialysis) 130/76 mmHg Concurrent Access: falseAV Fistula Upper Arm (Right) Arterial BP Standing (Pre-Dialysis) 142/75 mmHg Sitti ng Heart Rate Post-Dialysis 72 BPM Sitting Heart Rate Pre-Dialysis 85 BPM Temperatu re Post-Dialysis 97.2 degF Standing Heart Rate Pre-Dialysis 83 BPM Temperature Pre-Dialysis 97.7 degF November 30, 2022 In-Center Hemodialysis Treatment 8676-54-63O48:19:01.000Z 6578-54-20R36:18:36.000Z BP Sitting (Pre-Dialysis) 160/102 mmHg BP Sitting (Post-Dialysis) 168/97 mmHg Concurrent Access: falseAV Fistula Upper Arm (Right) Arterial BP Standing (Pre-Dialysis) 178/110 mmHg BP Standing (P ost-Dialysis) 170/88 mmHg Sitting Heart Rate Pre-Dialysis 82 BPM Sitting Heart Rate Post-Dialysis 72 BPM Standing Heart Rate Pre-Dialysis 84 BPM Standing Heart Rate Post-Dialysis 86 BPM Temperature Pre-Dialysis 97.3 degF Temperature Post -Dialysis 97.2 degF November 28, 2022 In-Center Hemodialysis Treatment 0438-38-47M72:02:00.000Z 9149-28-02K80:07:07.000Z BP Sitting (Pre-Dialysis) 156/90 mmHg BP Sitting (Post-Dialysis) 158/97 mmHg Concurrent Access: falseAV Fistula Upper Arm (Right) Arterial BP Standing (Pre-Dialysis) 162/91 mmHg BP Standing (P ost-Dialysis) 167/94 mmHg Sitting Heart Rate Pre-Dialysis 78 BPM Sitting Heart Rate Post-Dialysis 68 BPM Standing Heart Rate Pre-Dialysis 83 BPM Standing Heart Rate Post-Dialysis 83 BPM Temperature Pre-Dialysis 96.8 degF Temperature Post -Dialysis 97.8 degF November 25, 2022 In-Center Hemodialysis Treatment 9667-75-05P39:25:00.000Z 3868-38-13S82:25:01.000Z BP Sitting (Pre-Dialysis) 172/85 mmHg BP Sitting (Post-Dialysis) 165/83 mmHg Concurrent Access: falseAV Fistula Upper Arm (Right) Arterial BP Standing (Pre-Dialysis) 170/107 mmHg BP Standing (P ost-Dialysis) 158/79 mmHg Sitting Heart Rate Pre-Dialysis 90 BPM Sitting Heart Rate Post-Dialysis 82 BPM Standing Heart Rate Pre-Dialysis 89 BPM Standing Heart Rate Post-Dialysis 102 BPM Temperature Pre-Dialysis 97.2 degF Temperature Post -Dialysis 98.6 degF November 23, 2022 In-Center Hemodialysis Treatment 1173-89-66R52:32:00.000Z 5767-57-56F93:47:51.000Z BP Sitting (Pre-Dialysis) 161/100 mmHg BP Sitting (Post-Dialysis) 155/100 mmHg Concurrent Access: falseAV Fistula Upper Arm (Right) Arterial BP Standing (Pre-Dialysis) 159/95 mmHg BP Standing (P ost-Dialysis) 125/80 mmHg Sitting Heart Rate Pre-Dialysis 72 BPM Sitting Heart Rate Post-Dialysis 76 BPM Standing Heart Rate Pre-Dialysis 81 BPM Standing Heart Rate Post-Dialysis 99 BPM Temperature Pre-Dialysis 97.6 degF Temperature Post -Dialysis 98.6 degF November 21, 2022 In-Center Hemodialysis Treatment 4551-90-08W98:18:00.000Z [id number]:25:46.000Z BP Sitting (Pre-Dialysis) 160/68 mmHg BP Sitting (Post-Dialysis) 174/76 mmHg Concurrent Access: falseAV Fistula Upper Arm (Right) Arterial BP Standing (Pre-Dialysis) 197/96 mmHg BP Standing (P ost-Dialysis) 162/89 mmHg Sitting Heart Rate Pre-Dialysis 98 BPM Sitting Heart Rate Post-Dialysis 69 BPM Standing Heart Rate Pre-Dialysis 71 BPM Standing Heart Rate Post-Dialysis 86 BPM Temperature Pre-Dialysis 97.5 degF Temperature Post -Dialysis 97.9 degF November 18, 2022 In-Center Hemodialysis Treatment [id number]:29:00.000Z [id number]:36:07.000Z BP Sitting (Pre-Dialysis) 168/105 mmHg BP Sitting (Post-Dialysis) 165/103 mmHg Concurrent Access: falseAV Fistula Upper Arm (Right) Arterial BP Standing (Pre-Dialysis) 178/101 mmHg BP Standing (P ost-Dialysis) 180/100 mmHg Sitting Heart Rate Pre-Dialysis 70 BPM Sitting Heart Rate Post-Dialysis 74 BPM Standing Heart Rate Pre-Dialysis 71 BPM Standing Heart Rate Post-Dialysis 81 BPM Temperature Pre-Dialysis 98.9 degF Temperature Post -Dialysis 97.2 degF November 16, 2022 In-Center Hemodialysis Treatment [id number]:31:30.000Z [id number]:26:30.000Z BP Sitting (Pre-Dialysis) 150/86 mmHg BP Sitting (Post-Dialysis) 147/69 mmHg Concurrent Access: falseAV Fistula Upper Arm (Right) Arterial Sitting Heart Rate Pre-Dialysis 65 BPM BP Standing (Post-Dialysis) 141/69 mmHg Temperature Pre-Dialysis 97.2 degF Sitting Heart Ra te Post-Dialysis 89 BPM Standing Heart Rate Post-Mouna lysis 88 BPM Temperature Post-Dialysis 97 degF November 14, 2022 In-Center Hemodialysis Treatment [id number]:30:00.000Z [id number]:41:02.000Z BP Sitting (Pre-Dialysis) 161/86 mmHg BP Sitting (Post-Dialysis) 141/82 mmHg Concurrent Access: falseAV Fistula Upper Arm (Right) Arterial BP Standing (Pre-Dialysis) 150/99 mmHg BP Standing (P ost-Dialysis) 139/80 mmHg Sitting Heart Rate Pre-Dialysis 67 BPM Sitting Heart Rate Post-Dialysis 87 BPM Standing Heart Rate Pre-Dialysis 74 BPM Standing Heart Rate Post-Dialysis 80 BPM Temperature Pre-Dialysis 97.5 degF Temperature Post -Dialysis 97.2 degF November 11, 2022 In-Center Hemodialysis Treatment [id number]:23:00.000Z [id number]:26:57.000Z BP Sitting (Pre-Dialysis) 148/82 mmHg BP Sitting (Post-Dialysis) 144/84 mmHg Concurrent Access: falseAV Fistula Upper Arm (Right) Arterial BP Standing (Pre-Dialysis) 154/85 mmHg BP Standing (P ost-Dialysis) 144/66 mmHg Sitting Heart Rate Pre-Dialysis 73 BPM Sitting Heart Rate Post-Dialysis 88 BPM Standing Heart Rate Pre-Dialysis 81 BPM Standing Heart Rate Post-Dialysis 84 BPM Temperature Pre-Dialysis 96.8 degF Temperature Post -Dialysis 97.2 degF November 09, 2022 In-Center Hemodialysis Treatment [id number]:14:00.000Z [id number]:21:11.000Z BP Sitting (Pre-Dialysis) 159/94 mmHg BP Sitting (Post-Dialysis) 165/92 mmHg Concurrent Access: falseAV Fistula Upper Arm (Right) Arterial BP Standing (Pre-Dialysis) 172/96 mmHg BP Standing (P ost-Dialysis) 143/95 mmHg Sitting Heart Rate Pre-Dialysis 75 BPM Sitting Heart Rate Post-Dialysis 69 BPM Standing Heart Rate Pre-Dialysis 81 BPM Standing Heart Rate Post-Dialysis 79 BPM Temperature Pre-Dialysis 97.7 degF Temperature Post -Dialysis 97.2 degF November 07, 2022 In-Center Hemodialysis Treatment [id number]:32:00.000Z [id number]:37:47.000Z BP Sitting (Pre-Dialysis) 145/74 mmHg BP Sitting (Post-Dialysis) 171/87 mmHg Concurrent Access: falseAV Fistula Upper Arm (Right) Arterial BP Standing (Pre-Dialysis) 144/71 mmHg BP Standing (P ost-Dialysis) 138/76 mmHg Sitting Heart Rate Pre-Dialysis 70 BPM Sitting Heart Rate Post-Dialysis 66 BPM Standing Heart Rate Pre-Dialysis 74 BPM Standing Heart Rate Post-Dialysis 74 BPM Temperature Pre-Dialysis 97.3 degF Temperature Post -Dialysis 97.6 degF November 04, 2022 In-Center Hemodialysis Treatment [id number]:17:00.000Z [id number]:24:12.000Z BP Sitting (Pre-Dialysis) 158/86 mmHg BP Sitting (Post-Dialysis) 138/87 mmHg Concurrent Access: falseAV Fistula Upper Arm (Right) Arterial BP Standing (Pre-Dialysis) 152/92 mmHg BP Standing (P ost-Dialysis) 154/94 mmHg Sitting Heart Rate Pre-Dialysis 82 BPM Sitting Heart Rate Post-Dialysis 68 BPM Standing Heart Rate Pre-Dialysis 84 BPM Standing Heart Rate Post-Dialysis 80 BPM Temperature Pre-Dialysis 97.7 degF Temperature Post -Dialysis 97.7 degF November 02, 2022 In-Center Hemodialysis Treatment [id number]:20:00.000Z [id number]:32:44.000Z BP Sitting (Pre-Dialysis) 151/90 mmHg BP Sitting (Post-Dialysis) 128/72 mmHg Concurrent Access: falseAV Fistula Upper Arm (Right) Arterial BP Standing (Pre-Dialysis) 148/91 mmHg BP Standing (P ost-Dialysis) 126/91 mmHg Sitting Heart Rate Pre-Dialysis 73 BPM Sitting Heart Rate Post-Dialysis 67 BPM Standing Heart Rate Pre-Dialysis 86 BPM Standing Heart Rate Post-Dialysis 83 BPM Temperature Pre-Dialysis 98.1 degF Temperature Post -Dialysis 97.9 degF October 31, 2022 In-Center Hemodialysis Treatment [id number]:24:00.000Z [id number]:33:13.000Z BP Sitting (Pre-Dialysis) 140/86 mmHg BP Sitting (Post-Dialysis) 135/84 mmHg Concurrent Access: falseAV Fistula Upper Arm (Right) Arterial BP Standing (Pre-Dialysis) 165/87 mmHg BP Standing (P ost-Dialysis) 130/79 mmHg Sitting Heart Rate Pre-Dialysis 65 BPM Sitting Heart Rate Post-Dialysis 72 BPM Standing Heart Rate Pre-Dialysis 75 BPM Standing Heart Rate Post-Dialysis 70 BPM Temperature Pre-Dialysis 97.7 degF Temperature Post -Dialysis 97.2 degF October 28, 2022 In-Center Hemodialysis Treatment [id number]:16:00.000Z [id number]:23:21.000Z BP Sitting (Pre-Dialysis) 139/85 mmHg BP Sitting (Post-Dialysis) 138/88 mmHg Concurrent Access: falseAV Fistula Upper Arm (Right) Arterial BP Standing (Pre-Dialysis) 161/81 mmHg Sitti ng Heart Rate Post-Dialysis 74 BPM Sitting Heart Rate Pre-Dialysis 74 BPM Temperatu re Post-Dialysis 97.5 degF Standing Heart Rate Pre-Dialysis 88 BPM Temperature Pre-Dialysis 97.8 degF October 26, 2022 In-Center Hemodialysis Treatment [id number]:26:00.000Z [id number]:29:49.000Z BP Sitting (Pre-Dialysis) 157/95 mmHg BP Sitting (Post-Dialysis) 142/84 mmHg Concurrent Access: falseAV Fistula Upper Arm (Right) Arterial BP Standing (Pre-Dialysis) 166/99 mmHg BP Standing (P ost-Dialysis) 139/80 mmHg Sitting Heart Rate Pre-Dialysis 74 BPM Sitting Heart Rate Post-Dialysis 68 BPM Standing Heart Rate Pre-Dialysis 80 BPM Standing Heart Rate Post-Dialysis 62 BPM Temperature Pre-Dialysis 97.4 degF Temperature Post -Dialysis 97.2 degF October 24, 2022 In-Center Hemodialysis Treatment [id number]:22:00.000Z [id number]:29:21.000Z BP Sitting (Pre-Dialysis) 155/95 mmHg BP Sitting (Post-Dialysis) 136/86 mmHg Concurrent Access: falseAV Fistula Upper Arm (Right) Arterial BP Standing (Pre-Dialysis) 159/89 mmHg BP Standing (P ost-Dialysis) 142/74 mmHg Sitting Heart Rate Pre-Dialysis 70 BPM Sitting Heart Rate Post-Dialysis 71 BPM Standing Heart Rate Pre-Dialysis 74 BPM Standing Heart Rate Post-Dialysis 81 BPM Temperature Pre-Dialysis 97.2 degF Temperature Post -Dialysis 98.1 degF October 21, 2022 In-Center Hemodialysis Treatment [id number]:20:00.000Z [id number]:28:02.000Z BP Sitting (Pre-Dialysis) 153/84 mmHg BP Sitting (Post-Dialysis) 123/75 mmHg Concurrent Access: falseAV Fistula Upper Arm (Right) Arterial BP Standing (Pre-Dialysis) 165/85 mmHg Sitti ng Heart Rate Post-Dialysis 75 BPM Sitting Heart Rate Pre-Dialysis 68 BPM Temperatu re Post-Dialysis 97.2 degF Standing Heart Rate Pre-Dialysis 75 BPM Temperature Pre-Dialysis 96.8 degF October 19, 2022 In-Center Hemodialysis Treatment [id number]:25:00.000Z [id number]:22:47.000Z BP Sitting (Pre-Dialysis) 159/87 mmHg BP Sitting (Post-Dialysis) 147/88 mmHg Concurrent Access: falseAV Fistula Upper Arm (Right) Arterial BP Standing (Pre-Dialysis) 145/92 mmHg BP Standing (P ost-Dialysis) 143/86 mmHg Sitting Heart Rate Pre-Dialysis 72 BPM Sitting Heart Rate Post-Dialysis 84 BPM Standing Heart Rate Pre-Dialysis 76 BPM Standing Heart Rate Post-Dialysis 84 BPM Temperature Pre-Dialysis 97.2 degF Temperature Post -Dialysis 97.2 degF October 17, 2022 In-Center Hemodialysis Treatment [id number]:20:00.000Z [id number]:22:15.000Z BP Sitting (Pre-Dialysis) 150/103 mmHg BP Sitting (Post-Dialysis) 155/93 mmHg Concurrent Access: falseAV Fistula Upper Arm (Right) Arterial BP Standing (Pre-Dialysis) 144/101 mmHg BP Standing (P ost-Dialysis) 132/83 mmHg Sitting Heart Rate Pre-Dialysis 81 BPM Sitting Heart Rate Post-Dialysis 70 BPM Standing Heart Rate Pre-Dialysis 77 BPM Standing Heart Rate Post-Dialysis 87 BPM Temperature Pre-Dialysis 97.7 degF Temperature Post -Dialysis 97.2 degF October 14, 2022 In-Center Hemodialysis Treatment [id number]:31:00.000Z [id number]:36:10.000Z BP Sitting (Pre-Dialysis) 152/89 mmHg BP Sitting (Post-Dialysis) 198/99 mmHg Concurrent Access: falseAV Fistula Upper Arm (Right) Arterial BP Standing (Pre-Dialysis) 162/102 mmHg BP Standing (P ost-Dialysis) 193/119 mmHg Sitting Heart Rate Pre-Dialysis 69 BPM Sitting Heart Rate Post-Dialysis 87 BPM Standing Heart Rate Pre-Dialysis 76 BPM Standing Heart Rate Post-Dialysis 84 BPM Temperature Pre-Dialysis 97.2 degF Temperature Post -Dialysis 98 degF October 12, 2022 In-Center Hemodialysis Treatment [id number]:13:00.000Z [id number]:19:49.000Z BP Sitting (Pre-Dialysis) 158/89 mmHg BP Sitting (Post-Dialysis) 154/85 mmHg Concurrent Access: falseAV Fistula Upper Arm (Right) Arterial BP Standing (Pre-Dialysis) 163/90 mmHg BP Standing (P ost-Dialysis) 153/87 mmHg Sitting Heart Rate Pre-Dialysis 60 BPM Sitting Heart Rate Post-Dialysis 71 BPM Standing Heart Rate Pre-Dialysis 65 BPM Standing Heart Rate Post-Dialysis 69 BPM Temperature Pre-Dialysis 97.5 degF Temperature Post -Dialysis 97.6 degF October 10, 2022 In-Center Hemodialysis Treatment [id number]:20:21.000Z [id number]:34:31.000Z BP Sitting (Pre-Dialysis) 158/93 mmHg BP Sitting (Post-Dialysis) 160/90 mmHg Concurrent Access: falseAV Fistula Upper Arm (Right) Arterial BP Standing (Pre-Dialysis) 166/98 mmHg BP Standing (P ost-Dialysis) 131/90 mmHg Sitting Heart Rate Pre-Dialysis 75 BPM Sitting Heart Rate Post-Dialysis 69 BPM Standing Heart Rate Pre-Dialysis 72 BPM Standing Heart Rate Post-Dialysis 64 BPM Temperature Pre-Dialysis 96.8 degF Temperature Post -Dialysis 97.2 degF DIALYSIS ORDER Dialysis Procedure Orders Type of Dialysis Procedure Order Order Date/Time Observations In-Center Hemodialysis Treatment Februar 2024 Target Weight 118.5 kg Dialysate Flow Rate 800 mL/min Blood Flow Rate 500 mL/min Treatment Time 210 min(total) Max UF Rate 13 mL/kg/hr Base Sodium Dialysate Base Sodium 138 mE q/L dialysate_temp 37 C BiCarb Dialysate BiCarbonate 37 mEq/L Access Concurrent No Arterial Access AV Fistula (Upper Ar m (Right)) Venous Access AV Fistula (Upper Ar m (Right)) Arterial Needle Display MEDISYSTEMS, MAS TERGUARD, 14G x 1 , SHARP , TWIN Venous Needle NIPRO, TULIP, 14G x 1 , SHARP , SINGLE Dialyzer Nipro Elisio 15H 126 4 [email or web address] Dialysate Bath Potassium Potassium 3 mEq /L Dialysate Bath Calcium Calcium 2.5 mEq/L In-Center Hemodialysis TreatmentOct2023 Observation Value Target Weight 118 kg Dialysate Flow Rate 800 mL/min Blood Flow Rate 500 mL/min Treatment Time 210 min(total) Max UF Rate 13 mL/kg/hr Base Sodium Dialysate Base Sodium 138 mE q/L dialysate_temp 37 C BiCarb Dialysate BiCarbonate 37 mEq/L Access Concurrent No Arterial Access AV Fistula (Upper Ar m (Right)) Venous Access AV Fistula (Upper Ar m (Right)) Arterial Needle Display MEDISYSTEMS, MAS TERGUARD, 14G x 1 , SHARP , TWIN Venous Needle NIPRO, TULIP, 14G x 1 , SHARP , SINGLE Dialyzer Nipro Elisio 15H 126 4 [email or web address] Dialysate Bath Potassium Potassium 3 mEq /L Dialysate Bath Calcium Calcium 2.5 mEq/L Results Adequacy Description Draw Date Result/Unit Status Ref Range Result Comments Creatinine [Mass/volume] in Serum or Plasma 2024-12-24 15:12:25 10.39 mg/dL F 0.7-1.3 URR% 2024-12-10 15:35:58 66 % F DIALYZER FLOW-QD 2024-12-10 15:35:58 800 mL/min F Dialyzer CRISTEL 2024-12-10 15:35:58 1264 Calc F LENGTH OF DIALYSIS 2024-12-10 15:35:58 209 min F PATIENT AGE 2024-12-10 15:35:58 64 Years F WEIGHT - POST DAY 1 2024-12-10 15:35:58 119.1 kg F BSA KALE 2024-12-10 15:35:58 2.29 sq m F WEIGHT - PRE DAY 1 2024-12-10 15:35:58 121.7 kg F HEIGHT IN INCHES 2024-12-10 15:35:58 68 Inches F WEIGHT (KG) 2024-12-10 15:35:58 118 kg F PRESCRIBED DAYS/WEEK 2024-12-10 15:35:58 3 Day/Wk F VT (KT/V TX VOL) 2024-12-10 15:35:58 53.6 L F VM (KT/V MEAN VOL) 2024-12-10 15:35:58 50.7 F Residual kt/v 2024-12-10 15:35:58 F KT/V PRESCRIBED 2024-12-10 15:35:58 1.54 F Total Kt/V 2024-12-10 15:35:58 1.21 F AMPUTATE FACTOR 2024-12-10 15:35:58 0 F TBW (Rosenbaum) 2024-12-10 15:35:58 54.95 Liters F nPCR 2024-12-10 15:35:58 0.85 G/KG/D F eKt/V 2024-12-10 15:35:58 1.04 F spKt/V 2024-12-10 15:35:58 1.21 F Std Renal KT/V 2024-12-10 15:35:58 N/A F stdKt/V (DIAL) 2024-12-10 15:35:58 N/A F stdKT/V Total 2024-12-10 15:35:58 N/A F BLOOD FLOW-QWB 2024-12-10 15:35:58 441 F TOTAL HOURS/WEEK DIALYSIS 2024-12-10 15:35:58 10 hrs F CURRENT KRU 2024-12-10 15:35:58 F Urea nitrogen [Mass/volume] in Serum or Plasma 2024-12-10 15:34:15 58 mg/dL F 9.0-23.0 Urea nitrogen [Mass/volume] in Serum or Plasma --post dialysis 2024-12-10 14:39:25 20 mg/dL F 9.0-23.0 Creatinine [Mass/volume] in Serum or Plasma 2024-11-26 16:20:30 10.63 mg/dL F 0.7-1.3 Std Renal KT/V 2024-11-13 14:34:30 N/A K Unable to calculate: Post BUN lab result is unknown Residual kt/v 2024-11-13 14:34:30 F Unable to calculate: Post BUN lab result is unknown TOTAL HOURS/WEEK DIALYSIS 2024-11-13 14:34:30 10 hrs F stdKt/V (DIAL) 2024-11-13 14:34:30 N/A K Unable to calculate: Post BUN lab result is unknown PRESCRIBED DAYS/WEEK 2024-11-13 14:34:30 3 Day/Wk F KT/V PRESCRIBED 2024-11-13 14:34:30 1.56 K Unable to calculate: Post BUN lab result is unknown VM (KT/V MEAN VOL) 2024-11-13 14:34:30 49.8 K Unable to calculate: Post BUN lab result is unknown BLOOD FLOW-QWB 2024-11-13 14:34:30 499 F VT (KT/V TX VOL) 2024-11-13 14:34:30 52.1 L K Unable to calculate: Post BUN lab result is unknown DIALYZER FLOW-QD 2024-11-13 14:34:30 800 mL/min F nPCR 2024-11-13 14:34:30 0.76 G/KG/D K Unable to calculate: Post BUN lab result is unknown eKt/V 2024-11-13 14:34:30 1.14 K Unable to calculate: Post BUN lab result is unknown WEIGHT - PRE DAY 1 2024-11-13 14:34:30 121.6 kg F TBW (Rosenbaum) 2024-11-13 14:34:30 54.78 Liters K Unable to calculate: Post BUN lab result is unknown PATIENT AGE 2024-11-13 14:34:30 64 Years F spKt/V 2024-11-13 14:34:30 1.34 K Unable to calculate: Post BUN lab result is unknown CURRENT KRU 2024-11-13 14:34:30 F Unable to calculate: Post BUN lab result is unknown stdKT/V Total 2024-11-13 14:34:30 N/A K Unable to calculate: Post BUN lab result is unknown AMPUTATE FACTOR 2024-11-13 14:34:30 0 F WEIGHT (KG) 2024-11-13 14:34:30 118 kg F WEIGHT - POST DAY 1 2024-11-13 14:34:30 118.6 kg F HEIGHT IN INCHES 2024-11-13 14:34:30 68 Inches F Total Kt/V 2024-11-13 14:34:30 1.34 K Unable to calculate: Post BUN lab result is unknown URR% 2024-11-13 14:34:30 69 % K Unable to calculate: Post BUN lab result is unknown LENGTH OF DIALYSIS 2024-11-13 14:34:30 211 min F STEVE HENLEY 2024-11-13 14:34:30 2.29 sq m K Unable to calculate: Post BUN lab result is unknown Dialyzer CRISTEL 2024-11-13 14:34:30 1264 Calc F Urea nitrogen [Mass/volume] in Serum or Plasma --post dialysis 2024-11-13 14:29:18 15 mg/dL F 9.0-23.0 Urea nitrogen [Mass/volume] in Serum or Plasma 2024-11-12 19:30:16 48 mg/dL F 9.0-23.0 URR% 2024-10-09 18:16:57 68 % F DIALYZER FLOW-QD 2024-10-09 18:16:57 500 mL/min F Dialyzer CRISTEL 2024-10-09 18:16:57 1264 Calc F LENGTH OF DIALYSIS 2024-10-09 18:16:57 206 min F PATIENT AGE 2024-10-09 18:16:57 63 Years F STEVE HENLEY 2024-10-09 18:16:57 2.29 sq m F WEIGHT - POST DAY 1 2024-10-09 18:16:57 119.6 kg F WEIGHT - PRE DAY 1 2024-10-09 18:16:57 121.7 kg F HEIGHT IN INCHES 2024-10-09 18:16:57 68 Inches F WEIGHT (KG) 2024-10-09 18:16:57 118 kg F VT (KT/V TX VOL) 2024-10-09 18:16:57 47 L F VM (KT/V MEAN VOL) 2024-10-09 18:16:57 49 F PRESCRIBED DAYS/WEEK 2024-10-09 18:16:57 3 Day/Wk F Residual kt/v 2024-10-09 18:16:57 F KT/V PRESCRIBED 2024-10-09 18:16:57 1.52 F Total Kt/V 2024-10-09 18:16:57 1.29 F nPCR 2024-10-09 18:16:57 0.8 G/KG/D F AMPUTATE FACTOR 2024-10-09 18:16:57 0 F TBW (Rosenbaum) 2024-10-09 18:16:57 55.21 Liters F spKt/V 2024-10-09 18:16:57 1.29 F stdKt/V (DIAL) 2024-10-09 18:16:57 N/A F eKt/V 2024-10-09 18:16:57 1.1 F Std Renal KT/V 2024-10-09 18:16:57 N/A F TOTAL HOURS/WEEK DIALYSIS 2024-10-09 18:16:57 10 hrs F stdKT/V Total 2024-10-09 18:16:57 N/A F BLOOD FLOW-QWB 2024-10-09 18:16:57 499 F CURRENT KRU 2024-10-09 18:16:57 F URR% 2024-10-09 18:16:57 68 % F DIALYZER FLOW-QD 2024-10-09 18:16:57 500 mL/min F Dialyzer CRISTEL 2024-10-09 18:16:57 1264 Calc F LENGTH OF DIALYSIS 2024-10-09 18:16:57 206 min F BSA KALE 2024-10-09 18:16:57 2.29 sq m F PATIENT AGE 2024-10-09 18:16:57 63 Years F WEIGHT - POST DAY 1 2024-10-09 18:16:57 119.6 kg F WEIGHT - PRE DAY 1 2024-10-09 18:16:57 121.7 kg F HEIGHT IN INCHES 2024-10-09 18:16:57 68 Inches F WEIGHT (KG) 2024-10-09 18:16:57 118 kg F PRESCRIBED DAYS/WEEK 2024-10-09 18:16:57 3 Day/Wk F VM (KT/V MEAN VOL) 2024-10-09 18:16:57 49 F Residual kt/v 2024-10-09 18:16:57 F VT (KT/V TX VOL) 2024-10-09 18:16:57 47 L F Total Kt/V 2024-10-09 18:16:57 1.29 F KT/V PRESCRIBED 2024-10-09 18:16:57 1.52 F nPCR 2024-10-09 18:16:57 0.8 G/KG/D F AMPUTATE FACTOR 2024-10-09 18:16:57 0 F TBW (Rosenbaum) 2024-10-09 18:16:57 55.21 Liters F spKt/V 2024-10-09 18:16:57 1.29 F eKt/V 2024-10-09 18:16:57 1.1 F stdKt/V (DIAL) 2024-10-09 18:16:57 N/A F Std Renal KT/V 2024-10-09 18:16:57 N/A F TOTAL HOURS/WEEK DIALYSIS 2024-10-09 18:16:57 10 hrs F BLOOD FLOW-QWB 2024-10-09 18:16:57 499 F stdKT/V Total 2024-10-09 18:16:57 N/A F CURRENT KRU 2024-10-09 18:16:57 F Urea nitrogen [Mass/volume] in Serum or Plasma 2024-10-09 18:02:22 53 mg/dL F 9.0-23.0 Urea nitrogen [Mass/volume] in Serum or Plasma 2024-10-09 18:02:22 53 mg/dL F 9.0-23.0 Urea nitrogen [Mass/volume] in Serum or Plasma --post dialysis 2024-10-09 01:28:15 17 mg/dL F 9.0-23.0 Urea nitrogen [Mass/volume] in Serum or Plasma --post dialysis 2024-10-09 01:28:15 17 mg/dL F 9.0-23.0 Creatinine [Mass/volume] in Serum or Plasma 2024-09-24 16:32:23 10.34 mg/dL F 0.7-1.3 URR% 2024-09-11 01:10:54 67 % F DIALYZER FLOW-QD 2024-09-11 01:10:54 500 mL/min F Dialyzer CRISTEL 2024-09-11 01:10:54 1264 Calc F LENGTH OF DIALYSIS 2024-09-11 01:10:54 209 min F PATIENT AGE 2024-09-11 01:10:54 63 Years F BSA KALE 2024-09-11 01:10:54 2.29 sq m F WEIGHT - PRE DAY 1 2024-09-11 01:10:54 119.7 kg F HEIGHT IN INCHES 2024-09-11 01:10:54 68 Inches F WEIGHT - POST DAY 1 2024-09-11 01:10:54 117.6 kg F WEIGHT (KG) 2024-09-11 01:10:54 118 kg F PRESCRIBED DAYS/WEEK 2024-09-11 01:10:54 3 Day/Wk F VT (KT/V TX VOL) 2024-09-11 01:10:54 48.4 L F VM (KT/V MEAN VOL) 2024-09-11 01:10:54 49.6 F Residual kt/v 2024-09-11 01:10:54 F Total Kt/V 2024-09-11 01:10:54 1.27 F KT/V PRESCRIBED 2024-09-11 01:10:54 1.54 F nPCR 2024-09-11 01:10:54 0.72 G/KG/D F AMPUTATE FACTOR 2024-09-11 01:10:54 0 F TBW (Rosenbaum) 2024-09-11 01:10:54 54.54 Liters F spKt/V 2024-09-11 01:10:54 1.27 F eKt/V 2024-09-11 01:10:54 1.08 F stdKt/V (DIAL) 2024-09-11 01:10:54 N/A F stdKT/V Total 2024-09-11 01:10:54 N/A F Std Renal KT/V 2024-09-11 01:10:54 N/A F TOTAL HOURS/WEEK DIALYSIS 2024-09-11 01:10:54 10 hrs F BLOOD FLOW-QWB 2024-09-11 01:10:54 499 F CURRENT KRU 2024-09-11 01:10:54 F Urea nitrogen [Mass/volume] in Serum or Plasma --post dialysis 2024-09-11 01:09:20 15 mg/dL F 9.0-23.0 Urea nitrogen [Mass/volume] in Serum or Plasma 2024-09-10 22:51:23 46 mg/dL F 9.0-23.0 Creatinine [Mass/volume] in Serum or Plasma 2024-08-27 15:02:17 9.93 mg/dL F 0.7-1.3 Creatinine [Mass/volume] in Serum or Plasma 2024-03-27 18:42:34 9.68 mg/dL F 0.7-1.3 Creatinine [Mass/volume] in Serum or Plasma 2024-03-27 18:42:34 9.68 mg/dL F 0.7-1.3 URR% 2023-05-29 08:00:44 76 % F DIALYZER FLOW-QD 2023-05-29 08:00:44 800 mL/min F Dialyzer CRISTEL 2023-05-29 08:00:44 1218 Calc F LENGTH OF DIALYSIS 2023-05-29 08:00:44 241 min F PATIENT AGE 2023-05-29 08:00:44 62 Years F WEIGHT - POST DAY 1 2023-05-29 08:00:44 133.7 kg F BSA KALE 2023-05-29 08:00:44 2.41 sq m F WEIGHT - PRE DAY 1 2023-05-29 08:00:44 135 kg F HEIGHT IN INCHES 2023-05-29 08:00:44 68 Inches F WEIGHT (KG) 2023-05-29 08:00:44 134 kg F PRESCRIBED DAYS/WEEK 2023-05-29 08:00:44 3 Day/Wk F VM (KT/V MEAN VOL) 2023-05-29 08:00:44 49 F VT (KT/V TX VOL) 2023-05-29 08:00:44 52.4 L F Residual kt/v 2023-05-29 08:00:44 F KT/V PRESCRIBED 2023-05-29 08:00:44 1.37 F Total Kt/V 2023-05-29 08:00:44 1.61 F nPCR 2023-05-29 08:00:44 0.83 G/KG/D F AMPUTATE FACTOR 2023-05-29 08:00:44 0 F TBW (Rosenbaum) 2023-05-29 08:00:44 62.05 Liters F spKt/V 2023-05-29 08:00:44 1.61 F eKt/V 2023-05-29 08:00:44 1.39 F Std Renal KT/V 2023-05-29 08:00:44 N/A F stdKt/V (DIAL) 2023-05-29 08:00:44 N/A F stdKT/V Total 2023-05-29 08:00:44 N/A F TOTAL HOURS/WEEK DIALYSIS 2023-05-29 08:00:44 10 F BLOOD FLOW-QWB 2023-05-29 08:00:44 600 F CURRENT KRU 2023-05-29 08:00:44 F Urea nitrogen [Mass/volume] in Serum or Plasma --post dialysis 2023-05-23 23:55:28 12 mg/dL F 9.0-23.0 Creatinine [Mass/volume] in Serum or Plasma 2023-05-23 19:19:30 9.64 mg/dL F 0.7-1.3 Urea nitrogen [Mass/volume] in Serum or Plasma 2023-05-23 19:19:29 51 mg/dL F 9.0-23.0 Creatinine [Mass/volume] in Serum or Plasma 2023-04-25 18:42:13 10.2 mg/dL F 0.7-1.3 Creatinine [Mass/volume] in Serum or Plasma 2023-03-21 17:29:17 10.98 mg/dL F 0.7-1.3 URR% 2023-01-31 19:49:48 72 % F DIALYZER FLOW-QD 2023-01-31 19:49:48 482 mL/min F LENGTH OF DIALYSIS 2023-01-31 19:49:48 240 min F Dialyzer CRISTEL 2023-01-31 19:49:48 1218 Calc F PATIENT AGE 2023-01-31 19:49:48 62 Years F WEIGHT - PRE DAY 1 2023-01-31 19:49:48 137.2 kg F HEIGHT IN INCHES 2023-01-31 19:49:48 68 Inches F WEIGHT - POST DAY 1 2023-01-31 19:49:48 135.3 kg F WEIGHT (KG) 2023-01-31 19:49:48 135.5 kg F PRESCRIBED DAYS/WEEK 2023-01-31 19:49:48 3 Day/Wk F VT (KT/V TX VOL) 2023-01-31 19:49:48 48.4 L F Residual kt/v 2023-01-31 19:49:48 F KT/V PRESCRIBED 2023-01-31 19:49:48 1.35 F VM (KT/V MEAN VOL) 2023-01-31 19:49:48 48.4 F Total Kt/V 2023-01-31 19:49:48 1.36 F nPCR 2023-01-31 19:49:48 0.41 G/KG/D F TBW (Rosenbaum) 2023-01-31 19:49:48 62.59 Liters F AMPUTATE FACTOR 2023-01-31 19:49:48 0 F spKt/V 2023-01-31 19:49:48 1.36 F eKt/V 2023-01-31 19:49:48 1.18 F stdKt/V (DIAL) 2023-01-31 19:49:48 N/A F stdKT/V Total 2023-01-31 19:49:48 N/A F Std Renal KT/V 2023-01-31 19:49:48 N/A F TOTAL HOURS/WEEK DIALYSIS 2023-01-31 19:49:48 4 F BLOOD FLOW-QWB 2023-01-31 19:49:48 440 F DIALYZER FLOW-QD 2023-01-31 19:49:48 482 mL/min F URR% 2023-01-31 19:49:48 72 % F Dialyzer CRISTEL 2023-01-31 19:49:48 1218 Calc F LENGTH OF DIALYSIS 2023-01-31 19:49:48 240 min F PATIENT AGE 2023-01-31 19:49:48 62 Years F WEIGHT - PRE DAY 1 2023-01-31 19:49:48 137.2 kg F HEIGHT IN INCHES 2023-01-31 19:49:48 68 Inches F WEIGHT (KG) 2023-01-31 19:49:48 135.5 kg F WEIGHT - POST DAY 1 2023-01-31 19:49:48 135.3 kg F PRESCRIBED DAYS/WEEK 2023-01-31 19:49:48 3 Day/Wk F VT (KT/V TX VOL) 2023-01-31 19:49:48 48.4 L F VM (KT/V MEAN VOL) 2023-01-31 19:49:48 48.4 F Residual kt/v 2023-01-31 19:49:48 F KT/V PRESCRIBED 2023-01-31 19:49:48 1.35 F Total Kt/V 2023-01-31 19:49:48 1.36 F nPCR 2023-01-31 19:49:48 0.41 G/KG/D F TBW (Rosenbaum) 2023-01-31 19:49:48 62.59 Liters F AMPUTATE FACTOR 2023-01-31 19:49:48 0 F spKt/V 2023-01-31 19:49:48 1.36 F stdKt/V (DIAL) 2023-01-31 19:49:48 N/A F eKt/V 2023-01-31 19:49:48 1.18 F Std Renal KT/V 2023-01-31 19:49:48 N/A F stdKT/V Total 2023-01-31 19:49:48 N/A F TOTAL HOURS/WEEK DIALYSIS 2023-01-31 19:49:48 4 F BLOOD FLOW-QWB 2023-01-31 19:49:48 440 F BSA KALE 2023-01-31 19:49:48 2.42 sq m F CURRENT KRU 2023-01-31 19:49:48 F BSA KALE 2023-01-31 19:49:48 2.42 sq m F CURRENT KRU 2023-01-31 19:49:48 F Urea nitrogen [Mass/volume] in Serum or Plasma 2023-01-31 17:51:17 53 mg/dL F 9.0-23.0 Creatinine [Mass/volume] in Serum or Plasma 2023-01-31 17:51:17 10.6 mg/dL F 0.7-1.3 Urea nitrogen [Mass/volume] in Serum or Plasma 2023-01-31 17:51:17 53 mg/dL F 9.0-23.0 Creatinine [Mass/volume] in Serum or Plasma 2023-01-31 17:51:17 10.6 mg/dL F 0.7-1.3 Urea nitrogen [Mass/volume] in Serum or Plasma --post dialysis 2023-01-31 17:30:22 15 mg/dL F 9.0-23.0 Urea nitrogen [Mass/volume] in Serum or Plasma --post dialysis 2023-01-31 17:30:22 15 mg/dL F 9.0-23.0 Creatinine [Mass/volume] in Serum or Plasma 2023-01-19 15:09:12 8.98 mg/dL F 0.7-1.3 Creatinine [Mass/volume] in Serum or Plasma 2023-01-19 15:09:12 8.98 mg/dL F 0.7-1.3 Creatinine [Mass/volume] in Serum or Plasma 2022-12-22 20:57:58 9.63 mg/dL F 0.7-1.3 Creatinine [Mass/volume] in Serum or Plasma 2022-12-22 20:57:58 9.63 mg/dL F 0.7-1.3 Creatinine [Mass/volume] in Serum or Plasma 2022-11-17 18:14:06 9.26 mg/dL F 0.7-1.3 Creatinine [Mass/volume] in Serum or Plasma 2022-10-28 15:58:42 9.35 mg/dL F 0.7-1.3 Creatinine [Mass/volume] in Serum or Plasma 2022-10-28 15:58:42 9.35 mg/dL F 0.7-1.3 Creatinine [Mass/volume] in Serum or Plasma 2022-10-24 08:05:48 F Canceled - Specimen not received 5 days past draw date Anemia Description Draw Date Result/Unit Status Ref Range Result Comments HCT CALC HGBX3 2024-12-24 15:28:03 33.9 % F 42.0-52.0 Hemoglobin [Mass/volume] in Blood 2024-12-24 15:27:14 11.3 g/dL F 14.0-18.0 MCHC [Mass/volume] by Automated count 2024-12-24 15:27:14 31.2 g/dL F 29.6-35.3 Hematocrit [Volume Fraction] of Blood by Automated count 2024-12-24 15:27:14 36.2 % F 41.0-53.0 Erythrocytes [#/volume] in Blood by Automated count 2024-12-24 15:27:14 3.64 x 10^6 cells/uL F 4.6-6.2 MCV [Entitic volume] by Automated count 2024-12-24 15:27:14 99.5 fL F 80.0-100.0 MCH [Entitic mass] by Automated count 2024-12-24 15:27:14 31.1 pg F 25.9-34.2 Platelets [#/volume] in Blood by Automated count 2024-12-24 15:27:14 146 x 10^3 cells/uL F 140.0-450.0 Erythrocyte distribution width [Ratio] by Automated count 2024-12-24 15:27:14 14.7 % F 11.0-15.0 HCT CALC HGBX3 2024-12-10 15:39:15 31.5 % F 42.0-52.0 Hemoglobin [Mass/volume] in Blood 2024-12-10 15:38:12 10.5 g/dL F 14.0-18.0 HCT CALC HGBX3 2024-11-27 01:00:13 32.7 % F 42.0-52.0 Erythrocyte distribution width [Ratio] by Automated count 2024-11-27 00:59:20 15.5 % F 11.0-15.0 Hematocrit [Volume Fraction] of Blood by Automated count 2024-11-27 00:59:20 35.7 % F 41.0-53.0 Hemoglobin [Mass/volume] in Blood 2024-11-27 00:59:20 10.9 g/dL F 14.0-18.0 Erythrocytes [#/volume] in Blood by Automated count 2024-11-27 00:59:20 3.41 x 10^6 cells/uL F 4.6-6.2 MCV [Entitic volume] by Automated count 2024-11-27 00:59:20 104.5 fL F 80.0-100.0 Platelets [#/volume] in Blood by Automated count 2024-11-27 00:59:20 166 x 10^3 cells/uL F 140.0-450.0 MCHC [Mass/volume] by Automated count 2024-11-27 00:59:20 30.6 g/dL F 29.6-35.3 MCH [Entitic mass] by Automated count 2024-11-27 00:59:20 31.9 pg F 25.9-34.2 HCT CALC HGBX3 2024-11-13 13:32:35 33.3 % F 42.0-52.0 Hemoglobin [Mass/volume] in Blood 2024-11-13 13:18:19 11.1 g/dL F 14.0-18.0 HCT CALC HGBX3 2024-10-09 01:03:37 31.5 % F 42.0-52.0 HCT CALC HGBX3 2024-10-09 01:03:37 31.5 % F 42.0-52.0 Hemoglobin [Mass/volume] in Blood 2024-10-09 01:02:19 10.5 g/dL F 14.0-18.0 Hemoglobin [Mass/volume] in Blood 2024-10-09 01:02:19 10.5 g/dL F 14.0-18.0 Ferritin [Mass/volume] in Serum or Plasma 2024-09-25 08:28:19 742 ng/mL F 22.0-322.0 HCT CALC HGBX3 2024-09-24 18:48:50 29.4 % F 42.0-52.0 Erythrocytes [#/volume] in Blood by Automated count 2024-09-24 18:48:14 3.05 x 10'6 cells/uL F 4.6-6.2 Erythrocyte distribution width [Ratio] by Automated count 2024-09-24 18:48:12 15 % F 11.0-15.0 Hematocrit [Volume Fraction] of Blood by Automated count 2024-09-24 18:48:12 30.5 % F 41.0-53.0 MCV [Entitic volume] by Automated count 2024-09-24 18:48:12 100.1 fL F 80.0-100.0 Hemoglobin [Mass/volume] in Blood 2024-09-24 18:48:12 9.8 g/dL F 14.0-18.0 MCH [Entitic mass] by Automated count 2024-09-24 18:48:12 32 pg F 25.9-34.2 MCHC [Mass/volume] by Automated count 2024-09-24 18:48:12 32 g/dL F 29.6-35.3 Platelets [#/volume] in Blood by Automated count 2024-09-24 18:48:12 142 x 10^3 cells/uL F 140.0-450.0 IRON SATURATION 2024-09-24 17:10:05 40 % F 21.0-49.0 TIBC 2024-09-24 17:10:05 218 ug/dL F 250.0-425.0 Iron [Mass/volume] in Serum or Plasma 2024-09-24 17:08:44 88 ug/dL F 65.0-175.0 Iron binding capacity.unsaturated [Mass/volume] in Serum or Plasma 2024-09-24 17:08:44 130 ug/dL F 75.0-360.0 HCT CALC HGBX3 2024-09-10 23:55:52 30 % F 42.0-52.0 Hemoglobin [Mass/volume] in Blood 2024-09-10 23:53:17 10 g/dL F 14.0-18.0 IRON SATURATION 2024-09-06 08:39:30 11 % F 21.0-49.0 TIBC 2024-09-06 08:39:30 212 ug/dL F 250.0-425.0 Iron [Mass/volume] in Serum or Plasma 2024-09-06 08:14:06 23 ug/dL F 65.0-175.0 Iron binding capacity.unsaturated [Mass/volume] in Serum or Plasma 2024-09-06 08:14:06 189 ug/dL F 75.0-360.0 Ferritin [Mass/volume] in Serum or Plasma 2024-08-28 03:52:56 799 ng/mL F 22.0-322.0 IRON SATURATION 2024-08-27 15:02:21 F Recollect - Hemolyzed specimen TIBC 2024-08-27 15:02:21 F Recollect - Hemolyzed specimen Iron [Mass/volume] in Serum or Plasma 2024-08-27 15:01:19 F Recollect - Hemolyzed specimen Iron binding capacity.unsaturated [Mass/volume] in Serum or Plasma 2024-08-27 15:01:19 F Recollect - Hemolyzed specimen HCT CALC HGBX3 2024-08-27 14:07:01 31.2 % F 42.0-52.0 Erythrocyte distribution width [Ratio] by Automated count 2024-08-27 14:06:26 14.2 % F 11.0-15.0 Erythrocytes [#/volume] in Blood by Automated count 2024-08-27 14:06:26 3.25 x 10'6 cells/uL F 4.6-6.2 Hematocrit [Volume Fraction] of Blood by Automated count 2024-08-27 14:06:26 33 % F 41.0-53.0 MCV [Entitic volume] by Automated count 2024-08-27 14:06:26 101.7 fL F 80.0-100.0 Hemoglobin [Mass/volume] in Blood 2024-08-27 14:06:26 10.4 g/dL F 14.0-18.0 MCH [Entitic mass] by Automated count 2024-08-27 14:06:26 32 pg F 25.9-34.2 MCHC [Mass/volume] by Automated count 2024-08-27 14:06:26 31.5 g/dL F 29.6-35.3 Platelets [#/volume] in Blood by Automated count 2024-08-27 14:06:26 131 x 10^3 cells/uL F 140.0-450.0 HCT CALC HGBX3 2024-03-28 20:21:51 F RECOLLECT - OUTDATED SPECIMEN HCT CALC HGBX3 2024-03-28 20:21:51 F RECOLLECT - OUTDATED SPECIMEN Erythrocyte distribution width [Ratio] by Automated count 2024-03-28 20:21:21 F RECOLLECT - OUTDATED SPECIMEN Erythrocytes [#/volume] in Blood by Automated count 2024-03-28 20:21:21 F RECOLLECT - OUTDATED SPECIMEN Hematocrit [Volume Fraction] of Blood by Automated count 2024-03-28 20:21:21 F RECOLLECT - OUTDATED SPECIMEN Hemoglobin [Mass/volume] in Blood 2024-03-28 20:21:21 F RECOLLECT - OUTDATED SPECIMEN MCH [Entitic mass] by Automated count 2024-03-28 20:21:21 F RECOLLECT - OUTDATED SPECIMEN MCHC [Mass/volume] by Automated count 2024-03-28 20:21:21 F RECOLLECT - OUTDATED SPECIMEN MCV [Entitic volume] by Automated count 2024-03-28 20:21:21 F RECOLLECT - OUTDATED SPECIMEN Platelets [#/volume] in Blood by Automated count 2024-03-28 20:21:21 F RECOLLECT - OUTDATED SPECIMEN Erythrocyte distribution width [Ratio] by Automated count 2024-03-28 20:21:21 F RECOLLECT - OUTDATED SPECIMEN Hematocrit [Volume Fraction] of Blood by Automated count 2024-03-28 20:21:21 F RECOLLECT - OUTDATED SPECIMEN Hemoglobin [Mass/volume] in Blood 2024-03-28 20:21:21 F RECOLLECT - OUTDATED SPECIMEN Erythrocytes [#/volume] in Blood by Automated count 2024-03-28 20:21:21 F RECOLLECT - OUTDATED SPECIMEN MCV [Entitic volume] by Automated count 2024-03-28 20:21:21 F RECOLLECT - OUTDATED SPECIMEN MCH [Entitic mass] by Automated count 2024-03-28 20:21:21 F RECOLLECT - OUTDATED SPECIMEN MCHC [Mass/volume] by Automated count 2024-03-28 20:21:21 F RECOLLECT - OUTDATED SPECIMEN Platelets [#/volume] in Blood by Automated count 2024-03-28 20:21:21 F RECOLLECT - OUTDATED SPECIMEN Ferritin [Mass/volume] in Serum or Plasma 2024-03-28 07:08:47 763 ng/mL F 22.0-322.0 Ferritin [Mass/volume] in Serum or Plasma 2024-03-28 07:08:47 763 ng/mL F 22.0-322.0 IRON SATURATION 2024-03-27 23:51:52 63 % F 21.0-49.0 TIBC 2024-03-27 23:51:52 189 ug/dL F 250.0-425.0 IRON SATURATION 2024-03-27 23:51:52 63 % F 21.0-49.0 TIBC 2024-03-27 23:51:52 189 ug/dL F 250.0-425.0 Iron [Mass/volume] in Serum or Plasma 2024-03-27 23:49:54 119 ug/dL F 65.0-175.0 Iron binding capacity.unsaturated [Mass/volume] in Serum or Plasma 2024-03-27 23:49:54 70 ug/dL F 75.0-360.0 Iron [Mass/volume] in Serum or Plasma 2024-03-27 23:49:54 119 ug/dL F 65.0-175.0 Iron binding capacity.unsaturated [Mass/volume] in Serum or Plasma 2024-03-27 23:49:54 70 ug/dL F 75.0-360.0 HCT CALC HGBX3 2023-05-24 04:33:15 33 % F 42.0-52.0 Erythrocyte distribution width [Ratio] by Automated count 2023-05-23 22:49:22 15.7 % F 11.0-15.0 Erythrocytes [#/volume] in Blood by Automated count 2023-05-23 22:49:22 3.42 x 10'6 cells/uL F 4.6-6.2 Hemoglobin [Mass/volume] in Blood 2023-05-23 22:49:22 11 g/dL F 14.0-18.0 Hematocrit [Volume Fraction] of Blood by Automated count 2023-05-23 22:49:22 35 % F 41.0-53.0 MCHC [Mass/volume] by Automated count 2023-05-23 22:49:22 31.5 g/dL F 29.6-35.3 MCV [Entitic volume] by Automated count 2023-05-23 22:49:22 102.3 fL F 80.0-100.0 MCH [Entitic mass] by Automated count 2023-05-23 22:49:22 32.2 pg F 25.9-34.2 Platelets [#/volume] in Blood by Automated count 2023-05-23 22:49:22 150 x 10^3 cells/uL F 140.0-450.0 HCT CALC HGBX3 2023-04-25 16:33:05 33.6 % F 42.0-52.0 Erythrocyte distribution width [Ratio] by Automated count 2023-04-25 16:32:12 16.4 % F 11.0-15.0 Erythrocytes [#/volume] in Blood by Automated count 2023-04-25 16:32:12 3.62 x 10'6 cells/uL F 4.6-6.2 Hematocrit [Volume Fraction] of Blood by Automated count 2023-04-25 16:32:12 35.2 % F 41.0-53.0 Hemoglobin [Mass/volume] in Blood 2023-04-25 16:32:12 11.2 g/dL F 14.0-18.0 MCV [Entitic volume] by Automated count 2023-04-25 16:32:12 97.3 fL F 80.0-100.0 MCH [Entitic mass] by Automated count 2023-04-25 16:32:12 30.9 pg F 25.9-34.2 Platelets [#/volume] in Blood by Automated count 2023-04-25 16:32:12 159 x 10^3 cells/uL F 140.0-450.0 MCHC [Mass/volume] by Automated count 2023-04-25 16:32:12 31.7 g/dL F 29.6-35.3 IRON SATURATION 2023-03-22 03:48:33 41 % F 21.0-49.0 TIBC 2023-03-22 03:48:33 210 ug/dL F 250.0-425.0 Iron [Mass/volume] in Serum or Plasma 2023-03-22 03:47:13 87 ug/dL F 65.0-175.0 Iron binding capacity.unsaturated [Mass/volume] in Serum or Plasma 2023-03-22 03:47:13 123 ug/dL F 75.0-360.0 Ferritin [Mass/volume] in Serum or Plasma 2023-03-21 19:35:15 383 ng/mL F 22.0-322.0 HCT CALC HGBX3 2023-03-21 18:40:49 34.2 % F 42.0-52.0 Erythrocyte distribution width [Ratio] by Automated count 2023-03-21 18:40:11 15.8 % F 11.0-15.0 Hematocrit [Volume Fraction] of Blood by Automated count 2023-03-21 18:40:11 35.3 % F 42.0-52.0 Erythrocytes [#/volume] in Blood by Automated count 2023-03-21 18:40:11 3.65 x 10'6 cells/uL F 4.6-6.2 Hemoglobin [Mass/volume] in Blood 2023-03-21 18:40:11 11.4 g/dL F 14.0-18.0 MCV [Entitic volume] by Automated count 2023-03-21 18:40:11 96.7 fL F 80.0-100.0 MCH [Entitic mass] by Automated count 2023-03-21 18:40:11 31.3 pg F 27.0-31.0 MCHC [Mass/volume] by Automated count 2023-03-21 18:40:11 32.3 g/dL F 32.0-36.0 Platelets [#/volume] in Blood by Automated count 2023-03-21 18:40:11 148 x 10^3 cells/uL F 150.0-400.0 IRON SATURATION 2023-02-01 07:25:24 29 % F 21.0-49.0 TIBC 2023-02-01 07:25:24 241 ug/dL F 250.0-425.0 IRON SATURATION 2023-02-01 07:25:24 29 % F 21.0-49.0 TIBC 2023-02-01 07:25:24 241 ug/dL F 250.0-425.0 Iron [Mass/volume] in Serum or Plasma 2023-02-01 07:16:35 71 ug/dL F 65.0-175.0 Iron binding capacity.unsaturated [Mass/volume] in Serum or Plasma 2023-02-01 07:16:35 170 ug/dL F 75.0-360.0 Iron [Mass/volume] in Serum or Plasma 2023-02-01 07:16:35 71 ug/dL F 65.0-175.0 Iron binding capacity.unsaturated [Mass/volume] in Serum or Plasma 2023-02-01 07:16:35 170 ug/dL F 75.0-360.0 Ferritin [Mass/volume] in Serum or Plasma 2023-01-31 19:16:17 370 ng/mL F 22.0-322.0 Ferritin [Mass/volume] in Serum or Plasma 2023-01-31 19:16:17 370 ng/mL F 22.0-322.0 HCT CALC HGBX3 2023-01-31 17:58:42 33.3 % F 42.0-52.0 HCT CALC HGBX3 2023-01-31 17:58:42 33.3 % F 42.0-52.0 Erythrocyte distribution width [Ratio] by Automated count 2023-01-31 17:58:21 14.6 % F 11.0-15.0 Erythrocytes [#/volume] in Blood by Automated count 2023-01-31 17:58:21 3.49 x 10'6 cells/uL F 4.6-6.2 Hemoglobin [Mass/volume] in Blood 2023-01-31 17:58:21 11.1 g/dL F 14.0-18.0 Hematocrit [Volume Fraction] of Blood by Automated count 2023-01-31 17:58:21 34.8 % F 42.0-52.0 MCV [Entitic volume] by Automated count 2023-01-31 17:58:21 99.9 fL F 80.0-100.0 MCH [Entitic mass] by Automated count 2023-01-31 17:58:21 31.8 pg F 27.0-31.0 MCHC [Mass/volume] by Automated count 2023-01-31 17:58:21 31.9 g/dL F 32.0-36.0 Platelets [#/volume] in Blood by Automated count 2023-01-31 17:58:21 144 x 10^3 cells/uL F 150.0-400.0 Erythrocyte distribution width [Ratio] by Automated count 2023-01-31 17:58:21 14.6 % F 11.0-15.0 Erythrocytes [#/volume] in Blood by Automated count 2023-01-31 17:58:21 3.49 x 10'6 cells/uL F 4.6-6.2 Hematocrit [Volume Fraction] of Blood by Automated count 2023-01-31 17:58:21 34.8 % F 42.0-52.0 Hemoglobin [Mass/volume] in Blood 2023-01-31 17:58:21 11.1 g/dL F 14.0-18.0 MCV [Entitic volume] by Automated count 2023-01-31 17:58:21 99.9 fL F 80.0-100.0 MCH [Entitic mass] by Automated count 2023-01-31 17:58:21 31.8 pg F 27.0-31.0 MCHC [Mass/volume] by Automated count 2023-01-31 17:58:21 31.9 g/dL F 32.0-36.0 Platelets [#/volume] in Blood by Automated count 2023-01-31 17:58:21 144 x 10^3 cells/uL F 150.0-400.0 HCT CALC HGBX3 2023-01-19 15:57:41 32.1 % F 42.0-52.0 HCT CALC HGBX3 2023-01-19 15:57:41 32.1 % F 42.0-52.0 Erythrocyte distribution width [Ratio] by Automated count 2023-01-19 15:57:15 14.5 % F 11.0-15.0 MCV [Entitic volume] by Automated count 2023-01-19 15:57:15 100.8 fL F 80.0-100.0 MCHC [Mass/volume] by Automated count 2023-01-19 15:57:15 30.6 g/dL F 32.0-36.0 MCH [Entitic mass] by Automated count 2023-01-19 15:57:15 30.9 pg F 27.0-31.0 Platelets [#/volume] in Blood by Automated count 2023-01-19 15:57:15 125 x 10^3 cells/uL F 150.0-400.0 Erythrocyte distribution width [Ratio] by Automated count 2023-01-19 15:57:15 14.5 % F 11.0-15.0 MCH [Entitic mass] by Automated count 2023-01-19 15:57:15 30.9 pg F 27.0-31.0 MCHC [Mass/volume] by Automated count 2023-01-19 15:57:15 30.6 g/dL F 32.0-36.0 MCV [Entitic volume] by Automated count 2023-01-19 15:57:15 100.8 fL F 80.0-100.0 Platelets [#/volume] in Blood by Automated count 2023-01-19 15:57:15 125 x 10^3 cells/uL F 150.0-400.0 Hematocrit [Volume Fraction] of Blood by Automated count 2023-01-19 15:57:13 35.1 % F 42.0-52.0 Erythrocytes [#/volume] in Blood by Automated count 2023-01-19 15:57:13 3.48 x 10'6 cells/uL F 4.6-6.2 Hemoglobin [Mass/volume] in Blood 2023-01-19 15:57:13 10.7 g/dL F 14.0-18.0 Erythrocytes [#/volume] in Blood by Automated count 2023-01-19 15:57:13 3.48 x 10'6 cells/uL F 4.6-6.2 Hematocrit [Volume Fraction] of Blood by Automated count 2023-01-19 15:57:13 35.1 % F 42.0-52.0 Hemoglobin [Mass/volume] in Blood 2023-01-19 15:57:13 10.7 g/dL F 14.0-18.0 IRON SATURATION 2022-12-22 22:10:42 27 % F 21.0-49.0 TIBC 2022-12-22 22:10:42 240 ug/dL F 250.0-425.0 IRON SATURATION 2022-12-22 22:10:42 27 % F 21.0-49.0 TIBC 2022-12-22 22:10:42 240 ug/dL F 250.0-425.0 Iron [Mass/volume] in Serum or Plasma 2022-12-22 22:09:51 65 ug/dL F 65.0-175.0 Iron binding capacity.unsaturated [Mass/volume] in Serum or Plasma 2022-12-22 22:09:51 175 ug/dL F 75.0-360.0 Iron [Mass/volume] in Serum or Plasma 2022-12-22 22:09:51 65 ug/dL F 65.0-175.0 Iron binding capacity.unsaturated [Mass/volume] in Serum or Plasma 2022-12-22 22:09:51 175 ug/dL F 75.0-360.0 Ferritin [Mass/volume] in Serum or Plasma 2022-12-22 16:54:01 546 ng/mL F 22.0-322.0 Ferritin [Mass/volume] in Serum or Plasma 2022-12-22 16:54:01 546 ng/mL F 22.0-322.0 HCT CALC HGBX3 2022-12-22 15:36:35 32.4 % F 42.0-52.0 HCT CALC HGBX3 2022-12-22 15:36:35 32.4 % F 42.0-52.0 Erythrocyte distribution width [Ratio] by Automated count 2022-12-22 15:35:54 14.3 % F 11.0-15.0 Erythrocytes [#/volume] in Blood by Automated count 2022-12-22 15:35:54 3.51 x 10'6 cells/uL F 4.6-6.2 Hematocrit [Volume Fraction] of Blood by Automated count 2022-12-22 15:35:54 34.8 % F 42.0-52.0 MCV [Entitic volume] by Automated count 2022-12-22 15:35:54 99.1 fL F 80.0-100.0 MCH [Entitic mass] by Automated count 2022-12-22 15:35:54 30.7 pg F 27.0-31.0 Hemoglobin [Mass/volume] in Blood 2022-12-22 15:35:54 10.8 g/dL F 14.0-18.0 MCHC [Mass/volume] by Automated count 2022-12-22 15:35:54 31 g/dL F 32.0-36.0 Platelets [#/volume] in Blood by Automated count 2022-12-22 15:35:54 155 x 10^3 cells/uL F 150.0-400.0 Erythrocyte distribution width [Ratio] by Automated count 2022-12-22 15:35:54 14.3 % F 11.0-15.0 Erythrocytes [#/volume] in Blood by Automated count 2022-12-22 15:35:54 3.51 x 10'6 cells/uL F 4.6-6.2 Hematocrit [Volume Fraction] of Blood by Automated count 2022-12-22 15:35:54 34.8 % F 42.0-52.0 MCV [Entitic volume] by Automated count 2022-12-22 15:35:54 99.1 fL F 80.0-100.0 Hemoglobin [Mass/volume] in Blood 2022-12-22 15:35:54 10.8 g/dL F 14.0-18.0 MCH [Entitic mass] by Automated count 2022-12-22 15:35:54 30.7 pg F 27.0-31.0 MCHC [Mass/volume] by Automated count 2022-12-22 15:35:54 31 g/dL F 32.0-36.0 Platelets [#/volume] in Blood by Automated count 2022-12-22 15:35:54 155 x 10^3 cells/uL F 150.0-400.0 HCT CALC HGBX3 2022-11-17 18:36:22 33 % F 42.0-52.0 Hematocrit [Volume Fraction] of Blood by Automated count 2022-11-17 18:35:54 34.5 % F 42.0-52.0 Hemoglobin [Mass/volume] in Blood 2022-11-17 18:35:54 11 g/dL F 14.0-18.0 Erythrocytes [#/volume] in Blood by Automated count 2022-11-17 18:35:54 3.52 x 10'6 cells/uL F 4.6-6.2 MCV [Entitic volume] by Automated count 2022-11-17 18:35:54 98 fL F 80.0-100.0 Erythrocyte distribution width [Ratio] by Automated count 2022-11-17 18:35:52 14.3 % F 11.0-15.0 MCHC [Mass/volume] by Automated count 2022-11-17 18:35:52 31.8 g/dL F 32.0-36.0 MCH [Entitic mass] by Automated count 2022-11-17 18:35:52 31.2 pg F 27.0-31.0 Platelets [#/volume] in Blood by Automated count 2022-11-17 18:35:52 154 x 10^3 cells/uL F 150.0-400.0 HCT CALC HGBX3 2022-10-28 16:32:25 33 % F 42.0-52.0 HCT CALC HGBX3 2022-10-28 16:32:25 33 % F 42.0-52.0 Erythrocytes [#/volume] in Blood by Automated count 2022-10-28 16:31:38 3.54 x 10'6 cells/uL F 4.6-6.2 Hematocrit [Volume Fraction] of Blood by Automated count 2022-10-28 16:31:38 35.4 % F 42.0-52.0 Hemoglobin [Mass/volume] in Blood 2022-10-28 16:31:38 11 g/dL F 14.0-18.0 Platelets [#/volume] in Blood by Automated count 2022-10-28 16:31:38 131 x 10^3 cells/uL F 150.0-400.0 MCHC [Mass/volume] by Automated count 2022-10-28 16:31:38 31.2 g/dL F 32.0-36.0 MCH [Entitic mass] by Automated count 2022-10-28 16:31:38 31.2 pg F 27.0-31.0 Erythrocytes [#/volume] in Blood by Automated count 2022-10-28 16:31:38 3.54 x 10'6 cells/uL F 4.6-6.2 Hematocrit [Volume Fraction] of Blood by Automated count 2022-10-28 16:31:38 35.4 % F 42.0-52.0 Hemoglobin [Mass/volume] in Blood 2022-10-28 16:31:38 11 g/dL F 14.0-18.0 MCH [Entitic mass] by Automated count 2022-10-28 16:31:38 31.2 pg F 27.0-31.0 Platelets [#/volume] in Blood by Automated count 2022-10-28 16:31:38 131 x 10^3 cells/uL F 150.0-400.0 MCHC [Mass/volume] by Automated count 2022-10-28 16:31:38 31.2 g/dL F 32.0-36.0 Erythrocyte distribution width [Ratio] by Automated count 2022-10-28 16:31:35 14.3 % F 11.0-15.0 MCV [Entitic volume] by Automated count 2022-10-28 16:31:35 99.9 fL F 80.0-100.0 Erythrocyte distribution width [Ratio] by Automated count 2022-10-28 16:31:35 14.3 % F 11.0-15.0 MCV [Entitic volume] by Automated count 2022-10-28 16:31:35 99.9 fL F 80.0-100.0 HCT CALC HGBX3 2022-10-24 08:39:39 F Canceled - Specimen not received 5 days past draw date Erythrocyte distribution width [Ratio] by Automated count 2022-10-24 08:05:48 F Canceled - Specimen not received 5 days past draw date Erythrocytes [#/volume] in Blood by Automated count 2022-10-24 08:05:48 F Canceled - Specimen not received 5 days past draw date Hemoglobin [Mass/volume] in Blood 2022-10-24 08:05:48 F Canceled - Specimen not received 5 days past draw date MCV [Entitic volume] by Automated count 2022-10-24 08:05:48 F Canceled - Specimen not received 5 days past draw date Hematocrit [Volume Fraction] of Blood by Automated count 2022-10-24 08:05:48 F Canceled - Specimen not received 5 days past draw date MCH [Entitic mass] by Automated count 2022-10-24 08:05:48 F Canceled - Specimen not received 5 days past draw date MCHC [Mass/volume] by Automated count 2022-10-24 08:05:48 F Canceled - Specimen not received 5 days past draw date Platelets [#/volume] in Blood by Automated count 2022-10-24 08:05:48 F Canceled - Specimen not received 5 days past draw date Iron [Mass/volume] in Serum or Plasma IRON SATURATION Iron binding capacity.unsaturated [Mass/volume] in Serum or Plasma TIBC Ferritin [Mass/volume] in Serum or Plasma FluidBP Description Draw Date Result/Unit Status Ref Range Result Comments Sodium [Moles/volume] in Serum or Plasma 2024-11-26 19:17:36 140 mEq/L F 132.0-146.0 Sodium [Moles/volume] in Serum or Plasma 2024-09-24 17:08:44 144 mEq/L F 132.0-146.0 Sodium [Moles/volume] in Serum or Plasma 2024-08-28 07:28:15 138 mEq/L F 132.0-146.0 Sodium [Moles/volume] in Serum or Plasma 2024-03-27 23:49:54 136 mEq/L F 132.0-146.0 Sodium [Moles/volume] in Serum or Plasma 2024-03-27 23:49:54 136 mEq/L F 132.0-146.0 Sodium [Moles/volume] in Serum or Plasma 2023-05-23 19:19:29 139 mEq/L F 132.0-146.0 Sodium [Moles/volume] in Serum or Plasma 2023-04-25 18:42:13 138 mEq/L F 132.0-146.0 Sodium [Moles/volume] in Serum or Plasma 2023-03-21 17:29:19 136 mEq/L F 132.0-146.0 Sodium [Moles/volume] in Serum or Plasma 2023-01-31 17:51:17 138 mEq/L F 132.0-146.0 Sodium [Moles/volume] in Serum or Plasma 2023-01-31 17:51:17 138 mEq/L F 132.0-146.0 Sodium [Moles/volume] in Serum or Plasma 2023-01-19 15:09:12 140 mEq/L F 132.0-146.0 Sodium [Moles/volume] in Serum or Plasma 2023-01-19 15:09:12 140 mEq/L F 132.0-146.0 Sodium [Moles/volume] in Serum or Plasma 2022-12-22 20:57:58 141 mEq/L F 132.0-146.0 Sodium [Moles/volume] in Serum or Plasma 2022-12-22 20:57:58 141 mEq/L F 132.0-146.0 Sodium [Moles/volume] in Serum or Plasma 2022-11-17 18:14:06 139 mEq/L F 132.0-146.0 Sodium [Moles/volume] in Serum or Plasma 2022-10-28 15:58:42 140 mEq/L F 132.0-146.0 Sodium [Moles/volume] in Serum or Plasma 2022-10-28 15:58:42 140 mEq/L F 132.0-146.0 Sodium [Moles/volume] in Serum or Plasma 2022-10-24 08:05:48 F Canceled - Specimen not received 5 days past draw date Sodium [Moles/volume] in Serum or Plasma General Description Draw Date Result/Unit Status Ref Range Result Comments Alanine aminotransferase [Enzymatic activity/volume] in Serum or Plasma 2024-12-24 15:12:25 10 U/L F 10.0-49.0 Aspartate aminotransferase [Enzymatic activity/volume] in Serum or Plasma 2024-12-24 15:12:25 14 U/L F 0.0-33.0 Chloride [Moles/volume] in Serum or Plasma 2024-11-26 19:17:36 105 mEq/L F 99.0-109.0 Alanine aminotransferase [Enzymatic activity/volume] in Serum or Plasma 2024-11-26 16:20:30 10 U/L F 10.0-49.0 Aspartate aminotransferase [Enzymatic activity/volume] in Serum or Plasma 2024-11-26 16:20:30 14 U/L F 0.0-33.0 Chloride [Moles/volume] in Serum or Plasma 2024-09-24 17:08:44 110 mEq/L F 99.0-109.0 Alanine aminotransferase [Enzymatic activity/volume] in Serum or Plasma 2024-09-24 16:32:23 13 U/L F 10.0-49.0 Aspartate aminotransferase [Enzymatic activity/volume] in Serum or Plasma 2024-09-24 16:32:23 15 U/L F 0.0-33.0 Chloride [Moles/volume] in Serum or Plasma 2024-08-28 07:28:15 104 mEq/L F 99.0-109.0 Alanine aminotransferase [Enzymatic activity/volume] in Serum or Plasma 2024-08-27 15:02:17 12 U/L F 10.0-49.0 Aspartate aminotransferase [Enzymatic activity/volume] in Serum or Plasma 2024-08-27 15:01:19 F Recollect - Hemolyzed specimen Chloride [Moles/volume] in Serum or Plasma 2024-03-27 23:49:54 100 mEq/L F 99.0-109.0 Chloride [Moles/volume] in Serum or Plasma 2024-03-27 23:49:54 100 mEq/L F 99.0-109.0 Alanine aminotransferase [Enzymatic activity/volume] in Serum or Plasma 2024-03-27 18:42:34 19 U/L F 10.0-49.0 Aspartate aminotransferase [Enzymatic activity/volume] in Serum or Plasma 2024-03-27 18:42:34 26 U/L F 0.0-33.0 Alanine aminotransferase [Enzymatic activity/volume] in Serum or Plasma 2024-03-27 18:42:34 19 U/L F 10.0-49.0 Aspartate aminotransferase [Enzymatic activity/volume] in Serum or Plasma 2024-03-27 18:42:34 26 U/L F 0.0-33.0 Aluminum [Mass/volume] in Serum or Plasma 2024-03-27 18:14:43 10 ug/L F 0.0-9.0 Aluminum [Mass/volume] in Serum or Plasma 2024-03-27 18:14:43 10 ug/L F 0.0-9.0 Chloride [Moles/volume] in Serum or Plasma 2023-05-23 19:19:30 105 mEq/L F 99.0-109.0 Alanine aminotransferase [Enzymatic activity/volume] in Serum or Plasma 2023-05-23 19:19:30 19 U/L F 10.0-49.0 Aspartate aminotransferase [Enzymatic activity/volume] in Serum or Plasma 2023-05-23 19:19:29 20 U/L F 0.0-33.0 Chloride [Moles/volume] in Serum or Plasma 2023-04-25 18:42:13 103 mEq/L F 99.0-109.0 Alanine aminotransferase [Enzymatic activity/volume] in Serum or Plasma 2023-04-25 18:42:13 11 U/L F 10.0-49.0 Aspartate aminotransferase [Enzymatic activity/volume] in Serum or Plasma 2023-04-25 18:42:13 18 U/L F 0.0-33.0 Chloride [Moles/volume] in Serum or Plasma 2023-03-21 17:29:17 102 mEq/L F 99.0-109.0 Alanine aminotransferase [Enzymatic activity/volume] in Serum or Plasma 2023-03-21 17:29:17 15 U/L F 10.0-49.0 Aspartate aminotransferase [Enzymatic activity/volume] in Serum or Plasma 2023-03-21 17:29:17 18 U/L F 0.0-33.0 Aluminum [Mass/volume] in Serum or Plasma 2023-01-31 18:17:10 10 ug/L F 0.0-9.0 Aluminum [Mass/volume] in Serum or Plasma 2023-01-31 18:17:10 10 ug/L F 0.0-9.0 Chloride [Moles/volume] in Serum or Plasma 2023-01-31 17:51:17 106 mEq/L F 99.0-109.0 Alanine aminotransferase [Enzymatic activity/volume] in Serum or Plasma 2023-01-31 17:51:17 10 U/L F 10.0-49.0 Aspartate aminotransferase [Enzymatic activity/volume] in Serum or Plasma 2023-01-31 17:51:17 14 U/L F 0.0-33.0 Alanine aminotransferase [Enzymatic activity/volume] in Serum or Plasma 2023-01-31 17:51:17 10 U/L F 10.0-49.0 Chloride [Moles/volume] in Serum or Plasma 2023-01-31 17:51:17 106 mEq/L F 99.0-109.0 Aspartate aminotransferase [Enzymatic activity/volume] in Serum or Plasma 2023-01-31 17:51:17 14 U/L F 0.0-33.0 Chloride [Moles/volume] in Serum or Plasma 2023-01-19 15:09:12 105 mEq/L F 99.0-109.0 Alanine aminotransferase [Enzymatic activity/volume] in Serum or Plasma 2023-01-19 15:09:12 12 U/L F 10.0-49.0 Aspartate aminotransferase [Enzymatic activity/volume] in Serum or Plasma 2023-01-19 15:09:12 21 U/L F 0.0-33.0 Chloride [Moles/volume] in Serum or Plasma 2023-01-19 15:09:12 105 mEq/L F 99.0-109.0 Alanine aminotransferase [Enzymatic activity/volume] in Serum or Plasma 2023-01-19 15:09:12 12 U/L F 10.0-49.0 Aspartate aminotransferase [Enzymatic activity/volume] in Serum or Plasma 2023-01-19 15:09:12 21 U/L F 0.0-33.0 Chloride [Moles/volume] in Serum or Plasma 2022-12-22 20:57:58 105 mEq/L F 99.0-109.0 Alanine aminotransferase [Enzymatic activity/volume] in Serum or Plasma 2022-12-22 20:57:58 15 U/L F 10.0-49.0 Aspartate aminotransferase [Enzymatic activity/volume] in Serum or Plasma 2022-12-22 20:57:58 28 U/L F 0.0-33.0 Chloride [Moles/volume] in Serum or Plasma 2022-12-22 20:57:58 105 mEq/L F 99.0-109.0 Alanine aminotransferase [Enzymatic activity/volume] in Serum or Plasma 2022-12-22 20:57:58 15 U/L F 10.0-49.0 Aspartate aminotransferase [Enzymatic activity/volume] in Serum or Plasma 2022-12-22 20:57:58 28 U/L F 0.0-33.0 Aluminum [Mass/volume] in Serum or Plasma 2022-12-22 18:31:13 10 ug/L F 0.0-9.0 Aluminum [Mass/volume] in Serum or Plasma 2022-12-22 18:31:13 10 ug/L F 0.0-9.0 Chloride [Moles/volume] in Serum or Plasma 2022-11-17 18:14:06 101 mEq/L F 99.0-109.0 Alanine aminotransferase [Enzymatic activity/volume] in Serum or Plasma 2022-11-17 18:14:06 16 U/L F 10.0-49.0 Aspartate aminotransferase [Enzymatic activity/volume] in Serum or Plasma 2022-11-17 18:14:06 26 U/L F 0.0-33.0 Chloride [Moles/volume] in Serum or Plasma 2022-10-28 15:58:42 105 mEq/L F 99.0-109.0 Alanine aminotransferase [Enzymatic activity/volume] in Serum or Plasma 2022-10-28 15:58:42 9 U/L F 10.0-49.0 Aspartate aminotransferase [Enzymatic activity/volume] in Serum or Plasma 2022-10-28 15:58:42 15 U/L F 0.0-33.0 Chloride [Moles/volume] in Serum or Plasma 2022-10-28 15:58:42 105 mEq/L F 99.0-109.0 Alanine aminotransferase [Enzymatic activity/volume] in Serum or Plasma 2022-10-28 15:58:42 9 U/L F 10.0-49.0 Aspartate aminotransferase [Enzymatic activity/volume] in Serum or Plasma 2022-10-28 15:58:42 15 U/L F 0.0-33.0 Chloride [Moles/volume] in Serum or Plasma 2022-10-24 08:05:48 F Canceled - Specimen not received 5 days past draw date Alanine aminotransferase [Enzymatic activity/volume] in Serum or Plasma 2022-10-24 08:05:48 F Canceled - Specimen not received 5 days past draw date Aspartate aminotransferase [Enzymatic activity/volume] in Serum or Plasma 2022-10-24 08:05:48 F Canceled - Specimen not received 5 days past draw date Chloride [Moles/volume] in Serum or Plasma InfectionVaccination Description Draw Date Result/Unit Status Ref Range Result Comments Eosinophils/100 leukocytes in Blood by Automated count 2024-12-24 15:27:14 5.9 % F Eosinophils [#/volume] in Blood by Automated count 2024-12-24 15:27:14 138 Cells/uL F 0.0-700.0 Basophils/100 leukocytes in Blood by Automated count 2024-12-24 15:27:14 0.2 % F Lymphocytes [#/volume] in Blood by Automated count 2024-12-24 15:27:14 821 Cells/uL F 620.0-3660.0 Basophils [#/volume] in Blood by Automated count 2024-12-24 15:27:14 5 Cells/uL F 0.0-400.0 Monocytes/100 leukocytes in Blood by Automated count 2024-12-24 15:27:14 7 % F Leukocytes [#/volume] in Blood by Automated count 2024-12-24 15:27:14 2.3 x 10^3 cells/uL F 4.0-11.0 Neutrophils/100 leukocytes in Blood by Automated count 2024-12-24 15:27:14 51.9 % F Lymphocytes/100 leukocytes in Blood by Automated count 2024-12-24 15:27:14 35.1 % F Neutrophils [#/volume] in Blood by Automated count 2024-12-24 15:27:14 1214 Cells/uL F 2000.0-8800. 0 Monocytes [#/volume] in Blood by Automated count 2024-12-24 15:27:14 164 Cells/uL F 0.0-1100.0 Basophils/100 leukocytes in Blood by Automated count 2024-11-27 00:59:20 1.1 % F Neutrophils/100 leukocytes in Blood by Automated count 2024-11-27 00:59:20 53.8 % F Monocytes/100 leukocytes in Blood by Automated count 2024-11-27 00:59:20 8 % F Lymphocytes/100 leukocytes in Blood by Automated count 2024-11-27 00:59:20 35.1 % F Eosinophils/100 leukocytes in Blood by Automated count 2024-11-27 00:59:20 2 % F Leukocytes [#/volume] in Blood by Automated count 2024-11-27 00:59:20 2.5 x 10^3 cells/uL F 4.0-11.0 Neutrophils [#/volume] in Blood by Automated count 2024-11-27 00:59:20 1350 Cells/uL F 2000.0-8800. 0 Monocytes [#/volume] in Blood by Automated count 2024-11-27 00:59:20 201 Cells/uL F 0.0-1100.0 Basophils [#/volume] in Blood by Automated count 2024-11-27 00:59:20 28 Cells/uL F 0.0-400.0 Lymphocytes [#/volume] in Blood by Automated count 2024-11-27 00:59:20 881 Cells/uL F 620.0-3660.0 Eosinophils [#/volume] in Blood by Automated count 2024-11-27 00:59:20 50 Cells/uL F 0.0-700.0 Neutrophils/100 leukocytes in Blood by Automated count 2024-09-24 18:48:12 47.9 % F Basophils/100 leukocytes in Blood by Automated count 2024-09-24 18:48:12 0.8 % F Lymphocytes/100 leukocytes in Blood by Automated count 2024-09-24 18:48:12 39 % F Monocytes/100 leukocytes in Blood by Automated count 2024-09-24 18:48:12 7.8 % F Eosinophils/100 leukocytes in Blood by Automated count 2024-09-24 18:48:12 4.5 % F Leukocytes [#/volume] in Blood by Automated count 2024-09-24 18:48:12 2.3 x 10^3 cells/uL F 4.0-11.0 Lymphocytes [#/volume] in Blood by Automated count 2024-09-24 18:48:12 885 Cells/uL F 620.0-3660.0 Neutrophils [#/volume] in Blood by Automated count 2024-09-24 18:48:12 1087 Cells/uL F 2000.0-8800. 0 Basophils [#/volume] in Blood by Automated count 2024-09-24 18:48:12 18 Cells/uL F 0.0-400.0 Monocytes [#/volume] in Blood by Automated count 2024-09-24 18:48:12 177 Cells/uL F 0.0-1100.0 Eosinophils [#/volume] in Blood by Automated count 2024-09-24 18:48:12 102 Cells/uL F 0.0-700.0 Basophils/100 leukocytes in Blood by Automated count 2024-08-27 14:06:26 0.2 % F Neutrophils/100 leukocytes in Blood by Automated count 2024-08-27 14:06:26 59.2 % F Lymphocytes/100 leukocytes in Blood by Automated count 2024-08-27 14:06:26 28.2 % F Eosinophils/100 leukocytes in Blood by Automated count 2024-08-27 14:06:26 4.3 % F Monocytes/100 leukocytes in Blood by Automated count 2024-08-27 14:06:26 8.1 % F Leukocytes [#/volume] in Blood by Automated count 2024-08-27 14:06:26 2.5 x 10^3 cells/uL F 4.0-11.0 Neutrophils [#/volume] in Blood by Automated count 2024-08-27 14:06:26 1480 Cells/uL F 2000.0-8800. 0 Lymphocytes [#/volume] in Blood by Automated count 2024-08-27 14:06:26 705 Cells/uL F 620.0-3660.0 Monocytes [#/volume] in Blood by Automated count 2024-08-27 14:06:26 202 Cells/uL F 0.0-1100.0 Basophils [#/volume] in Blood by Automated count 2024-08-27 14:06:26 5 Cells/uL F 0.0-400.0 Eosinophils [#/volume] in Blood by Automated count 2024-08-27 14:06:26 108 Cells/uL F 0.0-700.0 Neutrophils/100 leukocytes in Blood by Automated count 2024-03-28 20:21:21 F RECOLLECT - OUTDATED SPECIMEN Basophils/100 leukocytes in Blood by Automated count 2024-03-28 20:21:21 F RECOLLECT - OUTDATED SPECIMEN Lymphocytes/100 leukocytes in Blood by Automated count 2024-03-28 20:21:21 F RECOLLECT - OUTDATED SPECIMEN Eosinophils/100 leukocytes in Blood by Automated count 2024-03-28 20:21:21 F RECOLLECT - OUTDATED SPECIMEN Monocytes/100 leukocytes in Blood by Automated count 2024-03-28 20:21:21 F RECOLLECT - OUTDATED SPECIMEN Leukocytes [#/volume] in Blood by Automated count 2024-03-28 20:21:21 F RECOLLECT - OUTDATED SPECIMEN Neutrophils [#/volume] in Blood by Automated count 2024-03-28 20:21:21 F RECOLLECT - OUTDATED SPECIMEN Lymphocytes [#/volume] in Blood by Automated count 2024-03-28 20:21:21 F RECOLLECT - OUTDATED SPECIMEN Eosinophils [#/volume] in Blood by Automated count 2024-03-28 20:21:21 F RECOLLECT - OUTDATED SPECIMEN Monocytes [#/volume] in Blood by Automated count 2024-03-28 20:21:21 F RECOLLECT - OUTDATED SPECIMEN Basophils [#/volume] in Blood by Automated count 2024-03-28 20:21:21 F RECOLLECT - OUTDATED SPECIMEN Basophils/100 leukocytes in Blood by Automated count 2024-03-28 20:21:21 F RECOLLECT - OUTDATED SPECIMEN Lymphocytes/100 leukocytes in Blood by Automated count 2024-03-28 20:21:21 F RECOLLECT - OUTDATED SPECIMEN Neutrophils/100 leukocytes in Blood by Automated count 2024-03-28 20:21:21 F RECOLLECT - OUTDATED SPECIMEN Monocytes/100 leukocytes in Blood by Automated count 2024-03-28 20:21:21 F RECOLLECT - OUTDATED SPECIMEN Eosinophils/100 leukocytes in Blood by Automated count 2024-03-28 20:21:21 F RECOLLECT - OUTDATED SPECIMEN Leukocytes [#/volume] in Blood by Automated count 2024-03-28 20:21:21 F RECOLLECT - OUTDATED SPECIMEN Monocytes [#/volume] in Blood by Automated count 2024-03-28 20:21:21 F RECOLLECT - OUTDATED SPECIMEN Neutrophils [#/volume] in Blood by Automated count 2024-03-28 20:21:21 F RECOLLECT - OUTDATED SPECIMEN Lymphocytes [#/volume] in Blood by Automated count 2024-03-28 20:21:21 F RECOLLECT - OUTDATED SPECIMEN Basophils [#/volume] in Blood by Automated count 2024-03-28 20:21:21 F RECOLLECT - OUTDATED SPECIMEN Eosinophils [#/volume] in Blood by Automated count 2024-03-28 20:21:21 F RECOLLECT - OUTDATED SPECIMEN Basophils/100 leukocytes in Blood by Automated count 2023-05-23 22:49:22 1.1 % F Lymphocytes/100 leukocytes in Blood by Automated count 2023-05-23 22:49:22 35 % F Monocytes/100 leukocytes in Blood by Automated count 2023-05-23 22:49:22 7.9 % F Neutrophils/100 leukocytes in Blood by Automated count 2023-05-23 22:49:22 50.3 % F Eosinophils/100 leukocytes in Blood by Automated count 2023-05-23 22:49:22 5.7 % F Leukocytes [#/volume] in Blood by Automated count 2023-05-23 22:49:22 4.1 x 10^3 cells/uL F 4.0-11.0 Neutrophils [#/volume] in Blood by Automated count 2023-05-23 22:49:22 2057 Cell/uL F 2000.0-8800. 0 Lymphocytes [#/volume] in Blood by Automated count 2023-05-23 22:49:22 1432 Cell/uL F 620.0-3660.0 Basophils [#/volume] in Blood by Automated count 2023-05-23 22:49:22 45 Cell/uL F 0.0-400.0 Monocytes [#/volume] in Blood by Automated count 2023-05-23 22:49:22 323 Cell/uL F 0.0-1100.0 Eosinophils [#/volume] in Blood by Automated count 2023-05-23 22:49:22 233 Cell/uL F 0.0-700.0 Basophils/100 leukocytes in Blood by Automated count 2023-04-25 16:32:12 0.9 % F Neutrophils/100 leukocytes in Blood by Automated count 2023-04-25 16:32:12 46.1 % F Lymphocytes/100 leukocytes in Blood by Automated count 2023-04-25 16:32:12 38.7 % F Monocytes/100 leukocytes in Blood by Automated count 2023-04-25 16:32:12 9.2 % F Leukocytes [#/volume] in Blood by Automated count 2023-04-25 16:32:12 3.4 x 10^3 cells/uL F 4.0-11.0 Eosinophils/100 leukocytes in Blood by Automated count 2023-04-25 16:32:12 5.2 % F Neutrophils [#/volume] in Blood by Automated count 2023-04-25 16:32:12 1567 Cell/uL F 2000.0-8800. 0 Lymphocytes [#/volume] in Blood by Automated count 2023-04-25 16:32:12 1316 Cell/uL F 620.0-3660.0 Monocytes [#/volume] in Blood by Automated count 2023-04-25 16:32:12 313 Cell/uL F 0.0-1100.0 Basophils [#/volume] in Blood by Automated count 2023-04-25 16:32:12 31 Cell/uL F 0.0-400.0 Eosinophils [#/volume] in Blood by Automated count 2023-04-25 16:32:12 177 Cell/uL F 0.0-700.0 Basophils/100 leukocytes in Blood by Automated count 2023-03-21 18:40:11 0.1 % F Neutrophils/100 leukocytes in Blood by Automated count 2023-03-21 18:40:11 43.2 % F Lymphocytes/100 leukocytes in Blood by Automated count 2023-03-21 18:40:11 45.6 % F Monocytes/100 leukocytes in Blood by Automated count 2023-03-21 18:40:11 7.5 % F Leukocytes [#/volume] in Blood by Automated count 2023-03-21 18:40:11 3.4 x 10^3 cells/uL F 4.5-11.0 Eosinophils/100 leukocytes in Blood by Automated count 2023-03-21 18:40:11 3.5 % F Neutrophils [#/volume] in Blood by Automated count 2023-03-21 18:40:11 1447.2 Cell/uL F 2000.0-8800. 0 Lymphocytes [#/volume] in Blood by Automated count 2023-03-21 18:40:11 1527.6 Cell/uL F 1100.0-4800. 0 Basophils [#/volume] in Blood by Automated count 2023-03-21 18:40:11 3.35 Cell/uL F 0.0-400.0 Eosinophils [#/volume] in Blood by Automated count 2023-03-21 18:40:11 117.25 Cell/uL F 0.0-700.0 Monocytes [#/volume] in Blood by Automated count 2023-03-21 18:40:11 251.25 Cell/uL F 0.0-1100.0 Basophils [#/volume] in Blood by Automated count 2023-01-31 17:59:55 17.15 Cell/uL F 0.0-400.0 Basophils [#/volume] in Blood by Automated count 2023-01-31 17:59:55 17.15 Cell/uL F 0.0-400.0 Basophils/100 leukocytes in Blood by Automated count 2023-01-31 17:58:21 0.5 % F Neutrophils/100 leukocytes in Blood by Automated count 2023-01-31 17:58:21 52.5 % F Monocytes/100 leukocytes in Blood by Automated count 2023-01-31 17:58:21 8.2 % F Lymphocytes/100 leukocytes in Blood by Automated count 2023-01-31 17:58:21 34.2 % F Eosinophils/100 leukocytes in Blood by Automated count 2023-01-31 17:58:21 4.6 % F Leukocytes [#/volume] in Blood by Automated count 2023-01-31 17:58:21 3.4 x 10^3 cells/uL F 4.5-11.0 Lymphocytes [#/volume] in Blood by Automated count 2023-01-31 17:58:21 1173.06 Cell/uL F 1100.0-4800. 0 Monocytes [#/volume] in Blood by Automated count 2023-01-31 17:58:21 281.26 Cell/uL F 0.0-1100.0 Eosinophils [#/volume] in Blood by Automated count 2023-01-31 17:58:21 157.78 Cell/uL F 0.0-700.0 Neutrophils [#/volume] in Blood by Automated count 2023-01-31 17:58:21 1800.75 Cell/uL F 2000.0-8800. 0 Basophils/100 leukocytes in Blood by Automated count 2023-01-31 17:58:21 0.5 % F Neutrophils/100 leukocytes in Blood by Automated count 2023-01-31 17:58:21 52.5 % F Monocytes/100 leukocytes in Blood by Automated count 2023-01-31 17:58:21 8.2 % F Lymphocytes/100 leukocytes in Blood by Automated count 2023-01-31 17:58:21 34.2 % F Eosinophils/100 leukocytes in Blood by Automated count 2023-01-31 17:58:21 4.6 % F Leukocytes [#/volume] in Blood by Automated count 2023-01-31 17:58:21 3.4 x 10^3 cells/uL F 4.5-11.0 Neutrophils [#/volume] in Blood by Automated count 2023-01-31 17:58:21 1800.75 Cell/uL F 2000.0-8800. 0 Lymphocytes [#/volume] in Blood by Automated count 2023-01-31 17:58:21 1173.06 Cell/uL F 1100.0-4800. 0 Monocytes [#/volume] in Blood by Automated count 2023-01-31 17:58:21 281.26 Cell/uL F 0.0-1100.0 Eosinophils [#/volume] in Blood by Automated count 2023-01-31 17:58:21 157.78 Cell/uL F 0.0-700.0 Basophils/100 leukocytes in Blood by Automated count 2023-01-19 15:57:15 0.2 % F Neutrophils/100 leukocytes in Blood by Automated count 2023-01-19 15:57:15 42.9 % F Lymphocytes/100 leukocytes in Blood by Automated count 2023-01-19 15:57:15 45.4 % F Basophils [#/volume] in Blood by Automated count 2023-01-19 15:57:15 6.04 Cell/uL F 0.0-400.0 Eosinophils [#/volume] in Blood by Automated count 2023-01-19 15:57:15 147.98 Cell/uL F 0.0-700.0 Basophils/100 leukocytes in Blood by Automated count 2023-01-19 15:57:15 0.2 % F Neutrophils/100 leukocytes in Blood by Automated count 2023-01-19 15:57:15 42.9 % F Lymphocytes/100 leukocytes in Blood by Automated count 2023-01-19 15:57:15 45.4 % F Eosinophils [#/volume] in Blood by Automated count 2023-01-19 15:57:15 147.98 Cell/uL F 0.0-700.0 Basophils [#/volume] in Blood by Automated count 2023-01-19 15:57:15 6.04 Cell/uL F 0.0-400.0 Monocytes/100 leukocytes in Blood by Automated count 2023-01-19 15:57:13 6.7 % F Eosinophils/100 leukocytes in Blood by Automated count 2023-01-19 15:57:13 4.9 % F Leukocytes [#/volume] in Blood by Automated count 2023-01-19 15:57:13 3 x 10^3 cells/uL F 4.5-11.0 Neutrophils [#/volume] in Blood by Automated count 2023-01-19 15:57:13 1295.58 Cell/uL F 2000.0-8800. 0 Lymphocytes [#/volume] in Blood by Automated count 2023-01-19 15:57:13 1371.08 Cell/uL F 1100.0-4800. 0 Monocytes [#/volume] in Blood by Automated count 2023-01-19 15:57:13 202.34 Cell/uL F 0.0-1100.0 Monocytes/100 leukocytes in Blood by Automated count 2023-01-19 15:57:13 6.7 % F Eosinophils/100 leukocytes in Blood by Automated count 2023-01-19 15:57:13 4.9 % F Leukocytes [#/volume] in Blood by Automated count 2023-01-19 15:57:13 3 x 10^3 cells/uL F 4.5-11.0 Neutrophils [#/volume] in Blood by Automated count 2023-01-19 15:57:13 1295.58 Cell/uL F 2000.0-8800. 0 Monocytes [#/volume] in Blood by Automated count 2023-01-19 15:57:13 202.34 Cell/uL F 0.0-1100.0 Lymphocytes [#/volume] in Blood by Automated count 2023-01-19 15:57:13 1371.08 Cell/uL F 1100.0-4800. 0 Basophils/100 leukocytes in Blood by Automated count 2022-12-22 15:35:54 0.4 % F Lymphocytes/100 leukocytes in Blood by Automated count 2022-12-22 15:35:54 37.7 % F Neutrophils/100 leukocytes in Blood by Automated count 2022-12-22 15:35:54 48 % F Monocytes/100 leukocytes in Blood by Automated count 2022-12-22 15:35:54 7.7 % F Eosinophils/100 leukocytes in Blood by Automated count 2022-12-22 15:35:54 6.1 % F Leukocytes [#/volume] in Blood by Automated count 2022-12-22 15:35:54 4.2 x 10^3 cells/uL F 4.5-11.0 Neutrophils [#/volume] in Blood by Automated count 2022-12-22 15:35:54 2035.2 Cell/uL F 2000.0-8800. 0 Basophils [#/volume] in Blood by Automated count 2022-12-22 15:35:54 16.96 Cell/uL F 0.0-400.0 Lymphocytes [#/volume] in Blood by Automated count 2022-12-22 15:35:54 1598.48 Cell/uL F 1100.0-4800. 0 Monocytes [#/volume] in Blood by Automated count 2022-12-22 15:35:54 326.48 Cell/uL F 0.0-1100.0 Eosinophils [#/volume] in Blood by Automated count 2022-12-22 15:35:54 258.64 Cell/uL F 0.0-700.0 Basophils/100 leukocytes in Blood by Automated count 2022-12-22 15:35:54 0.4 % F Neutrophils/100 leukocytes in Blood by Automated count 2022-12-22 15:35:54 48 % F Monocytes/100 leukocytes in Blood by Automated count 2022-12-22 15:35:54 7.7 % F Lymphocytes/100 leukocytes in Blood by Automated count 2022-12-22 15:35:54 37.7 % F Eosinophils/100 leukocytes in Blood by Automated count 2022-12-22 15:35:54 6.1 % F Leukocytes [#/volume] in Blood by Automated count 2022-12-22 15:35:54 4.2 x 10^3 cells/uL F 4.5-11.0 Neutrophils [#/volume] in Blood by Automated count 2022-12-22 15:35:54 2035.2 Cell/uL F 2000.0-8800. 0 Monocytes [#/volume] in Blood by Automated count 2022-12-22 15:35:54 326.48 Cell/uL F 0.0-1100.0 Basophils [#/volume] in Blood by Automated count 2022-12-22 15:35:54 16.96 Cell/uL F 0.0-400.0 Lymphocytes [#/volume] in Blood by Automated count 2022-12-22 15:35:54 1598.48 Cell/uL F 1100.0-4800. 0 Eosinophils [#/volume] in Blood by Automated count 2022-12-22 15:35:54 258.64 Cell/uL F 0.0-700.0 Basophils [#/volume] in Blood by Automated count 2022-11-17 18:35:54 40.56 Cell/uL F 0.0-400.0 Basophils/100 leukocytes in Blood by Automated count 2022-11-17 18:35:52 1.2 % F Lymphocytes/100 leukocytes in Blood by Automated count 2022-11-17 18:35:52 40.4 % F Neutrophils/100 leukocytes in Blood by Automated count 2022-11-17 18:35:52 44.1 % F Monocytes/100 leukocytes in Blood by Automated count 2022-11-17 18:35:52 8.6 % F Eosinophils/100 leukocytes in Blood by Automated count 2022-11-17 18:35:52 5.7 % F Leukocytes [#/volume] in Blood by Automated count 2022-11-17 18:35:52 3.4 x 10^3 cells/uL F 4.5-11.0 Lymphocytes [#/volume] in Blood by Automated count 2022-11-17 18:35:52 1365.52 Cell/uL F 1100.0-4800. 0 Neutrophils [#/volume] in Blood by Automated count 2022-11-17 18:35:52 1490.58 Cell/uL F 2000.0-8800. 0 Monocytes [#/volume] in Blood by Automated count 2022-11-17 18:35:52 290.68 Cell/uL F 0.0-1100.0 Eosinophils [#/volume] in Blood by Automated count 2022-11-17 18:35:52 192.66 Cell/uL F 0.0-700.0 Neutrophils/100 leukocytes in Blood by Automated count 2022-10-28 16:31:38 43.5 % F Lymphocytes/100 leukocytes in Blood by Automated count 2022-10-28 16:31:38 39.5 % F Monocytes/100 leukocytes in Blood by Automated count 2022-10-28 16:31:38 8.1 % F Leukocytes [#/volume] in Blood by Automated count 2022-10-28 16:31:38 3.3 x 10^3 cells/uL F 4.5-11.0 Eosinophils/100 leukocytes in Blood by Automated count 2022-10-28 16:31:38 7.5 % F Neutrophils [#/volume] in Blood by Automated count 2022-10-28 16:31:38 1439.85 Cell/uL F 2000.0-8800. 0 Lymphocytes [#/volume] in Blood by Automated count 2022-10-28 16:31:38 1307.45 Cell/uL F 1100.0-4800. 0 Monocytes [#/volume] in Blood by Automated count 2022-10-28 16:31:38 268.11 Cell/uL F 0.0-1100.0 Eosinophils [#/volume] in Blood by Automated count 2022-10-28 16:31:38 248.25 Cell/uL F 0.0-700.0 Neutrophils/100 leukocytes in Blood by Automated count 2022-10-28 16:31:38 43.5 % F Lymphocytes/100 leukocytes in Blood by Automated count 2022-10-28 16:31:38 39.5 % F Monocytes/100 leukocytes in Blood by Automated count 2022-10-28 16:31:38 8.1 % F Eosinophils/100 leukocytes in Blood by Automated count 2022-10-28 16:31:38 7.5 % F Leukocytes [#/volume] in Blood by Automated count 2022-10-28 16:31:38 3.3 x 10^3 cells/uL F 4.5-11.0 Neutrophils [#/volume] in Blood by Automated count 2022-10-28 16:31:38 1439.85 Cell/uL F 2000.0-8800. 0 Lymphocytes [#/volume] in Blood by Automated count 2022-10-28 16:31:38 1307.45 Cell/uL F 1100.0-4800. 0 Monocytes [#/volume] in Blood by Automated count 2022-10-28 16:31:38 268.11 Cell/uL F 0.0-1100.0 Eosinophils [#/volume] in Blood by Automated count 2022-10-28 16:31:38 248.25 Cell/uL F 0.0-700.0 Basophils/100 leukocytes in Blood by Automated count 2022-10-28 16:31:35 1.5 % F Basophils [#/volume] in Blood by Automated count 2022-10-28 16:31:35 49.65 Cell/uL F 0.0-400.0 Basophils/100 leukocytes in Blood by Automated count 2022-10-28 16:31:35 1.5 % F Basophils [#/volume] in Blood by Automated count 2022-10-28 16:31:35 49.65 Cell/uL F 0.0-400.0 Basophils/100 leukocytes in Blood by Automated count 2022-10-24 08:05:48 F Canceled - Specimen not received 5 days past draw date Lymphocytes/100 leukocytes in Blood by Automated count 2022-10-24 08:05:48 F Canceled - Specimen not received 5 days past draw date Neutrophils/100 leukocytes in Blood by Automated count 2022-10-24 08:05:48 F Canceled - Specimen not received 5 days past draw date Monocytes/100 leukocytes in Blood by Automated count 2022-10-24 08:05:48 F Canceled - Specimen not received 5 days past draw date Eosinophils/100 leukocytes in Blood by Automated count 2022-10-24 08:05:48 F Canceled - Specimen not received 5 days past draw date Leukocytes [#/volume] in Blood by Automated count 2022-10-24 08:05:48 F Canceled - Specimen not received 5 days past draw date Neutrophils [#/volume] in Blood by Automated count 2022-10-24 08:05:48 F Canceled - Specimen not received 5 days past draw date Lymphocytes [#/volume] in Blood by Automated count 2022-10-24 08:05:48 F Canceled - Specimen not received 5 days past draw date Monocytes [#/volume] in Blood by Automated count 2022-10-24 08:05:48 F Canceled - Specimen not received 5 days past draw date Basophils [#/volume] in Blood by Automated count 2022-10-24 08:05:48 F Canceled - Specimen not received 5 days past draw date Eosinophils [#/volume] in Blood by Automated count 2022-10-24 08:05:48 F Canceled - Specimen not received 5 days past draw date MineralBone Disorder Description Draw Date Result/Unit Status Ref Range Result Comments Alkaline phosphatase [Enzymatic activity/volume] in Serum or Plasma 2024-12-24 15:12:25 97 U/L F 46.0-116.0 CA CORRECTED 2024-12-11 09:32:07 10 mg/dL F CA/PHOS PRODUCT 2024-12-11 09:30:51 49 Calc F 21.0-53.0 CA*PO4 CORRCTD 2024-12-11 09:30:51 49 Calc F 21.0-53.0 Phosphate [Mass/volume] in Serum or Plasma 2024-12-11 07:02:46 4.9 mg/dL F 2.4-5.1 Calcium [Mass/volume] in Serum or Plasma 2024-12-11 07:02:33 10 mg/dL F 8.7-10.4 Parathyrin.intact [Mass/volume] in Serum or Plasma 2024-12-10 16:14:26 685 pg/mL F 18.0-80.0 CA CORRECTED 2024-12-04 08:05:20 9.7 mg/dL F Calcium [Mass/volume] in Serum or Plasma 2024-12-04 06:34:47 9.7 mg/dL F 8.7-10.4 Alkaline phosphatase [Enzymatic activity/volume] in Serum or Plasma 2024-11-26 16:20:30 121 U/L F 46.0-116.0 CA CORRECTED 2024-11-13 12:00:12 F Unable to Calcul ate CA/PHOS PRODUCT 2024-11-13 11:58:24 35.7 Calc F 21.0-53.0 Phosphate [Mass/volume] in Serum or Plasma 2024-11-13 07:13:33 3.8 mg/dL F 2.4-5.1 Calcium [Mass/volume] in Serum or Plasma 2024-11-13 07:13:33 9.4 mg/dL F 8.7-10.4 CA*PO4 CORRCTD 2024-11-12 22:43:20 see comments F 21.0-53.0 Unable to Calcul ate due to no valid Albumin History resultUnable to Calculate. Parathyrin.intact [Mass/volume] in Serum or Plasma 2024-11-12 22:42:16 471 pg/mL F 18.0-80.0 CA CORRECTED 2024-10-10 09:53:18 9.7 mg/dL F CA CORRECTED 2024-10-10 09:53:18 9.7 mg/dL F CA/PHOS PRODUCT 2024-10-10 09:51:03 38 Calc F 21.0-53.0 CA*PO4 CORRCTD 2024-10-10 09:51:03 38.6 Calc F 21.0-53.0 CA/PHOS PRODUCT 2024-10-10 09:51:03 38 Calc F 21.0-53.0 CA*PO4 CORRCTD 2024-10-10 09:51:03 38.6 Calc F 21.0-53.0 Calcium [Mass/volume] in Serum or Plasma 2024-10-10 08:47:32 9.5 mg/dL F 8.7-10.4 Calcium [Mass/volume] in Serum or Plasma 2024-10-10 08:47:32 9.5 mg/dL F 8.7-10.4 Phosphate [Mass/volume] in Serum or Plasma 2024-10-10 06:55:27 4 mg/dL F 2.4-5.1 Phosphate [Mass/volume] in Serum or Plasma 2024-10-10 06:55:27 4 mg/dL F 2.4-5.1 Parathyrin.intact [Mass/volume] in Serum or Plasma 2024-10-09 01:09:23 531 pg/mL F 18.0-80.0 Parathyrin.intact [Mass/volume] in Serum or Plasma 2024-10-09 01:09:23 531 pg/mL F 18.0-80.0 CA CORRECTED 2024-09-24 17:12:02 9.4 mg/dL F Calcium [Mass/volume] in Serum or Plasma 2024-09-24 17:08:44 9.2 mg/dL F 8.7-10.4 Alkaline phosphatase [Enzymatic activity/volume] in Serum or Plasma 2024-09-24 16:32:23 142 U/L F 46.0-116.0 CA CORRECTED 2024-09-11 08:50:05 10.1 mg/dL F CA/PHOS PRODUCT 2024-09-11 08:49:13 31.3 Calc F 21.0-53.0 CA*PO4 CORRCTD 2024-09-11 08:49:13 31.3 Calc F 21.0-53.0 Calcium [Mass/volume] in Serum or Plasma 2024-09-11 07:47:12 10.1 mg/dL F 8.7-10.4 Parathyrin.intact [Mass/volume] in Serum or Plasma 2024-09-11 03:34:17 565 pg/mL F 18.0-80.0 Phosphate [Mass/volume] in Serum or Plasma 2024-09-10 22:51:23 3.1 mg/dL F 2.4-5.1 Alkaline phosphatase [Enzymatic activity/volume] in Serum or Plasma 2024-08-27 15:02:17 122 U/L F 46.0-116.0 Alkaline phosphatase [Enzymatic activity/volume] in Serum or Plasma 2024-03-27 18:42:34 123 U/L F 46.0-116.0 Alkaline phosphatase [Enzymatic activity/volume] in Serum or Plasma 2024-03-27 18:42:34 123 U/L F 46.0-116.0 CA CORRECTED 2023-06-08 19:40:54 10.2 mg/dL F Calcium [Mass/volume] in Serum or Plasma 2023-06-08 19:37:50 10.2 mg/dL F 8.7-10.4 CA CORRECTED 2023-05-29 08:00:43 10.4 mg/dL F Calcium [Mass/volume] in Serum or Plasma 2023-05-24 04:26:25 10.4 mg/dL F 8.7-10.4 Alkaline phosphatase [Enzymatic activity/volume] in Serum or Plasma 2023-05-23 19:19:29 68 U/L F 46.0-116.0 Alkaline phosphatase [Enzymatic activity/volume] in Serum or Plasma 2023-04-25 18:42:13 65 U/L F 46.0-116.0 Alkaline phosphatase [Enzymatic activity/volume] in Serum or Plasma 2023-03-21 17:29:17 63 U/L F 46.0-116.0 CA CORRECTED 2023-02-01 09:14:32 9.5 mg/dL F CA CORRECTED 2023-02-01 09:14:32 9.5 mg/dL F CA/PHOS PRODUCT 2023-02-01 07:25:24 48.5 Calc F 21.0-53.0 CA*PO4 CORRCTD 2023-02-01 07:25:24 48.5 Calc F 21.0-53.0 CA/PHOS PRODUCT 2023-02-01 07:25:24 48.5 Calc F 21.0-53.0 CA*PO4 CORRCTD 2023-02-01 07:25:24 48.5 Calc F 21.0-53.0 Calcium [Mass/volume] in Serum or Plasma 2023-02-01 07:16:35 9.5 mg/dL F 8.7-10.4 Calcium [Mass/volume] in Serum or Plasma 2023-02-01 07:16:35 9.5 mg/dL F 8.7-10.4 Parathyrin.intact [Mass/volume] in Serum or Plasma 2023-01-31 19:16:17 350 pg/mL F 18.0-80.0 Parathyrin.intact [Mass/volume] in Serum or Plasma 2023-01-31 19:16:17 350 pg/mL F 18.0-80.0 Alkaline phosphatase [Enzymatic activity/volume] in Serum or Plasma 2023-01-31 17:51:17 72 U/L F 46.0-116.0 Phosphate [Mass/volume] in Serum or Plasma 2023-01-31 17:51:17 5.1 mg/dL F 2.4-5.1 Alkaline phosphatase [Enzymatic activity/volume] in Serum or Plasma 2023-01-31 17:51:17 72 U/L F 46.0-116.0 Phosphate [Mass/volume] in Serum or Plasma 2023-01-31 17:51:17 5.1 mg/dL F 2.4-5.1 Alkaline phosphatase [Enzymatic activity/volume] in Serum or Plasma 2023-01-19 15:09:12 71 U/L F 46.0-116.0 Alkaline phosphatase [Enzymatic activity/volume] in Serum or Plasma 2023-01-19 15:09:12 71 U/L F 46.0-116.0 Alkaline phosphatase [Enzymatic activity/volume] in Serum or Plasma 2022-12-22 20:57:58 64 U/L F 46.0-116.0 Alkaline phosphatase [Enzymatic activity/volume] in Serum or Plasma 2022-12-22 20:57:58 64 U/L F 46.0-116.0 Alkaline phosphatase [Enzymatic activity/volume] in Serum or Plasma 2022-11-17 18:14:06 73 U/L F 46.0-116.0 Alkaline phosphatase [Enzymatic activity/volume] in Serum or Plasma 2022-10-28 15:58:42 86 U/L F 46.0-116.0 Alkaline phosphatase [Enzymatic activity/volume] in Serum or Plasma 2022-10-28 15:58:42 86 U/L F 46.0-116.0 Alkaline phosphatase [Enzymatic activity/volume] in Serum or Plasma 2022-10-24 08:05:48 F Canceled - Speci men not received 5 days past draw date Nutrition Description Draw Date Result/Unit Status Ref Range Result Comments A/G RATIO 2024-12-24 15:13:25 1.7 Calc F 1.0-2.5 GLOBULIN 2024-12-24 15:13:25 2.6 g/dL F 0.9-5.0 Protein [Mass/volume] in Serum or Plasma 2024-12-24 15:12:25 7 g/dL F 5.7-8.2 Bicarbonate [Moles/volume] in Serum or Plasma 2024-12-24 15:12:25 25 mEq/L F 20.0-31.0 Lactate dehydrogenase [Enzymatic activity/volume] in Serum or Plasma 2024-12-24 15:12:25 124 U/L F 120.0-246.0 Albumin [Mass/volume] in Serum or Plasma by Bromocresol green (BCG) dye binding method 2024-12-24 15:12:25 4.4 g/dL F 3.4-4.8 Potassium [Moles/volume] in Serum or Plasma 2024-12-11 07:02:46 4.2 mEq/L F 3.5-5.5 Albumin [Mass/volume] in Serum or Plasma by Bromocresol green (BCG) dye binding method 2024-12-03 16:08:20 4.2 g/dL F 3.4-4.8 Potassium [Moles/volume] in Serum or Plasma 2024-11-26 19:17:36 4.5 mEq/L F 3.5-5.5 GLOBULIN 2024-11-26 16:21:30 2.5 g/dL F 0.9-5.0 A/G RATIO 2024-11-26 16:21:30 1.6 Calc F 1.0-2.5 Albumin [Mass/volume] in Serum or Plasma by Bromocresol green (BCG) dye binding method 2024-11-26 16:20:30 4.1 g/dL F 3.4-4.8 Bicarbonate [Moles/volume] in Serum or Plasma 2024-11-26 16:20:30 24 mEq/L F 20.0-31.0 Lactate dehydrogenase [Enzymatic activity/volume] in Serum or Plasma 2024-11-26 16:20:30 121 U/L F 120.0-246.0 Protein [Mass/volume] in Serum or Plasma 2024-11-26 16:20:30 6.6 g/dL F 5.7-8.2 Potassium [Moles/volume] in Serum or Plasma 2024-11-13 07:13:33 4.6 mEq/L F 3.5-5.5 Potassium [Moles/volume] in Serum or Plasma 2024-10-10 08:47:32 4.8 mEq/L F 3.5-5.5 Potassium [Moles/volume] in Serum or Plasma 2024-10-10 08:47:32 4.8 mEq/L F 3.5-5.5 Potassium [Moles/volume] in Serum or Plasma 2024-09-24 17:08:44 5.4 mEq/L F 3.5-5.5 A/G RATIO 2024-09-24 16:33:05 1.5 Calc F 1.0-2.5 GLOBULIN 2024-09-24 16:33:05 2.6 g/dL F 0.9-5.0 Albumin [Mass/volume] in Serum or Plasma by Bromocresol green (BCG) dye binding method 2024-09-24 16:32:23 3.8 g/dL F 3.4-4.8 Bicarbonate [Moles/volume] in Serum or Plasma 2024-09-24 16:32:23 26 mEq/L F 20.0-31.0 Lactate dehydrogenase [Enzymatic activity/volume] in Serum or Plasma 2024-09-24 16:32:23 125 U/L F 120.0-246.0 Protein [Mass/volume] in Serum or Plasma 2024-09-24 16:32:23 6.4 g/dL F 5.7-8.2 Potassium [Moles/volume] in Serum or Plasma 2024-09-11 07:47:12 4.7 mEq/L F 3.5-5.5 A/G RATIO 2024-08-27 15:03:16 1.7 Calc F 1.0-2.5 GLOBULIN 2024-08-27 15:03:16 2.5 g/dL F 0.9-5.0 Albumin [Mass/volume] in Serum or Plasma by Bromocresol green (BCG) dye binding method 2024-08-27 15:02:17 4.2 g/dL F 3.4-4.8 Bicarbonate [Moles/volume] in Serum or Plasma 2024-08-27 15:02:17 26 mEq/L F 20.0-31.0 Protein [Mass/volume] in Serum or Plasma 2024-08-27 15:02:17 6.7 g/dL F 5.7-8.2 Lactate dehydrogenase [Enzymatic activity/volume] in Serum or Plasma 2024-08-27 15:01:19 F Recollect - Hemolyzed specimen Potassium [Moles/volume] in Serum or Plasma 2024-08-27 15:01:19 F Recollect - Hemolyzed specimen Potassium [Moles/volume] in Serum or Plasma 2024-03-27 23:49:54 4.4 mEq/L F 3.5-5.5 Potassium [Moles/volume] in Serum or Plasma 2024-03-27 23:49:54 4.4 mEq/L F 3.5-5.5 A/G RATIO 2024-03-27 18:43:09 1.5 Calc F 1.0-2.5 GLOBULIN 2024-03-27 18:43:09 2.6 g/dL F 0.9-5.0 LDL-CHOLESTEROL 2024-03-27 18:43:09 57 mg/dL F 0.0-99.0 VLDL-CHOL(CALC) 2024-03-27 18:43:09 13 mg/dL F 0.0-29.0 CHOL/HDL RATIO 2024-03-27 18:43:09 1.8 Calc F 3.3-5.0 A/G RATIO 2024-03-27 18:43:09 1.5 Calc F 1.0-2.5 GLOBULIN 2024-03-27 18:43:09 2.6 g/dL F 0.9-5.0 LDL-CHOLESTEROL 2024-03-27 18:43:09 57 mg/dL F 0.0-99.0 VLDL-CHOL(CALC) 2024-03-27 18:43:09 13 mg/dL F 0.0-29.0 CHOL/HDL RATIO 2024-03-27 18:43:09 1.8 Calc F 3.3-5.0 Albumin [Mass/volume] in Serum or Plasma by Bromocresol green (BCG) dye binding method 2024-03-27 18:42:34 4 g/dL F 3.4-4.8 Cholesterol [Mass/volume] in Serum or Plasma 2024-03-27 18:42:34 163 mg/dL F 0.0-199.0 Bicarbonate [Moles/volume] in Serum or Plasma 2024-03-27 18:42:34 26 mEq/L F 20.0-31.0 Lactate dehydrogenase [Enzymatic activity/volume] in Serum or Plasma 2024-03-27 18:42:34 129 U/L F 120.0-246.0 Protein [Mass/volume] in Serum or Plasma 2024-03-27 18:42:34 66 mg/dL F 0.0-149.0 Protein [Mass/volume] in Serum or Plasma 2024-03-27 18:42:34 6.6 g/dL F 5.7-8.2 Cholesterol in HDL [Mass/volume] in Serum or Plasma 2024-03-27 18:42:34 93 mg/dL F 40.0-60.0 Albumin [Mass/volume] in Serum or Plasma by Bromocresol green (BCG) dye binding method 2024-03-27 18:42:34 4 g/dL F 3.4-4.8 Bicarbonate [Moles/volume] in Serum or Plasma 2024-03-27 18:42:34 26 mEq/L F 20.0-31.0 Cholesterol [Mass/volume] in Serum or Plasma 2024-03-27 18:42:34 163 mg/dL F 0.0-199.0 Lactate dehydrogenase [Enzymatic activity/volume] in Serum or Plasma 2024-03-27 18:42:34 129 U/L F 120.0-246.0 Protein [Mass/volume] in Serum or Plasma 2024-03-27 18:42:34 66 mg/dL F 0.0-149.0 Protein [Mass/volume] in Serum or Plasma 2024-03-27 18:42:34 6.6 g/dL F 5.7-8.2 Cholesterol in HDL [Mass/volume] in Serum or Plasma 2024-03-27 18:42:34 93 mg/dL F 40.0-60.0 A/G RATIO 2023-05-24 04:33:15 1.6 Calc F 1.0-2.5 GLOBULIN 2023-05-24 04:33:15 2.6 g/dL F 0.9-5.0 Albumin [Mass/volume] in Serum or Plasma by Bromocresol green (BCG) dye binding method 2023-05-23 19:19:30 4.2 g/dL F 3.4-4.8 Bicarbonate [Moles/volume] in Serum or Plasma 2023-05-23 19:19:29 25 mEq/L F 20.0-31.0 Potassium [Moles/volume] in Serum or Plasma 2023-05-23 19:19:29 3.8 mEq/L F 3.5-5.5 Lactate dehydrogenase [Enzymatic activity/volume] in Serum or Plasma 2023-05-23 19:19:29 133 U/L F 120.0-246.0 Protein [Mass/volume] in Serum or Plasma 2023-05-23 19:19:29 6.8 g/dL F 5.7-8.2 A/G RATIO 2023-04-25 18:42:42 1.6 Calc F 1.0-2.5 GLOBULIN 2023-04-25 18:42:42 2.6 g/dL F 0.9-5.0 Albumin [Mass/volume] in Serum or Plasma by Bromocresol green (BCG) dye binding method 2023-04-25 18:42:13 4.2 g/dL F 3.4-4.8 Bicarbonate [Moles/volume] in Serum or Plasma 2023-04-25 18:42:13 26 mEq/L F 20.0-31.0 Lactate dehydrogenase [Enzymatic activity/volume] in Serum or Plasma 2023-04-25 18:42:13 147 U/L F 120.0-246.0 Potassium [Moles/volume] in Serum or Plasma 2023-04-25 18:42:13 4.1 mEq/L F 3.5-5.5 Protein [Mass/volume] in Serum or Plasma 2023-04-25 18:42:13 6.8 g/dL F 5.7-8.2 A/G RATIO 2023-03-21 17:29:44 1.5 Calc F 1.0-2.5 GLOBULIN 2023-03-21 17:29:44 2.7 g/dL F 0.9-5.0 Bicarbonate [Moles/volume] in Serum or Plasma 2023-03-21 17:29:19 21 mEq/L F 20.0-31.0 Albumin [Mass/volume] in Serum or Plasma by Bromocresol green (BCG) dye binding method 2023-03-21 17:29:17 4.1 g/dL F 3.4-4.8 Lactate dehydrogenase [Enzymatic activity/volume] in Serum or Plasma 2023-03-21 17:29:17 149 U/L F 120.0-246.0 Potassium [Moles/volume] in Serum or Plasma 2023-03-21 17:29:17 4.1 mEq/L F 3.5-5.5 Protein [Mass/volume] in Serum or Plasma 2023-03-21 17:29:17 6.8 g/dL F 5.7-8.2 A/G RATIO 2023-01-31 17:51:33 1.6 Calc F 1.0-2.5 GLOBULIN 2023-01-31 17:51:33 2.6 g/dL F 0.9-5.0 LDL-CHOLESTEROL 2023-01-31 17:51:33 55 mg/dL F 0.0-99.0 VLDL-CHOL(CALC) 2023-01-31 17:51:33 17 mg/dL F 0.0-29.0 CHOL/HDL RATIO 2023-01-31 17:51:33 2.1 Calc F 3.3-5.0 A/G RATIO 2023-01-31 17:51:33 1.6 Calc F 1.0-2.5 GLOBULIN 2023-01-31 17:51:33 2.6 g/dL F 0.9-5.0 LDL-CHOLESTEROL 2023-01-31 17:51:33 55 mg/dL F 0.0-99.0 CHOL/HDL RATIO 2023-01-31 17:51:33 2.1 Calc F 3.3-5.0 VLDL-CHOL(CALC) 2023-01-31 17:51:33 17 mg/dL F 0.0-29.0 Albumin [Mass/volume] in Serum or Plasma by Bromocresol green (BCG) dye binding method 2023-01-31 17:51:17 4.2 g/dL F 3.4-4.8 Cholesterol [Mass/volume] in Serum or Plasma 2023-01-31 17:51:17 139 mg/dL F 0.0-199.0 Bicarbonate [Moles/volume] in Serum or Plasma 2023-01-31 17:51:17 22 mEq/L F 20.0-31.0 Lactate dehydrogenase [Enzymatic activity/volume] in Serum or Plasma 2023-01-31 17:51:17 139 U/L F 120.0-246.0 Potassium [Moles/volume] in Serum or Plasma 2023-01-31 17:51:17 4.1 mEq/L F 3.5-5.5 Protein [Mass/volume] in Serum or Plasma 2023-01-31 17:51:17 6.8 g/dL F 5.7-8.2 Protein [Mass/volume] in Serum or Plasma 2023-01-31 17:51:17 87 mg/dL F 0.0-149.0 Cholesterol in HDL [Mass/volume] in Serum or Plasma 2023-01-31 17:51:17 67 mg/dL F 40.0-60.0 Albumin [Mass/volume] in Serum or Plasma by Bromocresol green (BCG) dye binding method 2023-01-31 17:51:17 4.2 g/dL F 3.4-4.8 Cholesterol [Mass/volume] in Serum or Plasma 2023-01-31 17:51:17 139 mg/dL F 0.0-199.0 Bicarbonate [Moles/volume] in Serum or Plasma 2023-01-31 17:51:17 22 mEq/L F 20.0-31.0 Lactate dehydrogenase [Enzymatic activity/volume] in Serum or Plasma 2023-01-31 17:51:17 139 U/L F 120.0-246.0 Potassium [Moles/volume] in Serum or Plasma 2023-01-31 17:51:17 4.1 mEq/L F 3.5-5.5 Protein [Mass/volume] in Serum or Plasma 2023-01-31 17:51:17 87 mg/dL F 0.0-149.0 Protein [Mass/volume] in Serum or Plasma 2023-01-31 17:51:17 6.8 g/dL F 5.7-8.2 Cholesterol in HDL [Mass/volume] in Serum or Plasma 2023-01-31 17:51:17 67 mg/dL F 40.0-60.0 A/G RATIO 2023-01-19 15:10:11 1.9 Calc F 1.0-2.5 GLOBULIN 2023-01-19 15:10:11 2.3 g/dL F 0.9-5.0 A/G RATIO 2023-01-19 15:10:11 1.9 Calc F 1.0-2.5 GLOBULIN 2023-01-19 15:10:11 2.3 g/dL F 0.9-5.0 Bicarbonate [Moles/volume] in Serum or Plasma 2023-01-19 15:09:12 27 mEq/L F 20.0-31.0 Albumin [Mass/volume] in Serum or Plasma by Bromocresol green (BCG) dye binding method 2023-01-19 15:09:12 4.3 g/dL F 3.4-4.8 Lactate dehydrogenase [Enzymatic activity/volume] in Serum or Plasma 2023-01-19 15:09:12 132 U/L F 120.0-246.0 Potassium [Moles/volume] in Serum or Plasma 2023-01-19 15:09:12 4.5 mEq/L F 3.5-5.5 Protein [Mass/volume] in Serum or Plasma 2023-01-19 15:09:12 6.6 g/dL F 5.7-8.2 Albumin [Mass/volume] in Serum or Plasma by Bromocresol green (BCG) dye binding method 2023-01-19 15:09:12 4.3 g/dL F 3.4-4.8 Bicarbonate [Moles/volume] in Serum or Plasma 2023-01-19 15:09:12 27 mEq/L F 20.0-31.0 Lactate dehydrogenase [Enzymatic activity/volume] in Serum or Plasma 2023-01-19 15:09:12 132 U/L F 120.0-246.0 Potassium [Moles/volume] in Serum or Plasma 2023-01-19 15:09:12 4.5 mEq/L F 3.5-5.5 Protein [Mass/volume] in Serum or Plasma 2023-01-19 15:09:12 6.6 g/dL F 5.7-8.2 A/G RATIO 2022-12-22 20:58:48 1.7 Calc F 1.0-2.5 GLOBULIN 2022-12-22 20:58:48 2.7 g/dL F 0.9-5.0 A/G RATIO 2022-12-22 20:58:48 1.7 Calc F 1.0-2.5 GLOBULIN 2022-12-22 20:58:48 2.7 g/dL F 0.9-5.0 Albumin [Mass/volume] in Serum or Plasma by Bromocresol green (BCG) dye binding method 2022-12-22 20:57:58 4.5 g/dL F 3.4-4.8 Bicarbonate [Moles/volume] in Serum or Plasma 2022-12-22 20:57:58 24 mEq/L F 20.0-31.0 Potassium [Moles/volume] in Serum or Plasma 2022-12-22 20:57:58 4.7 mEq/L F 3.5-5.5 Lactate dehydrogenase [Enzymatic activity/volume] in Serum or Plasma 2022-12-22 20:57:58 160 U/L F 120.0-246.0 Protein [Mass/volume] in Serum or Plasma 2022-12-22 20:57:58 7.2 g/dL F 5.7-8.2 Bicarbonate [Moles/volume] in Serum or Plasma 2022-12-22 20:57:58 24 mEq/L F 20.0-31.0 Albumin [Mass/volume] in Serum or Plasma by Bromocresol green (BCG) dye binding method 2022-12-22 20:57:58 4.5 g/dL F 3.4-4.8 Lactate dehydrogenase [Enzymatic activity/volume] in Serum or Plasma 2022-12-22 20:57:58 160 U/L F 120.0-246.0 Potassium [Moles/volume] in Serum or Plasma 2022-12-22 20:57:58 4.7 mEq/L F 3.5-5.5 Protein [Mass/volume] in Serum or Plasma 2022-12-22 20:57:58 7.2 g/dL F 5.7-8.2 A/G RATIO 2022-11-17 18:15:03 1.7 Calc F 1.0-2.5 GLOBULIN 2022-11-17 18:15:03 2.6 g/dL F 0.9-5.0 Albumin [Mass/volume] in Serum or Plasma by Bromocresol green (BCG) dye binding method 2022-11-17 18:14:06 4.4 g/dL F 3.4-4.8 Bicarbonate [Moles/volume] in Serum or Plasma 2022-11-17 18:14:06 28 mEq/L F 20.0-31.0 Lactate dehydrogenase [Enzymatic activity/volume] in Serum or Plasma 2022-11-17 18:14:06 167 U/L F 120.0-246.0 Potassium [Moles/volume] in Serum or Plasma 2022-11-17 18:14:06 4.4 mEq/L F 3.5-5.5 Protein [Mass/volume] in Serum or Plasma 2022-11-17 18:14:06 7 g/dL F 5.7-8.2 A/G RATIO 2022-10-28 15:59:06 1.7 Calc F 1.0-2.5 GLOBULIN 2022-10-28 15:59:06 2.6 g/dL F 0.9-5.0 A/G RATIO 2022-10-28 15:59:06 1.7 Calc F 1.0-2.5 GLOBULIN 2022-10-28 15:59:06 2.6 g/dL F 0.9-5.0 Albumin [Mass/volume] in Serum or Plasma by Bromocresol green (BCG) dye binding method 2022-10-28 15:58:42 4.3 g/dL F 3.4-4.8 Bicarbonate [Moles/volume] in Serum or Plasma 2022-10-28 15:58:42 24 mEq/L F 20.0-31.0 Lactate dehydrogenase [Enzymatic activity/volume] in Serum or Plasma 2022-10-28 15:58:42 148 U/L F 120.0-246.0 Potassium [Moles/volume] in Serum or Plasma 2022-10-28 15:58:42 4.4 mEq/L F 3.5-5.5 Protein [Mass/volume] in Serum or Plasma 2022-10-28 15:58:42 6.9 g/dL F 5.7-8.2 Albumin [Mass/volume] in Serum or Plasma by Bromocresol green (BCG) dye binding method 2022-10-28 15:58:42 4.3 g/dL F 3.4-4.8 Bicarbonate [Moles/volume] in Serum or Plasma 2022-10-28 15:58:42 24 mEq/L F 20.0-31.0 Potassium [Moles/volume] in Serum or Plasma 2022-10-28 15:58:42 4.4 mEq/L F 3.5-5.5 Lactate dehydrogenase [Enzymatic activity/volume] in Serum or Plasma 2022-10-28 15:58:42 148 U/L F 120.0-246.0 Protein [Mass/volume] in Serum or Plasma 2022-10-28 15:58:42 6.9 g/dL F 5.7-8.2 A/G RATIO 2022-10-24 08:39:39 F Canceled - Specimen not received 5 days past draw date GLOBULIN 2022-10-24 08:39:39 F Canceled - Specimen not received 5 days past draw date Albumin [Mass/volume] in Serum or Plasma by Bromocresol green (BCG) dye binding method 2022-10-24 08:05:48 F Canceled - Specimen not received 5 days past draw date Bicarbonate [Moles/volume] in Serum or Plasma 2022-10-24 08:05:48 F Canceled - Specimen not received 5 days past draw date Lactate dehydrogenase [Enzymatic activity/volume] in Serum or Plasma 2022-10-24 08:05:48 F Canceled - Specimen not received 5 days past draw date Potassium [Moles/volume] in Serum or Plasma 2022-10-24 08:05:48 F Canceled - Specimen not received 5 days past draw date Protein [Mass/volume] in Serum or Plasma 2022-10-24 08:05:48 F Canceled - Specimen not received 5 days past draw date Potassium [Moles/volume] in Serum or Plasma Encounters No encounter information to report Immunizations Ordered Immunization Name Filled Immunization Name Date Status Comments Refusal Reason Influenza, MDCK, trivalent, preservative 2024-08-12 14:48:00 Hep B, adult 2023-04-24 15:00:00 Influenza Vaccination 2022-08-03 05:00:00 Influenza Vaccination 2021-08-16 05:00:00 Pneumococcal Vaccination 2021-08-04 05:00:00 Covid-19 Vaccination 2021-01-14 05:00:00 Covid-19 Vaccination 2020-12-14 06:00:00 Plan of Treatment Planned Activity Provider Planned Date Details Commen ts Diagnostic Test Pending Agustin Villarreal 2024-09-09 07:32:14 Ferritin [Mass/volume] in Serum or Plasma [code = 2276-4] Diagnostic Test Pending Agustin Villarreal 2023-11-11 06:00:00 Hemoglobin [Mass/volume] in Blood [code = 718-7] Diagnostic Test Pending Agustin Villarreal 2023-04-28 05:00:00 Aluminum [Mass/volume] in Serum or Plasma [code = 5574-9] Diagnostic Test Pending Agustin Sanchezcell 2023-01-24 17:59:32 Potassium [Moles/volume] in Serum or Plasma [code = 2823-3] Diagnostic Test Pending Agustin Villarreal 2023-02-26 05:00:00 Parathyrin.intact [Mass/volume] in Serum or Plasma [code = 2731-8] Diagnostic Test Pending Agustin Villarreal 2023-01-29 05:00:00 Creatinine [Mass/volume] in Serum or Plasma [code = 2160-0] Diagnostic Test Pending Agustin Sanchezcell 2023-01-29 05:00:00 Alanine aminotransferase [Enzymatic activity/volume] in Serum or Plasma [code = 1742-6] Diagnostic Test Pending Agustin Sanchezcell 2023-01-29 05:00:00 Sodium [Moles/volume] in Serum or Plasma [code = 2951-2] [facility]23[facility]42 In-Center Hemodialysis Treatment [code = PPZ150] Diagnostic Test Pending Agustin Villarreal [facility] 2024-08-19 13:28:45 In-Center Hemodialysis Treatment [code = URC737] Diet Order Agustin Villarreal [facility] February 13, 2023 Diet Calorie 25 kcal/kg Fluid Value 1000 mL/d Phosphorus Value 1030 mg/d Potassium Value 2000 mg/d Protein Value 1.2 gm/kg Sodium Value 2000 mg/d Calculated Weight 86 kg
--- OUTSIDE RECORDS SUMMARY | 2024-12-24 11:12 | XMS_ITS | Clinical Summary ---
Author Organization [facility] Address [address] [place] [address] Phone Care Team Providers Care Editor Trade Journal Name Role Phone Ren Flower MD Primary Care Provider Allergies Active Allergy Reactions Criticality Noted Date Comments Penicillins Rash Medium 04/01/2020 Medications Medication Sig Dispensed Refills Start Date End Date Status atorvastatin (LIPITOR) 80 MG tablet 1 daily 0 07/26/2017 Active labetalol (NORMODYNE) 200 MG tablet 2 bid 0 12/03/2018 Active albuterol HFA (PROAIR HFA) 108 (90 Base) MCG/ACT inhaler 2q6 prn 0 12/03/2018 Active ipratropium-albutero l (DUO-NEB) 0.5-2.5 mg/3 mL nebulizer solution 10/23/2019 Active sildenafil (VIAGRA) 100 MG tablet 1 TAB BY MOUTH DAILY NEEDED FOR SEXUAL ACTIVITY ADMINISTER 30 MINUTES TO 4 HOURS BEFORE ACTIVITY 11/24/2019 Active HYDROcodone-acetamin ophen (NORCO) 5-325 MG per tablet 11/27/2019 Active amLODIPine (NORVASC) 10 MG tablet 09/13/2020 Active Bioflavonoid Products (Yadira-C) 500-550 MG tablet Take 1,000 mg by mouth Active Breo Ellipta 200-25 MCG/INH inhaler 09/13/2020 Active Active Problems Problem Noted Date Diagnosed Date Chronic kidney disease, Stage V 07/30/2017 Essential (primary) hypertension 07/30/2017 Hyperlipidemia 07/30/2017 Gout 07/30/2017 Immunizations Name Administration Dates Next Due Hepatitis B 08/19/2020,06/22/2020 Influenza TIV (IM) 08/30/2020,10/07/2019, 017 Moderna Sars-cov-2 Vaccination 01/14/2021 Tdap 11/03/2013 Family History Medical History Relation Comments Diabetes Father Diabetes mellitus Father Heart disease Mother Kidney disease Sibling Relation Status Comments Father Mother Sibling Social History Tobacco Use Types Packs/Day Years Used Date Smoking Tobacco: Former Smokeless Tobacco: Never Alcohol Use Standard Drinks/Week Comments No 0 (1 standard drink = 0.6 oz pur e alcohol) AUDIT-C Answer Date Recorded Frequency of Alcohol Consumption Never 02/08/2019 Average Number of Drinks Not on file 019 Frequency of Binge Drinking Not on file 01/27 Sex and Gender Information Value Date Recorded Sex Assigned at Not on file Gender Identity Not on file Sexual Orientation Not on file Last Filed Vital Signs Vital Sign Reading Time Taken Comments Blood Pressure 136/80 06/09/2021 1:11 PM CDT Pulse 72 06/09/2021 1:11 PM CDT Temperature 36.7 C (98 F) 06/09/2021 1:11 PM CDT Respiratory Rate - - Oxygen Saturation - - Inhaled Oxygen Concentration - - Weight 132 kg (290 lb) 06/09/2021 1:11 PM CDT Height 175.3 cm (5' 9 ) 06/09/2021 1:11 PM CDT Body Mass Index 42.83 06/09/2021 1:11 PM CDT Plan of Treatment Health Maintenance Due Date Last Done Comments COVID-19 Vaccine (2 - 2023-2 5 season) 2024 01/14/2021 Influenza Vaccine (#1) 2024 0, 10/07/2019, 09/27/2017 Care Teams Editor Trade Journal Relationship Specialty Start Date End Date Ren Flower MD [address] [place] [address] PCP - General Internal Medicine 02/12/19
--- OUTSIDE RECORDS SUMMARY | 2024-12-24 11:14 | XMS_ITS | CONTINUITY OF CARE DOCUMENT ---
Author Name jesus lee Address Unknown Organization [facility] Address [address] [place] [address] Phone [phone] Care Team Providers Care Cap Sizer Name Role Phone Arcenio Carl MD Unavailable [phone] Arcenio Carl MD Unavailable [phone] INSURANCE PROVIDERS Payer name Policy type / Coverage type [place] red alliance party ID [facility] [id number]
== END 2024-12-24 09:56 | disposition home or self-care (01) ==
PROVIDERS: PCP Family Medicine; Visit Provider Internal Medicine Nephrology
DX: R76.11 Nonspecific reaction to tuberculin skin test without active tuberculosis (principal)
CPT/HCPCS: 71046

== ENCOUNTER 2025-02-10 10:46 | Outpatient (CLI) | payer MEDICARE, SELFPAY ==
--- OUTSIDE RECORDS SUMMARY | 2025-02-10 11:56 | XMS_ITS | CONTINUITY OF CARE DOCUMENT ---
Author Name jesus lee Address Unknown Organization [facility] Address [address] [place] [address] Phone [phone] Care Team Providers Care Nutrition Director Name Role Phone Arcenio Carl MD Unavailable [phone] Arcenio Carl MD Unavailable [phone] INSURANCE PROVIDERS Payer name Policy type / Coverage type [place] red alliance party ID [facility] [id number] 1
--- OUTSIDE RECORDS SUMMARY | 2025-02-10 11:56 | XMS_ITS | Clinical Summary ---
Author Organization [facility] Address [address] [place] [id number] Phone Care Team Providers Care Low Heel Builder Name Role Phone Ren Flower MD Primary Care Provider Allergies Active Allergy Reactions Criticality Noted Date Comments Penicillins Rash Medium 04/01/2020 Medications atorvastatin (LIPITOR) 80 MG tablet 1 daily 0 7 Active labetalol (NORMODYNE) 200 MG tablet 2 bid 0 9 Active albuterol HFA (PROAIR HFA) 108 (90 Base) MCG/ACT inhaler 2q6 prn 0 9 Active ipratropium-alb uterol (DUO-NEB) 0.5-2.5 mg/3 mL nebulizer solution 9 Active sildenafil (VIAGRA) 100 MG tablet 1 TAB BY MOUTH DAILY NEEDED FOR SEXUAL ACTIVITY ADMINISTER 30 MINUTES TO 4 HOURS BEFORE ACTIVITY 0 Active HYDROcodone-yogesh taminophen (NORCO) 5-325 MG per tablet 0 Active amLODIPine (NORVASC) 10 MG tablet 0 Active Bioflavonoid Products (Yadira-C) 500-550 MG tablet Take 1,000 mg by mouth Active Breo Ellipta 200-25 MCG/INH inhaler 0 Active Active Problems Problem Noted Date Diagnosed Date Chronic kidney disease, Stage V 07/30/2017 Essential (primary) hypertension 07/30/2017 Hyperlipidemia 07/30/2017 Gout 07/30/2017 Immunizations Immunization Administration Dates Next Due Hepatitis B 08/19/2020,06/22/2020 [...] at Not on file Legal Sex Male 9:15 AM MST Gender Identity Not on file Sexual Orientation [...] Due Date Last Done Comments COVID-19 Vaccine (2023- 5 season) 2024 01/14/2021 Influenza Vaccine (Season Ended) 2025 08/30/2020, 10/07/2019, 09/27/2017 Insurance GENERIC BLUE CROSS Care Teams Low Heel Builder Relationship Specialty Start Date End Date Ren Flower MD [address] [place] [address] PCP - General Internal Medicine 02/12/19
--- OUTSIDE RECORDS SUMMARY | 2025-02-10 11:56 | XMS_ITS | Clinical Summary ---
Author Organization [facility] Address [address] [place] [address] Care Team Providers Care Medical Staffing Coordinator Name Role Phone Ren Flower MD Primary Care Provider Source Comments [facility],non-owned Affiliates and Associated Physician Practices is amultiple site organization consisting of ambulatory clinics and hospital sitesin [place], [place], [place]. This disclosure is being madepursuant to the Care Everywhere program and may not contain all information available regarding this patient. Last updated 18.[facility] Allergies Active Allergy Reactions Criticality Noted Date Comments Penicillins Rash Medium 04/01/2020 Medications * Be aware that medications may not be up to date on this document. Alwaysverify current medications with the patient. atorvastatin (LIPITOR) 80 MG tablet Take 80 mg by mouth at bedtime Active amLODIPine (NORVASC) 5 MG tablet Take 1 (one) tablet by mouth once daily Active HYDROcodone-Gio taminophen (NORCO PO) Take by mouth as needed Active PROAIR RESPICLICK 108 (90 Base) MCG/ACT INHALE 2 PUFFS BY MOUTH EVERY 4 6 HOURS NEEDED FOR SHORTNESS OF BREATH 0 Active labetalol (NORMODYNE; TRANDATE) 200 MG tablet 0 Active psyllium (METAMUCIL) 58.6 % powder Take [...] at Not on file Legal Sex Male 3:41 PM CDT Gender Identity Not on file Sexual Orientation [...] (2 - 2023-2 5 season) 2024 01/14/2021 DEPRESSION SCREENING 10/29/2024 INFLUENZA VACCINE (Season Ended) 2025 08/30/2020, 10/07/2019, 09/27/2017 HEPATITIS B VACCINE Aged Out No longe r eligible based on patient's age to complete this topic HIB VACCINE Aged Out No longer eligi ble based on patient's age to complete this topic HPV VACCINE Aged Out No longer eligi ble based on patient's age to complete this topic MENINGOCOCCAL (Group B) VACCINE SHARED DECISION-MAKING Aged Out No longer eligible based on patient's age to complete this topic MENINGOCOCCAL GROUPS A/C/Y/W VACCINE Aged Out No longer eligible b ased on patient's age to complete this topic Procedures Procedure Name Priority Date/Time Associated Diagnosis Comments COMPREHENSIVE METABOLIC PANEL Routine 07/13/2020 12:30 PM CDT Chronic kidney disease, stage 4 (severe) from Last 3 Months or Most Recently Relevant to Health Maintenance Results * (ABNORMAL) COMPREHENSIVE METABOLIC PANEL (07/13/2020 12:30 PM CDT) BUN 65(H) 7 - 26 mg/dL 07/13/2020 1:29 PM [facility] Creatinine 6.9(H) 0.6 - 1.2 mg/dL 07/13/2020 1:29 PM [facility] Sodium 144 136 - 145 mmol/L 07/13/2020 1:29 PM [facility] Potassium 4.7(H) 3.5 - 4.5 mmol/L 07/13/2020 1:29 PM [facility] Chloride 112(H) 98 - 107 mmol/L 07/13/2020 1:29 PM [facility] CO2 24 22 - 29 mmol/L 07/13/2020 1:29 PM [facility] Glucose 96 70 - 115 mg/dL 07/13/2020 1:29 PM [facility] Calcium 9.3 8.4 - 10.2 mg/dL 07/13/2020 1:29 PM [facility] Protein Total 7.2 6.0 - 8.3 g/dL 07/13/2020 1:29 PM [facility] Albumin 3.8 3.4 - 5.0 g/dL 07/13/2020 1:29 PM [facility] Bilirubin Total 1.1 0.2 - 1.2 mg/dL 07/13/2020 1:29 PM [facility] Alkaline Phosphatase 125 40 - 150 Units/L 07/13/2020 1:29 PM [facility] ALT 9 0 - 55 Units/L 07/13/2020 1:29 PM [facility] AST 12 5 - 34 Units/L 07/13/2020 1:29 PM [facility] Anion Gap 13 8 - 18 07/13/2020 1:29 PM [facility] BUN/Creatinine Ratio 9 7 - 23 07/13/2020 1:29 PM [facility] Osmolality Calculated 317(H) 270 - 300 mOsm/kg 07/13/2020 1:29 PM [facility] Albumin/Globulin Ratio 1.1 1.1 - 2.3 07/13/2020 1:29 PM [facility] eGFR 10(L) >60 mL/min/1.7 3 m2 07/13/2020 1:29 PM [facility] Blood BLOOD SPECIMEN / Unknown Lab Venipuncture / Unknown 07/13/2020 12:30 PM CDT 07/13/2020 1:01 PM T Ronnie Noriega MD LAB - CHEMISTRY ORDERABLES Final Result [facility] [address] [place] [address], [facility] [phone] from Last 3 Months or Most Recently Relevant to Health Maintenance Insurance JESSICA ANTHEM Care Teams Medical Staffing Coordinator Relationship Specialty Start Date End Date Ren Flower MD [address] [place] [address] PCP - General 01/30/20
[2025-02-10 18:41] LABS: Alanine Aminotransferase 16 U/L (6-50); Albumin Level 4.6 g/dL (3.5-5.1); Alkaline Phosphatase 118 U/L (38-126); Anion Gap 10 mmol/L (4-12); Aspartate Amino Transferase 31 U/L (17-59); Bilirubin,Total 1.8 mg/dL (0.2-1.3); Blood Urea Nitrogen 22 mg/dL (9-20); Calcium 9.7 mg/dL (8.4-10.2); Carbon Dioxide 34 mmol/L (22-30); Chloride 94 mmol/L (98-107); Cholesterol 171 mg/dL (0-200); Estimated Glomerular Filt Rate 9; Glucose 95 mg/dL (65-110); HDL Direct 95 mg/dL; Potassium 3.6 mmol/L (3.4-5.0); Sodium 138 mmol/L (137-145); Triglycerides 129 mg/dL (<150); Uric Acid 2.5 mg/dL (3.5-8.5)
[2025-02-10 18:52] LABS: LDL Cholesterol Direct 45 mg/dL
[2025-02-10 18:58] LABS: Basophils Percent Auto 1.2 % (0.2-1.2); Eosinophils Absolute Auto 0.1 K/mm3 (0-0.3); Eosinophils Percent Auto 3.5 % (0-4.4); Hematocrit 35.6 % (42.0-52.0); Hemoglobin 11.3 g/dL (14.0-18.0); Immature Granulocyte Absolute 0.01 K/mm3 (0.00-0.031); Immature Granulocyte Percent A 0.4 % (0-0.5); Lymphocytes Absolute Auto 0.75 K/mm3 (0.9-3.2); Lymphocytes Percent Auto 29.1 % (18.3-44.2); Mean Corpuscular HGB Conc 31.7 g/dl (32-36); Mean Corpuscular Volume 97.8 fl (80-100); Monocytes Absolute Auto 0.4 K/mm3 (0.1-0.6); Monocytes Percent Auto 14.3 % (2.6-8.5); Neutrophils Absolute Auto 1.3 K/mm3 (1.3-6.7); Neutrophils Percent Auto 51.5 % (45.5-73.1); Platelet Count Result 141 k/mm3 (150-375); Red Blood Count 3.64 M/mm3 (4.6-6.20); Red Cell Distribution Width 13.7 % (11.5-14.5); White Blood Count 2.6 K/mm3 (4.5-10.0)
[2025-02-10 19:04] LABS: Vitamin D 25 Hydroxy 59.9 ng/mL
[2025-02-10 19:18] LABS: Thyroid Stimulating Hormone Reflex 0.896 uIU/mL (0.465-4.68)
[2025-02-10 19:21] LABS: Hemoglobin A1C 4.7 % (<5.7)
== END 2025-02-10 10:47 | disposition home or self-care (01) ==
LOC: ANHGOSHLAB 10:47
PROVIDERS: PCP Family Medicine; Visit Provider Family Medicine
DX: E53.8 Deficiency of other specified B group vitamins (principal); Z99.2 Dependence on renal dialysis; E78.5 Hyperlipidemia, unspecified; M10.00 Idiopathic gout, unspecified site; Z00.00 Encounter for general adult medical examination without abnormal findings; R73.9 Hyperglycemia, unspecified; E55.9 Vitamin D deficiency, unspecified; I12.0 Hypertensive chronic kidney disease with stage 5 chronic kidney disease or end stage renal disease; N18.6 End stage renal disease
CPT/HCPCS: 36415; 80053; 80061; 82306; 82607; 83036; 84443; 84550; 85025